=== PATIENT | male | born 1955 | race Caucasian/White ===

== ENCOUNTER 2023-08-03 11:00 | Emergency (ER) | payer OTHER, SELFPAY ==
[2023-08-03 11:11] VITALS: BP 160/88
[2023-08-03 11:39] LABS: % Basophils 0.2 % (0-2); % Eosinophils 1.3 % (0-6); % Immature Granulocytes 1.2 % (0-0.5); % Lymphocytes 9.9 % (20.5-51.1); % Monocytes 8.9 % (1.7-9.3); % Neutrophils 78.5 % (42.2-75.2); Absolute Eosinophils 0.1 10^3/uL (0-0.7); Absolute Immature Granulocytes 0.1 10^3/uL (0-0.05); Absolute Lymphocytes 0.9 10^3/uL (1.2-3.4); Absolute Monocytes 0.8 10^3/uL (0.1-0.6); Hematocrit 33.5 % (39.0-52.0); Mean Corp Hgb Conc. 32.8 g/dL (33.0-37.0); Mean Corpuscular Hgb 31.1 pg (27.0-31.0); Mean Corpuscular Volume 94.6 fL (80.0-94.0); Mean Platelet Volume 9.1 fL (7.4-10.4); Nucleated Red Blood Cells % 0 % (-); Platelet Count 259 10^3/uL (130-400); Red Blood Cell Count 3.54 10^6/uL (4.70-6.10); Red Cell Dist. Width 14.7 % (11.5-14.5); White Blood Cell Count 8.9 10^3/uL (4.8-10.8)
[2023-08-03 12:01] LABS: ALT (SGPT) < 10 U/L (0-50); AST (SGOT) 15 U/L (17-59); Albumin 3.1 g/dl (3.5-5.0); Alkaline Phosphatase 138 U/L (38-126); Blood Urea Nitrogen 12 mg/dl (9-20); Calcium 8.4 mg/dl (8.4-10.2); Carbon Dioxide 28 mmol/L (22-30); Chloride 101 mmol/L (98-107); Glucose 98 mg/dl (70-99); Potassium 4.1 mmol/L (3.5-5.1); Sodium 135 mmol/L (135-145); Total Bilirubin 0.6 mg/dl (0.2-1.3); Total Protein 5.7 g/dl (6.3-8.2); eGFR > 60.00
[2023-08-03 12:04] LABS: NT-proBNP 489 pg/ml; Troponin I < 0.012 ng/ml
[2023-08-03 12:11] VITALS: BP 126/76
[2023-08-03 12:14] VITALS: BMI 34.6
--- NOTE | 2023-08-03 12:35 | ED.GENMED ---
History of Present Illness
General
Chief Complaint: Swelling
Time Seen by Provider: 08/03/23 12:04
Travel History
Have you had any contact with someone who has COVID-19?: No
Do you have any symptoms of coronavirus? Fever > 100 degrees, chills, cough, shortness of breath, sore throat, loss of taste or smell, muscle aches, or headache?: No
History of Present Illness
History of Present Illness:
68-year-old male with history of asthma presents to the emergency department for evaluation of gradually worsening bilateral lower extremity edema over the past 4 to 5 days. He is approximately 1 month status post lumbar laminectomy and open
reduction internal fixation of sacral insufficiency fractures performed at [facility]. He will currently walks with a walker, states his rehab has been going well. He does have lateral lower extremity neuropathic pain that is unchanged
since his surgery. He does not weigh himself routinely. Has no history of lower extremity fluid retention or heart failure. Did try an [id number] diuretic with no relief.
Past History
Past History
ED Past Medical History: Asthma, Cancer (Prostate CA, metastatic cancer found in a lymph node) and Other (UTI, Ulcers, Bronchitis, Renal calculus, Iron def. anemia, Chingles, ); Negative HTN, Hypercholesterolemia or NIDDM
ED Past Surgical History: Appendectomy, Bowel resection, Orthopedic (Right ankle ORIF), Urological (Prostatectomy) and Other (Gastric bypass, Hernia, cataracts)
Social History
Tobacco: Former smoker
Alcohol: Occasional
Drug: None
Personal:
Living: with family
Employment: Other
Family History
Family History: Other
Review of Systems
Review of Systems
Allergies reviewed?: Yes
All Other Systems: ROS reviewed and negative except as documented in HPI and ROS
Phy Exam
Physical Exam
Physical Exam:
GEN: Well appearing, NAD, WDWN
Eyes: PERRLA, EOMs intact, no scleral icterus
HENT: NCAT, oral mucosa moist
Lungs: On respiratory effort, expiratory wheezes heard throughout all lung pope
Cardiac: RRR, no M/R/G, no peripheral edema. Radial pulses 2+ bilat
Abdomen: S, NT, ND, NABS, no masses or hepatosplenomegaly
Neuro: AO x 3
MSK: No gross deformity or ecchymosis. 4+ pitting edema bilateral lower extremities to the knees
Skin: No rashes, petechiae. Normal color, no pallor or jaundice.
Psych: Calm, cooperative, proper hygiene
Scores
Heart Failure Risk
Heart Failure Risk Score: Not Applicable
Course
Orders/Labs/Results
Orders:
Orders
08/03/23 11:16
Electrocardiogram (*1) Urgent
Reason for Study: Shortness of Breath
EKG- Treatment ONCE
CXR2 [CR Chest - 2 Views ] Urgent
Comment:
Reason For Exam: sob lower extremity edema
08/03/23 11:31
Complete Blood Count/With Diff Urgent
Comprehensive Metabolic Panel Urgent
NT-proBNP Urgent
Troponin I Urgent
08/03/23 12:34
Venous Doppler Lwr Ext Bilat [US Periph Venous LOWER Ext Norman] Stat
Comment:
Reason For Exam: BLE edema, recent spinal surgery
Abnormal Lab Results
08/03/23
11:31
RBC 3.54 L 10^6/uL
(4.70-6.10)
Hgb 11.0 L g/dL
(13.0-18.0)
Hct 33.5 L %
(39.0-52.0)
MCV 94.6 H fL
(80.0-94.0)
MCH 31.1 H pg
(27.0-31.0)
MCHC 32.8 L g/dL
(33.0-37.0)
RDW 14.7 H %
(11.5-14.5)
Abs Immat Gran (auto) 0.1 H 10^3/uL
(0-0.05)
Absolute Neuts (auto) 7.0 H 10^3/uL
(1.4-6.5)
Absolute Lymphs (auto) 0.9 L 10^3/uL
(1.2-3.4)
Absolute Monos (auto) 0.8 H 10^3/uL
(0.1-0.6)
Immature Gran % 1.2 H %
(0-0.5)
Neutrophils % 78.5 H %
(42.2-75.2)
Lymphocytes % 9.9 L %
(20.5-51.1)
Creatinine 0.5 L mg/dL
(0.7-1.3)
AST 15 L U/L
(17-59)
Alkaline Phosphatase 138 H U/L
(38-126)
Total Protein 5.7 L g/dl
(6.3-8.2)
Albumin 3.1 L g/dl
(3.5-5.0)
08/03/23 11:31
08/03/23 11:31
Vital Signs
Initial and Last Documented VS:
Initial Vital Signs
Temp Pulse Resp BP Pulse Ox
98.0 F 84 16 160/88 95
08/03/23 11:11 08/03/23 11:11 08/03/23 11:11 08/03/23 11:11 08/03/23 11:11
Last Documented Vital Signs
Temp Pulse Resp BP Pulse Ox
98.0 F 75 14 126/76 98
08/03/23 11:11 08/03/23 12:15 08/03/23 12:15 08/03/23 12:11 08/03/23 12:16
MDM/Problems Addressed
MDM/Problems Addressed:
Patient is identified to have a right popliteal to calf vein DVT. This is not likely the cause of his bilateral peripheral edema, rather this is likely third spacing coupled with recent steroid administration coupled with physical deconditioning
from recent surgery. Will start low-dose diuretics in addition to anticoagulants for the DVT. In regards to the wheezing patient has no increased work of breathing at rest but does become dyspneic with exertion. He is not hypoxic and has no focal
consolidation on chest x-ray. Given that he recently discontinued oral steroid therapy will trial a course of nebulized steroids particular given the patient has some GI absorption problems from recent gastric bypass. Patient is comfortable with
this plan, he does not require hospitalization
*Critical Care Note
Total Time (30-74mins, 75-104mins- exclusive of procedures): Not Applicable
ED Attending Note
-
Portions of this chart may have been created with voice recognition software.� Occasional wrong word or��sound alike� substitutions may have occurred due to the inherent limitations of voice recognition software.
Discharge Plan
Departure
Patient Disposition: Home (Routine Discharge)
Date of Disposition: 08/03/23
Time of Disposition: 14:39
Patient with high blood pressure during this ER visit?: No
Discharge Problem:
Acute deep vein thrombosis (DVT) of popliteal vein of right lower extremity, Bilateral leg edema, Asthma exacerbation, mild
Instructions: Deep Vein Thrombosis (Blood Clots in the Legs) (DC), Dependent Edema (DC), Going Home on Blood Thinners
Prescriptions:
New
Eliquis DVT-PE Treat 30D Start 5 mg (74 tabs) tablets,dose pack
See Rx Instructions .ROUTE .COMPLEX Qty: 74 0RF
Rx Instructions:
orally per package directions
budesonide 0.5 mg/2 mL suspension for nebulization
0.5 mg inhalation BID 14 Days Qty: 60 0RF
furosemide [Lasix] 20 mg tablet
20 mg PO DAILY PRN (Reason: edema) Qty: 30 0RF
No Action
ipratropium-albuterol 0.5 mg-3 mg(2.5 mg base)/3 mL Solution For Nebulization
3 ml INHALATION R Q6HPRN PRN (Reason: sob)
prednisone 20 mg Tablet
20 mg PO BID
lidocaine 5 % Adhesive Patch,Medicated
1 patch TOPICAL BID
Patient Comments:
06/23/2023, pt. currently wearing one patch on their back.
ergocalciferol (vitamin D2) 1,250 mcg (50,000 unit) Capsule
1,250 mcg PO FR@0800
levofloxacin 500 mg Tablet
500 mg PO DAILY
Patient Comments:
06/23/2023, pt. filled this med. on 06/22/2023 and is instructed to take one tablet daily for 7 days. Spouse states that pt. took second dose today.
albuterol sulfate 90 mcg/actuation Hfa Aerosol Inhaler
2 puff INHALATION R Q6HPRN PRN (Reason: sob)
pregabalin 150 mg Capsule
150 mg PO Q12H
Patient Comments:
06/23/2023, pt. filled this med. on 06/03/2023 for 60 capsules according to PDMP.
Tylenol Extra Strength 500 mg Powder In Packet
1,000 mg PO DAILYPRN PRN (Reason: mild pain)
Referrals:
Monica Villafuerte MD [Family Provider] -
Interventions
Interventions:
*Risk Screen - Suicide Last Done: 08/03/23 14:47
*General Assessment Last Done: 08/03/23 12:14
*Neglect/Abuse Screening Last Done: 08/03/23 12:21
ED- Fall Risk Assessment Last Done: 08/03/23 14:47
*ED COVID-19 Vaccine History Last Done: 08/03/23 11:11
*Nursing Disposition Last Done: 08/03/23 14:47
ED- Cardiac Assessment Last Done: 08/03/23 12:16
ED- Pulmonary Assessment Last Done: 08/03/23 12:16
ED-Skin Assessment Last Done: 08/03/23 12:17
Discharge Date and Time
Discharge Date/Time: 08/03/23 14:47
== END 2023-08-03 14:47 | disposition home or self-care (01) ==
LOC: EMR 11:00
PROVIDERS: EMERGENCY PHYSICIAN Student in an Organized Health Care Education/Training Program; FAMILY PHYSICIAN Internal Medicine
DX: I82.4Z1 Acute embolism and thrombosis of unspecified deep veins of right distal lower extremity (principal); J45.901 Unspecified asthma with (acute) exacerbation; R22.43 Localized swelling, mass and lump, lower limb, bilateral; Z87.891 Personal history of nicotine dependence
CPT/HCPCS: 99285; 71046; 80053; 83880; 84484; 85025; 93005; 93970

== ENCOUNTER → 2023-08-13 09:26 | Outpatient (REF) | payer OTHER, SELFPAY ==
[2023-08-13 12:23] LABS: Urine Albumin Negative (Neg - Trace); Urine Bilirubin Negative (Negative); Urine Character Clear (Clear); Urine Color Yellow; Urine Glucose Negative (Negative); Urine Ketone Negative (Negative); Urine Leukocyte Negative (Negative); Urine Nitrite Negative (Negative); Urine Occult Blood Negative (Negative); Urine Urobilinogen Negative (Neg - 1+)
[2023-08-13 12:50] LABS: Blood Urea Nitrogen 17 mg/dl (9-20); Calcium 8.7 mg/dl (8.4-10.2); Carbon Dioxide 31 mmol/L (22-30); Chloride 103 mmol/L (98-107); Glucose 84 mg/dl (70-99); Iron 87 ug/dl (49-181); Sodium 137 mmol/L (135-145); eGFR > 60.00
[2023-08-13 12:59] LABS: Percent Saturation 42 % (20-50); Total Iron Binding Capacity 207 ug/dl (261-462)
[2023-08-13 13:16] LABS: PSA, Total - Diagnostic < 0.06 ng/ml (0.0-4.0)
[2023-08-13 13:18] LABS: % Basophils 0.9 % (0-2); % Eosinophils 1.9 % (0-6); % Immature Granulocytes 2.3 % (0-0.5); % Lymphocytes 17.4 % (20.5-51.1); % Monocytes 11.6 % (1.7-9.3); % Neutrophils 65.9 % (42.2-75.2); Absolute Basophils 0.1 10^3/uL (0-0.2); Absolute Eosinophils 0.2 10^3/uL (0-0.7); Absolute Immature Granulocytes 0.2 10^3/uL (0-0.05); Absolute Lymphocytes 1.4 10^3/uL (1.2-3.4); Absolute Monocytes 0.9 10^3/uL (0.1-0.6); Absolute Neutrophils 5.3 10^3/uL (1.4-6.5); Hematocrit 34.5 % (39.0-52.0); Hemoglobin 11.1 g/dL (13.0-18.0); Mean Corp Hgb Conc. 32.2 g/dL (33.0-37.0); Mean Corpuscular Hgb 30.3 pg (27.0-31.0); Mean Corpuscular Volume 94.3 fL (80.0-94.0); Mean Platelet Volume 9.4 fL (7.4-10.4); Nucleated Red Blood Cells % 0 % (-); Platelet Count 429 10^3/uL (130-400); Red Blood Cell Count 3.66 10^6/uL (4.70-6.10); Red Cell Dist. Width 14.5 % (11.5-14.5); White Blood Cell Count 8.1 10^3/uL (4.8-10.8)
== END ==
LOC: HWLAB 09:26
PROVIDERS: ATTENDING PHYSICIAN Internal Medicine Hematology & Oncology; FAMILY PHYSICIAN Internal Medicine; REFERRING PHYSICIAN Internal Medicine Interventional Cardiology
DX: D50.9 Iron deficiency anemia, unspecified (principal); D64.9 Anemia, unspecified; C61 Malignant neoplasm of prostate; E78.2 Mixed hyperlipidemia; R06.02 Shortness of breath; M79.89 Other specified soft tissue disorders; R60.0 Localized edema
CPT/HCPCS: 36415; 80048; 81003; 82728; 83540; 83550; 84153; 84403; 85025

== ENCOUNTER → 2023-08-20 09:23 | Outpatient (REF) | payer OTHER, SELFPAY ==
[2023-08-20 11:09] LABS: Blood Urea Nitrogen 18 mg/dl (9-20); Calcium 8.9 mg/dl (8.4-10.2); Carbon Dioxide 34 mmol/L (22-30); Chloride 98 mmol/L (98-107); Glucose 77 mg/dl (70-99); Magnesium 1.8 mg/dl (1.6-2.3); Potassium 3.7 mmol/L (3.5-5.1); Sodium 136 mmol/L (135-145); eGFR > 60.00
== END ==
LOC: REG 09:23
PROVIDERS: ATTENDING PHYSICIAN Internal Medicine Interventional Cardiology; FAMILY PHYSICIAN Internal Medicine
DX: I51.7 Cardiomegaly (principal); R06.02 Shortness of breath
CPT/HCPCS: 36415; 80048; 83735

== ENCOUNTER → 2023-08-22 07:47 | Outpatient (REF) | payer OTHER, SELFPAY | LOC: MRI 07:47 | PROVIDERS: ATTENDING PHYSICIAN Physician Assistant Surgical | DX: M48.062 Spinal stenosis, lumbar region with neurogenic claudication (principal); S32.19XD Other fracture of sacrum, subsequent encounter for fracture with routine healing; M54.16 Radiculopathy, lumbar region | CPT/HCPCS: 72148 ==

== ENCOUNTER 2023-08-22 12:21 | Inpatient (IN) | payer OTHER, SELFPAY ==
[2023-08-22] VITALS (9 sets, daily range): BP systolic 101–125; BP diastolic 60–86; BMI 32.6
[2023-08-22 10:25] LABS: % Basophils 0.6 % (0-2); % Eosinophils 1.8 % (0-6); % Immature Granulocytes 1.2 % (0-0.5); % Lymphocytes 9.3 % (20.5-51.1); % Monocytes 8.9 % (1.7-9.3); % Neutrophils 78.2 % (42.2-75.2); Absolute Basophils 0.1 10^3/uL (0-0.2); Absolute Eosinophils 0.2 10^3/uL (0-0.7); Absolute Immature Granulocytes 0.1 10^3/uL (0-0.05); Absolute Monocytes 0.9 10^3/uL (0.1-0.6); Absolute Neutrophils 8.3 10^3/uL (1.4-6.5); Hematocrit 33.8 % (39.0-52.0); Hemoglobin 11.3 g/dL (13.0-18.0); Mean Corp Hgb Conc. 33.4 g/dL (33.0-37.0); Mean Corpuscular Hgb 30.8 pg (27.0-31.0); Mean Corpuscular Volume 92.1 fL (80.0-94.0); Mean Platelet Volume 9.7 fL (7.4-10.4); Nucleated Red Blood Cells % 0 % (-); Platelet Count 332 10^3/uL (130-400); Red Blood Cell Count 3.67 10^6/uL (4.70-6.10); Red Cell Dist. Width 13.7 % (11.5-14.5); White Blood Cell Count 10.6 10^3/uL (4.8-10.8)
[2023-08-22] MEDS: BUMEX 2 MG IV (10:39)
[2023-08-22 10:42] LABS: ALT (SGPT) 10 U/L (0-50); AST (SGOT) 23 U/L (17-59); Albumin 3.4 g/dl (3.5-5.0); Alkaline Phosphatase 156 U/L (38-126); Blood Urea Nitrogen 21 mg/dl (9-20); Calcium 8.6 mg/dl (8.4-10.2); Carbon Dioxide 30 mmol/L (22-30); Chloride 100 mmol/L (98-107); Glucose 89 mg/dl (70-99); Potassium 3.3 mmol/L (3.5-5.1); Sodium 135 mmol/L (135-145); Total Bilirubin 0.6 mg/dl (0.2-1.3); Total Protein 6.2 g/dl (6.3-8.2); eGFR > 60.00
[2023-08-22 10:46] LABS: NT-proBNP 313 pg/ml
--- NOTE | 2023-08-22 11:14 | ED.GENMED ---
History of Present Illness
General
Chief Complaint: Swelling
Time Seen by Provider: 08/22/23 09:47
Travel History
Have you had any contact with someone who has COVID-19?: No
Do you have any symptoms of coronavirus? Fever > 100 degrees, chills, cough, shortness of breath, sore throat, loss of taste or smell, muscle aches, or headache?: No
History of Present Illness
History of Present Illness:
68-year-old male presents to the emergency department for evaluation of bilateral lower extremity swelling that has been gradually worsening for the past month. He is approximately 2 months status post lumbar spine surgery, was seen in this
emergency department several weeks ago for bilateral lower extremity edema at which time he was noted to have a right calf DVT and was started on Eliquis. He was also started on diuretics at that time and due to worsening symptoms his port traffic manager
increased his dosage at home. Due to prior gastric bypass the patient states he has been diagnosed with short gut syndrome and has typical difficulty with absorption of p.o. meds. Has been taking 8 mg of Bumex daily with no response.
Past History
Past History
ED Past Medical History: Asthma, Cancer (Prostate CA, metastatic cancer found in a lymph node) and Other (UTI, Ulcers, Bronchitis, Renal calculus, Iron def. anemia, Chingles, ); Negative HTN, Hypercholesterolemia or NIDDM
ED Past Surgical History: Appendectomy, Bowel resection, Orthopedic (Right ankle ORIF), Urological (Prostatectomy) and Other (Gastric bypass, Hernia, cataracts)
Social History
Tobacco: Former smoker
Alcohol: Occasional
Drug: None
Personal:
Living: with family
Employment: Other
Family History
Family History: Other
Review of Systems
Review of Systems
Allergies reviewed?: Yes
All Other Systems: ROS reviewed and negative except as documented in HPI and ROS
Phy Exam
Physical Exam
Physical Exam:
GEN: Well appearing, NAD, WDWN
Eyes: PERRLA, EOMs intact, no scleral icterus
HENT: NCAT, oral mucosa moist
Lungs: Expiratory wheezing heard throughout all lung pope, coarse rhonchi in the left lower lobe
Cardiac: RRR, no M/R/G, no peripheral edema. Radial pulses 2+ bilat
Abdomen: S, NT, ND, NABS, no masses or hepatosplenomegaly
Neuro: AO x 3, no focal deficits to BUE/BLE, normal sensation throughout
MSK: No gross deformity or ecchymosis. 4+ pitting edema bilateral extremities to the knees
Skin: No rashes, petechiae. Normal color, no pallor or jaundice.
Psych: Calm, cooperative, proper hygiene
Scores
Heart Failure Risk
Heart Failure Risk Score: Not Applicable
Course
Orders/Labs/Results
Orders:
Orders
08/22/23 Breakfast
Regular
At Your Request: Full Participation
08/22/23 09:57
Electrocardiogram (*1) Urgent
Reason for Study: Shortness of Breath
EKG- Treatment ONCE
CR Chest - 2 Views Urgent
Comment:
Reason For Exam: SOB
08/22/23 10:00
PTT Urgent
Comment: Obtain baseline before beginning heparin infusion if not already collected
08/22/23 10:09
Complete Blood Count/With Diff Urgent
Comprehensive Metabolic Panel Urgent
NT-proBNP Urgent
08/22/23 10:15
Bumetanide [Bumex] 2 mg IV NOW STA
08/22/23 11:25
Potassium Chloride [KCl] 40 meq PO NOW STA
08/22/23 11:32
Add On- LAB Routine
Tests Added?: BNP
08/22/23 11:35
Potassium Chloride [KCl] 20 meq 0.9% Sodium Chloride 150 ml [Nss] 150 ml IV NOW
08/22/23 11:51
Heparin Protocol- PTT Orders As Directed
PTT per Heparin protocol: -Obtain CBC and baseline PTT - if not already collected.
-Obtain PTT 6 hours from start of infusion. Then, every 6 hours until 2 consecutive
PTT's are therapeutic. Then, PTT Daily.
-With each rate change, obtain PTT every 6 hours until 2 consecutive PTT's are
therapeutic. Then, PTT Daily.
Notify MD As Directed
Notify physician if: PTT is greater than or equal to 200.
Peripheral Venous Lwr Ext Bilat US [US Periph Venous LOWER Ext Norman] Routine
Comment:
Reason For Exam: eval suspected worsening DVT
08/22/23 11:53
Admit/Transfer Patient As Directed
Co-Sign Provider:
Level of Care: Inpatient admission
Assign to:: Telemetry
Physician / Group: David Dyer
Diagnosis: Worsening Lower Ext Edema DVT vs HF
Reason for Telemetry: Subacute Heart Failure
Date to Stop Telemetry: 08/24/23
Time to Stop Telemetry: 11:00
Reason for Hospitalization: Worsening Lower Ext Edema DVT vs HF
Expected length of stay greater than two midnights?: Yes
ELOS- Estimated Length of Stay in days: 2
I certify the patient meets the requirements for IP care: Yes
08/22/23 11:56
Code Status As Directed
Resuscitation Status: Full Code
08/22/23 11:59
Heparin 4,600 units IV PRN PRN
Heparin 9,200 units IV PRN PRN
08/22/23 12:00
Flush (0.9% Sodium Chloride) [Flush (Nss)] See Dose Instructions IV PER PROTOCOL
Heparin 34775 Units/250 ml 25,000 units in 250 ml IV PER PROTOCOL
Weight to be used for heparin protocol in kilograms (kg):: 115
Protocol:: DVT/PE
PTT Goal Range to be used:: PTT 73 to 111 seconds
Order type:: Initial
INITIAL Infusion Dose (UNITS/KG/hr) & then follow protocol:: 18 units/kg/hr
Infusion Dose in UNITS/hr & then follow protocol (UNITS/hr):: 2,000
INFUSION RATE in mL/hr & then follow protocol (mL/hr):: 20
For DVT/PE algorithm, re-bolus for low PTT?: Yes
PTT less than or equal to 64 seconds:: Re-bolus 80 units/kg (max 10,000units). Increase by 500 units/hr
(+ 5mL/hr)
PTT 64.1 to 72.9 seconds:: Re-bolus 40 units/kg (max 5,000 units). Increase by 200 units/hr
(+ 2mL/hr)
PTT 73 to 111 seconds:: Target Range. No change in rate.
PTT 111.1 to 130.9 seconds:: Decrease rate by 200 units/hr (- 2 mL/hr)
PTT 131 to 199.9 seconds:: HOLD for 1 hr. Then decrease by 400 units/hr (- 4mL/hr)
PTT greater than or equal to 200 seconds:: HOLD for 2 hrs & Notify Provider. Then decrease by 500 units/hr
(- 5mL/hr)
Lab follow-up:: Each change, PTT q6h until 2 consecutive are therapeutic. Then
PTT daily.
Ipratropium/Albuterol Sulfate [Duoneb] 3 ml INH R QID
08/22/23 13:56
Acetaminophen [Tylenol] 650 mg PO Q4HPRN PRN
hydrocodone-acetaminophen 1 tablet PO Q6H PRN
08/22/23 13:56
Activity As Directed
Activity Level: With Assistance
Vital Signs As Directed
Frequency: Per unit guidelines
08/22/23 14:09
Tizanidine [Zanaflex] 2 mg PO BIDPRN PRN
08/22/23 18:00
PTT Urgent
Comment: Obtain baseline before beginning heparin infusion if not already collected
08/22/23 20:00
Pregabalin [Lyrica] 150 mg PO Q12
08/23/23 06:00
Basic Metabolic Panel IN AM
Complete Blood Count/No Diff IN AM
Magnesium IN AM
08/23/23 08:00
Lidocaine [Lidocaine 4% Patch] 0 patch TOPICAL DAILY
08/24/23 06:00
Basic Metabolic Panel IN AM
Complete Blood Count/No Diff IN AM
Magnesium IN AM
08/24/23 11:00
DC Protocol for Telemetry ONCE
08/25/23 06:00
Basic Metabolic Panel IN AM
Complete Blood Count/No Diff IN AM
Magnesium IN AM
08/26/23 06:00
Basic Metabolic Panel IN AM
Complete Blood Count/No Diff IN AM
Magnesium IN AM
08/27/23 06:00
Basic Metabolic Panel IN AM
Complete Blood Count/No Diff IN AM
Magnesium IN AM
08/28/23 06:00
Basic Metabolic Panel IN AM
Complete Blood Count/No Diff IN AM
Magnesium IN AM
08/28/23 08:00
Ergocalciferol [Drisdol (Vitamin D2)] 50,000 units PO FR@0800
08/29/23 06:00
Basic Metabolic Panel IN AM
Complete Blood Count/No Diff IN AM
Magnesium IN AM
Abnormal Lab Results
08/22/23 08/22/23
10:00 10:09
RBC 3.67 L 10^6/uL
(4.70-6.10)
Hgb 11.3 L g/dL
(13.0-18.0)
Hct 33.8 L %
(39.0-52.0)
Abs Immat Gran (auto) 0.1 H 10^3/uL
(0-0.05)
Absolute Neuts (auto) 8.3 H 10^3/uL
(1.4-6.5)
Absolute Lymphs (auto) 1.0 L 10^3/uL
(1.2-3.4)
Absolute Monos (auto) 0.9 H 10^3/uL
(0.1-0.6)
Immature Gran % 1.2 H %
(0-0.5)
Neutrophils % 78.2 H %
(42.2-75.2)
Lymphocytes % 9.3 L %
(20.5-51.1)
APTT 41.3 H Sec
(23.4-35.0)
Potassium 3.3 L mmol/L
(3.5-5.1)
BUN 21 H mg/dl
(9-20)
Alkaline Phosphatase 156 H U/L
(38-126)
Total Protein 6.2 L g/dl
(6.3-8.2)
Albumin 3.4 L g/dl
(3.5-5.0)
08/22/23 10:09
08/22/23 10:09
Vital Signs
Initial and Last Documented VS:
Initial Vital Signs
Temp Pulse Resp BP Pulse Ox
98.6 F 113 16 119/80 94
08/22/23 08:51 08/22/23 08:51 08/22/23 08:51 08/22/23 08:51 08/22/23 08:51
Last Documented Vital Signs
Temp Pulse Resp BP Pulse Ox
98 F 71 18 125/70 95
08/22/23 13:59 08/22/23 13:59 08/22/23 13:59 08/22/23 13:59 08/22/23 13:59
MDM/Problems Addressed
MDM/Problems Addressed:
He has no signs of congestive heart failure but certainly has massive bilateral peripheral edema. May be failing oral therapy due to short gut syndrome. Will admit for IV diuresis
*Critical Care Note
Total Time (30-74mins, 75-104mins- exclusive of procedures): Not Applicable
ED Attending Note
-
Portions of this chart may have been created with voice recognition software.� Occasional wrong word or��sound alike� substitutions may have occurred due to the inherent limitations of voice recognition software.
Discharge Plan
Departure
Patient Disposition: Admit
Date of Disposition: 08/22/23
Time of Disposition: 11:14
Admit to: Med/Surg
Presentation/result/management discussed w/ accepting MD/DO: Hospitalist
Discharge Problem:
Bilateral lower extremity edema, Failure of outpatient treatment
Interventions
Interventions:
*Risk Screen - Suicide Last Done: 08/22/23 08:51
*General Assessment Last Done: 08/22/23 08:51
*Neglect/Abuse Screening Last Done: 08/22/23 08:51
ED- Fall Risk Assessment Last Done: 08/22/23 10:12
*ED COVID-19 Vaccine History Last Done: 08/22/23 10:12
*Nursing Disposition Last Done: 08/22/23 13:40
ED- Cardiac Assessment Last Done: 08/22/23 10:12
ED- Pulmonary Assessment Last Done: 08/22/23 10:12
ED-Skin Assessment Last Done: 08/22/23 10:12
Discharge Date and Time
Discharge Date/Time: 08/22/23 14:17
[2023-08-22] MEDS: KCL 40 MEQ PO (11:35)
[2023-08-22] MEDS: KCL 160 MEQ IV (11:48)
--- NOTE | 2023-08-22 11:59 | HPS.HSE ---
Family Physician
-
Family Physician: Monica Villafuerte
Chief Complaint
-
Lower extremity edema
History of Present Illness
68 male prostate cancer status post prostatectomy gastric bypass abdomen hernia pair asthma lumbar spine stenosis status postlaminectomy sacral ala fractures status post ORIF recently diagnosed DVT right lower extremity a month ago started on
Eliquis referred to ED by outpatient plater printed circuit board panels due to progressive lower extremity edema swelling bilateral with associated calf tenderness past few weeks not responding to outpatient Bumex. Patient and reported heart failure has been
suspected but not formally diagnosed. Patient also reports recently completing steroid taper a few weeks ago for neuropathy. Exam is notable for wheezing. Vital signs stable on room air. Denies fevers chills coughing sneezing shortness of breath
nausea vomiting diarrhea constipation.
Medical History
Past Medical History
Past Medical History: Reports Other (As above)
Past Surgical History: Reports Other (As above)
Social History
Tobacco: Non-smoker
Alcohol: Occasional
Drug: None
Personal:
Living: With Family
Family History
Family History: Not pertinent (Reviewed)
Allergies / Home Medications
Allergies reflects when Allergies were last updated in [facility].
Home Medications with original date entered in [facility]
Allergy/Medication List:
Allergies
Allergy/AdvReac Type Severity Reaction Status Date / Time
dupilumab [From DupixDiet4Life Pen] Allergy Unknown Verified 08/22/23 08:50
NSAIDS (Non-Steroidal AdvReac Can not Verified 08/22/23 08:50
Anti-Inflamma take due
to Gastric
Bypass
Home Medications
acetaminophen 500 mg oral powder packet (Tylenol Extra Strength) 1,000 mg PO DAILYPRN PRN mild pain 06/23/23
albuterol sulfate 90 mcg/actuation aerosol inhaler 2 puff inhalation R Q6HPRN PRN sob 06/23/23
ergocalciferol (vitamin D2) 1,250 mcg (50,000 unit) capsule 1,250 mcg PO FR@0800 Supplement 06/23/23
ipratropium 0.5 mg-albuterol 3 mg (2.5 mg base)/3 mL nebulization soln 3 ml inhalation R Q6HPRN PRN sob 06/23/23
lidocaine 5 % topical patch 1 patch topical BID apply to middle lumbar back 06/23/23
pregabalin 150 mg capsule 150 mg PO Q12H Pain 06/23/23
apixaban 5 mg tablet (Eliquis) 5 mg PO BID 08/22/23
bumetanide 1 mg tablet 4 mg PO BID 08/22/23
hydrocodone 10 mg-acetaminophen 325 mg tablet 1 tab PO Q6H PRN pain 08/22/23
tizanidine 2 mg capsule 2 mg PO BIDPRN PRN muscle spasm 08/22/23
Review of Systems
-
A 12 point ROS was completed and negative except as noted: Yes
Constitutional: Reports Other (As below)
Physical Exam
Vital Signs
Vital Signs
Temp Pulse Resp BP Pulse Ox
98.6 F 75 19 102/60 98
08/22/23 08:51 08/22/23 11:15 08/22/23 11:15 08/22/23 11:04 08/22/23 10:12
Physical Exam
General: Other (As below)
Laboratory Results
-
08/22/23 10:09
08/22/23 10:09
Laboratory Results
Total Bilirubin 0.6 mg/dl (0.2-1.3) 08/22/23 10:09
AST 23 U/L (17-59) 08/22/23 10:09
ALT 10 U/L (0-50) 08/22/23 10:09
Alkaline Phosphatase 156 U/L (38-126) H 08/22/23 10:09
Impression/Plan
-
ROS
General: Denies fever chills night sweats unexpected weight loss
Neuro: Denies seizure shaking loss of consciousness dizziness vertigo
Psych: denies depression hallucinations confusion manic episodes
Endocrine: Denies polyuria polydipsia polyphagia heat/cold intolerance
HEENT: Denies blindness visual disturbances epistaxis
Pulmonary: denies coughing hemoptysis sneezing sob dyspnea on exertion
Cardiovascular: denies chest pain palpitations leg swelling
Hematology: denies signs symptoms of anemia easy bruising/bleeding
Gastrointestinal: denies nausea vomiting diarrhea constipation hematemesis hematochezia melena
Genito-Urinary: denies retention incontinence dysuria
Musculoskeletal: reports lower ext edema b/l lower ext's with associate calf tenderness b/l
Dermatology: denies rash laceration bruising
Physical Exam
General: No pallor, cyanosis, or jaundice.
HEENT: Throat clear. PERRLA Normocephalic atraumatic
NECK: Supple. No JVD Carotid Bruits
RESPIRATORY: Expiratory Wheeze
CVS: S1, S2 normal. RRR. No murmur, rub or gallop.
ABDOMEN: Soft, non-tender. No distension. BS+/normal.
EXTREMITIES: Lower ext swelling b/l with associate calf tenderness
FINANCIAL COMPLIANCE MANAGER: AOx3. No focal deficits.
IMPRESSION:
68 male prostate cancer status post prostatectomy gastric bypass abdomen hernia pair asthma lumbar spine stenosis status postlaminectomy sacral ala fractures status post ORIF recently diagnosed DVT right lower extremity a month ago started on
Eliquis referred to ED by outpatient plater printed circuit board panels due to progressive lower extremity edema swelling bilateral with associated calf tenderness past few weeks not responding to outpatient Bumex. Patient and reported heart failure has been
suspected but not formally diagnosed. Patient also reports recently completing steroid taper a few weeks ago for neuropathy. Exam is notable for wheezing. Vital signs stable on room air. Denies fevers chills coughing sneezing shortness of breath
nausea vomiting diarrhea constipation.
PLAN:
#Worsening lower extremity edema bilateral with associated calf tenderness
#Recently diagnosed DVT right lower extremity month ago started on Eliquis
#History of short gut syndrome following gastric bypass
Telemetry admit
Chest x-ray no acute abnormality
Discontinue Eliquis at this time
Start heparin GTT
Check venous duplex
Doubt heart failure contributing to edema, BNP well within normal limits
Will hold further diuresis at this time
#Asthma exacerbation/wheezing
Stable on room air
DuoNeb 4 times daily
Albuterol as needed
#Lumbar stenosis history laminectomy
#Neuropathy
Continue home pain regimen lidocaine Hubbard pregabalin tizanidine
Follow-up ED lumbar MRI results
#Mild hypokalemia
Monitor and replete
DVT prophylaxis heparin GTT
GI prophylaxis Protonix
Meds reconciled and resumed as appropriate
Full code
Discussed with patient and his
I spent a total of 80 minutes with the patient or on the floor. More than 50% of this time involved counseling and coordination of care.
[2023-08-22] MEDS: HEPARIN 25000 UNITS/250 ML IV (12:06)
[2023-08-22] MEDS: DUONEB 3 ML INH ×3 (12:14→19:30)
[2023-08-22 12:17] LABS: APTT 41.3 Sec (23.4-35.0)
[2023-08-22] MEDS: NORCO 5/325 2 TABLET PO ×2 (14:48→19:48)
[2023-08-22] MEDS: PROTONIX 40 MG PO (14:48)
[2023-08-22 18:33] LABS: APTT 139.3 Sec (23.4-35.0)
--- NOTE | 2023-08-22 19:35 | W.PN.UPDATE ---
Update Note
Progress Note Update
Patient home medication list updated, and PMDP reviewed. Patient hydrocodone-acetaminophen frequency updated and orders corrected.
[2023-08-22] MEDS: LYRICA 150 MG PO (21:20)
[2023-08-23] MEDS: NORCO 5/325 2 TABLET PO ×6 (01:15→23:20)
[2023-08-23] MEDS: HEPARIN 25000 UNITS/250 ML IV ×2 (03:11→18:30)
[2023-08-23 03:18] VITALS: BP 114/72
[2023-08-23 03:27] LABS: Hemoglobin 10.7 g/dL (13.0-18.0); Mean Corp Hgb Conc. 33.4 g/dL (33.0-37.0); Mean Corpuscular Hgb 30.9 pg (27.0-31.0); Mean Corpuscular Volume 92.5 fL (80.0-94.0); Mean Platelet Volume 9.5 fL (7.4-10.4); Platelet Count 281 10^3/uL (130-400); Red Blood Cell Count 3.46 10^6/uL (4.70-6.10); Red Cell Dist. Width 13.9 % (11.5-14.5); White Blood Cell Count 7.6 10^3/uL (4.8-10.8)
[2023-08-23 03:42] LABS: APTT 111.3 Sec (23.4-35.0)
[2023-08-23 04:38] LABS: Blood Urea Nitrogen 22 mg/dl (9-20); Calcium 8.5 mg/dl (8.4-10.2); Carbon Dioxide 29 mmol/L (22-30); Chloride 101 mmol/L (98-107); Estimated Creatinine Clearance 114 ml/min; Glucose 92 mg/dl (70-99); Magnesium 2.1 mg/dl (1.6-2.3); Potassium 3.3 mmol/L (3.5-5.1); Sodium 136 mmol/L (135-145); eGFR > 60.00
[2023-08-23 06:00] VITALS: BMI 32.8
--- NOTE | 2023-08-23 06:57 | W.PN.HOSP.TC ---
Today's Communication/Plan
-
cont hep gtt
Hematology eval
cont diuresis as per cardio
monitor and replete electrolytes
Pending ECHO
Assessment / Plan
Assessment / Plan
Physical Exam
General: No pallor, cyanosis, or jaundice.
HEENT: Throat clear. PERRLA Normocephalic atraumatic
NECK: Supple. No JVD Carotid Bruits
RESPIRATORY: Expiratory Wheeze
CVS: S1, S2 normal. RRR.� No murmur, rub or gallop.
ABDOMEN: Soft, non-tender. No distension. BS+/normal.
EXTREMITIES: Lower ext swelling b/l with associate calf tenderness
WATCH CRYSTAL GRINDER: AOx3. No focal deficits.
IMPRESSION:
68 male prostate cancer status post prostatectomy gastric bypass abdomen hernia pair asthma lumbar spine stenosis status postlaminectomy sacral ala fractures status post ORIF recently diagnosed DVT right lower extremity a month ago started on
Eliquis referred to ED by outpatient heavy line technician due to progressive lower extremity edema swelling bilateral with associated calf tenderness past few weeks not responding to outpatient Bumex.� Patient and reported heart failure has been
suspected but not formally diagnosed.� Patient also reports recently completing steroid taper a few weeks ago for neuropathy.� Exam is notable for wheezing.� Vital signs stable on room air.� Denies fevers chills coughing sneezing shortness of breath
nausea vomiting diarrhea constipation.
PLAN:
#Worsening lower extremity edema bilateral with associated calf tenderness
#Recently diagnosed DVT right lower extremity month ago started on Eliquis
#History of short gut syndrome following gastric bypass
#Possible Heart Failure unspecified type contributing
#Possible lower ext swelling may be due to Lymphedema, could consider compressive dressing LLE, RLE contraindicated d/t DVT
Telemetry admit
Chest x-ray no acute abnormality
home Eliquis on hold
cont heparin gtt
Hematology eval requested
Venous duplex notes same RLE DVT, no DVT LLE
CT angio abd/pelvis appreciated 08/22
-No evidence pelvic iliac or proximal femoral DVT b/l
-AAA 3.2 cm increased from 2.9 cm 03/25/23 imaging- outpatient follow up with Vascular recommended
-2.1 cm lesion rt external iliac vein unchanged from prior studies likely benign
BNP well within normal limits, though obesity can lead to falsely low values
Cardio eval appreciated
-Follow up ECHO
-cont IV diuresis
#Asthma exacerbation/wheezing
Stable on room air
DuoNeb 4 times daily
Albuterol as needed
will hold off on systemic steroids at this time
#Lumbar stenosis history laminectomy
#Neuropathy
Continue home pain regimen lidocaine Dinuba pregabalin tizanidine
Follow-up ED lumbar MRI results, remains pending
#Mild hypokalemia
Monitor and replete
Goal K 4 Mg 2
DVT prophylaxis heparin GTT
GI prophylaxis Protonix
Full code
Eventual PT/OT eval
Discussed with patient and his
I spent a total of� 57� � minutes with the patient or on the floor. More than 50% of this time involved counseling and coordination of care.
Anticipated Discharge: 24 - 48 hours
Subjective/Interval History
-
Date of Service: August 23, 2023
Seen and examined at bedside in no acute distress resting comfortably in bed. Denies new acute issues. Continues to report b/l lower ext swelling pain.
Objective Data
-
Labs:
Laboratory Results
08/23/23 08/23/23
03:21 09:55
WBC 7.6
Hgb 10.7 L
Hct 32.0 L
Plt Count 281
APTT 111.3 H Pending
Sodium 136
Potassium 3.3 L
Chloride 101
Carbon Dioxide 29
BUN 22 H
Creatinine 0.8
Glucose 92
Calcium 8.5
Vital Signs:
Vital Signs
Temp Pulse Resp BP Pulse Ox
97.8 F 69 18 114/72 94
08/23/23 03:18 08/23/23 03:18 08/23/23 03:18 08/23/23 03:18 08/23/23 03:18
I&O
08/21/23 08/22/23 08/23/23
06:59 06:59 06:59
Intake Total 240 / 240
Output Total 1275 / 1275
Balance -1035 / -1035
[2023-08-23 07:30] VITALS: BP 125/74
[2023-08-23] MEDS: DUONEB 3 ML INH ×4 (07:53→20:16)
[2023-08-23] MEDS: LYRICA 150 MG PO ×2 (08:25→20:25)
[2023-08-23] MEDS: PROTONIX 40 MG PO (08:25)
[2023-08-23] MEDS: KCL 40 MEQ PO ×2 (08:25→12:33)
--- NOTE | 2023-08-23 11:47 | CM ---
Patient seen bedside with daughter, Ben, and daughters significant other, Kishan, initial assessment completed. Patient reports he lives with his in an in law suite next to his son's house. Patient reports his assists him with any care he
may need. Patient reports the suite is all one floor and handicap accessible. Patient reports he has a walker, raised toilet seat, shower rails, shower chair, and toilet rails. Patient denies VN or SNF. Patient confirms PCP Monica Spangler,
pharmacy [facility]. CM will continue to follow for discharge planning needs.
Plan; home with family.
[2023-08-23 12:40] VITALS: BP 141/82
[2023-08-23] MEDS: NSS 1000 IV (12:40)
[2023-08-23 13:45] LABS: Iron 82 ug/dl (49-181)
[2023-08-23 13:54] LABS: Percent Saturation 41 % (20-50); Total Iron Binding Capacity 198 ug/dl (261-462)
[2023-08-23 15:20] VITALS: BP 132/77
--- NOTE | 2023-08-23 16:27 | CON.CAR ---
Consultation
Consultation Request
Date/Time Consultation Requested: 08/22/2023 at 1455
Date/Time Consultation Performed: 08/23/2023 at 1030
Requesting Provider: David Dyer
Performing Provider: Prosper Claros DO
Reason for Consultation: Possible HF
Medical History
-
Chief Complaint: Back pain, LE swelling
History of Present Illness:
Patient is a very pleasant 68-year-old male with past medical history significant for abdominal aortic aneurysm, incisional hernia status post repair, umbilical hernia status with surgical pair, COPD, iron deficiency anemia, prostate cancer status
post robotic prostatectomy, B12 efficiency, diverticulosis, history of gastric bypass, lumbar spinal stenosis status postlaminectomy and sacral fracture repair, right lower extremity DVT on Eliquis presenting for lower extremity swelling and back
pain/neuropathy. Patient had been on steroid taper for few weeks due to neuropathy and had also noticed concurrent lower extremity swelling. Patient underwent ultrasonography which demonstrated DVT and placed on Eliquis. Patient reports adherence
to all medications. Patient notes no improvement with oral diuretic therapy and outpatient Lasix was changed to Bumex 08/11/2023. There is concerned that due to patient's prior gastric bypass surgery, he may not be absorbing oral medications as
readily. Patient is a non-smoker, no alcohol, no illicits. Patient with strong family history for cardiovascular disease. Prior echocardiography demonstrated normal heart function in 2019. Patient notes mild shortness of breath and wheezing but
improved. Discussed with patient currently, he denies any chest pain, palpitations, lightheadedness, dizziness, fever, chills, nausea, vomiting, abdominal pain, syncope, or weakness. He notes lower extremity discomfort neuropathy, and swelling.
Past Medical History
Past Medical History: Other (See HPI)
Past Surgical History: Other (See HPI)
Social History
Tobacco: Non-Smoker
Alcohol: None
Drug: None
Personal:
Living: With Family
Family History
Family History: CAD and Hypertension
Allergies / Home Medications
Allergy/AdvReac Type Severity Reaction Status Date / Time
dupilumab [From [employer] [facility]] Allergy Unknown Verified 08/22/23 08:50
NSAIDS (Non-Steroidal AdvReac Can not Verified 08/22/23 08:50
Anti-Inflamma take due
to Gastric
Bypass
Medication Instructions Recorded Confirmed Type
acetaminophen 500 mg oral powder 1,000 mg PO DAILYPRN PRN mild pain 06/23/23 08/22/23 History
packet (Tylenol Extra Strength)
albuterol sulfate 90 mcg/actuation 2 puff inhalation R Q6HPRN PRN sob 06/23/23 08/22/23 History
aerosol inhaler
ergocalciferol (vitamin D2) 1,250 1,250 mcg PO FR@0800 Supplement 06/23/23 08/22/23 History
mcg (50,000 unit) capsule
ipratropium 0.5 mg-albuterol 3 mg 3 ml inhalation R Q6HPRN PRN sob 06/23/23 08/22/23 History
(2.5 mg base)/3 mL nebulization
soln
lidocaine 5 % topical patch 1 patch topical BID apply to 06/23/23 08/22/23 History
middle lumbar back
pregabalin 150 mg capsule 150 mg PO Q12H Pain 06/23/23 08/22/23 History
apixaban 5 mg tablet (Eliquis) 5 mg PO BID Blood Clot 08/22/23 08/22/23 History
Prevention/Tx
bumetanide 1 mg tablet 4 mg PO BID Fluid 08/22/23 08/22/23 History
Retention/Swelling
hydrocodone 10 mg-acetaminophen 1 tab PO Q4H Pain 08/22/23 08/22/23 History
325 mg tablet
tizanidine 2 mg capsule 2 mg PO BIDPRN PRN muscle spasm 08/22/23 08/22/23 History
Review of Systems
-
History Source: Patient
Constitutional: No Symptoms
EENT: No Symptoms
Respiratory: Other (Mild shortness of breath with wheeze)
Cardiac: No Symptoms
Abdomen/GI: No Symptoms
: No Symptoms
Musculoskeletal: Edema (Bilateral lower extremity with discomfort)
Skin: No Symptoms
Neurological: No Symptoms
Endocrine: No Symptoms
Hematologic/Lymphatic: No Symptoms
Physical Exam
Vital Signs
Temp Pulse Resp BP Pulse Ox
98 F 76 18 132/77 96
08/23/23 15:20 08/23/23 15:55 08/23/23 15:55 08/23/23 15:20 08/23/23 15:20
Lab Results
08/23/23 03:21
08/23/23 03:21
Drd-V-Mtkstypmwhq Pept 313 pg/ml 08/22/23 10:09
Physical Exam
General: Well Developed, Well Nourished, No Apparent Distress and Comfortable
HEENT: Normocephalic, Anicteric and Moist Mucous Membranes
Respiratory: Wheezes (Expiratory), Non Labored Respirations and Other (No rhonchi rales)
Cardiac: S1/S2, Regular Rhythm and Other (No murmur, rub, gallop)
GI: Soft, Non Tender and Non Distended
Musculoskeletal: No Clubbing, No Cyanosis and Edema (2+ bilateral lower extremity mild tenderness to palpation)
Skin: Warm and Dry
Neuro: AO x 3 and Nonfocal/Grossly Intact
Psych: Calm
Impression / Plan
-
TTE 05/2020: Normal biventricular size, systolic function, no regional wall motion abnormality. Mild concentric LVH. EF 60 to 65%. Aortic sclerosis without significant stenosis. Mild MAC with trace MR. Mild TR. PASP 30 to 35 mmHg, compared to
prior study 12/2017 no significant change.
.
PCP: Monica Villafuerte MD
Wire Repairer: Sonia Naranjo MD
.
Assessment:
*Lower extremity edema, bilateral, with calf tenderness, worsening
� Changed by primary senior air director from Lasix to Bumex with mild improvement
� Concern for malabsorption
� Ultrasound demonstrates persistent DVT without significant change
� Previously on Eliquis now on heparin drip
� BNP normal, however due to size, may be falsely low
*DVT, right lower extremity, previous on Eliquis
*Acute on chronic asthma, improving
� Wheezing, receiving neb treatments with albuterol as needed
� On room air with stable oxygen sat
*Gastric bypass with short gut syndrome
� May play a role in patient's continued lower extremity swelling
� May benefit from GI evaluation or further workup regarding this and malabsorption
*Mixed hyperlipidemia, diet controlled
*Abdominal aortic ectasia, stable managed by primary
*Neuropathy in setting of lumbar spinal stenosis with history of laminectomy
� Recently on steroid therapy; on pain regimen, managed by primary
Recommendations:
� 2D echocardiogram to assess cardiac size, shape, function and valvular anatomy in setting of worsening lower extremity swelling
� Agree with IV heparin and IV diuresis
� Monitor renal function and electrolytes (goal K greater than 4, mag greater than 2)
� Further recommendations to follow
Data Reviewed
-
EKG: Tracing Personally Visualized and interpreted
Radiology: Report Reviewed by me
Ultrasound: Report Reviewed by me
Medical Tests (Nuc Med, Echo etc): Report Reviewed by me
Labs: Labs Reviewed by me
Old Records: Reviewed
[2023-08-23 17:12] LABS: APTT 65.5 Sec (23.4-35.0)
[2023-08-23] MEDS: HEPARIN 4600 UNITS IV (17:50)
[2023-08-23 19:19] VITALS: BP 128/68
[2023-08-23] MEDS: BUMEX 2 MG IV (20:23)
[2023-08-23] MEDS: KCL 20 MEQ PO (20:25)
[2023-08-23 23:35] VITALS: BP 120/80
[2023-08-24 00:24] LABS: APTT 185.7 Sec (23.4-35.0)
[2023-08-24 03:09] VITALS: BP 127/78
[2023-08-24] MEDS: NORCO 5/325 2 TABLET PO ×5 (03:24→20:47)
[2023-08-24 06:00] VITALS: BMI 32.8
[2023-08-24 07:00] VITALS: BP 132/69
[2023-08-24] MEDS: KCL 20 MEQ PO ×2 (07:42→20:44)
[2023-08-24] MEDS: LYRICA 150 MG PO ×2 (07:42→20:44)
[2023-08-24] MEDS: PROTONIX 40 MG PO (07:42)
[2023-08-24] MEDS: DUONEB 3 ML INH ×4 (07:54→19:42)
[2023-08-24 08:08] LABS: Hematocrit 35.1 % (39.0-52.0); Hemoglobin 11.1 g/dL (13.0-18.0); Mean Corp Hgb Conc. 31.6 g/dL (33.0-37.0); Mean Corpuscular Hgb 29.9 pg (27.0-31.0); Mean Corpuscular Volume 94.6 fL (80.0-94.0); Mean Platelet Volume 10.1 fL (7.4-10.4); Platelet Count 290 10^3/uL (130-400); Red Blood Cell Count 3.71 10^6/uL (4.70-6.10); Red Cell Dist. Width 13.9 % (11.5-14.5); White Blood Cell Count 9.6 10^3/uL (4.8-10.8)
[2023-08-24 08:16] LABS: APTT 64.8 Sec (23.4-35.0)
[2023-08-24 08:40] LABS: Blood Urea Nitrogen 18 mg/dl (9-20); Calcium 9.1 mg/dl (8.4-10.2); Chloride 104 mmol/L (98-107); Magnesium 1.8 mg/dl (1.6-2.3); Potassium 4.2 mmol/L (3.5-5.1); Sodium 134 mmol/L (135-145)
[2023-08-24 08:54] LABS: Carbon Dioxide 25 mmol/L (22-30); Estimated Creatinine Clearance > 125 ml/min; Glucose 141 mg/dl (70-99); eGFR > 60.00
--- NOTE | 2023-08-24 09:19 | CARDSERVLU ---
Echocardiogram with [facility] completed after protocol screening completed. Allergies verified.
Patent IV site: _Right hand site clear____
IV site flushed with 0.9% NaCl pre and post administration.
Diluted bolus method utilized to enhance visualization of ventricular dinh.
Total volume given: _3___ mL
Patient tolerated all procedures well without complications.
[2023-08-24] MEDS: HEPARIN 4600 UNITS IV (09:36)
--- NOTE | 2023-08-24 09:46 | CON.ONC ---
Addendum entered and electronically signed by Debi Peck MD 08/24/23 19:23:
Suggest warfarin rather than Eliquis in setting of gastric bypass.
If difficulty maintaining therapeutic INR as outpt then could switch to Lovenox. willing to do injections.
This seems to be a provoked clot and finite course of anticoagulation would be reasonable if prostate cancer currently FARHANA. Will defer to Dr. Noel regarding duration of anticoagulation.
c/o neuropathic pain unresponsive to gabapentin, pre-gabalin. Suggested B12 1000 mcg daily, alpha-lipoic acid 600 mg daily, vit E supplement. Consider PT referral for TENS unit and/or outpt medical marijuana certification.
Thank you for consult, will follow along with you.
Original Note:
Impression
Impression
Metastatic prostate cancer s/p prostatectomy (2013) w/ rise in PSA s/p XRT (2015, [facility])
Left iliac lymph node s/p XRT, Eligard x1 (07/2022)
Gastric bypass surgery: Deepa-en-Y (Dr. Vergara, 2005)
Undetectable PSA (08/13/23)
Short-gut syndrome/hx malabsorption issues
Progressive lower extremity edema
Lumbar stenosis s/p laminectomy
Recent dx RLE DVT on Eliquis
RLE neuropathy/pain with decreased ROM
Plan
Plan
08/13/23 PSA <0.06, remains undetectable
Continue Heparin gtt; hold Eliquis
Monitor CBC daily
Iron stores adequate, check B12/folate
Diuresis per Cardiology
Supportive care, pain management
PT/OT
We will follow.
Patient History
History of Present Illness
Lavelle Matson is a pleasant 68 year old male known to Dr. Noel with [facility] for history of prostate cancer, DVT, and iron deficiency anemia. Patient was instructed to proceed to the hospital due to progressive bilateral lower extremity edema
which was not responding to 8mg BID Bumex at home. He reports decreased ROM of RLE with pain to posterior thigh radiating down his leg s/p laminectomy in June. He has trouble completing ADLs and cannot ambulate far distances or complete house
chores. He had outpatient MRI of lumbar spine on 08/22/23. He was found to have post-operative DVT of RLE and started on Eliquis. He has a history of gastric bypass in 2005 and he has been diagnosed with short-gut syndrome with difficulty absorbing
iron and medications. He states his lower extremity swelling has improved significantly on IV diuretics. His biggest complain is lower back pain and RLE pain, ambulatory dysfunction. He denies chest pain, shortness of breath, abdominal pain, pelvic
pain, unintentional weight loss, or hematuria/dysuria. Most recent PSA from 08/13/23 is undetectable.
Past-Medical/Surgical History
Metastatic prostate cancer s/p robotic prostatectomy (2013) w/ rise in PSA which prompted radiation (2015, [facility])
Left iliac lymph node s/p XRT, Eligard x1 (07/2022)
Gastric bypass surgery: Deepa-en-Y (Dr. Vergara, 2005)
Short-gut syndrome s/p bariatric surgery
Iron deficiency anemia
L4, L5 laminectomy with hardware
Chronic RLE nerve pain (Lyrica)
RLE DVT on Eliquis
Chronic lower back pain
Spinal stenosis
Former smoker
Hx Nephrolithiasis
Incisional/umbilical hernia repair
COPD/asthma
Abdominal aortic aneurysm
Patient Medication
Medication Instructions Recorded Confirmed Last Taken Type
acetaminophen 500 mg oral powder 1,000 mg PO DAILYPRN PRN mild pain 06/23/23 08/22/23 06/22/23 History
packet (Tylenol Extra Strength)
albuterol sulfate 90 mcg/actuation 2 puff inhalation R Q6HPRN PRN sob 06/23/23 08/22/23 06/23/23 History
aerosol inhaler
ergocalciferol (vitamin D2) 1,250 1,250 mcg PO FR@0800 Supplement 06/23/23 08/22/23 08/21/23 History
mcg (50,000 unit) capsule
ipratropium 0.5 mg-albuterol 3 mg 3 ml inhalation R Q6HPRN PRN sob 06/23/23 08/22/23 06/23/23 History
(2.5 mg base)/3 mL nebulization
soln
lidocaine 5 % topical patch 1 patch topical BID apply to 06/23/23 08/22/23 06/23/23 History
middle lumbar back
pregabalin 150 mg capsule 150 mg PO Q12H Pain 06/23/23 08/22/23 08/22/23 History
apixaban 5 mg tablet (Eliquis) 5 mg PO BID Blood Clot 08/22/23 08/22/23 08/22/23 History
Prevention/Tx
bumetanide 1 mg tablet 4 mg PO BID Fluid 08/22/23 08/22/23 08/22/23 History
Retention/Swelling
hydrocodone 10 mg-acetaminophen 1 tab PO Q4H Pain 08/22/23 08/22/23 Unknown History
325 mg tablet
tizanidine 2 mg capsule 2 mg PO BIDPRN PRN muscle spasm 08/22/23 08/22/23 08/22/23 History
Active Medications
Generic Name Dose Route Start Last Admin
Trade Name Freq PRN Reason Stop Dose Admin
Hydrocodone Bitart/Acetaminophen 2 tablet 08/22/23 19:35 08/24/23 07:42
Hydrocodone 5 Mg/Acetaminophen 325 Mg Tablet PO 09/05/23 19:33 2 tablet
Q4HPRN PRN Administration
MODERATE TO SEVERE PAIN
Albuterol/Ipratropium 3 ml 08/22/23 12:00 08/24/23 07:54
Ipratropium 0.5/Albuterol 3 Mg (3 Ml Ampul) INH 3 ml
R QID SHIRIN Administration
Protocol
Bumetanide 2 mg 08/23/23 20:00 08/23/23 20:23
Bumetanide (0.25 Mg/1 Ml) 4 Ml Vial IV 09/20/23 19:59 2 mg
BID SHIRIN Administration
Ergocalciferol 50,000 units 08/28/23 08:00
Ergocalciferol (Vitamin D-2) 82416 Units Capsule PO 09/25/23 07:59
FR@0800 SHIRIN
Heparin Sodium 9,200 units 08/22/23 11:59
Heparin 80 Units/Kg Rebolus-Do Not Discard IV 09/19/23 11:58
PRN PRN
PTT < OR = 64 seconds
Heparin Sodium 4,600 units 08/22/23 11:59 08/24/23 09:36
Heparin 40 Units/Kg Rebolus-Do Not Discard IV 09/19/23 11:58 4,600 units
PRN PRN Administration
PTT = 64.1 to 72.9 seconds
Heparin Sodium 25,000 units in 250 mls @ 0 mls/hr 08/22/23 12:00 08/23/23 18:30
Heparin 98422 Units/250 Ml IV 250 mls
PER PROTOCOL SHIRIN Administration
Protocol
Per Protocol
Lidocaine 0 patch 08/23/23 08:00 08/24/23 07:46
Lidocaine 4% Topical Patch TOPICAL 09/20/23 07:59 Not Given
DAILY SHIRIN
Pantoprazole Sodium 40 mg 08/22/23 13:56 08/24/23 07:42
Pantoprazole 40 Mg Delayed Release Tablet PO 09/19/23 13:55 40 mg
DAILY SHIRIN Administration
Patch Removal 0 patch 08/23/23 20:00 08/23/23 19:22
Remove Lidocaine Patch REMOVE 09/20/23 19:59 Not Given
DAILY@2000 SHIRIN
Potassium Chloride 20 meq 08/23/23 20:00 08/24/23 07:42
Potassium Chloride 20 Meq Extended Release Tablet PO 09/20/23 19:59 20 meq
BID SHIRIN Administration
Pregabalin 150 mg 08/22/23 20:00 08/24/23 07:42
Pregabalin 50 Mg Capsule PO 09/19/23 19:59 150 mg
Q12 SHIRIN Administration
Sodium Chloride 0 flush 08/22/23 12:00
Sodium Chloride 0.9% (Flush) Syringe IV 09/19/23 11:59
PER PROTOCOL SHIRIN
Tizanidine HCl 2 mg 08/22/23 14:09
Tizanidine 2 Mg Tablet PO 09/19/23 14:08
BIDPRN PRN
muscle spasm
Review of Systems
-
History Source: Patient, Family, Physician, Coordinated Provider and Records
Constitutional: Reports No Symptoms
EENT: Reports No Symptoms
Respiratory: Reports No Symptoms
Cardiac: Reports No Symptoms
GI: Reports No Symptoms
Breast: Reports N/A
: Reports No Symptoms
Musculoskeletal: Reports Joint Pain (Right hip, leg, lower back ), Muscle Pain (RLE) and Edema (bilateral LE)
Skin: Reports No Symptoms
Neuro: Reports No Symptoms
Endocrine: Reports No Symptoms
Hematologic/Lymphatic: Reports No Symptoms
Allergy / Immunology: Reports No Symptoms
Psych: Reports No Symptoms
Physical Exam
-
Lavelle is resting comfortably in bed. at bedside.
General: Well Developed, Well Nourished, No Apparent Distress, Comfortable, Pain (RLE), Conversant and Obese
HEENT: Negative Jaundice
Cardiology: S1 and S2
Pulmonary: Clear
GI: Soft and Normal Bowel Sounds
Genito-Urinary: Deferred by me
Musculoskeletal: Edema, Right Lower Extrem (+2 pitting), Edema, Left Lower Extrem (+2 pitting) and Normal Gait & Station (decreased ROM of RLE)
Extremities: Pulses Present and Edema
Neurology: Non Focal
Skin: Warm and Dry
Hematologic / Lymphatic: No Petechiae
Psych: Calm
Labs
Lab Results
WBC 9.6 10^3/uL (4.8-10.8) 08/24/23 07:50
RBC 3.71 10^6/uL (4.70-6.10) L 08/24/23 07:50
Hgb 11.1 g/dL (13.0-18.0) L 08/24/23 07:50
Hct 35.1 % (39.0-52.0) L 08/24/23 07:50
MCV 94.6 fL (80.0-94.0) H 08/24/23 07:50
MCH 29.9 pg (27.0-31.0) 08/24/23 07:50
MCHC 31.6 g/dL (33.0-37.0) L 08/24/23 07:50
RDW 13.9 % (11.5-14.5) 08/24/23 07:50
Plt Count 290 10^3/uL (130-400) 08/24/23 07:50
MPV 10.1 fL (7.4-10.4) 08/24/23 07:50
Abs Immat Gran (auto) 0.1 10^3/uL (0-0.05) H 08/22/23 10:09
Absolute Neuts (auto) 8.3 10^3/uL (1.4-6.5) H 08/22/23 10:09
Absolute Lymphs (auto) 1.0 10^3/uL (1.2-3.4) L 08/22/23 10:09
Absolute Monos (auto) 0.9 10^3/uL (0.1-0.6) H 08/22/23 10:09
Absolute Eos (auto) 0.2 10^3/uL (0-0.7) 08/22/23 10:09
Absolute Basos (auto) 0.1 10^3/uL (0-0.2) 08/22/23 10:09
Immature Gran % 1.2 % (0-0.5) H 08/22/23 10:09
Neutrophils % 78.2 % (42.2-75.2) H 08/22/23 10:09
Lymphocytes % 9.3 % (20.5-51.1) L 08/22/23 10:09
Monocytes % 8.9 % (1.7-9.3) 08/22/23 10:09
Eosinophils % 1.8 % (0-6) 08/22/23 10:09
Basophils % 0.6 % (0-2) 08/22/23 10:09
Creatinine 0.7 mg/dL (0.7-1.3) 08/24/23 07:50
Vital Signs
Vital Signs
Temp Pulse Resp BP Pulse Ox
98 F 81 18 132/69 99
08/24/23 07:00 08/24/23 07:00 08/24/23 07:00 08/24/23 07:00 08/24/23 07:00
(outpatient) 08/22/23 Lumbar spine MRI: The lumbar spine MRI examination was performed without IV contrast as an outpatient on 08/22/2023, patient was then seen in the emergency room on 08/23/2023, with a follow-up CT scan of the abdomen and pelvis
with runoff. Please see accompanying CT report.There is new postoperative changes, with laminectomy at L4-5 and L5-S1, postoperative changes in the subcutaneous tissues and a small amount of fluid in the postoperative bed. There is mild degenerative
disk and joint disease throughout the rest of the lumbar spine unchanged.The patient is also now status post arthrodesis screws across the sacrum in the area of previously noted insufficiency fractures. This limits evaluation.
08/22/23: CXR: No acute cardiopulmonary process.
08/22/23 PV US: Nonocclusive thrombus is present within the right popliteal vein, without significant interval change from ultrasound of August 03, 2023.There is also mild nonocclusive thrombus within the proximal peroneal vein, which was not
definitely identified on previous exam, although limited visualization.No evidence for deep venous thrombosis of the left lower extremity.
08/23/23 CT abdomen: No evidence of pelvic, iliac, or proximal femoral deep venous thrombosis on either side. Venous structures from the mid femoral vein to the ankle are not well opacified with contrast.Abdominal aortic aneurysm, measuring 3.2 cm in
diameter. Aneurysm was measured at 2.[address] dated 03/25/2023.No evidence of significant peripheral arterial stenosis of either lower extremity.Hypoattenuating lesion adjacent to the right external iliac vein, measuring 2.1 cm in diameter,
with peripheral rim calcification. Lesion is unchanged in size compared to multiple prior studies, including 09/04/2020, and likely benign.
[2023-08-24] MEDS: BUMEX 2 MG IV ×2 (09:49→20:45)
[2023-08-24 11:00] VITALS: BP 126/71
--- NOTE | 2023-08-24 12:16 | W.PN.HOSP.TC ---
Today's Communication/Plan
-
Monitor vital signs and see plan
PT/OT
Continue with IV Bumex
Hematology to see today
Continue with heparin drip
Discussed with spouse at bedside
Assessment / Plan
Assessment / Plan
Physical Exam
General: No pallor, cyanosis, or jaundice.
HEENT: PERRLA
NECK: Supple. No JVD Carotid Bruits
RESPIRATORY: mild rales
CVS: S1, S2 normal. RRR.� No murmur, rub or gallop.
ABDOMEN: Soft, non-tender. No distension. BS+/normal.
EXTREMITIES: Lower ext swelling b/l with associate calf tenderness
BENCH SCIENTIST: AOx3. No focal deficits.
IMPRESSION:
68 male prostate cancer status post prostatectomy gastric bypass abdomen hernia pair asthma lumbar spine stenosis status postlaminectomy sacral ala fractures status post ORIF recently diagnosed DVT right lower extremity a month ago started on
Eliquis referred to ED by outpatient zigzag appliquer due to progressive lower extremity edema swelling bilateral with associated calf tenderness past few weeks not responding to outpatient Bumex.� Patient and reported heart failure has been
suspected but not formally diagnosed.� Patient also reports recently completing steroid taper a few weeks ago for neuropathy.� Exam is notable for wheezing.� Vital signs stable on room air.� Denies fevers chills coughing sneezing shortness of breath
nausea vomiting diarrhea constipation.
PLAN:
#Worsening lower extremity edema bilateral with associated calf tenderness
#Recently diagnosed DVT right lower extremity month ago started on Eliquis
#History of short gut syndrome following gastric bypass
#Possible Heart Failure with preserved EF contributing; on IV bumex
#Possible lower ext swelling may be due to Lymphedema, could consider compressive dressing LLE, RLE contraindicated d/t DVT
Chest x-ray no acute abnormality
home Eliquis on hold; hematology following
cont heparin gtt
Venous duplex notes same RLE DVT, no DVT LLE
CT angio abd/pelvis appreciated 08/22
-No evidence pelvic iliac or proximal femoral DVT b/l
-AAA 3.2 cm increased from 2.9 cm 03/25/23 imaging- outpatient follow up with Vascular recommended
-2.1 cm lesion rt external iliac vein unchanged from prior studies likely benign
BNP well within normal limits, though obesity can lead to falsely low values
cardiology following
echo pending
-cont IV diuresis
#Asthma exacerbation/wheezing
Stable on room air
DuoNeb 4 times daily
Albuterol as needed
will hold off on systemic steroids at this time
#Lumbar stenosis history laminectomy
#Neuropathy
Continue home pain regimen lidocaine [place] pregabalin tizanidine
Follow-up ED lumbar MRI results, appears unchanged expect for post OP changes for majority; not clear image given lack of contrast. Patient to follow-up with his orthopedics outpatient
#Mild hypokalemia
Monitor
DVT prophylaxis heparin GTT
GI prophylaxis Protonix
Full code
Eventual PT/OT eval
Discussed with patient and his
I spent a total of� 52� � minutes with the patient or on the floor. More than 50% of this time involved counseling and coordination of care.
Anticipated Discharge: 24 - 48 hours
Subjective/Interval History
-
Date of Service: August 24, 2023
denies pain
Objective Data
-
Labs:
Laboratory Results
08/23/23 08/24/23 08/24/23
23:39 07:50 15:50
WBC 9.6
Hgb 11.1 L
Hct 35.1 L
Plt Count 290
APTT 185.7 H* 64.8 H Pending
Sodium 134 L
Potassium 4.2 D
Chloride 104
Carbon Dioxide 25
BUN 18
Creatinine 0.7
Glucose 141 H
Calcium 9.1
Vital Signs:
Vital Signs
Temp Pulse Resp BP Pulse Ox
98.4 F 85 18 126/71 98
08/24/23 11:00 08/24/23 11:00 08/24/23 11:00 08/24/23 11:00 08/24/23 11:00
I&O
08/23/23 08/24/23 08/25/23
06:59 06:59 06:59
Intake Total 240 / 240 720 / 720
Output Total 1275 / 1275 2200 / 2200
Balance -1035 / -1035 -1480 / -1480
--- NOTE | 2023-08-24 12:33 | W.PN.CARDCBS ---
Addendum entered and electronically signed by Graciela Leonardo PA-C 08/24/23 14:30:
Talked with patient and by phone for 15:42 about echo findings, plans for blood cultures and possible eventual YURI. Plan is to await preliminary culture date and pending that result maybe a YURI Thursday, although patient would be more
interested in an outpatient procedure if cultures without growth. Also helped to answer questions about DVT and absorption of Eliquis. Patient and interested in an injectable anticoagulant due to absorption with h/o bariatric surgery. Suggested
warfarin and that maybe monitoring INRs would cover concerns about absorption, but ultimately the indication is for DVT so defer to hospitalists and heme/onc whom I also TT.
Addendum entered and electronically signed by Zen Izaguirre MD 08/24/23 13:33:
I saw and examined the patient.
The ENT CONSULTANT or PA's note was reviewed and I agree with the note.
Comment: General: Well developed, well nourished in NAD.
Neck: Supple, no JVD, HJR, carotids +2 B/L, no bruits bilaterally.
Heart: Non displaced PMI, RRR, no murmurs, No S3, S4, no rubs.
Lungs: Clear to auscultation bilaterally, no wheeze, rhonchi, rubs bilaterally,
normal expiratory phase.
Extremities: Mild lower extremity edema
Neuro: Grossly nonfocal, awake, alert and oriented x3.
His feels edema has improved significantly but weight has not changed much. Will add Zaroxolyn. Apparently he does not absorb oral medications. He has not done well with Lasix or Bumex orally apparently. Might consider torsemide. Continue
IV Bumex for now. Of note echocardiogram with echodensity on anterior mitral valve leaflet. This may be an old vegetation. Of note there is no significant mitral regurgitation. We could consider eventual YURI but will check blood cultures for
now. Will need to discuss with patient on 08/24.
Original Note:
Today's Communication / Plan
-
Consider a dose of metolazone. Patient was taking Bumex 4 mg PO BID prior to admission and not responding to Bumex 2 mg IV BID thus far.
Impression / Plan
-
PCP: Monica Villafuerte MD
Assistant Foreman: Sonia Naranjo MD
Impression:
Increased LE edema
h/o DVT RLE 07/2023
Chronic Eliquis OAC
Acute on chronic asthma
h/o gastric bypass with short gut syndrome
Hyperlipidemia
Possible acute HFpEF
Abnormal echo with calcified echo density on th anterior mitral leaflet 08/24/23
Echo 05/2020: Normal biventricular size, systolic function, no regional wall motion abnormality. Mild concentric LVH. EF 60 to 65%. Aortic sclerosis without significant stenosis. Mild MAC with trace MR. Mild TR. PASP 30 to 35 mmHg, compared to
prior study 12/2017 no significant change.
Echo 08/24/23: EF 50-55%, calcified echodensity seen on anterior mitral valve leaflet (measures 0.5 x 1.0 cm) cannot exclude vegetation although would expect more significant MR and only trace MR seen
Plan:
-Patient admitted with increased LE edema and concern for possible acute HF. Patient diuresed with Bumex 2 mg IV BID. Weight might be down, but not sure that admission weight from stretcher scale in the ER on 08/22/23 was actually 253 lbs. Patient
currently weighs 248 lbs on 08/24/23. Cre stable with IV diuresis
-Patient was taking Bumex 4 mg PO BID prior to admission. Consider a dose of metolazone if not responding to IV diuretics
-EF stable by echo.
-Echo also showed a new calcified echodensity seen on anterior mitral valve leaflet measuring 0.5 x 1.0 cm and cannot exclude vegetation, but would expect more significant MR and only trace MR seen. Blood cultures x2 ordered. Patient has been
afebrile
HPI: Patient is a very pleasant 68-year-old male with past medical history significant for abdominal aortic aneurysm, incisional hernia status post repair, umbilical hernia status with surgical pair, COPD, iron deficiency anemia, prostate cancer
status post robotic prostatectomy, B12 efficiency, diverticulosis, history of gastric bypass, lumbar spinal stenosis status postlaminectomy and sacral fracture repair, right lower extremity DVT on Eliquis presenting for lower extremity swelling and
back pain/neuropathy.� Patient had been on steroid taper for few weeks due to neuropathy and had also noticed concurrent lower extremity swelling.� Patient underwent ultrasonography which demonstrated DVT and placed on Eliquis.� Patient reports
adherence to all medications.� Patient notes no improvement with oral diuretic therapy and outpatient Lasix was changed to Bumex 08/11/2023.� There is concerned that due to patient's prior gastric bypass surgery, he may not be absorbing oral
medications as readily.� Patient is a non-smoker, no alcohol, no illicits.� Patient with strong family history for cardiovascular disease.� Prior echocardiography demonstrated normal heart function in 2019.� Patient notes mild shortness of breath
and wheezing but improved.� Discussed with patient currently, he denies any chest pain, palpitations, lightheadedness, dizziness, fever, chills, nausea, vomiting, abdominal pain, syncope, or weakness.� He notes lower extremity discomfort neuropathy,
and swelling.
Progress Note - Assistant Foreman
Subjective
Date of Service: August 24, 2023
No SOB, ongoing edema
Objective
Labs:
08/24/23 07:50
08/24/23 07:50
Labs
Hgb 11.1 g/dL (13.0-18.0) L 08/24/23 07:50
Hct 35.1 % (39.0-52.0) L 08/24/23 07:50
Plt Count 290 10^3/uL (130-400) 08/24/23 07:50
APTT 64.8 Sec (23.4-35.0) H 08/24/23 07:50
Sodium 134 mmol/L (135-145) L 08/24/23 07:50
Potassium 4.2 mmol/L (3.5-5.1) D 08/24/23 07:50
BUN 18 mg/dl (9-20) 03/25/24 07:50
Creatinine 0.7 mg/dL (0.7-1.3) 08/24/23 07:50
Glucose 141 mg/dl (70-99) H 08/24/23 07:50
Vital Signs and I&O:
Vital Signs
Temp Pulse Resp BP Pulse Ox
98.4 F 85 18 126/71 98
08/24/23 11:00 08/24/23 11:00 08/24/23 11:00 08/24/23 11:00 08/24/23 11:00
Vital Signs
Temp Pulse Resp BP Pulse Ox
98.4 F 85 18 126/71 98
08/24/23 11:00 08/24/23 11:00 08/24/23 11:00 08/24/23 11:00 08/24/23 11:00
Intake & Output
08/22/23 08/23/23 08/24/23 08/25/23
06:59 06:59 06:59 06:59
Intake Total 240 / 240 720 / 720
Output Total 1275 / 1275 2200 / 2200
Balance -1035 / -1035 -1480 / -1480
Physical Exam
Physical Exam
GEN: AAOx3
HEENT: mmm
LUNGS: No audible wheeze
CV: SR on tele
ABD: ND
EXT: +2 B/L LE edema
NEURO: Gross non-focal
SKIN: No rash
[2023-08-24] MEDS: HEPARIN 25000 UNITS/250 ML IV (13:44)
[2023-08-24 14:01] LABS: Folate 15.1 ng/ml (2.76-20); Vitamin B12 235 pg/ml (239-931)
[2023-08-24 15:00] VITALS: BP 133/60
[2023-08-24] MEDS: VITAMIN B-12 100 MCG PO (15:57)
[2023-08-24 16:45] LABS: APTT 87.3 Sec (23.4-35.0)
[2023-08-24 19:42] VITALS: BP 111/61
[2023-08-24 23:00] VITALS: BP 131/67
[2023-08-24 23:53] LABS: APTT 77.9 Sec (23.4-35.0)
[2023-08-25] VITALS (9 sets, daily range): BP systolic 99–140; BP diastolic 49–92; PULSE 78–84; O2SAT 96; BMI 32.7
[2023-08-25] MEDS: NORCO 5/325 2 TABLET PO ×6 (01:07→21:19)
[2023-08-25] MEDS: HEPARIN 25000 UNITS/250 ML IV (07:29)
[2023-08-25 07:37] LABS: % Basophils 0.5 % (0-2); % Eosinophils 1.7 % (0-6); % Immature Granulocytes 1.4 % (0-0.5); % Lymphocytes 8.5 % (20.5-51.1); % Neutrophils 77.9 % (42.2-75.2); Absolute Basophils 0.1 10^3/uL (0-0.2); Absolute Eosinophils 0.2 10^3/uL (0-0.7); Absolute Immature Granulocytes 0.1 10^3/uL (0-0.05); Absolute Lymphocytes 0.8 10^3/uL (1.2-3.4); Absolute Neutrophils 7.6 10^3/uL (1.4-6.5); Hematocrit 32.1 % (39.0-52.0); Hemoglobin 10.5 g/dL (13.0-18.0); Mean Corp Hgb Conc. 32.7 g/dL (33.0-37.0); Mean Corpuscular Hgb 30.7 pg (27.0-31.0); Mean Corpuscular Volume 93.9 fL (80.0-94.0); Mean Platelet Volume 10.2 fL (7.4-10.4); Nucleated Red Blood Cells % 0 % (-); Platelet Count 290 10^3/uL (130-400); Red Blood Cell Count 3.42 10^6/uL (4.70-6.10); Red Cell Dist. Width 13.9 % (11.5-14.5); White Blood Cell Count 9.8 10^3/uL (4.8-10.8)
[2023-08-25 07:45] LABS: APTT 65.8 Sec (23.4-35.0)
[2023-08-25] MEDS: DUONEB 3 ML INH (07:57)
[2023-08-25] MEDS: HEPARIN 4600 UNITS IV (08:02)
[2023-08-25 08:03] LABS: Blood Urea Nitrogen 18 mg/dl (9-20); Calcium 9.3 mg/dl (8.4-10.2); Carbon Dioxide 27 mmol/L (22-30); Chloride 102 mmol/L (98-107); Estimated Creatinine Clearance 102 ml/min; Glucose 88 mg/dl (70-99); Magnesium 1.9 mg/dl (1.6-2.3); Potassium 4.2 mmol/L (3.5-5.1); Sodium 137 mmol/L (135-145); eGFR > 60.00
[2023-08-25] MEDS: KCL 20 MEQ PO ×2 (08:15→20:30)
[2023-08-25] MEDS: PROTONIX 40 MG PO (08:15)
[2023-08-25] MEDS: LYRICA 150 MG PO ×2 (08:16→20:31)
[2023-08-25] MEDS: VITAMIN B-12 100 MCG PO (08:16)
[2023-08-25] MEDS: BUMEX 2 MG IV ×2 (08:16→20:33)
--- NOTE | 2023-08-25 11:26 | W.PN.HOSP.TC ---
Addendum entered and electronically signed by Art John MD 08/25/23 14:47:
Discussed in great length with patient and spouse. Patient and his spouse both are refusing to be put on Coumadin. Multiple attempts were also done by cardiology as well. They want to follow-up with hematology (Dr. Noel) outpatient and decide
on further options. But at this time they want to continue Eliquis. Will restart Eliquis tonight and DC heparin drip when eliquis is started. Also notified hematology
Original Note:
Today's Communication/Plan
-
Monitor vital signs and see plan
Start Coumadin, continue with heparin drip for bridging
goal INR 2-3
patient would need INR checks outpatient with either pcp or hematology
follow bcx
cw bumex
Assessment / Plan
Assessment / Plan
Physical Exam
General: No pallor, cyanosis, or jaundice.
HEENT: PERRLA
NECK: Supple. No JVD Carotid Bruits
RESPIRATORY: mild rales
CVS: S1, S2 normal. RRR.� No murmur, rub or gallop.
ABDOMEN: Soft, non-tender. No distension. BS+/normal.
EXTREMITIES: Lower ext swelling b/l with associate calf tenderness
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 No focal deficits.
IMPRESSION:
68 male prostate cancer status post prostatectomy gastric bypass abdomen hernia pair asthma lumbar spine stenosis status postlaminectomy sacral ala fractures status post ORIF recently diagnosed DVT right lower extremity a month ago started on
Eliquis referred to ED by outpatient diesel trailer mechanic due to progressive lower extremity edema swelling bilateral with associated calf tenderness past few weeks not responding to outpatient Bumex.� Patient and reported heart failure has been
suspected but not formally diagnosed.� Patient also reports recently completing steroid taper a few weeks ago for neuropathy.� Exam is notable for wheezing.� Vital signs stable on room air.� Denies fevers chills coughing sneezing shortness of breath
nausea vomiting diarrhea constipation.
PLAN:
#Worsening lower extremity edema bilateral with associated calf tenderness
#Recently diagnosed DVT right lower extremity month ago started on Eliquis
#History of short gut syndrome following gastric bypass
#Possible Heart Failure with preserved EF contributing; on IV bumex
#Possible lower ext swelling may be due to Lymphedema, could consider compressive dressing LLE, RLE contraindicated d/t DVT
Chest x-ray no acute abnormality
home Eliquis on hold; hematology following. Plan now to switch to Coumadin.
cont heparin gtt
Venous duplex notes same RLE DVT, no DVT LLE
CT angio abd/pelvis appreciated 08/22
-No evidence pelvic iliac or proximal femoral DVT b/l
-AAA 3.2 cm increased from 2.9 cm 03/25/23 imaging- outpatient follow up with Vascular recommended
-2.1 cm lesion rt external iliac vein unchanged from prior studies likely benign
BNP well within normal limits, though obesity can lead to falsely low values
cardiology following
echo 08/23 noted with echodensity on anterior mitral valve leaflet. Blood cultures so far negative. YURI per cardiology.
-cont IV diuresis
#Does not appear patient had asthma exacerbation on admission
Wheezing could be secondary to cardiac
DuoNeb as needed
Currently without any wheezing; no steroids was given
Continue to monitor
#Lumbar stenosis history laminectomy
#Neuropathy
Continue home pain regimen lidocaine [place] pregabalin tizanidine
Follow-up ED lumbar MRI results, appears unchanged expect for post OP changes for majority; not clear image given lack of contrast. Patient to follow-up with his orthopedics outpatient
#Mild hypokalemia
Monitor
DVT prophylaxis heparin GTT
GI prophylaxis Protonix
Full code
PT/OT eval
I spent a total of� 53 � minutes with the patient or on the floor. More than 50% of this time involved counseling and coordination of care.
Anticipated Discharge: 24 - 48 hours
Subjective/Interval History
-
Date of Service: August 25, 2023
denies pain
Objective Data
-
Labs:
Laboratory Results
08/24/23 08/25/23 08/25/23
23:25 07:07 14:10
WBC 9.8
Hgb 10.5 L
Hct 32.1 L
Plt Count 290
APTT 77.9 H 65.8 H Pending
Sodium 137
Potassium 4.2
Chloride 102
Carbon Dioxide 27
BUN 18
Creatinine 0.9
Glucose 88
Calcium 9.3
Vital Signs:
Vital Signs
Temp Pulse Resp BP Pulse Ox
97.4 F 89 18 137/67 93
08/25/23 11:04 08/25/23 11:04 08/25/23 11:04 08/25/23 11:04 08/25/23 11:04
I&O
08/24/23 08/25/23 08/26/23
06:59 06:59 06:59
Intake Total 720 / 720 720 / 720
Output Total 2200 / 2200 1150 / 1150 900 / 900
Balance -1480 / -1480 -430 / -430 -900 / -900
--- NOTE | 2023-08-25 11:40 | W.PN.CARDCBS ---
Addendum entered and electronically signed by Alex Moore MD 08/25/23 17:20:
I saw and examined the patient.
The Personal Computer Network Analyst's note was reviewed and I agree with the note.
Comment:
GEN: No distress, awake, Ox3
HEENT: supple, anicteric, mmm
LUNGS: CTA, no wheezes/rales
CV: Reg, S1/S2, 1/6 syst LSB, no gallop
ABD: soft, BS+, NT/ND
EXT: +2 edema
NEURO: Gross non-focal
SKIN: No rash
Plan:
Will continue IV Bumex for now and attempt to remove as much fluid as possible. Creatinine is overall stable.
I reviewed his transthoracic echo. There is a calcified echodensity on his anterior leaflet which does not appear to be an acute vegetation. I agree with checking a blood culture and following him clinically. There is no significant mitral
regurgitation on echo. His LVEF is preserved.
We did discuss anticoagulation with him. He does have a persistent DVT in his leg. I would defer this to hematology regarding his long-term anticoagulant.
Original Note:
Today's Communication / Plan
-
Cont Bumex 2 mg Iv BID and then resume 4 mg PO BID upon discharge
OAC is for DVT
Impression / Plan
-
PCP: Monica Villafuerte MD
Hooker Laster: Sonia Naranjo MD
Impression:
Increased LE edema
h/o DVT RLE 07/2023
Chronic Eliquis OAC
Acute on chronic asthma
h/o gastric bypass with short gut syndrome
Hyperlipidemia
Possible acute HFpEF
Abnormal echo with calcified echo density on the anterior mitral leaflet 08/24/23
Echo 05/2020: Normal biventricular size, systolic function, no regional wall motion abnormality. Mild concentric LVH. EF 60 to 65%. Aortic sclerosis without significant stenosis. Mild MAC with trace MR. Mild TR. PASP 30 to 35 mmHg, compared to
prior study 12/2017 no significant change.
Echo 08/24/23: EF 50-55%, calcified echodensity seen on anterior mitral valve leaflet (measures 0.5 x 1.0 cm) cannot exclude vegetation although would expect more significant MR and only trace MR seen
Plan:
-Weight is not down, but overall LE edema has improved with Bumex 2 mg IV BID diuresis. Patient was taking Bumex 4 mg PO BID prior to admission.
-EF stable by echo.
-Echo also showed a new calcified echodensity seen on anterior mitral valve leaflet measuring 0.5 x 1.0 cm and cannot exclude vegetation, but would expect more significant MR and only trace MR seen. Blood cultures x2 without growth and patient has
been afebrile. No plans for a YURI.
-Called and talked with patient's 08/25/23 for 12 min. Reviewed echo and cultures again and that there are no plans for YURI. Also talked about OAC again. There are concerns that patient is not absorbing meds well due to h/o bariatric surgery so
there was a plan to transition to warfarin, but after having some time to think things over the patient and would prefer to avoid warfarin and instead wish to remain on Eliquis. Reviewed that ultimately this is for DVT so cardiology could not
really comment, but that I would pass information along to hospitalist attending.
-Will arrange for cardiology follow up sooner than 12/15/23 as he is currently scheduled.
HPI: Patient is a very pleasant 68-year-old male with past medical history significant for abdominal aortic aneurysm, incisional hernia status post repair, umbilical hernia status with surgical pair, COPD, iron deficiency anemia, prostate cancer
status post robotic prostatectomy, B12 efficiency, diverticulosis, history of gastric bypass, lumbar spinal stenosis status postlaminectomy and sacral fracture repair, right lower extremity DVT on Eliquis presenting for lower extremity swelling and
back pain/neuropathy.� Patient had been on steroid taper for few weeks due to neuropathy and had also noticed concurrent lower extremity swelling.� Patient underwent ultrasonography which demonstrated DVT and placed on Eliquis.� Patient reports
adherence to all medications.� Patient notes no improvement with oral diuretic therapy and outpatient Lasix was changed to Bumex 08/11/2023.� There is concerned that due to patient's prior gastric bypass surgery, he may not be absorbing oral
medications as readily.� Patient is a non-smoker, no alcohol, no illicits.� Patient with strong family history for cardiovascular disease.� Prior echocardiography demonstrated normal heart function in 2019.� Patient notes mild shortness of breath
and wheezing but improved.� Discussed with patient currently, he denies any chest pain, palpitations, lightheadedness, dizziness, fever, chills, nausea, vomiting, abdominal pain, syncope, or weakness.� He notes lower extremity discomfort neuropathy,
and swelling.
Progress Note - Hooker Laster
Subjective
Date of Service: August 25, 2023
Leg/calf edema is better
Objective
Labs:
08/25/23 07:07
08/25/23 07:07
Labs
Hgb 10.5 g/dL (13.0-18.0) L 08/25/23 07:07
Hct 32.1 % (39.0-52.0) L 08/25/23 07:07
Plt Count 290 10^3/uL (130-400) 08/25/23 07:07
APTT 65.8 Sec (23.4-35.0) H 08/25/23 07:07
Sodium 137 mmol/L (135-145) 08/25/23 07:07
Potassium 4.2 mmol/L (3.5-5.1) 08/25/23 07:07
BUN 18 mg/dl (9-20) 08/25/23 07:07
Creatinine 0.9 mg/dL (0.7-1.3) 08/25/23 07:07
Glucose 88 mg/dl (70-99) 08/25/23 07:07
Vital Signs and I&O:
Vital Signs
Temp Pulse Resp BP Pulse Ox
97.4 F 89 18 137/67 93
08/25/23 11:04 08/25/23 11:04 08/25/23 11:04 08/25/23 11:04 08/25/23 11:04
Vital Signs
Temp Pulse Resp BP Pulse Ox
97.4 F 89 18 137/67 93
08/25/23 11:04 08/25/23 11:04 08/25/23 11:04 08/25/23 11:04 08/25/23 11:04
Intake & Output
08/23/23 08/24/23 08/25/23 08/26/23
06:59 06:59 06:59 06:59
Intake Total 240 / 240 720 / 720 720 / 720
Output Total 1275 / 1275 2200 / 2200 1150 / 1150 900 / 900
Balance -1035 / -1035 -1480 / -1480 -430 / -430 -900 / -900
Physical Exam
Physical Exam
GEN: AAOx3
HEENT: mmm
LUNGS: No audible wheeze
CV: SR on tele
ABD: ND
EXT: +1 B/L LE edema
NEURO: Gross non-focal
SKIN: No rash
[2023-08-25 11:55] LABS: INR 1.12; PT 14.2 Sec (11.4-14.6)
[2023-08-25] MEDS: ZANAFLEX 2 MG PO (13:22)
--- NOTE | 2023-08-25 13:39 | W.PN.ONC ---
Today's Communication / Plan
-
08/13/23 PSA <0.06, remains undetectable
Monitor CBC daily
Continue Heparin gtt with bridge to Coumadin
Goal INR 2-3, patient verbalizes understanding of lab monitoring
Diuresis per Cardiology
Supportive care, pain management
PT/OT, OOB activity, falls precautions
Further management of Coumadin outpatient. Follow up with Dr. Noel is scheduled 09/09/22 at 11:00am in the [place] office.
Impression
Impression
Metastatic prostate cancer s/p prostatectomy (2013) w/ rise in PSA s/p XRT (2015, [facility])
Left iliac lymph node s/p XRT, Eligard x1 (07/2022)
Gastric bypass surgery: Deepa-en-Y (Dr. Vergara, 2005)
Undetectable PSA (08/13/23)
Short-gut syndrome/hx malabsorption issues
Recent dx RLE DVT on Eliquis
Lower extremity edema (improved)
Lumbar stenosis s/p laminectomy
RLE neuropathy/pain with decreased ROM
Subjective/Objective
Subjective/Objective
Patient OOB to the chair with PT. He states he feels better today and his leg swelling has greatly improved.
Vital Signs:
Vital Signs
Temp Pulse Resp BP Pulse Ox
97.4 F 89 18 137/67 93
08/25/23 11:04 08/25/23 11:04 08/25/23 11:04 08/25/23 11:04 08/25/23 11:04
physical exam
aaox3, pleasant
HRR, lungs clear, +bowel sounds
+1/+2 LE edema, improved
OOB x1 assist to chair
clear yellow urine in urinal at bedside
Lab Results:
Laboratory Data
WBC 9.8 10^3/uL (4.8-10.8) 08/25/23 07:07
Hgb 10.5 g/dL (13.0-18.0) L 08/25/23 07:07
Plt Count 290 10^3/uL (130-400) 08/25/23 07:07
PT Cancelled 08/25/23 11:34
INR Cancelled 08/25/23 11:34
APTT 65.8 Sec (23.4-35.0) H 08/25/23 07:07
eGFR > 60.00 08/25/23 07:07
[2023-08-25 15:06] LABS: APTT 100.8 Sec (23.4-35.0)
[2023-08-25] MEDS: ELIQUIS 5 MG PO (20:30)
[2023-08-26] MEDS: NORCO 5/325 2 TABLET PO ×3 (01:19→11:11)
[2023-08-26] MEDS: ZANAFLEX 2 MG PO (01:19)
[2023-08-26 03:27] VITALS: BP 107/65
--- NOTE | 2023-08-26 03:34 | DOWNTIME ---
There was a [employer] Client Publishing Agent Downtime on 08/26/2023 from 0100 to 08/26/2023 at 0322. Downtime documentation of patient's care, including medication administrations, has been reconciled in the electronic record per guidelines. Refer to the
patient's paper chart under the miscellaneous tab to see printed paper medication records and downtime forms.
[2023-08-26 06:00] VITALS: BMI 32.6
[2023-08-26 06:25] LABS: % Basophils 0.5 % (0-2); % Eosinophils 2.3 % (0-6); % Immature Granulocytes 1.6 % (0-0.5); % Lymphocytes 9.9 % (20.5-51.1); % Neutrophils 73.7 % (42.2-75.2); Absolute Basophils 0.1 10^3/uL (0-0.2); Absolute Eosinophils 0.2 10^3/uL (0-0.7); Absolute Immature Granulocytes 0.2 10^3/uL (0-0.05); Absolute Lymphocytes 0.9 10^3/uL (1.2-3.4); Absolute Monocytes 1.1 10^3/uL (0.1-0.6); Absolute Neutrophils 6.8 10^3/uL (1.4-6.5); Hematocrit 30.8 % (39.0-52.0); Mean Corp Hgb Conc. 32.5 g/dL (33.0-37.0); Mean Corpuscular Hgb 30.8 pg (27.0-31.0); Mean Corpuscular Volume 94.8 fL (80.0-94.0); Mean Platelet Volume 10.2 fL (7.4-10.4); Nucleated Red Blood Cells % 0 % (-); Platelet Count 280 10^3/uL (130-400); Red Blood Cell Count 3.25 10^6/uL (4.70-6.10); Red Cell Dist. Width 13.7 % (11.5-14.5); White Blood Cell Count 9.2 10^3/uL (4.8-10.8)
[2023-08-26 06:26] LABS: INR 1.25; PT 15.6 Sec (11.4-14.6)
[2023-08-26 07:07] LABS: Blood Urea Nitrogen 21 mg/dl (9-20); Carbon Dioxide 27 mmol/L (22-30); Chloride 104 mmol/L (98-107); Estimated Creatinine Clearance 83 ml/min; Glucose 98 mg/dl (70-99); Magnesium 1.9 mg/dl (1.6-2.3); Potassium 4.1 mmol/L (3.5-5.1); Sodium 135 mmol/L (135-145); eGFR > 60.00
[2023-08-26 07:45] VITALS: BP 107/67
[2023-08-26 08:05] VITALS: BP 102/69
[2023-08-26] MEDS: LYRICA 150 MG PO (08:06)
[2023-08-26] MEDS: ELIQUIS 5 MG PO (08:06)
[2023-08-26] MEDS: PROTONIX 40 MG PO (08:06)
[2023-08-26] MEDS: VITAMIN B-12 100 MCG PO (08:06)
[2023-08-26] MEDS: KCL 20 MEQ PO (08:06)
[2023-08-26 09:06] VITALS: BP 113/71
[2023-08-26] MEDS: BUMEX 2 MG IV (09:07)
--- NOTE | 2023-08-26 10:26 | W.PN.HOSP.TC ---
Addendum entered and electronically signed by Art John MD 08/26/23 10:35:
Discussed in great length with patient and spouse. Patient and his spouse both are refusing to be put on Coumadin. Multiple attempts were also done by cardiology as well. They want to follow-up with hematology (Dr. Noel) outpatient and decide
on further options. But at this time they want to continue Eliquis. restarted Eliquis prior to dc
Original Note:
Today's Communication/Plan
-
Monitor vital signs see plan
Switch Bumex to p.o.
Continue with Eliquis
Discharge today
Discussed with spouse at bedside
Time of discharge 38 minutes
Assessment / Plan
Assessment / Plan
Physical Exam
General: No pallor, cyanosis, or jaundice.
HEENT: PERRLA
NECK: Supple. No JVD Carotid Bruits
RESPIRATORY: mild rales
CVS: S1, S2 normal. RRR.� No murmur, rub or gallop.
ABDOMEN: Soft, non-tender. No distension. BS+/normal.
EXTREMITIES: Lower ext swelling b/l with associate calf tenderness
ADMINISTRATIVE ASSISTANT COORDINATOR: AOx3. No focal deficits.
IMPRESSION:
68 male prostate cancer status post prostatectomy gastric bypass abdomen hernia pair asthma lumbar spine stenosis status postlaminectomy sacral ala fractures status post ORIF recently diagnosed DVT right lower extremity a month ago started on
Eliquis referred to ED by outpatient manager integration due to progressive lower extremity edema swelling bilateral with associated calf tenderness past few weeks not responding to outpatient Bumex.� Patient and reported heart failure has been
suspected but not formally diagnosed.� Patient also reports recently completing steroid taper a few weeks ago for neuropathy.� Exam is notable for wheezing.� Vital signs stable on room air.� Denies fevers chills coughing sneezing shortness of breath
nausea vomiting diarrhea constipation.
PLAN:
#Worsening lower extremity edema bilateral with associated calf tenderness
#Recently diagnosed DVT right lower extremity month ago started on Eliquis
#History of short gut syndrome following gastric bypass
#Possible Heart Failure with preserved EF contributing; on IV bumex; spoke with cardiology and will change back to home dose p.o. Lasix and discharge
#Possible lower ext swelling may be due to Lymphedema, could consider compressive dressing LLE, RLE contraindicated d/t DVT
Chest x-ray no acute abnormality
home Eliquis on hold; hematology following. Plan now to switch to Coumadin.
cont heparin gtt
Venous duplex notes same RLE DVT, no DVT LLE
CT angio abd/pelvis appreciated 08/22
-No evidence pelvic iliac or proximal femoral DVT b/l
-AAA 3.2 cm increased from 2.9 cm 03/25/23 imaging- outpatient follow up with Vascular recommended
-2.1 cm lesion rt external iliac vein unchanged from prior studies likely benign
BNP well within normal limits, though obesity can lead to falsely low values
cardiology following
echo 08/23 noted with echodensity on anterior mitral valve leaflet. Blood cultures so far negative. YURI per cardiology. Per cardiology now it appears it was calcification. No need for YURI
#Does not appear patient had asthma exacerbation on admission
Wheezing could be secondary to cardiac
DuoNeb as needed
Currently without any wheezing; no steroids was given
Continue to monitor
#Lumbar stenosis history laminectomy
#Neuropathy
Continue home pain regimen lidocaine [place] pregabalin tizanidine
Follow-up ED lumbar MRI results, appears unchanged expect for post OP changes for majority; not clear image given lack of contrast. Patient to follow-up with his orthopedics outpatient
#Mild hypokalemia
Monitor
DVT prophylaxis heparin GTT
GI prophylaxis Protonix
Full code
PT/OT eval
Anticipated Discharge: Today
Subjective/Interval History
-
Date of Service: August 26, 2023
denies chest pain
Objective Data
-
Labs:
Laboratory Results
08/26/23
05:16
WBC 9.2
Hgb 10.0 L
Hct 30.8 L
Plt Count 280
PT 15.6 H
INR 1.25
Sodium 135
Potassium 4.1
Chloride 104
Carbon Dioxide 27
BUN 21 H
Creatinine 1.1
Glucose 98
Calcium 9.0
Vital Signs:
Vital Signs
Temp Pulse Resp BP Pulse Ox
98.6 F 88 18 113/71 94
08/26/23 07:45 08/26/23 07:45 08/26/23 07:45 08/26/23 09:06 08/26/23 08:00
I&O
08/25/23 08/26/23 08/27/23
06:59 06:59 06:59
Intake Total 720 / 720 672 / 672
Output Total 1150 / 1150 2800 / 2800
Balance -430 / -430 -2128 / -2128
--- NOTE | 2023-08-26 10:36 | W.DCSUMMARY ---
Discharge Summary
Discharge Data
Date of Admission: 08/22/23
Date of Discharge: 08/26/23
-
Pending Results: No
Hospital Course
68-year-old male with with past medical history of prostate cancer status post prostatectomy, gastric bypass, hernia repair, asthma, lumbar spine stenosis status post laminectomy, recently diagnosed DVT came to the hospital with worsening lower
extremity edema and pain. There was a concern of heart failure on this hospitalization so cardiology was consulted. Patient was then started on IV Bumex. Patient responded well to IV Bumex. Venous Dopplers were done which also showed right lower
extremity DVT which has been there from before. Given these findings hematology was consulted and patient was put on heparin drip. Initial plan was for have patient transition to Coumadin however patient and his both refused to be transition
to Coumadin and rather wanted to keep Eliquis. They also wanted to follow-up with Dr. Noel from hematology soon after discharge and will decide on further anticoagulation. Patient also had abdominal aortic aneurysm on scan and instructed to
follow-up with vascular outpatient. On echocardiogram initially there was a concern regarding echo density however after further evaluation cardiology thought it was likely calcification. Once patient symptoms improved on IV diuresis, he was then
discharged home with instructions to follow-up with all his physicians outpatient.
Discharge Plan
-
Patient Disposition: Home (Routine Discharge)
Discharge Diagnosis/Procedures: Acute congestive heart failure with preserved ejection fraction
History of right lower extremity DVT
History of gastric bypass with short gut syndrome
Abdominal aortic aneurysm
Diet: As tolerated, 2 Gram Sodium and Restrict fluids to 64 oz
Activity: As tolerated
Driving Restrictions: As prior to admission
Bathing Restrictions: None
Specialty Instructions: Weigh Daily- Call MD for wt gain/loss 3 lbs overnight/5 lbs in 1 week
Instructions: *DCA Heart Failure Instructions
Referrals:
Monica Villafuerte MD [Family Provider] - in less than 1 week
Nellie Hernadez MD [Active] - 09/02/23 1:20 pm (You have an appt to see Dr. Nellie Hernadez's physician assistant program manager, Janeth, at the [place] office on 09/02/23 at 1:20 PM. Please call [phone] if you need to reschedule.)
Zen Noel MD [Active] - in less than 1 week
Kev Sadler MD [Active] -
Prescriptions:
New
cyanocobalamin (vitamin B-12) 100 mcg Tablet
100 mcg PO DAILY Qty: 30 0RF
pantoprazole 40 mg Tablet,Delayed Release (Dr/Ec)
40 mg PO DAILY Qty: 30 0RF
Continued
ipratropium-albuterol 0.5 mg-3 mg(2.5 mg base)/3 mL Solution For Nebulization
3 ml INHALATION R Q6HPRN PRN (Reason: sob)
lidocaine 5 % Adhesive Patch,Medicated
1 patch TOPICAL BID
Patient Comments:
06/23/2023, pt. currently wearing one patch on their back.
ergocalciferol (vitamin D2) 1,250 mcg (50,000 unit) Capsule
1,250 mcg PO FR@0800
albuterol sulfate 90 mcg/actuation Hfa Aerosol Inhaler
2 puff INHALATION R Q6HPRN PRN (Reason: sob)
pregabalin 150 mg Capsule
150 mg PO Q12H
Patient Comments:
06/23/2023, pt. filled this med. on 06/03/2023 for 60 capsules according to PDMP.
Tylenol Extra Strength 500 mg Powder In Packet
1,000 mg PO DAILYPRN PRN (Reason: mild pain)
hydrocodone-acetaminophen 10-325 mg Tablet
1 tab PO Q4H
bumetanide 1 mg Tablet
4 mg PO BID
tizanidine 2 mg Capsule
2 mg PO BIDPRN PRN (Reason: muscle spasm )
Eliquis 5 mg Tablet
5 mg PO BID
Discharge Orders:
Discharge Patient (As Directed); Ordered 08/26/23
Ordered By: Art John
Discharge Date and Time
Discharge Date/Time: 08/26/23 11:59
Print Language: GHANAIAN
[2023-08-26 11:05] VITALS: BP 144/75
--- NOTE | 2023-08-26 11:46 | W.PN.CARDCBS ---
Addendum entered and electronically signed by Zen Izaguirre MD 08/26/23 13:03:
I saw and examined the patient.
The ACCOUNT SPECIALIST or PA's note was reviewed and I agree with the note.
Comment: General: Well developed, well nourished in NAD.
Discussed with patient and at bedside. Discussed with primary service. Stable cardiology status for discharge on Bumex 4 mg p.o. twice daily. Follow-up has been arranged.
Original Note:
Today's Communication / Plan
-
Bumex 4 mg PO BID
Outpatient f/u arranged
Impression / Plan
-
PCP: Monica Villafuerte MD
Drier Helper: Sonia Naranjo MD
Impression:
Increased LE edema
h/o DVT RLE 07/2023
Chronic Eliquis OAC
Acute on chronic asthma
h/o gastric bypass with short gut syndrome
Hyperlipidemia
Possible acute HFpEF
Abnormal echo with calcified echo density on the anterior mitral leaflet 08/24/23
Echo 05/2020: Normal biventricular size, systolic function, no regional wall motion abnormality. Mild concentric LVH. EF 60 to 65%. Aortic sclerosis without significant stenosis. Mild MAC with trace MR. Mild TR. PASP 30 to 35 mmHg, compared to
prior study 12/2017 no significant change.
Echo 08/24/23: EF 50-55%, calcified echodensity seen on anterior mitral valve leaflet (measures 0.5 x 1.0 cm) cannot exclude vegetation although would expect more significant MR and only trace MR seen
Plan:
-Weight is down 1 lb overnight and again LE edema has improved with Bumex 2 mg IV BID diuresis. Resume outpatient dose of Bumex 4 mg PO BID. Confirmed with patient and in room that they are agreeable to this 08/26/23.
-EF stable by echo.
-Echo also showed a new calcified echodensity seen on anterior mitral valve leaflet measuring 0.5 x 1.0 cm and cannot exclude vegetation, but would expect more significant MR and only trace MR seen. Blood cultures x2 without growth and patient has
been afebrile. No plans for a YURI.
-OAC is for a DVT and they are resuming Eliquis and plan to crush tablet to help absorption. They were not interested in warfarin. Dr. Noel to address further as an outpatient.
-Cardiology follow up arranged for 09/02/23 at 1:20 PM. Of note patient decided prior to admission that he wished to transition outpatient primary cardiology care to Dr. Nellie Hernadez and that appt is scheduled for 12/15/23.
HPI: Patient is a very pleasant 68-year-old male with past medical history significant for abdominal aortic aneurysm, incisional hernia status post repair, umbilical hernia status with surgical pair, COPD, iron deficiency anemia, prostate cancer
status post robotic prostatectomy, B12 efficiency, diverticulosis, history of gastric bypass, lumbar spinal stenosis status postlaminectomy and sacral fracture repair, right lower extremity DVT on Eliquis presenting for lower extremity swelling and
back pain/neuropathy.� Patient had been on steroid taper for few weeks due to neuropathy and had also noticed concurrent lower extremity swelling.� Patient underwent ultrasonography which demonstrated DVT and placed on Eliquis.� Patient reports
adherence to all medications.� Patient notes no improvement with oral diuretic therapy and outpatient Lasix was changed to Bumex 08/11/2023.� There is concerned that due to patient's prior gastric bypass surgery, he may not be absorbing oral
medications as readily.� Patient is a non-smoker, no alcohol, no illicits.� Patient with strong family history for cardiovascular disease.� Prior echocardiography demonstrated normal heart function in 2019.� Patient notes mild shortness of breath
and wheezing but improved.� Discussed with patient currently, he denies any chest pain, palpitations, lightheadedness, dizziness, fever, chills, nausea, vomiting, abdominal pain, syncope, or weakness.� He notes lower extremity discomfort neuropathy,
and swelling.
Progress Note - Drier Helper
Subjective
Date of Service: August 26, 2023
He feels LE edema is much better
Objective
Labs:
08/26/23 05:16
08/26/23 05:16
Labs
Hgb 10.0 g/dL (13.0-18.0) L 08/26/23 05:16
Hct 30.8 % (39.0-52.0) L 08/26/23 05:16
Plt Count 280 10^3/uL (130-400) 08/26/23 05:16
PT 15.6 Sec (11.4-14.6) H 08/26/23 05:16
INR 1.25 08/26/23 05:16
APTT 100.8 Sec (23.4-35.0) H 08/25/23 14:44
Sodium 135 mmol/L (135-145) 08/26/23 05:16
Potassium 4.1 mmol/L (3.5-5.1) 08/26/23 05:16
BUN 21 mg/dl (9-20) H 08/26/23 05:16
Creatinine 1.1 mg/dL (0.7-1.3) 08/26/23 05:16
Glucose 98 mg/dl (70-99) 08/26/23 05:16
Vital Signs and I&O:
Vital Signs
Temp Pulse Resp BP Pulse Ox
99 F 108 18 144/75 94
08/26/23 11:05 08/26/23 11:05 08/26/23 11:05 08/26/23 11:05 08/26/23 11:05
Vital Signs
Temp Pulse Resp BP Pulse Ox
99 F 108 18 144/75 94
08/26/23 11:05 08/26/23 11:05 08/26/23 11:05 08/26/23 11:05 08/26/23 11:05
Intake & Output
08/24/23 08/25/23 08/26/23 08/27/23
06:59 06:59 06:59 06:59
Intake Total 720 / 720 720 / 720 672 / 672
Output Total 2200 / 2200 1150 / 1150 2800 / 2800
Balance -1480 / -1480 -430 / -430 -8 / -2127
Physical Exam
Physical Exam
GEN: AAOx3
HEENT: mmm
LUNGS: No audible wheeze
CV: SR on tele
ABD: ND
EXT: +1 B/L LE edema
NEURO: Gross non-focal
SKIN: No rash
--- NOTE | 2023-08-26 15:55 | CM ---
CM following re: d/c planning
Chart reviewed
Pt is medically stable for d/c
Post d/c recommendation is for outpatient f/u with hematology
No additional d/c needs identified
PLAN; d/c home no needs
== END 2023-08-26 11:59 | disposition home or self-care (01) | DRG 291 ==
LOC: 4 EAST ACU 12:21
PROVIDERS: Nurse Practitioner Family; Physician Assistant; ADMITTING PHYSICIAN Internal Medicine; ATTENDING PHYSICIAN Internal Medicine; CONSULT PHYSICIAN Internal Medicine Cardiovascular Disease; EMERGENCY PHYSICIAN Emergency Medicine; FAMILY PHYSICIAN Internal Medicine; OTHER PHYSICIAN Internal Medicine Hematology & Oncology
DX: I11.0 Hypertensive heart disease with heart failure (principal); I50.31 Acute diastolic (congestive) heart failure; J45.901 Unspecified asthma with (acute) exacerbation; J44.1 Chronic obstructive pulmonary disease with (acute) exacerbation; K91.2 Postsurgical malabsorption, not elsewhere classified; E87.6 Hypokalemia; Z79.01 Long term (current) use of anticoagulants; Z85.46 Personal history of malignant neoplasm of prostate; Z90.79 Acquired absence of other genital organ(s); I71.40 Abdominal aortic aneurysm, without rupture, unspecified
CPT/HCPCS: 71046; 75635; 80048; 80053; 82607; 82746; 83540; 83550; 83735; 83880; 85025; 85027; 85610; 85730; 87040; 93005; 93306; 93970; 94640; 96365; 96366; 96367; 96375; 97163; 97166; 99285; Q9950; Q9967

== ENCOUNTER → 2023-08-31 15:24 | Outpatient (REF) | payer OTHER, SELFPAY | LOC: HWRAD 15:24 | PROVIDERS: ATTENDING PHYSICIAN Physician Assistant Surgical; FAMILY PHYSICIAN Internal Medicine | DX: M48.062 Spinal stenosis, lumbar region with neurogenic claudication (principal); S32.19XD Other fracture of sacrum, subsequent encounter for fracture with routine healing | CPT/HCPCS: 72192 ==

== ENCOUNTER 2023-09-11 18:31 | Inpatient (IN) | payer OTHER, SELFPAY ==
[2023-09-11 12:37] VITALS: BP 127/78
--- NOTE | 2023-09-11 15:34 | ED.GENMED ---
History of Present Illness
General
Chief Complaint: Swelling
Source: patient and significant other
Exam Limitations: none
Time Seen by Provider: 09/11/23 14:25
Nursing documentation reviewed up to this point in time: agreed with
Travel History
Have you had any contact with someone who has COVID-19?: No
Do you have any symptoms of coronavirus? Fever > 100 degrees, chills, cough, shortness of breath, sore throat, loss of taste or smell, muscle aches, or headache?: No
History of Present Illness
History of Present Illness:
68 yo male w h/o laminectomy 06/2023 with screws in the sacrum area, 1 screw has been causing him pain and is coming loose so he is scheduled for surgery on 09/24 at [place] to remove that screw.
Cleared earlier today by PCP
He also needs medical clearance from cardiology and has been speaking with cardiology Dr. Naranjo's staff over the phone. Today spoke with Dr. Naranjo, described wt gain, leg swelling, and instructed to come to ED for evaluation and IV diuretics.
Admitted 08/21-08/25 for with Acute congestive heart failure with preserved ejection fraction. Since discharge pt states worsening lower extremity edema and pain even though maxed out on Bumex
Dr. Naranjo concerned for CHF, thinks pt may need IV diuretics.
Had a follow up appointment with Development Engineer Dr. Noel last week. During last admission found to have a second DVT despite being on Eliquis. Concern for malabsorption of po medications and at instructed to stop Eliquis and start Lovenox today.
Past History
Past History
ED Past Medical History: Asthma, Cancer (Prostate CA, metastatic cancer found in a lymph node) and Other (UTI, Ulcers, Bronchitis, Renal calculus, Iron def. anemia, Chingles, ); Negative HTN, Hypercholesterolemia or NIDDM
ED Past Surgical History: Appendectomy, Bowel resection, Orthopedic (Right ankle ORIF), Urological (Prostatectomy) and Other (Gastric bypass, Hernia, cataracts)
Social History
Tobacco: Former smoker
Alcohol: Occasional
Drug: None
Personal:
Living: with family
Employment: Other
Family History
Family History: Other
Review of Systems
Review of Systems
Allergies reviewed?: Yes
All Other Systems: ROS reviewed and negative except as documented in HPI and ROS
Constitutional: Reports weight gain (reports gain of 10 lbs in past week); Denies fever
Respiratory: Denies cough or trouble breathing
Cardiac: Denies chest pain
ABD/GI: Denies abdominal pain, nausea, vomiting or diarrhea
: Denies dysuria, frequency or difficulty voiding
Musculoskeletal: Reports edema and other (states legs are becoming more swollen)
Skin: Reports no symptoms
Neurological: Reports no symptoms
Phy Exam
Physical Exam
Physical Exam:
GENERAL: No acute distress. A&Ox3.
CONSTITUTIONAL: Afebrile.
EYES: clear, conjunctivae normal
ENMT: moist mucus membranes, Pharynx nl
RESPIRATORY: Regular respirations, nonlabored, lungs clear.
CARDIOVASCULAR: Regular rate and rhythm, no murmurs, no rubs.
GI: Soft, nontender, normal BS
MUSCULOSKELETAL: Moves with ease. Well perfused. +1 edema both Legs and feet.
SKIN: Warm, dry, pink
PSYCH: Normal mood and affect. Well kept, interactive and appropriate
NEUROLOGIC: Awake, alert and oriented. No focal neurological deficits
Scores
Heart Failure Risk
Heart Failure Risk Score: Yes
History of Stroke or TIA: No
History of intubation for respiratory distress: No
Heart rate on ED arrival >/= 110: No
SaO2 <90% on arrival on room air: No
HR >/=110 during 3min walk test (or too ill to perform test): Yes
ECG has acute ischemic changes: No
Urea >/=12mmol/L (BUN 33.6mg/dL): No
Serum CO2>/=35mmol/L: No
Troponin I or T elevated to WI Level (0.4mg/dL): No
NT-proBNP >/=5,000ng/L (5,000pg/ml): No
HF Risk Score: 2
Admission Status: MEDIUM RISK 9.2% Consider observation or discharge to home with homecare & f/u visit to PCP/Electrophysiology Tech, or SNF for treatment
Course
Orders/Labs/Results
Orders:
Orders
09/11/23 15:29
Furosemide [Lasix] 40 mg IV NOW STA
09/11/23 15:51
Complete Blood Count/With Diff Urgent
Comprehensive Metabolic Panel Urgent
Magnesium Urgent
Comment: ADD ON
Pro-BNP [NT-proBNP] Urgent
09/11/23 16:24
CR Chest - 2 Views Urgent
Comment:
Reason For Exam: sob
09/11/23 17:00
CARDIOLOGY CONSULT Urgent
Consulting Provider: Sonia Naranjo
Was physician already notified: Yes
Reason for consult: edema
09/11/23 17:03
Add On- LAB Routine
Tests Added?: magnesium
Potassium Chloride [KCl] 40 meq PO NOW STA
09/11/23 18:02
Admit/Transfer Patient As Directed
Co-Sign Provider:
Level of Care: Inpatient admission
Assign to:: Telemetry
Physician / Group: Liseth
Diagnosis: CHF
Reason for Telemetry: Subacute Heart Failure
Date to Stop Telemetry: 09/13/23
Time to Stop Telemetry: 11:00
Reason for Hospitalization: Above
Expected length of stay greater than two midnights?: Yes
ELOS- Estimated Length of Stay in days: 2
I certify the patient meets the requirements for IP care: Yes
09/11/23 18:04
Code Status As Directed
Resuscitation Status: Full Code
09/12/23 08:00
Bumetanide [Bumex] 2 mg IV BID
09/13/23 11:00
DC Protocol for Telemetry ONCE
Abnormal Lab Results
09/11/23
15:51
RBC 3.30 L 10^6/uL
(4.70-6.10)
Hgb 10.1 L g/dL
(13.0-18.0)
Hct 32.0 L %
(39.0-52.0)
MCV 97.0 H fL
(80.0-94.0)
MCHC 31.6 L g/dL
(33.0-37.0)
Abs Immat Gran (auto) 0.1 H 10^3/uL
(0-0.05)
Absolute Lymphs (auto) 1.0 L 10^3/uL
(1.2-3.4)
Absolute Monos (auto) 0.7 H 10^3/uL
(0.1-0.6)
Immature Gran % 1.7 H %
(0-0.5)
Lymphocytes % 12.2 L %
(20.5-51.1)
Potassium 3.2 L mmol/L
(3.5-5.1)
Carbon Dioxide 33 H mmol/L
(22-30)
Glucose 104 H mg/dl
(70-99)
Alkaline Phosphatase 152 H U/L
(38-126)
Total Protein 6.1 L g/dl
(6.3-8.2)
Albumin 3.2 L g/dl
(3.5-5.0)
09/11/23 15:51
09/11/23 15:51
Vital Signs
Initial and Last Documented VS:
Initial Vital Signs
Temp Pulse Resp BP Pulse Ox
98.1 F 85 20 127/78 97
09/11/23 12:37 09/11/23 12:37 09/11/23 12:37 09/11/23 12:37 09/11/23 12:37
Last Documented Vital Signs
Temp Pulse Resp BP Pulse Ox
98.1 F 69 15 123/77 97
09/11/23 12:37 09/11/23 16:15 09/11/23 16:15 09/11/23 16:00 09/11/23 16:15
MDM/Problems Addressed
Differential Diagnosis Includes:
CHF, malabsorption of medications
MDM/Problems Addressed:
68 yo male w h/o laminectomy 06/2023 with screws in the sacrum area, 1 screw has been causing him pain and is coming loose so he is scheduled for surgery on 09/24 at [place] to remove that screw.
Cleared earlier today by PCP
He also needs medical clearance from cardiology and has been speaking with cardiology Dr. Naranjo's staff over the phone. Today spoke with Dr. Naranjo, described wt gain, leg swelling, and instructed to come to ED for evaluation and IV diuretics.
Admitted 08/21-08/25 for with Acute congestive heart failure with preserved ejection fraction. Since discharge pt states worsening lower extremity edema and pain even though maxed out on Bumex
Dr. Naranjo concerned for CHF, thinks pt may need IV diuretics.
Had a follow up appointment with Development Engineer Dr. Noel last week. During last admission found to have a second DVT despite being on Eliquis. Concern for malabsorption of po medications and at instructed to stop Eliquis and start Lovenox today.
4:40 PM
CBC normal
CMP with no clinically significant abnormality
BNP 430
Chest x-ray: NAD
Cardiology FAMILY SERVICES WORKER Tiffanie in and requests admission for IV diuretics.
Hospitalist notified of admission
Cardiology consult in
*Critical Care Note
Total Time (30-74mins, 75-104mins- exclusive of procedures): Not Applicable
ED Attending Note
-
Portions of this chart may have been created with voice recognition software.� Occasional wrong word or��sound alike� substitutions may have occurred due to the inherent limitations of voice recognition software.
Discharge Plan
Departure
Patient Disposition: Admit
Date of Disposition: 09/11/23
Time of Disposition: 17:01
Admit to: Med/Surg
Presentation/result/management discussed w/ accepting MD/DO: Hospitalist
Condition: Fair
Discharge Problem:
Leg edema, Malabsorption
Prescriptions:
No Action
ipratropium-albuterol 0.5 mg-3 mg(2.5 mg base)/3 mL Solution For Nebulization
3 ml INHALATION R Q6HPRN PRN (Reason: sob)
ergocalciferol (vitamin D2) 1,250 mcg (50,000 unit) Capsule
1,250 mcg PO FR@0800
albuterol sulfate 90 mcg/actuation Hfa Aerosol Inhaler
2 puff INHALATION R Q6HPRN PRN (Reason: sob)
pregabalin 150 mg Capsule
150 mg PO Q12H
Patient Comments:
09/11/2023: last filled 08/31/23, 60 tabs for 30 days from [id number]
hydrocodone-acetaminophen 10-325 mg Tablet
1 tab PO Q4H
Patient Comments:
09/11/2023: last filled 09/10/23, 30 tabs for 5 days from [facility]
bumetanide 1 mg Tablet
4 mg PO BID
tizanidine 2 mg Capsule
2 mg PO BID
cyanocobalamin (vitamin B-12) 100 mcg Tablet
100 mcg PO DAILY Qty: 30 0RF
pantoprazole 40 mg Tablet,Delayed Release (Dr/Ec)
40 mg PO DAILY Qty: 30 0RF
potassium 99 mg Tablet
99 mg PO DAILY
enoxaparin 120 mg/0.8 mL syringe
120 mg SC Q12H
Referrals:
Monica Villafuerte MD [Family Provider] -
Interventions
Interventions:
ED- Cardiac Assessment Last Done: 09/11/23 16:14
ED- Pulmonary Assessment Last Done: 09/11/23 16:14
ED-Skin Assessment Last Done: 09/11/23 16:14
Discharge Date and Time
Print Language: DANISH
[2023-09-11 15:43] VITALS: BMI 32.8
[2023-09-11 15:50] VITALS: BP 119/74
[2023-09-11] MEDS: LASIX 40 MG IV (15:53)
[2023-09-11 16:00] VITALS: BP 123/77
[2023-09-11 16:04] LABS: % Basophils 0.8 % (0-2); % Eosinophils 4.3 % (0-6); % Immature Granulocytes 1.7 % (0-0.5); % Lymphocytes 12.2 % (20.5-51.1); % Monocytes 8.4 % (1.7-9.3); % Neutrophils 72.6 % (42.2-75.2); Absolute Basophils 0.1 10^3/uL (0-0.2); Absolute Eosinophils 0.4 10^3/uL (0-0.7); Absolute Immature Granulocytes 0.1 10^3/uL (0-0.05); Absolute Monocytes 0.7 10^3/uL (0.1-0.6); Absolute Neutrophils 6.1 10^3/uL (1.4-6.5); Hemoglobin 10.1 g/dL (13.0-18.0); Mean Corp Hgb Conc. 31.6 g/dL (33.0-37.0); Mean Corpuscular Hgb 30.6 pg (27.0-31.0); Mean Platelet Volume 9.2 fL (7.4-10.4); Nucleated Red Blood Cells % 0 % (-); Platelet Count 369 10^3/uL (130-400); Red Cell Dist. Width 13.5 % (11.5-14.5); White Blood Cell Count 8.4 10^3/uL (4.8-10.8)
[2023-09-11 16:27] LABS: ALT (SGPT) < 10 U/L (0-50); AST (SGOT) 20 U/L (17-59); Albumin 3.2 g/dl (3.5-5.0); Alkaline Phosphatase 152 U/L (38-126); Blood Urea Nitrogen 19 mg/dl (9-20); Calcium 8.7 mg/dl (8.4-10.2); Carbon Dioxide 33 mmol/L (22-30); Estimated Creatinine Clearance > 125 ml/min; Glucose 104 mg/dl (70-99); Total Bilirubin 0.3 mg/dl (0.2-1.3); Total Protein 6.1 g/dl (6.3-8.2); eGFR > 60.00
[2023-09-11 16:33] LABS: NT-proBNP 430 pg/ml
--- NOTE | 2023-09-11 16:37 | CON.CAR ---
Addendum entered and electronically signed by Ismael Blanton MD 09/11/23 17:45:
68-year-old man admitted with weight gain and lower extremity edema much dyspnea. He had lumbar and sacral surgery in June 2023 at [facility], began with lower extremity edema thereafter and was hospitalized at [place] 08/21-07/2723 edema. Also
had been diagnosed with right lower extremity DVT August 02 and started on Eliquis with possible extension of clot during late July hospital stay. Bumex has been increased up to 4 mg twice daily. However, still with ongoing edema and weight gain.
Additional spinal surgery planned for late August with removal of screw from low back. Recently switched from Eliquis to Lovenox related to concerns of malabsorption of Eliquis as a result of Deepa-en-Y gastric bypass.
PMH: DVT 2023 lower extremity, HFpEF, asthma, hypercholesterolemia, echodensity on anterior mitral leaflet by echo
PSH: Gastric bypass 2005, appendectomy, cataracts, lumbar and sacral surgery June 2023
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
FH: Positive for CAD
allergies: dupilumab, NSAIDs
Outpatient meds: Albuterol, bumetanide 4 mg twice daily, enoxaparin 120 mg SQ every 12 just started, Atrovent albuterol, pantoprazole, Lyrica, tizanidine
123/77, pulse 69, weight not recorded
Head neck exam unremarkable, lungs clear, regular rate and rhythm with soft systolic murmur left sternal border to apex, the okay, carotids okay, abdomen obese, 2+ to 3+ edema distal pulses still palpable, neuro nonfocal
Hemoglobin 10.1, white count 8.4, platelets are 369, potassium 3.2, CO2 33, BUN and creatinine 19 and 0.7, proBNP 430
ECG pending
ECG 08/22/2023 normal
Chest x-ray no active disease
Echo : Mild LVH, EF 50-55%, tach, echodensity anterior leaflet mitral valve 0.5 x 1 cm, trace MR, normal RV, normal atria, trace tricuspid regurgitation
Impression:
Presented with worsening edema, weight gain
Acute on chronic HFpEF, predominantly right-sided
Hypokalemia
h/o DVT RLE 07/2023
Chronic Eliquis OAC, with transition to lovenox as of 09/10 due to concern for poor eliquis absorption
Asthma
h/o gastric bypass with short gut syndrome
Hyperlipidemia
Abnormal echo with calcified echodensity on the anterior mitral leaflet 08/24/23, with negative blood cultures
Plan:
He presents with edema possibly in part related to DVT, possibly related to recent surgery with inactivity, or possibly with an element of right-sided heart failure.
There is concerned about absorption of oral medications status post gastric bypass surgery.
For his DVT he is now on Lovenox in place of Eliquis.
With concerns regarding absorption of bumetanide we will switch to IV.
Would not repeat echo at this time.
Will review with pharmacy regarding absorption of diuretics to see if there is a preferred diuretic agent.
Original Note:
Consultation
Consultation Request
Date/Time Consultation Requested: 09/11/2023
Date/Time Consultation Performed: 09/11/2023
Performing Provider: Tiffanie Velazquez PA-C for Dr. Blanton
Reason for Consultation: CHF
Medical History
-
History of Present Illness:
HPI: Laevlle is a 68-year-old male with asthma, gastric bypass with short gut syndrome, and hyperlipidemia recently diagnosed with of right lower extremity DVT 08/03/2023. He was initiated on Eliquis. He was then admitted to [facility]
08/21-08/26/23 due to worsening bilateral lower extremity edema. During that admission he was diuresed with IV Lasix, and had ultrasound which showed possible additional clot of RLE new from prior study 08/03/23. He was seen by his trust vault custodian last
week and concern was that he was not absorbing eliquis. He was transitioned to lovenox with first dose this morning. He had been corresponding with [facility] office due to concern for continued weight gain, and lower extremity edema. He reported 9 pound
weight gain within 1 week. He is on Bumex 4 mg twice daily as outpatient, however does not feel as though he is responding. He has history of laminectomy and is planned for spinal surgery 09/25/23 as reportedly he has a screw which is almost
protruding through his skin and he has significant pain due to this. He was recommended to come in for IV diuresis to improve respiratory status prior to planned procedure. In ER, lab work returned with proBNP 430. His creatinine is stable at 0.7
with potassium of 3.2. At this time, he is feeling well. He was given dose of IV Lasix in the emergency room and has had good response thus far. No chest pain, palpitations.
PMH:
h/o DVT RLE 07/2023
Chronic Eliquis OAC, transitioned to lovenox 09/10
Chronic HFpEF
Asthma
h/o gastric bypass with short gut syndrome
Hyperlipidemia
Abnormal echo with calcified echodensity on the anterior mitral leaflet 08/24/23
Past Medical History
Past Medical History: Other (In HPI)
Past Surgical History: Appendectomy and Other (Cataract extraction, gastric bypass in 2005)
Social History
Tobacco: Former Smoker
Alcohol: Occasional
Drug: None
Personal:
Living: With Family
Employment: Retired
Family History
Family History: CAD
Allergies / Home Medications
Allergy/AdvReac Type Severity Reaction Status Date / Time
dupilumab [From [employer] (f[employer] Pen] Allergy Unknown Verified 08/22/23 08:50
NSAIDS (Non-Steroidal AdvReac Can not Verified 08/22/23 08:50
Anti-Inflamma take due
to Gastric
Bypass
�Medication �Instructions �Recorded �Confirmed �Type
acetaminophen 500 mg oral powder 1,000 mg PO DAILYPRN PRN mild pain 06/23/23 08/22/23 History
packet (Tylenol Extra Strength)
albuterol sulfate 90 mcg/actuation 2 puff inhalation R Q6HPRN PRN sob 06/23/23 08/22/23 History
aerosol inhaler
ergocalciferol (vitamin D2) 1,250 1,250 mcg PO FR@0800 Supplement 06/23/23 08/22/23 History
mcg (50,000 unit) capsule
ipratropium 0.5 mg-albuterol 3 mg 3 ml inhalation R Q6HPRN PRN sob 06/23/23 08/22/23 History
(2.5 mg base)/3 mL nebulization
soln
lidocaine 5 % topical patch 1 patch topical BID apply to 06/23/23 08/22/23 History
middle lumbar back
pregabalin 150 mg capsule 150 mg PO Q12H Pain 06/23/23 08/22/23 History
apixaban 5 mg tablet (Eliquis) 5 mg PO BID Blood Clot 08/22/23 08/22/23 History
Prevention/Tx
bumetanide 1 mg tablet 4 mg PO BID Fluid 08/22/23 08/22/23 History
Retention/Swelling
hydrocodone 10 mg-acetaminophen 1 tab PO Q4H Pain 08/22/23 08/22/23 History
325 mg tablet
tizanidine 2 mg capsule 2 mg PO BIDPRN PRN muscle spasm 08/22/23 08/22/23 History
cyanocobalamin (vitamin B-12) 100 100 mcg PO DAILY #30 tabs 08/26/23 Rx
mcg tablet
pantoprazole 40 mg tablet,delayed 40 mg PO DAILY #30 tabs 08/26/23 Rx
release
Review of Systems
-
History Source: Patient
All other systems: Negative unless noted
Physical Exam
Vital Signs
Temp Pulse Resp BP Pulse Ox
98.1 F 69 15 123/77 97
09/11/23 12:37 09/11/23 16:15 09/11/23 16:15 09/11/23 16:00 09/11/23 16:15
Lab Results
09/11/23 15:51
09/11/23 15:51
Cep-G-Wxnjeqviezg Pept 430 pg/ml 09/11/23 15:51
Impression / Plan
-
PCP: Dr. Villafuerte
Paper Sealer: Dr. Nellie Hernadez, appt scheduled 11/2023
Impression:
Presented with worsening edema, weight gain
Acute on chronic HFpEF
Hypokalemia
h/o DVT RLE 07/2023
Chronic Eliquis OAC, with transition to lovenox as of 09/10 due to concern for poor eliquis absorption
Asthma
h/o gastric bypass with short gut syndrome
Hyperlipidemia
Abnormal echo with calcified echodensity on the anterior mitral leaflet 08/24/23
Echo 05/2020: Normal biventricular size, systolic function, no regional wall motion abnormality. Mild concentric LVH. EF 60 to 65%. Aortic sclerosis without significant stenosis. Mild MAC with trace MR. Mild TR. PASP 30 to 35 mmHg, compared to
prior study 12/2017 no significant change.
Echo 08/24/2023: EF 50-55%, calcified echodensity seen on anterior mitral valve leaflet (measures 0.5 x 1.0 cm) cannot exclude vegetation although would expect more significant MR and only trace MR seen
Plan:
-Presented for evaluation at the recommendation of his PCP and cardiology for increased edema despite high dose bumex. Concern for acute heart failure exacerbation with weight gain and increased edema.
-suspicion for poor absorption of oral meds given history of gastric bypass with short gut syndrome
-Given 40mg IV lasix in ER. Will continue diuresis while admitted with IV bumex 2mg BID. most challenging will be determining OP regimen if unable to absorb po diuretics, will need to discuss with pharmacy
-Creat stable at 0.7. Weight 248lbs. Follow daily weights, I&Os.
-Chest xray pending.
-He has preserved EF by echo 08/24/2023 as noted above with echodensity noted on anterior mitral valve leaflet. No need to repeat at this time.
-Has been maintained on Eliquis for recent DVT, however there was concern for malabsorption of Eliquis due to h/o gastric bypass and he was transitioned to lovenox as of this AM.
-Continue lovenox for anticoagulation.
-K 3.2. Replete. Check mag.
-d/w ER [employer]
-d/w patient and at bedside
Data Reviewed
-
Medical Tests (Nuc Med, Echo etc): Report Reviewed by me
Labs: Labs Reviewed by me
Old Records: Reviewed
[2023-09-11 16:40] LABS: Chloride 98 mmol/L (98-107); Potassium 3.2 mmol/L (3.5-5.1); Sodium 137 mmol/L (135-145)
--- NOTE | 2023-09-11 18:06 | HPS.HSE ---
Family Physician
-
Family Physician: Monica Villafuerte
Chief Complaint
-
Weight gain and lower extremity edema
History of Present Illness
Patient is a 68 years old male with history of chronic CHF preserved EF, asthma, gastric bypass with short gut syndrome, dyslipidemia, recently diagnosed with right lower extremity DVT on August 03, 2023. Patient has been initiated on Eliquis. He
was recently admitted from 08/21 - 08/26/2023 due to worsening bilateral lower extremity edema and at that time was found to have decompensated diastolic CHF and was diuresed with IV Lasix. Patient had a follow-up ultrasound of lower extremities
which showed possible additional clot while on Lovenox, which was new from prior study on 08/03/2023. He was seen in consultation by health service worker last week with concern for possible malabsorption of medications including Eliquis due to short gut
syndrome with history of Deepa-en-Y bypass. Over the last week patient also noted to have significant weight gain with worsening of lower extremity edema, when he reports gaining around 9 to 10 pounds. He denies any chest pain or shortness of
breath. Prior to visit emergency room today he was transitioned from Eliquis to weight-based Lovenox for right lower extremity DVT. In communication with primary physician and resolution manager he was referred to emergency room for evaluation and
consideration for IV diuresis due to decompensated CHF.
Medical History
Past Medical History
Past Medical History: Reports Asthma, CHF and Other (Lower extremity DVT, chronic pain)
Past Surgical History: Reports Other (Gastric bypass)
Social History
Tobacco: Non-smoker
Alcohol: None
Personal:
Living: With Family
Family History
Family History: Not pertinent
Allergies / Home Medications
Allergies reflects when Allergies were last updated in [facility] [employer].
Home Medications with original date entered in [facility]
Allergy/Medication List:
Allergies
Allergy/AdvReac Type Severity Reaction Status Date / Time
dupilumab [From Dupixent Pen] Allergy Unknown Verified 08/22/23 08:50
NSAIDS (Non-Steroidal Allergy Can not Verified 09/11/23 17:04
Anti-Inflamma take due
to Gastric
Bypass
Home Medications
albuterol sulfate 90 mcg/actuation aerosol inhaler 2 puff inhalation R Q6HPRN PRN sob 06/23/23
ergocalciferol (vitamin D2) 1,250 mcg (50,000 unit) capsule 1,250 mcg PO FR@0800 Supplement 06/23/23
ipratropium 0.5 mg-albuterol 3 mg (2.5 mg base)/3 mL nebulization soln 3 ml inhalation R Q6HPRN PRN sob 06/23/23
pregabalin 150 mg capsule 150 mg PO Q12H Pain 06/23/23
bumetanide 1 mg tablet 4 mg PO BID Fluid Retention/Swelling 08/22/23
hydrocodone 10 mg-acetaminophen 325 mg tablet 1 tab PO Q4H Pain 08/22/23
tizanidine 2 mg capsule 2 mg PO BID 08/22/23
cyanocobalamin (vitamin B-12) 100 mcg tablet 100 mcg PO DAILY #30 tabs 08/26/23
pantoprazole 40 mg tablet,delayed release 40 mg PO DAILY #30 tabs 08/26/23
enoxaparin 120 mg/0.8 mL subcutaneous syringe 120 mg SC Q12H 09/11/23
potassium 99 mg tablet 99 mg PO DAILY 09/11/23
Review of Systems
-
A 12 point ROS was completed and negative except as noted: Yes
Physical Exam
Vital Signs
Vital Signs
Temp Pulse Resp BP Pulse Ox
98.1 F 69 15 123/77 97
09/11/23 12:37 09/11/23 16:15 09/11/23 16:15 09/11/23 16:00 09/11/23 16:15
Physical Exam
General: Well Developed, Well Nourished and No Apparent Distress
HEENT: NormoCephalic, Moist mucous membranes and Atraumatic
Respiratory: Clear
Cardiac: S1/S2 and Regular Rhythm; No Murmur or Rub
GI: Soft, Non Tender, Non Distended and Normal Bowel Sounds; No Organomegaly
Rectal: Deferred by Provider
Musculoskeletal: No Clubbing, No Cyanosis and Other (Bilateral 3+ pitting lower extremity edema.)
Skin: No Rash
Neuro: Nonfocal/grossly intact
Laboratory Results
-
09/11/23 15:51
09/11/23 15:51
Laboratory Results
Total Bilirubin 0.3 mg/dl (0.2-1.3) 09/11/23 15:51
AST 20 U/L (17-59) 09/11/23 15:51
ALT < 10 U/L (0-50) 09/11/23 15:51
Alkaline Phosphatase 152 U/L (38-126) H 09/11/23 15:51
Impression/Plan
-
IMPRESSION:
Acute CHF preserved EF
� Presentation with weight gain close to 10 pounds and worsening of bilateral lower extremity edema
Hypokalemia
Right lower extremity DVT.
Anticoagulation transition from Eliquis to weight-based LMWH with concern for possible short gut syndrome and malabsorption
Asthma without exacerbation
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
Dyslipidemia
Chronic lower back pain with history of spinal surgeries.
Plan:
Acute CHF preserved EF
Echo 08/24/2023: EF 50-55%, calcified echodensity seen on anterior mitral valve leaflet (measures 0.5 x 1.0 cm) cannot exclude vegetation although would expect more significant MR and only trace MR seen.
Reports close to 30 pound weight gain with worsening of lower extremity edema
Stable respiratory status with no evidence of hypoxia on presentation
Chest x-ray with no evidence of pulmonary edema.
? If patient has malabsorption with short gut syndrome while on oral Bumex at home
Start IV diuresis with IV Bumex 2 mg twice daily.
Replete potassium
Follow daily weights and BMP
Cardiology consulted
Right lower extremity DVT pain
Repeat ultrasound today with possibly new clot, although limited study
Patient with no respiratory complaints with stable respiratory status
With concern for malabsorption transition to weight-based LMWH
Chronic low back pain status post multiple spinal surgeries
Continue pregabalin
Asthma without exacerbation
Continue nebulizers
Full code
DVT prophylaxis Lovenox
[2023-09-11 18:07] LABS: Magnesium 1.7 mg/dl (1.6-2.3)
[2023-09-11] MEDS: KCL 40 MEQ PO (19:07)
[2023-09-11] MEDS: NORCO 5/325 2 TABLET PO ×2 (19:07→22:27)
[2023-09-11] MEDS: LYRICA 150 MG PO (21:04)
[2023-09-11] MEDS: ZANAFLEX 2 MG PO (21:04)
[2023-09-11] MEDS: LOVENOX 110 MG SC (21:04)
[2023-09-11 21:08] VITALS: BP 123/70
[2023-09-11 22:00] VITALS: BP 111/71
--- NOTE | 2023-09-11 22:54 | PTCARENOTE ---
Patient received from ED via wheelchair. Patient ambulated into the room with own rolling walker. AAOx3. VSS. Patient complained of lower back pain, given scheduled pain medication, see MAR. Patient oriented to the room. [facility] villa is within reach.
[2023-09-11 23:11] VITALS: BP 119/68
[2023-09-11] MEDS: DUONEB 3 ML INH (23:11)
[2023-09-11 23:12] VITALS: BMI 32.5
[2023-09-12] MEDS: NORCO 5/325 2 TABLET PO ×6 (02:05→22:13)
[2023-09-12 03:18] VITALS: BP 106/63
[2023-09-12 06:00] VITALS: BMI 32.5
[2023-09-12 07:25] VITALS: BP 137/81
[2023-09-12] MEDS: BUMEX 2 MG IV ×2 (08:25→16:50)
[2023-09-12] MEDS: LOVENOX 110 MG SC ×2 (08:27→21:02)
[2023-09-12] MEDS: LYRICA 150 MG PO ×2 (08:29→21:02)
[2023-09-12] MEDS: ZANAFLEX 2 MG PO ×2 (08:29→21:02)
[2023-09-12] MEDS: VITAMIN B-12 100 MCG PO (08:29)
[2023-09-12] MEDS: PROTONIX 40 MG PO (08:29)
[2023-09-12 08:44] LABS: % Basophils 1.1 % (0-2); % Eosinophils 6.3 % (0-6); % Immature Granulocytes 1.6 % (0-0.5); % Lymphocytes 17.8 % (20.5-51.1); % Monocytes 13.6 % (1.7-9.3); % Neutrophils 59.6 % (42.2-75.2); Absolute Basophils 0.1 10^3/uL (0-0.2); Absolute Eosinophils 0.4 10^3/uL (0-0.7); Absolute Immature Granulocytes 0.1 10^3/uL (0-0.05); Absolute Monocytes 0.8 10^3/uL (0.1-0.6); Absolute Neutrophils 3.4 10^3/uL (1.4-6.5); Hematocrit 31.2 % (39.0-52.0); Hemoglobin 9.8 g/dL (13.0-18.0); Mean Corp Hgb Conc. 31.4 g/dL (33.0-37.0); Mean Corpuscular Hgb 30.5 pg (27.0-31.0); Mean Corpuscular Volume 97.2 fL (80.0-94.0); Mean Platelet Volume 9.8 fL (7.4-10.4); Nucleated Red Blood Cells % 0 % (-); Platelet Count 346 10^3/uL (130-400); Red Blood Cell Count 3.21 10^6/uL (4.70-6.10); Red Cell Dist. Width 13.5 % (11.5-14.5); White Blood Cell Count 5.7 10^3/uL (4.8-10.8)
--- NOTE | 2023-09-12 08:52 | W.PN.CARDCBS ---
Addendum entered and electronically signed by Lavelle Lees MD 09/12/23 10:33:
patient seen and examined
agree with BLANCA Velazquez's notes and assessment
agree with BLANCA Velazquez's plan
difficult situation with his gut absorption
exam:
edema improved
heent ncat
jvp 6
cor regular
lungs ctab
abd soft nt nd
no ext edema
PCP: Dr. Villafuerte
Hemodialysis Charge Nurse: Dr. Nellie Hernadez, appt scheduled 11/2023
Impression:
Presented with worsening edema, weight gain
Acute on chronic HFpEF
Hypokalemia
h/o DVT RLE 07/2023
Chronic Eliquis OAC, with transition to lovenox as of 09/10 due to concern for poor eliquis absorption
Asthma
h/o gastric bypass with short gut syndrome
Hyperlipidemia
Abnormal echo with calcified echodensity on the anterior mitral leaflet 08/24/23
Echo 05/2020: Normal biventricular size, systolic function, no regional wall motion abnormality. Mild concentric LVH. EF 60 to 65%. Aortic sclerosis without significant stenosis. Mild MAC with trace MR. Mild TR. PASP 30 to 35 mmHg, compared to
prior study 12/2017 no significant change.
Echo 08/24/2023: EF 50-55%, calcified echodensity seen on anterior mitral valve leaflet (measures 0.5 x 1.0 cm) cannot exclude vegetation although would expect more significant MR and only trace MR seen
Plan:
-Presented for evaluation at the recommendation of his PCP and cardiology for increased edema despite high dose bumex, consistent with acute CHF
-suspicion for poor absorption of oral meds given history of gastric bypass with short gut syndrome-perhaps lovenox for DVT and furosix as outpt if he cannot absorb PO meds. appreciate GI input to help here
-he is responding well to IV bumex 2mg BID. most challenging will be determining OP regimen if unable to absorb po diuretics. d/w pharmacy, they will look into oral liquid lasix and other options. unsure if scheduled IV lasix pushes as OP an
option...
-Cr and K pending 09/11. Follow daily weights, I&Os.
-Chest xray clear
-Has been maintained on Eliquis for recent DVT, however there was concern for malabsorption of Eliquis due to h/o gastric bypass and he was transitioned to lovenox 09/10
Original Note:
Today's Communication / Plan
-
continue IV bumex
pharmacy to look into diuretic options due to issues with po absorption due to short gut syndrome
Impression / Plan
-
PCP: Dr. Villafuerte
Hemodialysis Charge Nurse: Dr. Nellie Hernadez, appt scheduled 11/2023
Impression:
Presented with worsening edema, weight gain
Acute on chronic HFpEF
Hypokalemia
h/o DVT RLE 07/2023
Chronic Eliquis OAC, with transition to lovenox as of 09/10 due to concern for poor eliquis absorption
Asthma
h/o gastric bypass with short gut syndrome
Hyperlipidemia
Abnormal echo with calcified echodensity on the anterior mitral leaflet 08/24/23
Echo 05/2020: Normal biventricular size, systolic function, no regional wall motion abnormality. Mild concentric LVH. EF 60 to 65%. Aortic sclerosis without significant stenosis. Mild MAC with trace MR. Mild TR. PASP 30 to 35 mmHg, compared to
prior study 12/2017 no significant change.
Echo 08/24/2023: EF 50-55%, calcified echodensity seen on anterior mitral valve leaflet (measures 0.5 x 1.0 cm) cannot exclude vegetation although would expect more significant MR and only trace MR seen
Plan:
-Presented for evaluation at the recommendation of his PCP and cardiology for increased edema despite high dose bumex, consistent with acute CHF
-suspicion for poor absorption of oral meds given history of gastric bypass with short gut syndrome
-he is responding well to IV bumex 2mg BID. most challenging will be determining OP regimen if unable to absorb po diuretics. d/w pharmacy, they will look into oral liquid lasix and other options. unsure if scheduled IV lasix pushes as OP an
option...
-Cr and K pending 09/11. Follow daily weights, I&Os.
-Chest xray clear
-Has been maintained on Eliquis for recent DVT, however there was concern for malabsorption of Eliquis due to h/o gastric bypass and he was transitioned to lovenox 09/10. .
Progress Note - Hemodialysis Charge Nurse
Subjective
Date of Service: September 12, 2023
reports good urine output. no CP, SOB. improvement in LE edema
Objective
Labs:
Labs
Hgb 10.1 g/dL (13.0-18.0) L 09/11/23 15:51
Hct 32.0 % (39.0-52.0) L 09/11/23 15:51
Plt Count 369 10^3/uL (130-400) 09/11/23 15:51
Sodium 137 mmol/L (135-145) 09/11/23 15:51
Potassium 3.2 mmol/L (3.5-5.1) L 09/11/23 15:51
BUN 19 mg/dl (9-20) 09/11/23 15:51
Creatinine 0.7 mg/dL (0.7-1.3) 09/11/23 15:51
Glucose 104 mg/dl (70-99) H 09/11/23 15:51
Vital Signs and I&O:
Vital Signs
Temp Pulse Resp BP Pulse Ox
98 F 69 18 137/81 95
09/12/23 07:25 09/12/23 07:25 09/12/23 07:25 09/12/23 07:25 09/12/23 07:25
Vital Signs
Temp Pulse Resp BP Pulse Ox
98 F 69 18 137/81 95
09/12/23 07:25 09/12/23 07:25 09/12/23 07:25 09/12/23 07:25 09/12/23 07:25
Intake & Output
09/10/23 09/11/23 09/12/23 09/13/23
07:59 07:59 07:59 07:59
Intake Total 240 / 240
Balance 240 / 240
Physical Exam
Physical Exam
GEN: No distress, awake, alert, oriented x3
HEENT: supple, anicteric, mmm, eomi
LUNGS: CTA B/L, no wheezes/rales
CV: Reg, S1/S2, no murmur
ABD: soft, BS+, NT/ND
EXT: No cyanosis, clubbing. 2+ edema of B/L LE
NEURO: Gross non-focal
SKIN: Warm, pink, dry. No rash
[2023-09-12 10:54] LABS: Blood Urea Nitrogen 18 mg/dl (9-20); Calcium 8.8 mg/dl (8.4-10.2); Carbon Dioxide 32 mmol/L (22-30); Chloride 100 mmol/L (98-107); Estimated Creatinine Clearance > 125 ml/min; Glucose 72 mg/dl (70-99); Potassium 3.5 mmol/L (3.5-5.1); Sodium 138 mmol/L (135-145); eGFR > 60.00
[2023-09-12 11:15] VITALS: BP 131/76
--- NOTE | 2023-09-12 14:55 | W.PN.HOSP.TC ---
Today's Communication/Plan
-
CW iv diuresis
DW his bariatric surgeon about malabsorption of medication issues
Assessment / Plan
Assessment / Plan
IMPRESSION:
Acute CHF preserved EF
� Presentation with weight gain close to 10 pounds and worsening of bilateral lower extremity edema
Hypokalemia
Right lower extremity DVT.
Anticoagulation transition from Eliquis to weight-based LMWH with concern for possible malabsorption
Asthma without exacerbation
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
Dyslipidemia
Chronic lower back pain with history of spinal surgeries.
Plan:
Acute CHF preserved EF
Echo 08/24/2023: EF 50-55%, calcified echodensity seen on anterior mitral valve leaflet (measures 0.5 x 1.0 cm) cannot exclude vegetation although would expect more significant MR and only trace MR seen.
Reports close to 30 pound weight gain with worsening of lower extremity edema
Stable respiratory status with no evidence of hypoxia on presentation
Chest x-ray with no evidence of pulmonary edema.
? If patient has malabsorption due to Deepa en Y surgery while on oral Bumex at home
cw IV diuresis with IV Bumex 2 mg twice daily.
Replete potassium
Follow daily weights and BMP
Cardiology consulted
Malabsorption issues -
Patient had a Deepa-en-Y surgery in 2005. According to patient and no secondary complications other than malabsorption. No dumping syndrome ever noted. There is a mention about short gut syndrome but clinically not symptomatic and the
thinks that diagnosis of short gut was given due to malabsorption issues. He in the past as experienced failure of antibiotics to treat infection and needing to come to the hospital for IV. He is on a high dose of Bumex at 8 mg but still in heart
failure. He is also on potassium supplementations and he was noted to be hypokalemic on admission.
Patient states he has no upper GI symptoms postprandial. He is not having any diarrhea however. His bowel movements are regular daily once. Not loose. No prior history of chronic diarrhea, dehydration which goes against short gut syndrome .
Due to his stomach anatomy he is having issues with absorption of medcations - will need to speak to his Bariatric surgery on Thursday to eval need of G tube for medications vs redo of his surgery if the malaborption of medications issues is going to
be life long.
Right lower extremity DVT pain
Repeat ultrasound today with possibly new clot, although limited study
Patient with no respiratory complaints with stable respiratory status
With concern for malabsorption transition to weight-based LMWH
Chronic low back pain status post multiple spinal surgeries
Continue pregabalin
Asthma without exacerbation
Continue nebulizers
Full code
DVT prophylaxis Lovenox
DW
DW cardiology
Total time spent on today's encounter was 52 minutes which included time spent in counseling the patient/family regarding diagnosis and treatment plan as listed above, goals of care, and symptom management. Case was discussed with nursing staff,
specialists, . All labs and imaging personally reviewed by me. Remainder the time spent in detailed review of previous records, lab data, imaging, and other medical provider documentation.
Anticipated Discharge: > 48 hours
Subjective/Interval History
-
Date of Service: September 12, 2023
Breathing is comfortable at rest. No chest pain.
Objective Data
-
Labs:
Laboratory Results
09/12/23
05:46
WBC 5.7
Hgb 9.8 L
Hct 31.2 L
Plt Count 346
Sodium 138
Potassium 3.5
Chloride 100
Carbon Dioxide 32 H
BUN 18
Creatinine 0.7
Glucose 72
Calcium 8.8
Vital Signs:
Vital Signs
Temp Pulse Resp BP Pulse Ox
98 F 63 18 131/76 94
09/12/23 11:15 09/12/23 11:15 09/12/23 11:15 09/12/23 11:15 09/12/23 11:15
I&O
09/11/23 09/12/23 09/13/23
06:59 06:59 06:59
Intake Total 240 / 240
Balance 240 / 240
Review of Systems
-
Constitutional: Denies Fever
EENT: Denies Sore Throat
Cardiac: Denies Chest Pain
Abdomen/GI: Denies Abdominal Pain, Nausea, Vomiting, Diarrhea or Constipated
Neuro: Denies Dizzy or Headache
Physical Exam
-
General: No Apparent Distress
HEENT: Moist Mucous Membranes
Respiratory: Clear to Auscultation
Cardiac: Regular Rhythm and S1/S2
GI: Soft, Nontender, Nondistended and Normal Bowel Sounds
Neuro: AO x 3
Psych: Calm; Negative Confused
Data Reviewed
-
Labs: Labs Reviewed by me
[2023-09-12 15:25] VITALS: BP 130/87
[2023-09-12] MEDS: DUONEB 3 ML INH (15:31)
--- NOTE | 2023-09-12 16:04 | CM ---
Patient seen bedside with also present. Patient reported he lived with his in an in law suite next to his son's house. Patient stated that she assists him with any care he may need. Patient reports the suite is all one floor and
handicap accessible. Patient indicated that he has a walker, raised toilet seat, shower rails, shower chair, and toilet rails. Patient denies VN or SNF. Patient confirms PCP Monica Villafuerte, pharmacy [facility]. Patient indicated that patient
is really needing infusion or IV medications due to short gut syndrome. Patient recently discharged from and returned. CM will continue to follow for discharge planning needs.
Plan; home with family; pending IV infusion needs; watch for referrals to IV providers.
[2023-09-12 19:43] VITALS: BP 158/85
[2023-09-12 23:59] VITALS: BP 109/67
[2023-09-13] MEDS: NORCO 5/325 2 TABLET PO ×3 (01:59→10:09)
[2023-09-13 03:50] VITALS: BP 117/78
[2023-09-13] MEDS: DUONEB 3 ML INH ×2 (03:50→19:17)
[2023-09-13 06:00] VITALS: BMI 32.6
[2023-09-13 06:08] LABS: Blood Urea Nitrogen 19 mg/dl (9-20); Carbon Dioxide 30 mmol/L (22-30); Chloride 102 mmol/L (98-107); Estimated Creatinine Clearance 114 ml/min; Glucose 94 mg/dl (70-99); Potassium 3.4 mmol/L (3.5-5.1); Sodium 134 mmol/L (135-145); eGFR > 60.00
[2023-09-13 07:05] VITALS: BP 138/77
[2023-09-13] MEDS: ZANAFLEX 2 MG PO ×2 (08:24→20:35)
[2023-09-13] MEDS: PROTONIX 40 MG PO (08:24)
[2023-09-13] MEDS: VITAMIN B-12 100 MCG PO (08:24)
[2023-09-13] MEDS: LOVENOX 110 MG SC ×2 (08:25→20:32)
[2023-09-13] MEDS: LYRICA 150 MG PO ×2 (08:25→20:34)
[2023-09-13] MEDS: BUMEX 2 MG IV ×2 (08:26→16:09)
--- NOTE | 2023-09-13 09:10 | W.PN.CARDCBS ---
Today's Communication / Plan
-
IV Bumex
IV Lovenox for DVT
Looking into options for absorption given his prior Deepa-en-Y surgery
Impression / Plan
-
PCP: Dr. Villafuerte
Machine Maintenance Mechanic: Dr. Nellie Hernadez, appt scheduled 11/2023
Impression:
Presented with worsening edema, weight gain
Acute on chronic HFpEF
Hypokalemia
h/o DVT RLE 07/2023
Chronic Eliquis OAC, with transition to lovenox as of 09/10 due to concern for poor eliquis absorption
Asthma
h/o gastric bypass with short gut syndrome
Hyperlipidemia
Abnormal echo with calcified echodensity on the anterior mitral leaflet 08/24/23
Echo 05/2020: Normal biventricular size, systolic function, no regional wall motion abnormality. Mild concentric LVH. EF 60 to 65%. Aortic sclerosis without significant stenosis. Mild MAC with trace MR. Mild TR. PASP 30 to 35 mmHg, compared to
prior study 12/2017 no significant change.
Echo 08/24/2023: EF 50-55%, calcified echodensity seen on anterior mitral valve leaflet (measures 0.5 x 1.0 cm) cannot exclude vegetation although would expect more significant MR and only trace MR seen
Plan:
-Presented for evaluation at the recommendation of his PCP and cardiology for increased edema despite high dose bumex, consistent with acute CHF
-suspicion for poor absorption of oral meds given history of gastric bypass with short gut syndrome
-he is responding well to IV bumex 2mg BID. most challenging will be determining OP regimen if unable to absorb po diuretics. d/w pharmacy, they will look into oral liquid lasix and other options. unsure if scheduled IV lasix pushes as OP an option
but perhaps he could consider furosix
-Cr and K pending 09/11. Follow daily weights, I&Os.
-Chest xray clear
-Has been maintained on Eliquis for recent DVT, however there was concern for malabsorption of Eliquis due to h/o gastric bypass and he was transitioned to lovenox 09/10
Primary team in discussions with his bariatric surgery program to consider alternative ways for absorption. Otherwise we may need to consider infusion based therapy via port or other cutaneous options such as furosix and IV Lovenox for his DVT
-Will follow with you I suspect he needs another day or 2 of IV diuresis based upon outpatient we can
Progress Note - Machine Maintenance Mechanic
Subjective
Date of Service: September 13, 2023
Feeling better
Objective
Labs:
09/12/23 05:46
09/13/23 05:00
Labs
Hgb 9.8 g/dL (13.0-18.0) L 09/12/23 05:46
Hct 31.2 % (39.0-52.0) L 09/12/23 05:46
Plt Count 346 10^3/uL (130-400) 09/12/23 05:46
Sodium 134 mmol/L (135-145) L 09/13/23 05:00
Potassium 3.4 mmol/L (3.5-5.1) L 09/13/23 05:00
BUN 19 mg/dl (9-20) 09/13/23 05:00
Creatinine 0.8 mg/dL (0.7-1.3) 09/13/23 05:00
Glucose 94 mg/dl (70-99) 09/13/23 05:00
Vital Signs and I&O:
Vital Signs
Temp Pulse Resp BP Pulse Ox
97.8 F 71 18 138/77 92
09/13/23 07:05 09/13/23 07:05 09/13/23 07:05 09/13/23 07:05 09/13/23 07:05
Vital Signs
Temp Pulse Resp BP Pulse Ox
97.8 F 71 18 138/77 92
09/13/23 07:05 09/13/23 07:05 09/13/23 07:05 09/13/23 07:05 09/13/23 07:05
Intake & Output
09/11/23 09/12/23 09/13/23 09/14/23
06:59 06:59 06:59 06:59
Intake Total 240 / 240 1020 / 1020
Output Total 2875 / 2875
Balance 240 / 240 -1855 / -1855
Physical Exam
Physical Exam
Physical Exam
General: no apparent distress, not acutely ill
Neck: supple. no meningeal signs. normal psoterior pharynx
Heart: s1/s2 regular rate and rhythm, no murmur. equal radial pulses.
Lungs: no acute respiratory distress. clear bilaterally
Abdomen: normal bowel sounds. not tender. no CVAT
Neuro: alert and oriented. no focal neurological deficits
Skin: no rash
Psychiatric: well kept. interactive and cooperative
Extremities: no edema. no calf tenderness. negative homans. good distal pulses
--- NOTE | 2023-09-13 09:14 | W.PN.HOSP.TC ---
Today's Communication/Plan
-
CW IV diuresis
Add Budesonide neb,mucinex and antitussives
Assessment / Plan
Assessment / Plan
IMPRESSION:
Acute CHF preserved EF
� Presentation with weight gain close to 10 pounds and worsening of bilateral lower extremity edema
Hypokalemia
Right lower extremity DVT.
Anticoagulation transition from Eliquis to weight-based LMWH with concern for possible malabsorption
Asthma without exacerbation
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
Dyslipidemia
Chronic lower back pain with history of spinal surgeries.
Asthma with reactive airways
Plan:
Acute CHF preserved EF
Echo 08/24/2023: EF 50-55%, calcified echodensity seen on anterior mitral valve leaflet (measures 0.5 x 1.0 cm) cannot exclude vegetation although would expect more significant MR and only trace MR seen.
Reports close to 30 pound weight gain with worsening of lower extremity edema
Stable respiratory status with no evidence of hypoxia on presentation
Chest x-ray with no evidence of pulmonary edema.
? If patient has malabsorption due to Deepa en Y surgery while on oral Bumex at home
cw IV diuresis with IV Bumex 2 mg twice daily. His weight is down up to 246 but patient states his normal weight is 232 at baseline
Replete potassium
Follow daily weights and BMP
Cardiology following
Malabsorption issues -
Patient had a Deepa-en-Y surgery in 2005. According to patient and no secondary complications other than malabsorption. No dumping syndrome ever noted. There is a mention about short gut syndrome but clinically not symptomatic and the
thinks that diagnosis of short gut was given due to malabsorption issues. He in the past as experienced failure of antibiotics to treat infection and needing to come to the hospital for IV. He is on a high dose of Bumex at 8 mg but still in heart
failure. He is also on potassium supplementations and he was noted to be hypokalemic on admission.
Patient states he has no upper GI symptoms postprandial. He is not having any diarrhea however. His bowel movements are regular daily once. Not loose. No prior history of chronic diarrhea, dehydration which goes against short gut syndrome .
Due to his stomach anatomy he is having issues with absorption of medcations - will need to speak or pt see his Bariatric surgery on Thursday to eval need of G tube for medications vs redo of his surgery if the malaborption of medications issues is
going to be life long.
Right lower extremity DVT pain
Repeat ultrasound today with possibly new clot, although limited study
Patient with no respiratory complaints with stable respiratory status
With concern for malabsorption transition to weight-based LMWH
Asthma with active bronchospasm but no respiratory distress - post infectious ; had bronchitis few weeks ago. Patient disinclined for oral prednisone so we will start budesonide inhaler. Continue with as needed nebulizer. If starts to become more
symptomatic then would consider prednisone.
Chronic low back pain status post multiple spinal surgeries
Continue pregabalin
Asthma without exacerbation
Continue nebulizers
Full code
DVT prophylaxis Lovenox
DW
DW cardiology about role of SubQ lasix which he would explore.
Total time spent on today's encounter was 52 minutes which included time spent in counseling the patient/family regarding diagnosis and treatment plan as listed above, goals of care, and symptom management. Case was discussed with nursing staff,
specialists, . All labs and imaging personally reviewed by me. Remainder the time spent in detailed review of previous records, lab data, imaging, and other medical provider documentation.
Anticipated Discharge: 24 - 48 hours
Subjective/Interval History
-
Date of Service: September 13, 2023
Improved leg swelling. His legs were very tight with the fluid now they are softer.
Breathing is okay at rest.
He had a respiratory infection a month ago and is left with a cough. Along with the cough he has a phlegm sometimes thick. Known to have asthma and uses inhaler. Non-smoker. He is use steroid inhaler in the past.
Objective Data
-
Labs:
Laboratory Results
09/13/23
05:00
Sodium 134 L
Potassium 3.4 L
Chloride 102
Carbon Dioxide 30
BUN 19
Creatinine 0.8
Glucose 94
Calcium 9.0
Vital Signs:
Vital Signs
Temp Pulse Resp BP Pulse Ox
97.8 F 71 18 138/77 92
09/13/23 07:05 09/13/23 07:05 09/13/23 07:05 09/13/23 07:05 09/13/23 07:05
I&O
09/12/23 09/13/23 09/14/23
06:59 06:59 06:59
Intake Total 240 / 240 1020 / 1020
Output Total 2875 / 2875
Balance 240 / 240 -1855 / -1855
Review of Systems
-
Constitutional: Denies Fever
EENT: Denies Sore Throat
Respiratory: Reports Cough; Denies Trouble Breathing
Cardiac: Denies Chest Pain
Abdomen/GI: Denies Abdominal Pain, Nausea or Vomiting
Neuro: Denies Dizzy
Physical Exam
-
General: No Apparent Distress
HEENT: Moist Mucous Membranes
Respiratory: Wheezes (BL) and Non Labored Respirations; Negative Accessory Resp Muscle Use
Cardiac: Regular Rhythm and S1/S2
GI: Soft
Musculoskeletal: Edema, Left Upper Extrem and Edema, Right Lower Extrem
Neuro: AO x 3
Psych: Calm
Data Reviewed
-
Labs: Labs Reviewed by me
[2023-09-13] MEDS: KCL 40 MEQ PO (10:09)
[2023-09-13] MEDS: MUCINEX 600 MG PO (10:10)
[2023-09-13 11:10] VITALS: BP 122/77
[2023-09-13] MEDS: PULMICORT 0.5 MG INH ×2 (11:13→19:16)
--- NOTE | 2023-09-13 12:21 | PTCARENOTE ---
Assumed care of pt from previous nurse. Pt reports pain to back managed with scheduled narco. Pt call villa is within reach, pt rings herlinda. will cont to monitor.
[2023-09-13] MEDS: HYCET 7.5/325 ORAL SOLUTION 30 ML PO ×2 (14:01→20:29)
[2023-09-13 15:22] VITALS: BP 107/68
[2023-09-13] MEDS: ROBITUSSIN 200 MG PO ×2 (16:09→20:34)
[2023-09-13] MEDS: KCL 20 MEQ PO (16:10)
[2023-09-13 19:00] VITALS: BP 124/77
[2023-09-14 00:13] VITALS: BP 101/68
[2023-09-14] MEDS: ROBITUSSIN 200 MG PO ×4 (02:00→12:12)
[2023-09-14] MEDS: HYCET 7.5/325 ORAL SOLUTION 30 ML PO ×2 (02:25→08:34)
[2023-09-14 03:26] VITALS: BP 104/59
[2023-09-14 05:44] LABS: Blood Urea Nitrogen 21 mg/dl (9-20); Calcium 8.9 mg/dl (8.4-10.2); Carbon Dioxide 29 mmol/L (22-30); Chloride 101 mmol/L (98-107); Estimated Creatinine Clearance 102 ml/min; Glucose 84 mg/dl (70-99); Potassium 3.8 mmol/L (3.5-5.1); Sodium 135 mmol/L (135-145); eGFR > 60.00
[2023-09-14 06:00] VITALS: BMI 32.5
[2023-09-14 07:00] VITALS: BP 124/59
[2023-09-14] MEDS: PULMICORT 0.5 MG INH (07:38)
[2023-09-14] MEDS: LOVENOX 110 MG SC (08:37)
[2023-09-14] MEDS: PREVACID 30 MG PO (08:38)
[2023-09-14] MEDS: VITAMIN B-12 100 MCG PO (08:38)
[2023-09-14] MEDS: LYRICA 150 MG PO (08:38)
[2023-09-14] MEDS: ZANAFLEX 2 MG PO (08:39)
[2023-09-14] MEDS: BUMEX 2 MG IV (08:42)
--- NOTE | 2023-09-14 10:18 | W.PN.CARDCBS ---
Today's Communication / Plan
-
Wt has not changed much but he feels clinically improved and edema is better.
He is over 1200 negative over last 24 hrs.
Transition to oral diuresis. He is going to see Dr Ballard as his does. Reviewed with Dr Ballard and will transition to oral Torsemide 40 mg in AM and 20 mg in the PM. Check BMP in one week. Case management eval for Furoscix.
For now would concentrate on alternative oral diuretics over IV infusion therapy for now.
Recent echo with preserved EF. Some of his edema may be related to lymphedema.
Chest xray clear. Replete lytes as needed.
He had been maintained on Eliquis for recent DVT.
He is recommended to follow up with his bariatic surgeon regarding absorption concerns.
Reviewed with primary service. Discussed with at beside.
Impression / Plan
-
PCP: Dr. Villafuerte
General House Worker: Dr. Nellie Hernadez, appt scheduled 11/2023
Impression:
Presented with worsening edema, weight gain
Acute on chronic HFpEF
Hypokalemia
h/o DVT RLE 07/2023
Chronic Eliquis OAC, with transition to lovenox as of 09/10 due to concern for poor eliquis absorption
Asthma
h/o gastric bypass with short gut syndrome
Hyperlipidemia
Abnormal echo with calcified echodensity on the anterior mitral leaflet 08/24/23
Echo 05/2020: Normal biventricular size, systolic function, no regional wall motion abnormality. Mild concentric LVH. EF 60 to 65%. Aortic sclerosis without significant stenosis. Mild MAC with trace MR. Mild TR. PASP 30 to 35 mmHg, compared to
prior study 12/2017 no significant change.
Echo 08/24/2023: EF 50-55%, calcified echodensity seen on anterior mitral valve leaflet (measures 0.5 x 1.0 cm) cannot exclude vegetation although would expect more significant MR and only trace MR seen
Plan:
Wt has not changed much but he feels clinically improved and edema is better.
He is over 1200 negative over last 24 hrs.
Transition to oral diuresis. He is going to see Dr Ballard as his does. Reviewed with Dr Ballard and will transition to oral Torsemide 40 mg in AM and 20 mg in the PM. Check BMP in one week. Case management eval for Furoscix.
For now would concentrate on alternative oral diuretics over IV infusion therapy for now.
Recent echo with preserved EF. Some of his edema may be related to lymphedema.
Chest xray clear. Replete lytes as needed.
He had been maintained on Eliquis for recent DVT.
He is recommended to follow up with his bariatic surgeon regarding absorption concerns.
Reviewed with primary service. Discussed with at beside.
Progress Note - General House Worker
Subjective
Date of Service: September 14, 2023
Pt seen and examined. No cp. Breathing better.
Objective
Labs:
09/12/23 05:46
09/14/23 04:24
Labs
Hgb 9.8 g/dL (13.0-18.0) L 09/12/23 05:46
Hct 31.2 % (39.0-52.0) L 09/12/23 05:46
Plt Count 346 10^3/uL (130-400) 09/12/23 05:46
Sodium 135 mmol/L (135-145) 09/14/23 04:24
Potassium 3.8 mmol/L (3.5-5.1) 09/14/23 04:24
BUN 21 mg/dl (9-20) H 09/14/23 04:24
Creatinine 0.9 mg/dL (0.7-1.3) 09/14/23 04:24
Glucose 84 mg/dl (70-99) 09/14/23 04:24
Vital Signs and I&O:
Vital Signs
Temp Pulse Resp BP Pulse Ox
97.8 F 71 18 124/59 95
09/14/23 07:00 09/14/23 07:40 09/14/23 07:40 09/14/23 07:00 09/14/23 07:40
Vital Signs
Temp Pulse Resp BP Pulse Ox
97.8 F 71 18 124/59 95
09/14/23 07:00 09/14/23 07:40 09/14/23 07:40 09/14/23 07:00 09/14/23 07:40
Intake & Output
09/12/23 09/13/23 09/14/23 09/15/23
06:59 06:59 06:59 06:59
Intake Total 240 / 240 1020 / 1020 1580 / 1580
Output Total 2875 / 2875 2850 / 2850
Balance 240 / 240 -1855 / -1855 -1270 / -1270
Physical Exam
Physical Exam
General: No acute distress, AAOX3
Neck: Negative JVD
Heart: Regular, Negative S3 positive S1/S2, Negative S4, No murmur
Lungs: CTA b/l, negative wheezes/rales/rhonchi
Abd: Positive BS, NT/ND, neg rebound/rigidity/guarding
Ext: Negative cyanosis/clubbing. +1 edema
Neuro: nonfocal
--- NOTE | 2023-09-14 10:26 | W.PN.HOSP.TC ---
Addendum entered and electronically signed by Giles Childers MD 09/14/23 15:00:
Patient seen and examined
Discussed with resident
Discussed with cardiology
Agree with assessment and plan
Acute diastolic CHF while patient presented with weight gain, and peripheral edema, although with stable respiratory status with no evidence of pulmonary edema and natruretic peptide at the baseline
Did not respond to diuresis with reduction of peripheral edema.
With concern for malabsorption will be transition off of IV Bumex to torsemide.
Close outpatient cardiology follow-up with further determination of diuretic regimen, consideration of IV diuretics as outpatient if concern for malabsorption in patient with gastric bypass Deepa-en-Y and short gut syndrome.
Lower extremity DVT.
Continue anticoagulation recently changed from Eliquis to weight-based Lovenox.
Original Note:
Today's Communication/Plan
-
Start Torsemide PO 40mg in AM, 20mg in PM upon discharge; cardiology outpatient follow up
Assessment / Plan
Assessment / Plan
IMPRESSION:
Acute CHF preserved EF
� Presentation with weight gain close to 10 pounds and worsening of bilateral lower extremity edema
Hypokalemia
Right lower extremity DVT.
Anticoagulation transition from Eliquis to weight-based LMWH with concern for possible malabsorption
Asthma without exacerbation
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
Dyslipidemia
Chronic lower back pain with history of spinal surgeries.
Asthma with reactive airways
Plan:
#Acute CHF preserved EF
Echo 08/24/2023: EF 50-55%, calcified echodensity seen on anterior mitral valve leaflet (measures 0.5 x 1.0 cm) cannot exclude vegetation although would expect more significant MR and only trace MR seen.
Reports close to 30 pound weight gain with worsening of lower extremity edema
Stable respiratory status with no evidence of hypoxia on presentation
Chest x-ray with no evidence of pulmonary edema.
? If patient has malabsorption due to Deepa en Y surgery while on oral Bumex at home
Continue IV diuresis with IV Bumex 2 mg twice daily; change to Torsemide PO upon disharge
Cardiology following; with f/u in outpatient
#Malabsorption issues -
Patient had a Deepa-en-Y surgery in 2005. According to patient and no secondary complications other than malabsorption. No dumping syndrome ever noted. There is a mention about short gut syndrome but clinically not symptomatic and the
thinks that diagnosis of short gut was given due to malabsorption issues. He in the past as experienced failure of antibiotics to treat infection and needing to come to the hospital for IV. He is on a high dose of Bumex at 8 mg but still in heart
failure. He is also on potassium supplementations and he was noted to be hypokalemic on admission.
Patient states he has no upper GI symptoms postprandial. He is not having any diarrhea however. His bowel movements are regular daily once. Not loose. No prior history of chronic diarrhea, dehydration which goes against short gut syndrome .
Due to his stomach anatomy he is having issues with absorption of medications - will need to speak or pt see his Bariatric surgery on Thursday to eval need of G tube for medications vs redo of his surgery if the malabsorption of medications issues is
going to be life long.
#Right lower extremity DVT pain
Repeat ultrasound today with possibly new clot, although limited study
Patient with no respiratory complaints with stable respiratory status
With concern for malabsorption transition to weight-based LMWH
#Asthma with active bronchospasm but no respiratory distress - post infectious ; had bronchitis few weeks ago. Patient disinclined for oral prednisone so we will start budesonide inhaler. Continue with as needed nebulizer. If starts to become
more symptomatic then would consider prednisone.
#Chronic low back pain status post multiple spinal surgeries
Continue pregabalin
#Asthma without exacerbation
Continue nebulizers
Full code
DVT prophylaxis Lovenox
Anticipated Discharge: Today
Subjective/Interval History
-
Date of Service: September 14, 2023
Objective Data
-
Labs:
Laboratory Results
09/14/23
04:24
Sodium 135
Potassium 3.8
Chloride 101
Carbon Dioxide 29
BUN 21 H
Creatinine 0.9
Glucose 84
Calcium 8.9
Vital Signs:
Vital Signs
Temp Pulse Resp BP Pulse Ox
97.8 F 71 18 124/59 95
09/14/23 07:00 09/14/23 07:40 09/14/23 07:40 09/14/23 07:00 09/14/23 07:40
I&O
09/13/23 09/14/23 09/15/23
06:59 06:59 06:59
Intake Total 1020 / 1020 1580 / 1580
Output Total 2875 / 2875 2850 / 2850
Balance -1855 / -1855 -1270 / -1270
Review of Systems
-
History Source: Patient
All other systems: Reviewed and negative
Physical Exam
-
General: No Apparent Distress
HEENT: Normocephalic
Respiratory: Clear to Auscultation
Cardiac: Regular Rhythm and S1/S2; Negative Murmur
GI: Soft and Nontender
Musculoskeletal: Edema, Right Lower Extrem
Neuro: Awake, Alert and Oriented
Psych: Intact Judgement/Insight
--- NOTE | 2023-09-14 11:58 | W.DS.TRANS ---
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
-
Discharge Instructions:
Specialty Instructions Weigh Daily
Instructions: *DCA Heart Failure Instructions
Stand-Alone Forms:
Changes to Home Medications: Yes
Discharge Medications:
DC Medications w/original date entered in [employer]
albuterol sulfate 90 mcg/actuation aerosol inhaler 2 puff inhalation R Q6HPRN PRN sob 06/23/23
ergocalciferol (vitamin D2) 1,250 mcg (50,000 unit) capsule 1,250 mcg PO FR@0800 Supplement 06/23/23
ipratropium 0.5 mg-albuterol 3 mg (2.5 mg base)/3 mL nebulization soln 3 ml inhalation R Q6HPRN PRN sob 06/23/23
pregabalin 150 mg capsule 150 mg PO Q12H Pain 06/23/23
bumetanide 1 mg tablet 4 mg PO BID Fluid Retention/Swelling 08/22/23
hydrocodone 10 mg-acetaminophen 325 mg tablet 1 tab PO Q4H Pain 08/22/23
tizanidine 2 mg capsule 2 mg PO BID Muscle Spasms 08/22/23
cyanocobalamin (vitamin B-12) 100 mcg tablet 100 mcg PO DAILY #30 tabs 08/26/23
pantoprazole 40 mg tablet,delayed release 40 mg PO DAILY #30 tabs 08/26/23
enoxaparin 120 mg/0.8 mL subcutaneous syringe 120 mg SC Q12H Blood Clot Prevention/Tx 09/11/23
potassium 99 mg tablet 99 mg PO DAILY Electrolyte Repletion 09/11/23
Home Medication Changes
Torsemide 40mg in AM, 20mg in PM
Stop Bumetanide
Enoxaparin 110mg
Pending Results: No
--- NOTE | 2023-09-14 11:58 | W.DCSUMMARY ---
Documented by User: Mallory Mallory, Resident, 09/14/23 13:28
Discharge Summary
Discharge Data
Date of Admission: 09/11/23
Date of Discharge: 09/14/23
-
Pending Results: No
Hospital Course
Patient is a 68 years old male with history of chronic CHF preserved EF, asthma, gastric bypass with short gut syndrome, dyslipidemia, recently diagnosed with right lower extremity DVT on August 03, 2023 who had complaints of close to 30 pound weight
gain with worsening of lower extremity edema and was referred to emergency room for evaluation and consideration for IV diuresis due to decompensated CHF by PCP and his ammonia solution preparer. On 09/10, Chest x-ray with no evidence of pulmonary edema. Started
on IV diuresis with IV Bumex 2 mg twice daily. Cardiology consulted. He also had right lower extremity DVT pain, repeat U/S on 08/22/23 showed mild nonocclusive thrombus within the proximal peroneal vein, which was not definitely identified on
previous exam, although limited visualization. With concern for malabsorption, he transitioned to weight-based LMWH from Eliquis. Possible consideration for furosix. He had a respiratory infection a month ago and was left with a cough; budesonide
inhaler, nebs prn and antitussives started. Wt was 112kg at admission 09/10 and is 111kg on 09/13. RLE edema improved. Transitioned to oral diuretic Torsemide on discharge. He will follow up with ammonia solution preparer outpatient on discharge.
Patient is being discharged today to home.
Discharge Plan
-
Patient Disposition: Home (Routine Discharge)
Discharge Diagnosis/Procedures: CHFpEF
Diet: Low Sodium
Activity: As tolerated
Specialty Instructions: Weigh Daily- Call MD for wt gain/loss 3 lbs overnight/5 lbs in 1 week
Instructions: *DCA Heart Failure Instructions
Referrals:
Monica Villafuerte MD [Family Provider] -
Mili Torrez PA-C [Specified Professional Personl] - 09/24/23 8:00 am (You have an appointment at the [place] office with Dr. Naranjo/Dr. Ballard's physician fast food sales assistant, Mili. Please call with questions)
Prescriptions:
New
Furoscix 80 mg/10 mL kit
80 mg SC ONCE Qty: 3 1RF
Rx Instructions:
as a single dose; administer 30 mg over the first hour, then 12.5 mg/hour for the next 4 hours
torsemide 20 mg tablet
20 mg PO DAILY Qty: 90 0RF
Rx Instructions:
40mg in AM, 20mg in PM
Continued
ipratropium-albuterol 0.5 mg-3 mg(2.5 mg base)/3 mL Solution For Nebulization
3 ml INHALATION R Q6HPRN PRN (Reason: sob)
ergocalciferol (vitamin D2) 1,250 mcg (50,000 unit) Capsule
1,250 mcg PO FR@0800
albuterol sulfate 90 mcg/actuation Hfa Aerosol Inhaler
2 puff INHALATION R Q6HPRN PRN (Reason: sob)
pregabalin 150 mg Capsule
150 mg PO Q12H
Patient Comments:
09/11/2023: last filled 08/31/23, 60 tabs for 30 days from [facility]#[id number]
hydrocodone-acetaminophen 10-325 mg Tablet
1 tab PO Q4H
Patient Comments:
09/11/2023: last filled 09/10/23, 30 tabs for 5 days from [facility][id number]
tizanidine 2 mg Capsule
2 mg PO BID
cyanocobalamin (vitamin B-12) 100 mcg Tablet
100 mcg PO DAILY Qty: 30 0RF
pantoprazole 40 mg Tablet,Delayed Release (Dr/Ec)
40 mg PO DAILY Qty: 30 0RF
potassium 99 mg Tablet
99 mg PO DAILY
Changed
enoxaparin 120 mg/0.8 mL syringe
110 mg SC Q12H Qty: 0 0RF
Discontinued
bumetanide 1 mg Tablet
4 mg PO BID
Discharge Orders:
Discharge Patient (As Directed); Ordered 09/14/23
Ordered By: Mallory Mallory
Discharge Date and Time
Discharge Date/Time: 09/14/23 13:44
Print Language: SLOVAK

Documented by User: Giles Childers MD 09/14/23 14:58
Discharge Summary
Discharge Data
Date of Admission: 09/11/23
Date of Discharge: 09/14/23
Discharge Plan
-
Patient Disposition: Home (Routine Discharge)
Discharge Diagnosis/Procedures: CHFpEF
Diet: Low Sodium
Activity: As tolerated
Specialty Instructions: Weigh Daily- Call MD for wt gain/loss 3 lbs overnight/5 lbs in 1 week
Instructions: *DCA Heart Failure Instructions
Referrals:
Monica Villafuerte MD [Family Provider] -
Mili Torrez PA-C [Specified Professional Personl] - 09/24/23 8:00 am (You have an appointment at the [place] office with Dr. Naranjo/Dr. Ballard's physician fast food sales assistant, Mili. Please call with questions)
Prescriptions:
New
Furoscix 80 mg/10 mL kit
80 mg SC ONCE Qty: 3 1RF
Rx Instructions:
as a single dose; administer 30 mg over the first hour, then 12.5 mg/hour for the next 4 hours
torsemide 20 mg tablet
20 mg PO DAILY Qty: 90 0RF
Rx Instructions:
40mg in AM, 20mg in PM
Continued
ipratropium-albuterol 0.5 mg-3 mg(2.5 mg base)/3 mL Solution For Nebulization
3 ml INHALATION R Q6HPRN PRN (Reason: sob)
ergocalciferol (vitamin D2) 1,250 mcg (50,000 unit) Capsule
1,250 mcg PO FR@0800
albuterol sulfate 90 mcg/actuation Hfa Aerosol Inhaler
2 puff INHALATION R Q6HPRN PRN (Reason: sob)
pregabalin 150 mg Capsule
150 mg PO Q12H
Patient Comments:
09/11/2023: last filled 08/31/23, 60 tabs for 30 days from [facility]#[id number]
hydrocodone-acetaminophen 10-325 mg Tablet
1 tab PO Q4H
Patient Comments:
09/11/2023: last filled 09/10/23, 30 tabs for 5 days from [facility][id number]
tizanidine 2 mg Capsule
2 mg PO BID
cyanocobalamin (vitamin B-12) 100 mcg Tablet
100 mcg PO DAILY Qty: 30 0RF
pantoprazole 40 mg Tablet,Delayed Release (Dr/Ec)
40 mg PO DAILY Qty: 30 0RF
potassium 99 mg Tablet
99 mg PO DAILY
Changed
enoxaparin 120 mg/0.8 mL syringe
110 mg SC Q12H Qty: 0 0RF
Discontinued
bumetanide 1 mg Tablet
4 mg PO BID
Discharge Orders:
Discharge Patient (As Directed); Ordered 09/14/23
Ordered By: Mallory Mallroy
Discharge Date and Time
Discharge Date/Time: 09/14/23 13:44
Print Language: SLOVAK
[2023-09-14 12:32] VITALS: BP 106/66
--- NOTE | 2023-09-14 16:33 | CM ---
MD entered order for discharge.
Spoke with pt and Kaylah .
They feel pt has returned to baseline and ready for discharge.
Offered VN he declined need.
will drive hi home.
PLAN Home no needs
== END 2023-09-14 13:44 | disposition home or self-care (01) | DRG 292 ==
LOC: 4 EAST ACU 18:31
PROVIDERS: Internal Medicine; Registered Nurse; ADMITTING PHYSICIAN Internal Medicine; EMERGENCY PHYSICIAN Emergency Medicine; FAMILY PHYSICIAN Internal Medicine; OTHER PHYSICIAN Internal Medicine Cardiovascular Disease
DX: I50.33 Acute on chronic diastolic (congestive) heart failure (principal); K90.9 Intestinal malabsorption, unspecified; Z87.891 Personal history of nicotine dependence; Z79.01 Long term (current) use of anticoagulants; E87.6 Hypokalemia; J45.909 Unspecified asthma, uncomplicated; E78.00 Pure hypercholesterolemia, unspecified
CPT/HCPCS: 71046; 80048; 80053; 83735; 83880; 85025; 94640; 96374; 99285

== ENCOUNTER → 2023-11-04 10:12 | Outpatient (REF) | payer OTHER, SELFPAY ==
[2023-11-04 12:38] LABS: % Basophils 0.6 % (0-2); % Eosinophils 3.4 % (0-6); % Immature Granulocytes 2.1 % (0-0.5); % Lymphocytes 16.2 % (20.5-51.1); % Monocytes 9.3 % (1.7-9.3); % Neutrophils 68.4 % (42.2-75.2); Absolute Eosinophils 0.2 10^3/uL (0-0.7); Absolute Immature Granulocytes 0.1 10^3/uL (0-0.05); Absolute Monocytes 0.6 10^3/uL (0.1-0.6); Absolute Neutrophils 4.3 10^3/uL (1.4-6.5); Hemoglobin 10.6 g/dL (13.0-18.0); Mean Corp Hgb Conc. 31.2 g/dL (33.0-37.0); Mean Corpuscular Hgb 29.7 pg (27.0-31.0); Mean Corpuscular Volume 95.2 fL (80.0-94.0); Mean Platelet Volume 10.3 fL (7.4-10.4); Nucleated Red Blood Cells % 0 % (-); Platelet Count 332 10^3/uL (130-400); Red Blood Cell Count 3.57 10^6/uL (4.70-6.10); Red Cell Dist. Width 13.4 % (11.5-14.5); White Blood Cell Count 6.2 10^3/uL (4.8-10.8)
[2023-11-04 13:03] LABS: NT-proBNP 145 pg/ml
[2023-11-04 13:12] LABS: ALT (SGPT) < 10 U/L (0-50); AST (SGOT) 17 U/L (17-59); Albumin 3.4 g/dl (3.5-5.0); Alkaline Phosphatase 146 U/L (38-126); Blood Urea Nitrogen 18 mg/dl (9-20); Calcium 9.2 mg/dl (8.4-10.2); Carbon Dioxide 32 mmol/L (22-30); Chloride 101 mmol/L (98-107); Glucose 87 mg/dl (70-99); Potassium 4.6 mmol/L (3.5-5.1); Sodium 140 mmol/L (135-145); Total Bilirubin 0.3 mg/dl (0.2-1.3); Total Protein 6.3 g/dl (6.3-8.2); eGFR > 60.00
[2023-11-04 13:41] LABS: PSA, Total - Diagnostic 0.09 ng/ml (0.0-4.0)
== END ==
LOC: HWRAD 10:12
PROVIDERS: ATTENDING PHYSICIAN Internal Medicine Hematology & Oncology; FAMILY PHYSICIAN Physician Assistant Medical; REFERRING PHYSICIAN Internal Medicine Cardiovascular Disease
DX: D50.9 Iron deficiency anemia, unspecified (principal); C61 Malignant neoplasm of prostate; D64.9 Anemia, unspecified; R06.02 Shortness of breath; I50.33 Acute on chronic diastolic (congestive) heart failure; I51.7 Cardiomegaly; R06.00 Dyspnea, unspecified
CPT/HCPCS: 36415; 80053; 83880; 84153; 85025; 93971

== ENCOUNTER → 2023-11-23 09:41 | Outpatient (REF) | payer OTHER, SELFPAY | LOC: HWRAD 09:41 | PROVIDERS: ATTENDING PHYSICIAN Internal Medicine Hematology & Oncology; FAMILY PHYSICIAN Physician Assistant Medical | DX: D50.9 Iron deficiency anemia, unspecified (principal); D64.9 Anemia, unspecified; C61 Malignant neoplasm of prostate; Z79.818 Long term (current) use of other agents affecting estrogen receptors and estrogen levels | CPT/HCPCS: 77080 ==

== ENCOUNTER → 2023-11-27 16:14 | Outpatient (REF) | payer OTHER, SELFPAY ==
[2023-11-27 15:24] LABS: % Basophils 0.7 % (0-2); % Eosinophils 3.4 % (0-6); % Immature Granulocytes 0.5 % (0-0.5); % Lymphocytes 17.8 % (20.5-51.1); % Monocytes 10.5 % (1.7-9.3); % Neutrophils 67.1 % (42.2-75.2); Absolute Eosinophils 0.2 10^3/uL (0-0.7); Absolute Monocytes 0.6 10^3/uL (0.1-0.6); Absolute Neutrophils 3.7 10^3/uL (1.4-6.5); Hematocrit 31.9 % (39.0-52.0); Hemoglobin 10.5 g/dL (13.0-18.0); Mean Corp Hgb Conc. 32.9 g/dL (33.0-37.0); Mean Corpuscular Hgb 29.6 pg (27.0-31.0); Mean Corpuscular Volume 89.9 fL (80.0-94.0); Mean Platelet Volume 9.8 fL (7.4-10.4); Nucleated Red Blood Cells % 0 % (-); Platelet Count 299 10^3/uL (130-400); Red Blood Cell Count 3.55 10^6/uL (4.70-6.10); Red Cell Dist. Width 13.3 % (11.5-14.5); White Blood Cell Count 5.6 10^3/uL (4.8-10.8)
[2023-11-27 15:59] LABS: Vitamin D, 25-OH*** 24.9 ng/mL (30-80)
== END ==
LOC: OIDL 16:14
PROVIDERS: ATTENDING PHYSICIAN Internal Medicine Hematology & Oncology
DX: D50.9 Iron deficiency anemia, unspecified (principal)
CPT/HCPCS: 82306; 85025

== ENCOUNTER → 2023-12-04 15:00 | Outpatient (REF) | payer OTHER, SELFPAY ==
[2023-12-04 15:22] LABS: % Eosinophils 3.5 % (0-6); % Lymphocytes 12.9 % (20.5-51.1); % Monocytes 9.1 % (1.7-9.3); % Neutrophils 72.5 % (42.2-75.2); Absolute Basophils 0.1 10^3/uL (0-0.2); Absolute Eosinophils 0.3 10^3/uL (0-0.7); Absolute Immature Granulocytes 0.1 10^3/uL (0-0.05); Absolute Monocytes 0.7 10^3/uL (0.1-0.6); Absolute Neutrophils 5.6 10^3/uL (1.4-6.5); Hematocrit 35.9 % (39.0-52.0); Hemoglobin 11.2 g/dL (13.0-18.0); Mean Corp Hgb Conc. 31.2 g/dL (33.0-37.0); Mean Corpuscular Hgb 29.1 pg (27.0-31.0); Mean Corpuscular Volume 93.2 fL (80.0-94.0); Mean Platelet Volume 9.5 fL (7.4-10.4); Nucleated Red Blood Cells % 0 % (-); Platelet Count 305 10^3/uL (130-400); Red Blood Cell Count 3.85 10^6/uL (4.70-6.10); Red Cell Dist. Width 13.5 % (11.5-14.5); White Blood Cell Count 7.8 10^3/uL (4.8-10.8)
[2023-12-04 15:39] LABS: Phosphorus 3.5 mg/dl (2.5-4.5)
== END ==
LOC: OIDL 15:00
PROVIDERS: ATTENDING PHYSICIAN Internal Medicine Hematology & Oncology
DX: D50.9 Iron deficiency anemia, unspecified (principal)
CPT/HCPCS: 84100; 85025

== ENCOUNTER → 2024-02-15 07:52 | Outpatient (REF) | payer MEDICARE, SELFPAY ==
[2024-02-15 09:48] LABS: % Basophils 0.7 % (0-2); % Immature Granulocytes 1.2 % (0-0.5); % Lymphocytes 10.5 % (20.5-51.1); % Monocytes 8.9 % (1.7-9.3); % Neutrophils 76.7 % (42.2-75.2); Absolute Basophils 0.1 10^3/uL (0-0.2); Absolute Eosinophils 0.2 10^3/uL (0-0.7); Absolute Immature Granulocytes 0.1 10^3/uL (0-0.05); Absolute Lymphocytes 0.9 10^3/uL (1.2-3.4); Absolute Monocytes 0.7 10^3/uL (0.1-0.6); Absolute Neutrophils 6.4 10^3/uL (1.4-6.5); Hematocrit 39.3 % (39.0-52.0); Hemoglobin 12.9 g/dL (13.0-18.0); Mean Corp Hgb Conc. 32.8 g/dL (33.0-37.0); Mean Corpuscular Hgb 29.2 pg (27.0-31.0); Mean Corpuscular Volume 88.9 fL (80.0-94.0); Mean Platelet Volume 9.4 fL (7.4-10.4); Nucleated Red Blood Cells % 0 % (-); Platelet Count 334 10^3/uL (130-400); Red Blood Cell Count 4.42 10^6/uL (4.70-6.10); Red Cell Dist. Width 14.6 % (11.5-14.5); White Blood Cell Count 8.3 10^3/uL (4.8-10.8)
[2024-02-15 10:03] LABS: NT-proBNP 343 pg/ml
[2024-02-15 10:16] LABS: Blood Urea Nitrogen 12 mg/dl (9-20); Calcium 9.5 mg/dl (8.4-10.2); Carbon Dioxide 29 mmol/L (22-30); Chloride 101 mmol/L (98-107); Glucose 100 mg/dl (70-99); Iron 99 ug/dl (49-181); Potassium 4.6 mmol/L (3.5-5.1); Sodium 139 mmol/L (135-145); eGFR > 60.00
[2024-02-15 10:26] LABS: Percent Saturation 55 % (20-50); Total Iron Binding Capacity 177 ug/dl (261-462)
[2024-02-15 10:39] LABS: PSA, Total - Diagnostic 0.24 ng/ml (0.0-4.0)
== END ==
LOC: HWLAB 07:52
PROVIDERS: ATTENDING PHYSICIAN Internal Medicine Hematology & Oncology; FAMILY PHYSICIAN Physician Assistant Medical; REFERRING PHYSICIAN Internal Medicine Cardiovascular Disease
DX: D50.9 Iron deficiency anemia, unspecified (principal); D64.9 Anemia, unspecified; C61 Malignant neoplasm of prostate; I50.32 Chronic diastolic (congestive) heart failure; I10 Essential (primary) hypertension
CPT/HCPCS: 36415; 80048; 82728; 83540; 83550; 83880; 84153; 85025

== ENCOUNTER 2024-03-04 14:24 | Inpatient (IN) | payer MEDICARE, SELFPAY ==
[2024-03-04] VITALS (9 sets, daily range): BP systolic 129–164; BP diastolic 70–100; BMI 32.6; BMI 31.9
[2024-03-04 11:43] LABS: % Basophils 0.6 % (0-2); % Eosinophils 3.5 % (0-6); % Immature Granulocytes 1.5 % (0-0.5); % Monocytes 8.8 % (1.7-9.3); % Neutrophils 69.6 % (42.2-75.2); Absolute Eosinophils 0.2 10^3/uL (0-0.7); Absolute Immature Granulocytes 0.1 10^3/uL (0-0.05); Absolute Lymphocytes 1.1 10^3/uL (1.2-3.4); Absolute Monocytes 0.6 10^3/uL (0.1-0.6); Absolute Neutrophils 4.7 10^3/uL (1.4-6.5); Hematocrit 39.1 % (39.0-52.0); Mean Corp Hgb Conc. 33.2 g/dL (33.0-37.0); Mean Corpuscular Hgb 29.5 pg (27.0-31.0); Mean Corpuscular Volume 88.7 fL (80.0-94.0); Mean Platelet Volume 9.5 fL (7.4-10.4); Nucleated Red Blood Cells % 0 % (-); Platelet Count 308 10^3/uL (130-400); Red Blood Cell Count 4.41 10^6/uL (4.70-6.10); Red Cell Dist. Width 15.7 % (11.5-14.5); White Blood Cell Count 6.8 10^3/uL (4.8-10.8)
[2024-03-04] MEDS: DECADRON 10 MG IV (11:44)
[2024-03-04 11:57] LABS: Blood Urea Nitrogen 11 mg/dl (9-20); Calcium 8.9 mg/dl (8.4-10.2); Carbon Dioxide 29 mmol/L (22-30); Chloride 104 mmol/L (98-107); Estimated Creatinine Clearance 100 ml/min; Glucose 105 mg/dl (70-99); Potassium 4.3 mmol/L (3.5-5.1); Sodium 141 mmol/L (135-145); eGFR > 60.00
[2024-03-04 11:59] LABS: COVID-19 Antigen Negative (Negative)
[2024-03-04 12:17] LABS: NT-proBNP 639 pg/ml; Troponin I 0.038 ng/ml
--- NOTE | 2024-03-04 12:17 | EDRN ---
Dr Lowery aware of critical value troponin
--- NOTE | 2024-03-04 13:18 | HPS.HSE ---
Family Physician
-
Family Physician: Lotus Valente PA-C
Chief Complaint
-
Shortness of breath, wheezing, productive green cough, leg edema
History of Present Illness
69-year-old male complaining of 2 months of productive green cough, wheezing. He reports he has been on 3 different antibiotics doxycycline then Levaquin then doxycycline which he stopped on 02/27/2024 along with prednisone 5-day course stopped on
02/27/2024. He reports due to his gastric bypass and malabsorption issues he feels the medications are not working and he says he is typically requires doses of IV medications. His Aiyana is at bedside and states they have spoke with her
insurance company about possibly going to the outpatient infusion center when needing medication such as antibiotics, but they would need a prescription from the patient's primary care provider for which she just switched to due to other PCP
retiring. The patient reports over the past 5 days the wheezing has gotten worse along with green productive sputum, sore throat and low-grade fever of 100.3 F on Thursday. He reports some heaviness to the chest related to wheezing/shortness of
breath. He denies palpitations, headache, abdominal pain, nausea, vomiting, diarrhea, urinary symptoms.
He has past medical history asthma, chronic bronchitis, chronic CHF preserved EF, malabsorption issues history of Deepa-en-Y 2005 with possible short gut syndrome, DVT right leg nonocclusive thrombus right popliteal/posterior tibial vein 08/03/2023,
chronic back pain on chronic oral opiates, prostate cancer Dx 2015 status post prostatectomy, radiation 2015, radiation 2022 with Lupron shot x 1 in August, renal calculi August 2023
Medical History
Past Medical History
Past Medical History: Reports Other
Additional Past Medical History:
Asthma
Chronic bronchitis
chronic CHF preserved EF, malabsorption issues history of Deepa-en-Y 2005 with possible short gut syndrome
DVT right leg nonocclusive thrombus right popliteal/posterior tibial vein 08/03/2023
Chronic back pain on chronic oral opiates
NAVAJO
Iron deficiency anemia
GERD/gastric ulcers
Prostate cancer Dx 2014 status post prostatectomy, radiation 2015, radiation 2022 with Lupron shot x 1 in August
Renal calculi August 2023
Shingles August 2023
Past Surgical History: Reports Other
Additional Past Surgical History:
Gastric bypass Deepa-en-Y 2005
Lumbar laminectomy June 2023
Right ankle and leg ORIF 1995
Appendectomy 1987
Hernia repair 2014, 2015
Exploratory lap 2023
Social History
Tobacco: Former Smoker (Reports smoked a few years when he was in the service)
Alcohol: None
Drug: None
Personal:
Living: With Family ( Aiyana)
Family History
Family History: Other (Mother history of pituitary cancer, sister CAD in her 50s, father CAD, CVA, leukemia age 60s)
Allergies / Home Medications
Allergies reflects when Allergies were last updated in [employer].
Home Medications with original date entered in [employer]
Allergy/Medication List:
Allergies
Allergy/AdvReac Type Severity Reaction Status Date / Time
dupilumab [From [employer] Pen] Allergy Unknown Verified 03/04/24 11:04
NSAIDS (Non-Steroidal AdvReac Can not Verified 03/04/24 11:04
Anti-Inflamma take due
to Gastric
Bypass
Home Medications
albuterol sulfate 90 mcg/actuation aerosol inhaler 2 puff inhalation R Q6HPRN PRN sob 06/23/23
ipratropium 0.5 mg-albuterol 3 mg (2.5 mg base)/3 mL nebulization soln 3 ml inhalation R Q6HPRN PRN sob 06/23/23
hydrocodone 10 mg-acetaminophen 325 mg tablet 1 tab PO QID Pain 08/22/23
cyanocobalamin (vitamin B-12) 100 mcg tablet 100 mcg PO DAILY #30 tabs 08/26/23
pantoprazole 40 mg tablet,delayed release 40 mg PO DAILY #30 tabs 08/26/23
potassium chloride 20 mEq/15 mL oral liquid 20 meq PO DAILY 03/04/24
sennosides 8.6 mg tablet (senna) 17.2 mg PO DAILYPRN PRN constipation 03/04/24
torsemide 20 mg tablet 40 mg PO BID 03/04/24
Review of Systems
-
History Source: Patient and Family ( Laly at bedside)
A 12 point ROS was completed and negative except as noted: Yes
Constitutional: Reports Fever (Low-grade 5 days ago 100.3 F); Denies Chills
EENT: Reports Sore Throat and Other (Postnasal drip, nasal congestion); Denies Runny Nose
Respiratory: Reports Cough (Productive green in color) and Trouble Breathing (Wheezing)
Cardiac: Reports Chest Pain (Pressure with his shortness of breath and wheezing); Denies Diaphoresis, Palpitations or Syncope
Abdomen/GI: Denies Abdominal Pain, Nausea, Vomiting, Diarrhea, Constipated, Bloody Stools or Black Stools
: Denies Dysuria, Frequency, Flank Pain, Incontinence, Difficulty Voiding, Urgency or Dark Urine
Musculoskeletal: Reports Edema (+1 lower legs to feet bilaterally); Denies Joint Pain
Skin: Denies Itching or Rash
Neurological: Denies Dizzy, Headache or Weakness
Endocrine: Reports No Symptoms
Hematologic/Lymphatic: Reports No Symptoms
Psych: Reports Calm
Physical Exam
Vital Signs
Vital Signs
Temp Pulse Resp BP Pulse Ox
98.4 F 70 21 132/70 96
03/04/24 11:04 03/04/24 12:04 03/04/24 12:04 03/04/24 12:04 03/04/24 12:04
Physical Exam
General: Comfortable and Conversant; No Pain, Fever or Chills
HEENT: NormoCephalic, Anicteric, PERRLA, [place] Conjunctivae, No Ptosis, Pharyngeal Erythema (Slight erythema no exudate appreciated) and Oxygen (3 L nasal cannula)
Respiratory: Wheezes (Expiratory throughout both lung pope); No Rales or Rhonchi
Cardiac: S1/S2, Tachycardia (Sinus) and Peripheral Edema (+1 lower legs to feet bilaterally); No Murmur, Rub or Gallop
Breast: Deferred by me
GI: Soft, Non Tender, Non Distended and No Hepatosplenomegaly
Rectal: Deferred by Provider
Genito-urinary: Deferred by me
Musculoskeletal: No Clubbing, No Cyanosis, Edema, Left Lower Extremity (+1 lower legs to feet bilaterally) and Edema, Right Lower Extremity (+1 lower legs to feet bilaterally); No Edema, Left Upper Extremity or Edema, Right Upper Extremity
Skin: Warm and Dry; No Rash or Jaundice
Neuro: AO x 3, No Motor Deficits and Other (Chronic NAVAJO); No Slurred Speech, Facial Droop or Tremors
Psych: Calm
Laboratory Results
-
03/04/24 11:37
03/04/24 11:37
Laboratory Results
Troponin I 0.038 ng/ml H* 03/04/24 11:37
Data Reviewed
-
Diagnostic Radiology: Report Reviewed by me
Lab Data: Labs Reviewed by me
Impression/Plan
-
Impression/plan:
Admit to telemetry
#Acute hypoxic resp insuff 2/2 Acute on Chronic asthmatic bronchitis
Symptoms x 2 months worsening 5 days ago with low-grade fever 100.3, productive cough green in color
91% RA, 96% 3 L nasal cannula
-COVID-negative
-Decadron 10 mg given in ER
-Continue Decadron 4 mg every 8 hours
-DuoNebs scheduled and as needed
-Hold IV antibiotics at present time, afebrile, no WBC count(recent finished 2 rounds of Doxy and Levaquin last dose Doxy was 02/27/2024
-PT/OT/case management consult
#Nonischemic myocardial injury likely secondary to hypoxia
-Troponin 0.038 will trend
EKG: NSR 70 bpm, QTc 423 otherwise normal MS
#Chronic CHF preserved EF
#Chronic peripheral edema
I/O, daily weights
-Will apply Tubigrip's, encouraged patient to get teds or wear Tubigrip's for lower extremity edema
-Continue torsemide 40 mg twice daily and potassium chloride 20 mEq supplement daily
2D echo 08/24/2023: EF 55%, calcified echodensity seen on anterior mitral valve leaflet measures 0.5 x 1 cm Vegetation.
#Malabsorption issues 07/03 Deepa-en-Y 2005
-No history of dumping syndrome
-According to patient and no secondary complications other than malabsorption.
-History of needing IV antibiotics thought due to short gut syndrome along with needing high doses of prior Bumex.
-Patient report they have looked into outpatient transfusion center which they state his insurance does cover for IV antibiotics other IV medications
#NAVAJO
#Iron deficiency anemia
Hgb 13, MCV 88.7
#GERD/gastric ulcers
-Continue Protonix 40 mg daily
#Right lower extremity DVT right leg nonocclusive thrombus right popliteal/posterior tibial vein 08/03/2023
-Repeat ultrasound 11/04/2023: No evidence for right lower extremity DVT nonocclusive thrombus within the right popliteal vein has resolved
#Chronic low back pain status post multiple spinal surgeries
#Laminectomy lower lumbar 2003
-Continue hydrocodone/acetaminophen patient asking for liquid version as last admission he states it worked better than his tablets due to his malabsorption
was on prior Lyrica
# Prostate cancer Dx 2014 status post prostatectomy
-Status post radiation 2022 ended in November, Lupron shot August 2022 with complications patient reports
#Renal calculi August 2023
# Shingles August 2023
DVT prophylaxis
Subcu Lovenox
Full code
--- NOTE | 2024-03-04 14:17 | W.PN.UPDATE ---
Update Note
Progress Note Update
This is an addendum to the H&P written by Neyda Wolff on 03/2024.� Patient seen and examined independently with EMBEDDED SOFTWARE TEST ENGINEER.
69-year-old male past medical history of asthma, HFpEF, gastric bypass with short gut syndrome, hyperlipidemia, right lower extremity DVT, chronic lower back status post final surgeries, here for asthma/asthmatic bronchitis exacerbation.�
Severe bilateral wheezing and rhonchi on exam.�
Chest x-ray shows coarse increased interstitial markings in both lower lobes which could be atelectasis versus fibrotic changes of COPD.� DuoNebs every 6 hours, Dexamethasone, Mucinex.�
[2024-03-04] MEDS: DUONEB 3 ML INH ×3 (14:45→19:23)
[2024-03-04] MEDS: HYCODAN SYRUP 10 ML PO (14:47)
[2024-03-04 15:19] LABS: Troponin I 0.033 ng/ml
[2024-03-04] MEDS: HYCET 7.5/325 ORAL SOLUTION 10 ML PO ×2 (17:10→22:48)
[2024-03-04] MEDS: LOVENOX 40 MG SC (17:10)
[2024-03-04] MEDS: MUCINEX 1200 MG PO (19:57)
[2024-03-04] MEDS: DECADRON 4 MG IV (19:58)
[2024-03-04] MEDS: DEMADEX 40 MG PO (20:00)
[2024-03-04 23:16] LABS: Troponin I 0.032 ng/ml
[2024-03-05] VITALS (7 sets, daily range): BP systolic 111–156; BP diastolic 63–93; PULSE 106–111; O2SAT 93; BMI 31.2
[2024-03-05] MEDS: DECADRON 4 MG IV ×3 (03:57→18:02)
[2024-03-05] MEDS: DUONEB 3 ML INH ×4 (07:25→19:27)
[2024-03-05] MEDS: VITAMIN B-12 100 MCG PO (07:54)
[2024-03-05] MEDS: MUCINEX 1200 MG PO ×2 (07:54→19:55)
[2024-03-05] MEDS: PROTONIX 40 MG PO (07:54)
[2024-03-05] MEDS: DEMADEX 40 MG PO ×2 (07:55→19:55)
[2024-03-05] MEDS: HYCET 7.5/325 ORAL SOLUTION 10 ML PO ×4 (07:55→21:42)
[2024-03-05] MEDS: KCL ELIXIR 20 MEQ PO (08:03)
[2024-03-05 09:04] LABS: % Basophils 0.2 % (0-2); % Immature Granulocytes 0.8 % (0-0.5); % Lymphocytes 5.7 % (20.5-51.1); % Neutrophils 90.3 % (42.2-75.2); Absolute Immature Granulocytes 0.1 10^3/uL (0-0.05); Absolute Lymphocytes 0.5 10^3/uL (1.2-3.4); Absolute Monocytes 0.3 10^3/uL (0.1-0.6); Absolute Neutrophils 8.2 10^3/uL (1.4-6.5); Hematocrit 41.1 % (39.0-52.0); Hemoglobin 13.5 g/dL (13.0-18.0); Mean Corp Hgb Conc. 32.8 g/dL (33.0-37.0); Mean Corpuscular Hgb 30.1 pg (27.0-31.0); Mean Corpuscular Volume 91.5 fL (80.0-94.0); Mean Platelet Volume 9.4 fL (7.4-10.4); Nucleated Red Blood Cells % 0 % (-); Platelet Count 309 10^3/uL (130-400); Red Blood Cell Count 4.49 10^6/uL (4.70-6.10); Red Cell Dist. Width 15.4 % (11.5-14.5); White Blood Cell Count 9.1 10^3/uL (4.8-10.8)
[2024-03-05 09:24] LABS: AST (SGOT) 21 U/L (17-59); Albumin 3.8 g/dl (3.5-5.0); Alkaline Phosphatase 133 U/L (38-126); Blood Urea Nitrogen 13 mg/dl (9-20); Calcium 9.2 mg/dl (8.4-10.2); Carbon Dioxide 25 mmol/L (22-30); Chloride 100 mmol/L (98-107); Estimated Creatinine Clearance > 125 ml/min; Glucose 259 mg/dl (70-99); HDL Cholesterol 91 mg/dl; LDL Cholesterol, Calculated 102 mg/dl; Sodium 142 mmol/L (135-145); Total Bilirubin 0.2 mg/dl (0.2-1.3); Total Cholesterol 228 mg/dl (50-199); Total Protein 6.4 g/dl (6.3-8.2); Triglyceride 177 mg/dl (10-149); Very Low Density Lipoprotein 35 mg/dl (0-30); eGFR > 60.00
--- NOTE | 2024-03-05 10:24 | W.PN.HOSP.TC ---
Addendum entered and electronically signed by Mikcey Daniels DO 03/05/24 10:44:
Updated on the phone. All questions answered.
Original Note:
Today's Communication/Plan
-
Acapella
Incentive spirometer
Continue steroids
Pulmonary consult
Assessment / Plan
Assessment / Plan
Gen-AAOx3, NAD
HEENT-NC, AT, anicteric, clear oral mm
Neck-supple
CV-reg, no M, +S1/S2
Lungs-expiratory wheezing bilaterally
Abd-soft, NT, ND
Ext-no edema
Musculoskeletal-no cyanosis, clubbing
Skin-warm and dry
Neuro-grossly non-focal
Psych-calm, cooperative
Acute hypoxic respiratory insufficiency -requiring 2 L nasal cannula. Etiology is an asthmatic bronchitis exacerbation. No obvious infiltrate on chest x-ray, changes of COPD noted. Does not use oxygen at home.
Acute asthmatic bronchitis -continue inhalers, steroids. Add Acapella, incentive spirometer. Consult pulmonary. He follows up with Dr. Yin, has not seen him in over a year and a half.
Ideally needs nasal steroids but states that he is allergic and gets tongue swelling. No indication for antibiotics currently. Apparently has been on multiple rounds of antibiotics over the past month.
Transient troponin elevation -suspect acute nonischemic myocardial injury.
Steroid-induced hyperglycemia -glucose 259 this morning. Check hemoglobin A1c.
Chronic heart failure with preserved EF -stable. Continue torsemide.
History of prostate cancer -s/p prostatectomy 2014, radiation. Hormonal therapy.
History of nephrolithiasis
History of shingles
GERD/gastric ulcers
History of DVT
Chronic pain syndrome/chronic opiate dependence -due to chronic lower back pain. On hydrocodone/acetaminophen 4 times daily at home.
Morbid obesity due to excess calories -underwent gastric bypass surgery 2005.
Full code
I left a voicemail for patient's to call me back.
Anticipated Discharge: Within 24 hours
Subjective/Interval History
-
Date of Service: March 05, 2024
Patient seen and examined. Complaining of shortness of breath. Cough.
Objective Data
-
Labs:
Laboratory Results
03/05/24
08:46
WBC 9.1
Hgb 13.5
Hct 41.1
Plt Count 309
Sodium 142
Potassium 5.0
Chloride 100
Carbon Dioxide 25
BUN 13
Creatinine 0.7
Glucose 259 H
Calcium 9.2
Total Bilirubin 0.2
AST 21
ALT Pending
Alkaline Phosphatase 133 H
Vital Signs:
Vital Signs
Temp Pulse Resp BP Pulse Ox
97.8 F 75 20 136/78 95
03/05/24 07:00 03/05/24 07:55 03/05/24 07:29 03/05/24 07:55 03/05/24 07:29
I&O
03/04/24 03/05/24 03/06/24
06:59 06:59 06:59
Intake Total 480 / 480 240 / 240
Balance 480 / 480 240 / 240
Review of Systems
-
History Source: Patient
All other systems: Reviewed and negative
[2024-03-05 11:43] LABS: ALT (SGPT) < 10 U/L (0-50)
[2024-03-05 12:36] LABS: Glycohemoglobin (HgbA1c) 5.7 % (4.0-5.6)
--- NOTE | 2024-03-05 12:43 | CON.PUL ---
Consultation
Consultation Request
Date/Time Consultation Requested: 03/05/24
Date/Time Consultation Performed: 03/05/24
Performing Provider: Giovana
Reason for Consultation: Recurrent exacerbations
Medical History
-
History of Present Illness:
Patient is a 69-year-old male with previous history of severe persistent asthma, elevated IgE with allergy to Dupixent, history of chronic bronchitis, chronic heart failure with preserved EF, allergic rhinitis presenting with 2 months of productive
cough with green sputum, wheezing, chest tightness. He was treated as an outpatient on 3 different courses of antibiotics along with a prednisone course. He did not feel improved following first 2 courses of antibiotics. He only takes albuterol
for his asthma. Has not seen Dr. Yin in over 1 year due to recurrent heart failure hospitalizations. Also noted sore throat and low-grade fever over the past few days. Chest x-ray on arrival was clear. Admitted to telemetry for further
evaluation.
.
Past Medical History
Past Medical History: Other (see list below)
Social History
Tobacco: Non-smoker
Alcohol: None
Drug: None
Family History
Family History: Reviewed & Not Pertinent
Allergies / Home Medications
Allergies
Allergy/AdvReac Type Severity Reaction Status Date / Time
dupilumab [From Dupixent Pen] Allergy Unknown Verified 03/04/24 11:04
NSAIDS (Non-Steroidal AdvReac Can not Verified 03/04/24 11:04
Anti-Inflamma take due
to Gastric
Bypass
Home Medications
�Medication �Instructions �Recorded �Confirmed �Last Taken �Type
albuterol sulfate 90 mcg/actuation 2 puff inhalation R Q6HPRN PRN sob 06/23/23 03/04/24 03/04/24 History
aerosol inhaler
ipratropium 0.5 mg-albuterol 3 mg 3 ml inhalation R Q6HPRN PRN sob 06/23/23 03/04/24 06/23/23 History
(2.5 mg base)/3 mL nebulization
soln
hydrocodone 10 mg-acetaminophen 1 tab PO QID Pain 08/22/23 03/04/24 03/04/24 History
325 mg tablet
cyanocobalamin (vitamin B-12) 100 100 mcg PO DAILY #30 tabs 08/26/23 03/04/24 3 Days Ago Rx
mcg tablet ~03/01/24
pantoprazole 40 mg tablet,delayed 40 mg PO DAILY #30 tabs 08/26/23 03/04/24 3 Days Ago Rx
release ~03/01/24
potassium chloride 20 mEq/15 mL 20 meq PO DAILY Electrolyte 03/04/24 03/04/24 Unknown History
oral liquid Repletion
sennosides 8.6 mg tablet (senna) 17.2 mg PO DAILYPRN PRN 03/04/24 03/04/24 03/03/24 History
constipation
torsemide 20 mg tablet 40 mg PO BID Fluid 03/04/24 03/04/24 03/04/24 History
Retention/Swelling
Review of Systems
-
History Source: Patient
All other systems: Negative unless noted
Vitals / Labs / Diagnostic Testing
Vital Signs
Temp Pulse Resp BP Pulse Ox
97.8 F 83 16 113/72 93
03/05/24 11:00 03/05/24 11:00 03/05/24 11:00 03/05/24 11:00 03/05/24 11:56
Lab Data
03/05/24 08:46
03/05/24 08:46
Microbiology
03/04/24 15:05 Sputum Respiratory Culture - Final
03/04/24 15:05 Sputum Gram Stain - Final
03/04/24 11:37 Nasal Swab Influenza Types A & B ([facility]) - Final
Negative for Influenza A & B, NAAT
Negative results must be combined with clinical observations
and patient history.
Nucleic Acid Amplification test (NAAT)performed on the
[employer] platform.
Diagnostic Testing:
Physical Exam
-
HEENT: Normocephalic, Anicteric and Moist Mucous Membranes
Cardiovascular: S1/S2 and Regular Rhythm
Respiratory: Wheeze (tightness, decreased air movement) and Non-Labored Respirations
GI: Soft, Non Distended and Non Tender
Neurology: Awake, Alert, Oriented and No Motor Deficits
Skin: Warm, Dry and Good Color
General: Comfortable and Other (NAD)
Assessment
-
Patient is a 69-year-old male with previous history of severe persistent asthma, elevated IgE with allergy to Dupixent, history of chronic bronchitis, chronic heart failure with preserved EF, allergic rhinitis presenting with 2 months of productive
cough with green sputum, wheezing, chest tightness. He was treated as an outpatient on 3 different courses of antibiotics along with a prednisone course. He did not feel improved following first 2 courses of antibiotics. He only takes albuterol
for his asthma. Has not seen Dr. Yin in over 1 year due to recurrent heart failure hospitalizations. Also noted sore throat and low-grade fever over the past few days. Chest x-ray on arrival was clear. Admitted to telemetry for further
evaluation.
Asthma exacerbation
Wheezing/chest tightness/SOB
Productive mucus/cough
Failure of OP abx/steroids
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
Asthmatic bronchitis exacerbation May 2021, adm for 48 hrs as failed outpatient azithromycin course, received IV azithro/CS, d/c home on augmentin (sputum cx negative)
History of long-standing asthma-moderate persistent
Follows Dr Yin, last seen 2022
Chronically elevated IgE/Elevated IgE at 4296 in Apr 2020, 3070 on 09-17-20/Past peripheral eosinophilia
FEV1 2.3/59%
Normal FeNO in the past
Tried Dupixent-History of allergic reaction to Dupixent-rash and tongue swelling
Allergic rhinitis
Prostate cancer s/p prostatectomy
H/o UTI
Appendectomy
COVID infection December 2019
Sleep apnea resolved post gastric bypass surgery
History of gastric bypass surgery 2007 (Deepa-en-Y with significant ablation of stomach)
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
Vitamin B12 deficiency
Chronic RLE post orthopedic sx, resulting in chronic RLE edema, mild
Hypertension
Hyperlipidemia
NIDDM
Former smoker-quit in his 30s
Lung blebs
Umbilical hernia repair with mesh/cataract/laparoscopic gastric bypass 2005/appendectomy/dental implants
Plan
Currently on 2L, satting 93%
He has no history of O2 use at home
History of severe persistent asthma, last seen in office 2022
Moderate obstruction on prior PFTs, has not had in >1 year
Was only on albuterol PRN as OP
Repeat PFT while inpatient
Will add spiriva/symbicort as well to go home on
Has been worked up for elevated IgE levels, +RAST
Tried on Dupixent but developed rash
Could be a good candidate for Xolair
Persistently high IgE levels: 4522 -> 4296 -> 2972 -> 3070
Agree with IV steroids-Dexamethasone
Sputum culture 01/26/2022-test not performed, inadequate, many squamous epithelial cells
Submitted again, again overly contaminated
asked about fungal infection, he has had HP panel in past htat was negative
Will recheck IgE and IgG levels
CXR negative on admission, not likely PNA
Consider bronchoscopy if unable to produce in the future, check CT chest/high resolution
We discussed observing off abx for now, I do not think this is infection
Can check procal as well
ProBNP level neg
May consider RHC if all w/u negative
DVT prophylaxis-on heparin subcutaneously every 8 hours
GI prophylaxis recommended if on steroids for prolonged period
Nutrition
Mobilization encouraged
Outpatient pulmonary follow-up with Dr Yin
He has findings of ankylosing spondylitis on his CT in past--reviewed with him he may require outpatient rheum eval
Pulmonary manifestations of are known, to follow again as OP
Biapical scarring likely related
Reviewed with nursing as well as primary team in addition to Kaylah at the bedside
We will follow
Diagnostic Data
CXR 03/04/24- There are coarse increased interstitial markings in both lower lobes with the left lower lobe more pronounced than on prior study. This could be atelectasis although the appearance suggests fibrotic changes of COPD.
CXR 01-23: PA/lat, no acute findings, unchanged c/w May 2021
Chest X-Ray: 05-21-21, portable, no acute findings
CT chest 08/17/2020-stable mild biapical pleural parenchymal scarring with tiny blebs/paraseptal emphysematous changes otherwise no abnormalities
CT sinus 08/17/2020-mild left maxillary sinus mucosal opacification
CT chest� 10-22-20: IMPRESSION: Nondisplaced acute fractures of left third through sixth ribs anteriorly. Extensive coronary calcifications. Ankylosing spondylitis of thoracic spine
PET CT 11/18/23- Head and Neck: There is no soft tissue focus of uptake of activity suspicious for malignancy. Physiologic salivary gland and lacrimal gland activity are seen.
Chest: There is no soft tissue focus of uptake of activity suspicious for malignancy. Approximate 0.3 cm LLL pulmonary nodule, CT image 128 series 4 is stable, without FDG uptake, limited by size.
Abdomen and pelvis: Physiologic hepatic, splenic, urinary tract and intestinal activity are noted.
Musculoskeletal: There is no discrete focus of uptake of activity suspicious for malignancy.
Echo: 05-23-20, normal biventricular size systolic function without regional wall motion normality.� Mild concentric LVH.� LVEF 60-65%.� Trace MR.� Mild TR.� Estimated PAPS 30-35.� Ventricular size systolic function.� Compared to study December 2017
there is no change.
PFT's 09-22-16, moderate obstructive lung disease with improvement postbronchodilator.� FEV1 2.33 L (59%), 13% improvement
PFT 05/05/2019-FEV1 3.15 L - 89%, FVC 4.4 L - 93%, TLC 97%, RV 97%, DLCO 92%
PFT 06/29/2020-FEV1 2.71 L - 75%, FVC 4.1 L - 85%, TLC 90%, RV 90%, DLCO 84%
PFT 04/30/2021-FEV1-2.61 L - 72%, FVC 4.06 L - 83%, 10% BD response, TLC 97%, RV 116%, DLCO 90%
Eosinophils 01/19/2019-300
Allergy testing 12/24/2016-positive dust mites, trees, grasses, ragweed, cat dander and dog dander
IgE 12/24/2016-4522
IgE 04/16/2020-4296
IgA, M, G-04/16/2020-normal with the exception of IgA mildly elevated
Reports and relevant images were personally reviewed.
-----
Total time spent on this consultation __76__ includes review of history, physical exam, medications, laboratory data, personal review of imaging, extensive review of outpatient records, discussion with care team and respiratory therapy.
--- NOTE | 2024-03-05 13:57 | CM ---
Initial assessment was completed with pt at bedside.
Pt is a 69yr old male admitted with asthmatic bronchitis and resp insufficiency.
Pt has been admitted prior and baseline continues to be the same.
Pt and his live in a [address] level [address] suite off their sons home.
Pt is independent at baseline/driving. Uses a RW.
Pt has a handicap bathroom with shower rails, a shower chair, toilet rails, and a raised toilet seat.
Pts aides where he may need/request it.
Pt is on O2 currently. No VN/SNF hx.
PCP; Lotus Valente
Pharm; [facility]
PLAN; DC to home with no needs.
[2024-03-05] MEDS: LOVENOX 40 MG SC (18:02)
[2024-03-05] MEDS: SYMBICORT 160/4.5 MCG INHALER 2 PUFF INH (19:27)
[2024-03-05 22:14] LABS: D-Dimer 0.77 ug/mlFEU (0.00-0.50)
[2024-03-05 22:40] LABS: Procalcitonin < 0.05 ng/ml (0.0-0.25)
[2024-03-06 03:00] VITALS: BP 105/63
[2024-03-06] MEDS: VENTOLIN NEBULES INH ×2 (04:06→04:07)
[2024-03-06] MEDS: DECADRON 4 MG IV ×3 (04:42→20:13)
[2024-03-06 06:00] VITALS: BMI 30.9
[2024-03-06 06:54] LABS: % Basophils 0.1 % (0-2); % Immature Granulocytes 0.9 % (0-0.5); % Lymphocytes 5.3 % (20.5-51.1); % Monocytes 4.3 % (1.7-9.3); % Neutrophils 89.4 % (42.2-75.2); Absolute Immature Granulocytes 0.1 10^3/uL (0-0.05); Absolute Lymphocytes 0.6 10^3/uL (1.2-3.4); Absolute Monocytes 0.5 10^3/uL (0.1-0.6); Absolute Neutrophils 9.7 10^3/uL (1.4-6.5); Hematocrit 37.3 % (39.0-52.0); Hemoglobin 12.7 g/dL (13.0-18.0); Mean Corpuscular Hgb 30.8 pg (27.0-31.0); Mean Corpuscular Volume 90.5 fL (80.0-94.0); Mean Platelet Volume 9.5 fL (7.4-10.4); Nucleated Red Blood Cells % 0 % (-); Platelet Count 323 10^3/uL (130-400); Red Blood Cell Count 4.12 10^6/uL (4.70-6.10); Red Cell Dist. Width 15.7 % (11.5-14.5); White Blood Cell Count 10.9 10^3/uL (4.8-10.8)
[2024-03-06 07:14] LABS: ALT (SGPT) 14 U/L (0-50); AST (SGOT) 14 U/L (17-59); Albumin 3.5 g/dl (3.5-5.0); Alkaline Phosphatase 119 U/L (38-126); Blood Urea Nitrogen 23 mg/dl (9-20); Calcium 8.7 mg/dl (8.4-10.2); Carbon Dioxide 30 mmol/L (22-30); Chloride 98 mmol/L (98-107); Estimated Creatinine Clearance 98 ml/min; Glucose 121 mg/dl (70-99); Potassium 4.4 mmol/L (3.5-5.1); Sodium 140 mmol/L (135-145); Total Bilirubin 0.2 mg/dl (0.2-1.3); eGFR > 60.00
[2024-03-06] MEDS: SPIRIVA RESPIMAT 2.5 MCG 2 PUFF INH (07:23)
[2024-03-06] MEDS: VENTOLIN NEBULES 2.5 MG INH ×4 (07:23→19:53)
[2024-03-06] MEDS: SYMBICORT 160/4.5 MCG INHALER 2 PUFF INH ×2 (07:23→19:53)
[2024-03-06 07:47] VITALS: BP 137/70
[2024-03-06] MEDS: MUCINEX 1200 MG PO ×2 (08:14→20:13)
[2024-03-06] MEDS: DEMADEX 40 MG PO ×2 (08:15→20:13)
[2024-03-06] MEDS: HYCET 7.5/325 ORAL SOLUTION 10 ML PO ×4 (08:15→21:55)
[2024-03-06] MEDS: KCL ELIXIR 20 MEQ PO (08:15)
[2024-03-06] MEDS: PROTONIX 40 MG PO (08:16)
[2024-03-06] MEDS: VITAMIN B-12 100 MCG PO (08:16)
--- NOTE | 2024-03-06 09:25 | W.PN.HOSP.TC ---
Today's Communication/Plan
-
Await cardiology input
Pulmonary follow-up
Continue steroids
Encouraged use of Acapella, incentive spirometer
Assessment / Plan
Assessment / Plan
Gen-AAOx3, NAD
HEENT-NC, AT, anicteric, clear oral mm
Neck-supple
CV-reg, no M, +S1/S2
Lungs-expiratory wheezing bilaterally
Abd-soft, NT, ND
Ext-no edema
Musculoskeletal-no cyanosis, clubbing
Skin-warm and dry
Neuro-grossly non-focal
Psych-calm, cooperative
Acute hypoxic respiratory insufficiency -requiring 2 L nasal cannula. Etiology is an asthmatic bronchitis exacerbation. No obvious infiltrate on chest x-ray, changes of COPD noted. Does not use oxygen at home.
Acute asthmatic bronchitis -continue inhalers, steroids. Add Acapella, incentive spirometer. Consult pulmonary. He follows up with Dr. Yin, has not seen him in over a year and a half.
Ideally needs nasal steroids but states that he is allergic and gets tongue swelling. No indication for antibiotics currently. Apparently has been on multiple rounds of antibiotics over the past month.
Appreciate pulmonary input. CT chest concerning for mild chronic interstitial lung disease. Follow-up PFTs. Getting workup for possible pulmonary aspergillosis.
No signs or symptoms of bacterial infection. Procalcitonin normal.
Transient troponin elevation -suspect acute nonischemic myocardial injury.
Impaired fasting glucose -with steroid-induced hyperglycemia. Hemoglobin A1c 5.7%. Glucose 121 this morning. Weight loss encouraged.
Chronic heart failure with preserved EF -stable. Continue torsemide. Cardiology consulted per request.
History of prostate cancer -s/p prostatectomy 2014, radiation. Hormonal therapy.
History of nephrolithiasis
History of shingles
GERD/gastric ulcers
History of DVT
Chronic pain syndrome/chronic opiate dependence -due to chronic lower back pain. On hydrocodone/acetaminophen 4 times daily at home.
Obesity due to excess calories -underwent gastric bypass surgery 2005.
Full code
Anticipated Discharge: > 48 hours
Subjective/Interval History
-
Date of Service: March 06, 2024
Patient seen and examined. Complaining of cough, difficulty taking a deep breath.
Objective Data
-
Labs:
Laboratory Results
03/06/24
06:00
WBC 10.9 H
Hgb 12.7 L
Hct 37.3 L
Plt Count 323
Sodium 140
Potassium 4.4
Chloride 98
Carbon Dioxide 30
BUN 23 H
Creatinine 0.9
Glucose 121 H
Calcium 8.7
Total Bilirubin 0.2
AST 14 L
ALT 14
Alkaline Phosphatase 119
Vital Signs:
Vital Signs
Temp Pulse Resp BP Pulse Ox
97.7 F 80 18 137/70 91
03/06/24 07:47 03/06/24 07:47 03/06/24 07:47 03/06/24 07:47 03/06/24 07:47
I&O
03/05/24 03/06/24 03/07/24
06:59 06:59 06:59
Intake Total 480 / 480 1919
Balance 480 / 480 1919
Review of Systems
-
History Source: Patient
All other systems: Reviewed and negative
[2024-03-06 11:29] VITALS: BP 124/69
--- NOTE | 2024-03-06 13:41 | W.PN.PUL3 ---
Today's Communication / Plan
-
Procal negative, CT chest negative--less likely infection
Repeat sputum still pending for confirmation
PFT showing decline of function from moderate to severe, likely asthma exacerbation (treated insufficiently as OP)
Will decrease dose of IV steroids and can likely transition to PO taper tomorrow
Would continue prolonged course of PO prednisone (50mg x 4 days, 40mg x 4 days...)
OP FU in our office reviewed
He and his were agreeable to discharge planning in AM (she was updated over the phone)
Assessment
-
Patient is a 69-year-old male with previous history of severe persistent asthma, elevated IgE with allergy to Dupixent, history of chronic bronchitis, chronic heart failure with preserved EF, allergic rhinitis presenting with 2 months of productive
cough with green sputum, wheezing, chest tightness. He was treated as an outpatient on 3 different courses of antibiotics along with a prednisone course. He did not feel improved following first 2 courses of antibiotics. He only takes albuterol
for his asthma. Has not seen Dr. Yin in over 1 year due to recurrent heart failure hospitalizations. Also noted sore throat and low-grade fever over the past few days. Chest x-ray on arrival was clear. Admitted to telemetry for further
evaluation.
Acute asthma exacerbation
Wheezing/chest tightness/SOB
Productive mucus/cough
Failure of OP abx/steroids
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
Asthmatic bronchitis exacerbation May 2021, adm for 48 hrs as failed outpatient azithromycin course, received IV azithro/CS, d/c home on augmentin (sputum cx negative)
History of long-standing asthma-moderate persistent
Follows Dr Yin, last seen 2022
Chronically elevated IgE/Elevated IgE at 4296 in Apr 2020, 3070 on 09-17-20/Past peripheral eosinophilia
FEV1 2.3/59%
Normal FeNO in the past
Tried Dupixent-History of allergic reaction to Dupixent-rash and tongue swelling
Allergic rhinitis
Prostate cancer s/p prostatectomy
H/o UTI
Appendectomy
COVID infection December 2019
Sleep apnea resolved post gastric bypass surgery
History of gastric bypass surgery 2007 (Deepa-en-Y with significant ablation of stomach)
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
Vitamin B12 deficiency
Chronic RLE post orthopedic sx, resulting in chronic RLE edema, mild
Hypertension
Hyperlipidemia
NIDDM
Former smoker-quit in his 30s
Lung blebs
Umbilical hernia repair with mesh/cataract/laparoscopic gastric bypass 2005/appendectomy/dental implants
Plan
Initially on 2L, satting 93%
Now weaned to RA
He has no history of O2 use at home
History of severe persistent asthma, last seen in office 2022
Moderate obstruction on prior PFTs, has not had in >1 year
Was only on albuterol PRN as OP
Repeat PFT while inpatient--severe obstruction, declined from prior testing results
Added spiriva/symbicort which patient should continue at discharge
Has been worked up for elevated IgE levels, +RAST
Tried on Dupixent but developed rash
Could be a good candidate for Xolair
Persistently high IgE levels: 4522 -> 4296 -> 2972 -> 3070
Agree with IV steroids-Dexamethasone
Will reduce dose today, with plan to transition to PO taper in AM
Sputum culture 01/26/2022-test not performed, inadequate, many squamous epithelial cells
Submitted again, again overly contaminated, still pending
asked about fungal infection, he has had HP panel in past that was negative
Will recheck IgE and IgG levels, pending
CXR negative on admission, not likely PNA
CT chest mostly negative
Procal negative
We discussed observing off abx for now, I do not think this is infection
ProBNP level neg
May consider RHC if all w/u negative and patient is not improving
DVT prophylaxis-on heparin subcutaneously every 8 hours
GI prophylaxis recommended if on steroids for prolonged period
Nutrition
Mobilization encouraged
Outpatient pulmonary follow-up with Dr Yin
He has findings of ankylosing spondylitis on his CT in past--reviewed with him he may require outpatient rheum eval
Pulmonary manifestations of are known, to follow again as OP
Biapical scarring likely related
Reviewed with nursing as well as primary team in addition to Kaylah (via phone)
Discharge planning per team reviewed as well
Diagnostic Data
CXR 03/04/24- There are coarse increased interstitial markings in both lower lobes with the left lower lobe more pronounced than on prior study. This could be atelectasis although the appearance suggests fibrotic changes of COPD.
CXR 01-23: PA/lat, no acute findings, unchanged c/w May 2021
Chest X-Ray: 05-21-21, portable, no acute findings
CT chest 08/17/2020-stable mild biapical pleural parenchymal scarring with tiny blebs/paraseptal emphysematous changes otherwise no abnormalities
CT sinus 08/17/2020-mild left maxillary sinus mucosal opacification
CT chest� 10-22-20: IMPRESSION: Nondisplaced acute fractures of left third through sixth ribs anteriorly. Extensive coronary calcifications. Ankylosing spondylitis of thoracic spine
CT Chest 03/05/24- Stable 3 mm subpleural left lower lobe pulmonary nodule (series 201, image 40), consistent with benign etiology. Scattered mild bilateral subpleural intralobular septal thickening
No significant ground glass opacities, emphysematous changes, bronchiectasis, fibrosis/honeycombing. No pleural effusion. Moderate coronary artery calcifications.
PET CT 11/18/23- Head and Neck: There is no soft tissue focus of uptake of activity suspicious for malignancy. Physiologic salivary gland and lacrimal gland activity are seen.
Chest: There is no soft tissue focus of uptake of activity suspicious for malignancy. Approximate 0.3 cm LLL pulmonary nodule, CT image 128 series 4 is stable, without FDG uptake, limited by size.
Abdomen and pelvis: Physiologic hepatic, splenic, urinary tract and intestinal activity are noted.
Musculoskeletal: There is no discrete focus of uptake of activity suspicious for malignancy.
ECHO 08/24/23- Normal left ventricular chamber size. Mild concentric left ventricular hypertrophy. Normal left ventricular systolic function. Normal regional wall motion. LV ejection fraction is 50-55% by Cohen's method of discs. Normal
diastolic function. Mitral valve opens normally. Mitral annular calcification. Calcified echodensity seen on anterior mitral valve leaflet (measures 0.5 x 1.0 cm). Cannot exclude vegetation although would expect more significant mitral
regurgitation. Trace mitral regurgitation is seen. Since echocardiogram 05/23/2020 which was reviewed, there is a calcified echodensity attached to the anterior mitral valve leaflet. Cannot exclude vegetation although normally would have more
significant mitral regurgitation.
Echo: 05-23-20, normal biventricular size systolic function without regional wall motion normality.� Mild concentric LVH.� LVEF 60-65%.� Trace MR.� Mild TR.� Estimated PAPS 30-35.� Ventricular size systolic function.� Compared to study December 2017
there is no change.
PFT's 09-22-16, moderate obstructive lung disease with improvement postbronchodilator.� FEV1 2.33 L (59%), 13% improvement
PFT 05/05/2019-FEV1 3.15 L - 89%, FVC 4.4 L - 93%, TLC 97%, RV 97%, DLCO 92%
PFT 06/29/2020-FEV1 2.71 L - 75%, FVC 4.1 L - 85%, TLC 90%, RV 90%, DLCO 84%
PFT 04/30/2021-FEV1-2.61 L - 72%, FVC 4.06 L - 83%, 10% BD response, TLC 97%, RV 116%, DLCO 90%
[place] 03/05/24: FEV1 1.63L 46%, FVC 2.59L 55%, post FEV1 1.62L 46%
Eosinophils 01/19/2019-300
Allergy testing 12/24/2016-positive dust mites, trees, grasses, ragweed, cat dander and dog dander
IgE 12/24/2016-4522
IgE 04/16/2020-4296
IgA, M, G-04/16/2020-normal with the exception of IgA mildly elevated
Reports and relevant images were personally reviewed.
-----
Total time spent on this encounter __51__ includes review of history, physical exam, medications, laboratory data, personal review of imaging, extensive review of outpatient records, discussion with care team and respiratory therapy.
Subjective Data
-
Date of Service:
Date of Service: March 06, 2024
Chief Complaint: Pulmonary Follow Up
Subjective:
Off O2, feeling better
No further new complaints
Objective Data
Data Reviewed
Vital Signs / I&O / Oxygen:
Vital Signs
Temp Pulse Resp BP Pulse Ox
98.0 F 76 18 124/69 94
03/06/24 11:29 03/06/24 11:29 03/06/24 11:29 03/06/24 11:29 03/06/24 11:29
Intake and Output
03/05/24 03/06/24 03/07/24
06:59 06:59 06:59
Intake Total 480 / 480 1920 / 1920
Balance 480 / 480 1920 / 1920
SaO2 94
Nasal Cannula flow liters per 3
minute
Physical Exam
General: Comfortable and Other (NAD)
HEENT: Normocephalic, Anicteric and Moist Mucous Membranes
Cardiovascular: S1-S2 and Regular Rhythm
Respiratory: Wheeze and Non-Labored Respirations
GI: Soft, Non Distended and Non Tender
Neurology: Awake, Alert, Oriented and No Motor Deficits
Skin: Warm, Dry and Good Color
Labs/Micro/Reports
Lab Data
03/06/24 06:00
03/06/24 06:00
Microbiology
03/04/24 15:05 Sputum Respiratory Culture - Final
03/04/24 15:05 Sputum Gram Stain - Final
03/04/24 11:37 Nasal Swab Influenza Types A & B ([facility]) - Final
Negative for Influenza A & B, NAAT
Negative results must be combined with clinical observations
and patient history.
Nucleic Acid Amplification test (NAAT)performed on the
[employer] platform.
--- NOTE | 2024-03-06 14:49 | CON.CAR ---
Consultation
Consultation Request
Date/Time Consultation Requested: 04/06/24
Date/Time Consultation Performed: 04/06/24
Requesting Provider: Jeremiah
Performing Provider: Micheal
Medical History
-
Chief Complaint: SOB
History of Present Illness:
69-year-old man past medical history of heart failure with preserved ejection fraction as well as asthma/COPD who presents with worsening dyspnea, productive cough and lower extremity edema. Based on his initial presentation including wheezing on
exam there was concern for asthma exacerbation. He underwent CT of the chest which suggested chronic interstitial lung disease changes. It seems that with steroids and nebulizer treatment his breathing is somewhat improved today. Resting
comfortably this morning at time of my exam on room air.
Does tell me that his lower extremities were edematous yesterday at the time of his arrival however this seems to have resolved, possibly with elevation and compression.
Laboratory data reviewed, creatinine and electrolytes normal on admission, troponin was borderline at 0.038 and then down trended, proBNP 639
PMHx/PSHx:
Asthma
Chronic bronchitis
chronic CHF preserved EF
malabsorption issues history of Deepa-en-Y 2005 with possible short gut syndrome
DVT right leg nonocclusive thrombus right popliteal/posterior tibial vein 08/03/2023
Chronic back pain on chronic oral opiates
KAKTOVIK
Iron deficiency anemia
GERD/gastric ulcers
Prostate cancer Dx 2014 status post prostatectomy, radiation 2015, radiation 2022 with Lupron shot x 1 in August
Renal calculi August 2023
Shingles August 2023
Gastric bypass Deepa-en-Y 2005
Lumbar laminectomy June 2023
Right ankle and leg ORIF 1995
Appendectomy 1987
Hernia repair 2014, 2015
Exploratory lap 2023
Past Medical History
Past Medical History: Other (as above)
Past Surgical History: Other (as above)
Social History
Tobacco: Former Smoker
Living: With Family
Family History
Family History: Reviewed & Not Pertinent
Allergies / Home Medications
Allergy/AdvReac Type Severity Reaction Status Date / Time
dupilumab [From [employer] Pen] Allergy Unknown Verified 03/04/24 11:04
NSAIDS (Non-Steroidal AdvReac Can not Verified 03/04/24 11:04
Anti-Inflamma take due
to Gastric
Bypass
�Medication �Instructions �Recorded �Confirmed �Type
albuterol sulfate 90 mcg/actuation 2 puff inhalation R Q6HPRN PRN sob 06/23/23 03/04/24 History
aerosol inhaler
ipratropium 0.5 mg-albuterol 3 mg 3 ml inhalation R Q6HPRN PRN sob 06/23/23 03/04/24 History
(2.5 mg base)/3 mL nebulization
soln
hydrocodone 10 mg-acetaminophen 1 tab PO QID Pain 08/22/23 03/04/24 History
325 mg tablet
cyanocobalamin (vitamin B-12) 100 100 mcg PO DAILY #30 tabs 08/26/23 03/04/24 Rx
mcg tablet
pantoprazole 40 mg tablet,delayed 40 mg PO DAILY #30 tabs 08/26/23 03/04/24 Rx
release
potassium chloride 20 mEq/15 mL 20 meq PO DAILY Electrolyte 03/04/24 03/04/24 History
oral liquid Repletion
sennosides 8.6 mg tablet (senna) 17.2 mg PO DAILYPRN PRN 03/04/24 03/04/24 History
constipation
torsemide 20 mg tablet 40 mg PO BID Fluid 03/04/24 03/04/24 History
Retention/Swelling
Review of Systems
-
History Source: Patient
All other systems: Negative unless noted
Physical Exam
Vital Signs
Temp Pulse Resp BP Pulse Ox
98.0 F 76 18 124/69 94
03/06/24 11:29 03/06/24 11:29 03/06/24 11:29 03/06/24 11:29 03/06/24 11:29
Lab Results
03/06/24 06:00
03/06/24 06:00
Troponin I 0.032 ng/ml 03/04/24 22:32
Rrw-K-Akjiekhvkml Pept 639 pg/ml 03/04/24 11:37
Physical Exam
General: Well Developed
HEENT: Normocephalic
Respiratory: Wheezes, Non Labored Respirations and Other (On room air)
Cardiac: S1/S2 and Regular Rhythm
GI: Soft
Musculoskeletal: No Edema
Skin: Warm and Dry
Neuro: Awake and Alert
Psych: Calm
Impression / Plan
-
PCP: Dr. Villafuerte
Route Returner: Dr. Nellie Hernadez
Impression:
Presented with dyspnea and cough
Suspected asthma exacerbation
Chronic HFpEF
h/o DVT RLE 07/2023
Chronic Eliquis OAC, with transition to lovenox as of 09/10 due to concern for poor eliquis absorption
Asthma
h/o gastric bypass with short gut syndrome
Hyperlipidemia
Abnormal echo with calcified echodensity on the anterior mitral leaflet 08/24/23
Echo 05/2020: Normal biventricular size, systolic function, no regional wall motion abnormality. Mild concentric LVH. EF 60 to 65%. Aortic sclerosis without significant stenosis. Mild MAC with trace MR. Mild TR. PASP 30 to 35 mmHg, compared to
prior study 12/2017 no significant change.
Echo 08/24/2023: EF 50-55%, calcified echodensity seen on anterior mitral valve leaflet (measures 0.5 x 1.0 cm) cannot exclude vegetation although would expect more significant MR and only trace MR seen
Plan:
Presenting with dyspnea and cough, actively wheezing on exam
Suspect dyspnea is multifactorial: Asthma exacerbation +/- chronic heart failure with preserved EF
Appreciate pulmonology input and management of asthma, currently receiving steroids and nebulizer treatments
Do not believe this is an acute exacerbation of heart failure, does not appear overtly volume overloaded on exam today
Weight is lowest on record
proBNP is not elevated
No pulm edema or effusion seen on CXR or CT chest
Agree with continuing home p.o. diuretic dosing
Stable cardiac status, we will sign off, please recall as needed
Data Reviewed
-
EKG: Tracing Personally Visualized and interpreted
Radiology: Image Personally Visualized and interpreted
CT Scan: Report Reviewed by me
Medical Tests (Nuc Med, Echo etc): Report Reviewed by me
Labs: Labs Reviewed by me
Old Records: Reviewed
[2024-03-06 15:41] VITALS: BP 126/71
[2024-03-06] MEDS: LOVENOX 40 MG SC (17:06)
[2024-03-06 20:12] VITALS: BP 109/66
[2024-03-06 23:16] LABS: IgG 739 mg/dl (700-1600)
[2024-03-06 23:45] VITALS: BP 101/59
[2024-03-07 06:00] VITALS: BMI 30.8
[2024-03-07] MEDS: KCL ELIXIR 20 MEQ PO (07:44)
[2024-03-07] MEDS: DEMADEX 40 MG PO (07:44)
[2024-03-07] MEDS: PROTONIX 40 MG PO (07:44)
[2024-03-07] MEDS: MUCINEX PO ×2 (07:44→07:52)
[2024-03-07] MEDS: VITAMIN B-12 100 MCG PO (07:44)
[2024-03-07] MEDS: DECADRON 4 MG IV (07:45)
[2024-03-07 07:46] LABS: % Basophils 0.1 % (0-2); % Immature Granulocytes 1.4 % (0-0.5); % Lymphocytes 5.7 % (20.5-51.1); % Monocytes 6.9 % (1.7-9.3); % Neutrophils 85.9 % (42.2-75.2); Absolute Immature Granulocytes 0.1 10^3/uL (0-0.05); Absolute Lymphocytes 0.6 10^3/uL (1.2-3.4); Absolute Monocytes 0.7 10^3/uL (0.1-0.6); Absolute Neutrophils 8.4 10^3/uL (1.4-6.5); Hematocrit 37.1 % (39.0-52.0); Hemoglobin 12.7 g/dL (13.0-18.0); Mean Corp Hgb Conc. 34.2 g/dL (33.0-37.0); Mean Corpuscular Hgb 30.4 pg (27.0-31.0); Mean Corpuscular Volume 88.8 fL (80.0-94.0); Mean Platelet Volume 9.3 fL (7.4-10.4); Nucleated Red Blood Cells % 0 % (-); Platelet Count 343 10^3/uL (130-400); Red Blood Cell Count 4.18 10^6/uL (4.70-6.10); Red Cell Dist. Width 15.5 % (11.5-14.5); White Blood Cell Count 9.7 10^3/uL (4.8-10.8)
[2024-03-07] MEDS: HYCET 7.5/325 ORAL SOLUTION 10 ML PO ×2 (07:46→13:21)
[2024-03-07 07:49] VITALS: BP 124/69
[2024-03-07] MEDS: VENTOLIN NEBULES 2.5 MG INH ×2 (08:15→11:32)
[2024-03-07] MEDS: SYMBICORT 160/4.5 MCG INHALER 2 PUFF INH (08:15)
[2024-03-07] MEDS: SPIRIVA RESPIMAT 2.5 MCG 2 PUFF INH (08:15)
[2024-03-07 08:19] LABS: ALT (SGPT) 15 U/L (0-50); AST (SGOT) 16 U/L (17-59); Albumin 3.7 g/dl (3.5-5.0); Alkaline Phosphatase 112 U/L (38-126); Blood Urea Nitrogen 29 mg/dl (9-20); Calcium 8.5 mg/dl (8.4-10.2); Carbon Dioxide 29 mmol/L (22-30); Chloride 96 mmol/L (98-107); Estimated Creatinine Clearance 88 ml/min; Glucose 113 mg/dl (70-99); Potassium 4.2 mmol/L (3.5-5.1); Sodium 139 mmol/L (135-145); Total Bilirubin 0.3 mg/dl (0.2-1.3); Total Protein 6.2 g/dl (6.3-8.2); eGFR > 60.00
--- NOTE | 2024-03-07 08:49 | W.PN.HOSP.TC ---
Today's Communication/Plan
-
Discharge today
Assessment / Plan
Assessment / Plan
Physical Exam
Gen-AAOx3, NAD
HEENT-NC, AT
Neck-supple
CV-reg, no M, +S1/S2
Lungs-expiratory wheezing bilaterally
Abd-soft, NT, ND
Ext-no edema
Musculoskeletal-no cyanosis
Skin-warm and dry
Neuro-grossly non-focal
Psych-calm, cooperative
Assessment/Plan
Acute hypoxic respiratory insufficiency - now on room air. Etiology is an asthmatic bronchitis exacerbation. No obvious infiltrate on chest x-ray, changes of COPD noted. Does not use oxygen at home.
Acute asthmatic bronchitis -continue inhalers, steroids. Acapella, incentive spirometer. Consult pulmonary. He follows up with Dr. Yin, has not seen him in over a year and a half.
Ideally needs nasal steroids but states that he is allergic and gets tongue swelling. No indication for antibiotics currently. Apparently has been on multiple rounds of antibiotics over the past month.
Appreciate pulmonary input. CT chest concerning for mild chronic interstitial lung disease. Follow-up PFTs. Getting workup for possible pulmonary aspergillosis.
No signs or symptoms of bacterial infection. Procalcitonin normal. Continue Spiriva/Symbicort on discharge. Continue PO Prednisone taper. Outpatient pulmonary follow-up with Dr Yin.
Findings of ankylosing spondylitis on his CT in the past - Outpatient rheum evaluation
Transient troponin elevation -suspect acute nonischemic myocardial injury.
Impaired fasting glucose -with steroid-induced hyperglycemia. Hemoglobin A1c 5.7%. Glucose 121 this morning. Weight loss encouraged.
Chronic heart failure with preserved EF -stable. Continue torsemide. Cardiology consulted per request -- they mentioned continue home dose of diuretic.
History of prostate cancer -s/p prostatectomy 2014, radiation. Hormonal therapy.
History of nephrolithiasis
History of shingles
GERD/gastric ulcers
History of gastric bypass with short gut syndrome
History of DVT RLE 07/2023
Chronic pain syndrome/chronic opiate dependence -due to chronic lower back pain. On hydrocodone/acetaminophen 4 times daily at home.
Obesity due to excess calories -underwent gastric bypass surgery 2005.
Full code
More than 30 minutes spent in discharge including
Final examination of the patient
Summarizing hospital stay
Instructions for continuing care to all relevant caregivers
Preparation of discharge records, prescriptions, and referral forms
Total time spent (in minutes): 36
Anticipated Discharge: Today
Subjective/Interval History
-
Date of Service: March 07, 2024
Patient was seen and examined. He reported feeling better overall, denied any new worsening shortness of breath or any other complaints.
Objective Data
-
Labs:
Laboratory Results
03/07/24
07:10
WBC 9.7
Hgb 12.7 L
Hct 37.1 L
Plt Count 343
Sodium 139
Potassium 4.2
Chloride 96 L
Carbon Dioxide 29
BUN 29 H
Creatinine 1.0
Glucose 113 H
Calcium 8.5
Total Bilirubin 0.3
AST 16 L
ALT 15
Alkaline Phosphatase 112
Vital Signs:
Vital Signs
Temp Pulse Resp BP Pulse Ox
98.3 F 73 18 124/69 95
03/07/24 07:49 03/07/24 08:17 03/07/24 08:17 03/07/24 07:49 03/07/24 08:17
I&O
03/06/24 03/07/24 03/08/24
06:59 06:59 06:59
Intake Total 1919 960 / 960
Balance 1919 960 / 960
--- NOTE | 2024-03-07 09:47 | W.PN.PUL.V3 ---
Today's Communication / Plan
-
.
Wean oxygen.
Continue inhalers and nebulizers.
Change Decadron to prednisone 50 mg daily for 4 days, then 40 mg daily for 4 days, then 30 mg daily for 4 days, then 20 mg daily for 4 days and then 10 mg daily until seen by pulmonary.
IgE-repeat pending-in the past markedly elevated
Consider Xolair as he has had a reaction to Dupixent when tried in the outpatient setting
Assessment
-
Patient is a 69-year-old male with previous history of severe persistent asthma, elevated IgE with allergy to Dupixent, history of chronic bronchitis, chronic heart failure with preserved EF, allergic rhinitis presenting with 2 months of productive
cough with green sputum, wheezing, chest tightness. He was treated as an outpatient on 3 different courses of antibiotics along with a prednisone course. He did not feel improved following first 2 courses of antibiotics. He only takes albuterol
for his asthma. Has not seen Dr. Yin in over 1 year due to recurrent heart failure hospitalizations. Also noted sore throat and low-grade fever over the past few days. Chest x-ray on arrival was clear. Admitted to telemetry for further
evaluation.
Acute asthma exacerbation
Wheezing/chest tightness/SOB
Productive mucus/cough
Failure of OP abx/steroids
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
Asthmatic bronchitis exacerbation May 2021, adm for 48 hrs as failed outpatient azithromycin course, received IV azithro/CS, d/c home on augmentin (sputum cx negative)
History of long-standing asthma-moderate persistent
Follows Dr Yin, last seen 2022
Chronically elevated IgE/Elevated IgE at 4296 in Apr 2020, 3070 on 09-17-20/Past peripheral eosinophilia
FEV1 2.3/59%
Normal FeNO in the past
Tried Dupixent-History of allergic reaction to Dupixent-rash and tongue swelling
Allergic rhinitis
Prostate cancer s/p prostatectomy
H/o UTI
Appendectomy
COVID infection December 2019
Sleep apnea resolved post gastric bypass surgery
History of gastric bypass surgery 2007 (Deepa-en-Y with significant ablation of stomach)
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
Vitamin B12 deficiency
Chronic RLE post orthopedic sx, resulting in chronic RLE edema, mild
Hypertension
Hyperlipidemia
NIDDM
Former smoker-quit in his 30s
Lung blebs
Umbilical hernia repair with mesh/cataract/laparoscopic gastric bypass 2005/appendectomy/dental implants
Plan
History status slowly improving.
Wean supplemental oxygen.
Assess supplemental oxygen needs-does not use oxygen at home.
Aspiration precautions.
Incentive spirometry.
Mucus clearing devices.
Continue inhalers-Symbicort and Spiriva.
Mucolytic's
Nebulizers as needed.
Decadron 4 mg IV every 12 hours-we'll convert to prednisone with slow taper-prednisone 50 mg daily for 4 days, then 40 mg daily for 4 days, then 30 mg daily for 4 days, then, 20 mg daily for 4 days and then 10 mg daily until seen in the pulmonary
office
History of severe persistent asthma, last seen in office 2022-has canceled 3 subsequent appointments with full PFTs
Moderate obstruction on prior PFTs, has not had in >1 year
Was only on albuterol PRN as OP
Has been worked up for elevated IgE levels, +RAST
Tried on Dupixent but developed rash
Could be a good candidate for Xolair
Persistently high IgE levels: 4522 -> 4296 -> 2972 -> 3070
Sputum culture 01/26/2022-test not performed, inadequate, many squamous epithelial cells
Sputum samples unrevealing-4 specimens.
Sputum for AFB-pending
asked about fungal infection, he has had HP panel in past that was negative
Repeat IgE level 03/05/24-pending
CXR negative on admission, not likely PNA
CT chest mostly negative
Procal negative
We discussed observing off abx for now, I do not think this is infection
ProBNP level neg
May consider RHC if all w/u negative and patient is not improving
DVT prophylaxis-on heparin subcutaneously every 8 hours
GI prophylaxis recommended if on steroids for prolonged period
Nutrition
Mobilization encouraged
Outpatient pulmonary follow-up with Dr Yin
He has findings of ankylosing spondylitis on his CT in past--reviewed with him he may require outpatient rheum eval
Pulmonary manifestations of are known, to follow again as OP
Biapical scarring likely related
Reviewed with nursing
Diagnostic Data
CXR 03/04/24- There are coarse increased interstitial markings in both lower lobes with the left lower lobe more pronounced than on prior study. This could be atelectasis although the appearance suggests fibrotic changes of COPD.
CXR 01-23: PA/lat, no acute findings, unchanged c/w May 2021
Chest X-Ray: 05-21-21, portable, no acute findings
CT chest 08/17/2020-stable mild biapical pleural parenchymal scarring with tiny blebs/paraseptal emphysematous changes otherwise no abnormalities
CT sinus 08/17/2020-mild left maxillary sinus mucosal opacification
CT chest� 10-22-20: IMPRESSION: Nondisplaced acute fractures of left third through sixth ribs anteriorly. Extensive coronary calcifications. Ankylosing spondylitis of thoracic spine
CT Chest 03/05/24- Stable 3 mm subpleural left lower lobe pulmonary nodule (series 201, image 40), consistent with benign etiology. Scattered mild bilateral subpleural intralobular septal thickening
No significant ground glass opacities, emphysematous changes, bronchiectasis, fibrosis/honeycombing. No pleural effusion. Moderate coronary artery calcifications.
PET CT 11/18/23- Head and Neck: There is no soft tissue focus of uptake of activity suspicious for malignancy. Physiologic salivary gland and lacrimal gland activity are seen.
Chest: There is no soft tissue focus of uptake of activity suspicious for malignancy. Approximate 0.3 cm LLL pulmonary nodule, CT image 128 series 4 is stable, without FDG uptake, limited by size.
Abdomen and pelvis: Physiologic hepatic, splenic, urinary tract and intestinal activity are noted.
Musculoskeletal: There is no discrete focus of uptake of activity suspicious for malignancy.
ECHO 08/24/23- Normal left ventricular chamber size. Mild concentric left ventricular hypertrophy. Normal left ventricular systolic function. Normal regional wall motion. LV ejection fraction is 50-55% by Cohen's method of discs. Normal
diastolic function. Mitral valve opens normally. Mitral annular calcification. Calcified echodensity seen on anterior mitral valve leaflet (measures 0.5 x 1.0 cm). Cannot exclude vegetation although would expect more significant mitral
regurgitation. Trace mitral regurgitation is seen. Since echocardiogram 05/23/2020 which was reviewed, there is a calcified echodensity attached to the anterior mitral valve leaflet. Cannot exclude vegetation although normally would have more
significant mitral regurgitation.
Echo: 05-23-20, normal biventricular size systolic function without regional wall motion normality.� Mild concentric LVH.� LVEF 60-65%.� Trace MR.� Mild TR.� Estimated PAPS 30-35.� Ventricular size systolic function.� Compared to study December 2017
there is no change.
PFT's 09-22-16, moderate obstructive lung disease with improvement postbronchodilator.� FEV1 2.33 L (59%), 13% improvement
PFT 05/05/2019-FEV1 3.15 L - 89%, FVC 4.4 L - 93%, TLC 97%, RV 97%, DLCO 92%
PFT 06/29/2020-FEV1 2.71 L - 75%, FVC 4.1 L - 85%, TLC 90%, RV 90%, DLCO 84%
PFT 04/30/2021-FEV1-2.61 L - 72%, FVC 4.06 L - 83%, 10% BD response, TLC 97%, RV 116%, DLCO 90%
[place] 03/05/24: FEV1 1.63L 46%, FVC 2.59L 55%, post FEV1 1.62L 46%
Eosinophils 01/19/2019-300
Allergy testing 12/24/2016-positive dust mites, trees, grasses, ragweed, cat dander and dog dander
IgE 12/24/2016-4522
IgE 04/16/2020-4296
IgA, M, G-04/16/2020-normal with the exception of IgA mildly elevated
Reports and relevant images were personally reviewed.
Subjective Data
-
Date of Service:
Date of Service: March 07, 2024
Chief Complaint: Pulmonary Follow Up and Dyspnea Follow Up
Subjective:
Feels better, anxious to go home, still wheezing but not too far from his baseline, no chest pain or abdominal pain
Review of Systems
Cardiopulmonary: Other ( per HPI)
Objective Data
Data Reviewed
Vital Signs / I&O:
Vital Signs
Temp Pulse Resp BP Pulse Ox
98.3 F 73 18 124/69 95
03/07/24 07:49 03/07/24 08:17 03/07/24 08:17 03/07/24 07:49 03/07/24 08:17
Intake and Output
03/06/24 03/07/24 03/08/24
06:59 06:59 06:59
Intake Total 1919 960 / 960
Balance 1919 / 1919 960 / 960
SaO2: 95
Nasal Cannula flow liters per minute: 3
Physical Exam
General: Respiratory Distress (n), Comfortable and Other (NAD)
HEENT: Normocephalic, Anicteric and Moist Mucous Membranes
Cardiovascular: Regular Rhythm
Respiratory: Wheeze ( diffuse expiratory), Crackles (n), Non-Labored Respirations, Accessory Resp Muscle Use (n) and Stridor (n)
GI: Soft, Non Distended and Non Tender
Neurology: Awake, Alert and No Motor Deficits
Skin: Warm, Dry, Good Color, Cyanosis (n) and Jaundice (n)
Labs/Micro/Reports
Lab Data
03/07/24 07:10
03/07/24 07:10
Microbiology
03/05/24 21:33 Sputum Respiratory Culture - Final
03/05/24 21:33 Sputum Gram Stain - Final
03/04/24 15:05 Sputum Respiratory Culture - Final
03/04/24 15:05 Sputum Gram Stain - Final
03/04/24 11:37 Nasal Swab Influenza Types A & B ([facility]) - Final
Negative for Influenza A & B, NAAT
Negative results must be combined with clinical observations
and patient history.
Nucleic Acid Amplification test (NAAT)performed on the
LS9 platform.
[2024-03-07 10:10] VITALS: PULSE 91; O2SAT 94
--- NOTE | 2024-03-07 14:00 | W.DCSUMMARY ---
Discharge Summary
Discharge Data
Date of Admission: 03/04/24
Date of Discharge: 03/07/24
Total time spent discharging patient (in min): 36
-
Pending Results: Yes
Additional Pending Results:
Pending lab/microbiology results from hospitalization
Hospital Course
69-year-old male with past medical history of severe persistent asthma, HFpEF, gastric bypass with short gut syndrome, hyperlipidemia, right lower extremity DVT, chronic lower back status post final surgeries, presented with shortness of breath and
wheezing, and admitted for asthma/asthmatic bronchitis exacerbation. Chest x-ray showed as per radiologist's report, coarse increased interstitial markings in both lower lobes which could be atelectasis versus fibrotic changes of COPD. Patient was
started on bronchodilators, Dexamethasone and Mucinex. Patient was noted not to need any oxygen at home, and initially required 2 L of oxygen. Pulmonary was consulted. Spiriva and Symbicort were added. Pulmonary function test was done, and as per
pulmonary, it showed 'Severe obstruction with moderate restrictive process suspected. Complete lung volumes are recommended to confirm element of restriction.' Chest CT was done, as per radiologist's findings, it showed:
'Stable 3 mm subpleural left lower lobe pulmonary nodule (series 201, image 40), consistent with benign etiology.
* Scattered mild bilateral subpleural intralobular septal thickening
* No significant ground glass opacities, emphysematous changes, bronchiectasis, fibrosis/honeycombing. No pleural effusion.
* Moderate coronary artery calcifications.'
Cardiology was consulted due to patient's family's request, and their finding was that patient did not have an acute exacerbation of heart failure. Patient improved and did not need any oxygen in discharge.
Discharge Plan
-
Patient Disposition: Home (Routine Discharge)
Discharge Diagnosis/Procedures: Acute hypoxic respiratory insufficiency - resolved
Acute asthmatic bronchitis
Findings of ankylosing spondylitis on his CT in the past
Transient troponin elevation
Steroid-induced hyperglycemia. Hemoglobin A1c 5.7%.
Chronic heart failure with preserved ejection fraction
History of prostate cancer -s/p prostatectomy 2014, radiation. Hormonal therapy.
History of nephrolithiasis
History of shingles
Gastroesophageal Reflux Disease/gastric ulcers
History of gastric bypass with short gut syndrome
History of DVT RLE 07/2023
Chronic pain syndrome/chronic opiate dependence - due to chronic lower back pain.
Obesity due to excess calories
Condition: Fair
Diet: Low Fat and Low Cholesterol
Activity: As tolerated
Driving Restrictions: As prior to admission
Bathing Restrictions: None
Specialty Instructions: Weigh Daily- Call MD for wt gain/loss 3 lbs overnight/5 lbs in 1 week
Activity Restrictions/Additional Instructions:
Follow Aspiration Precautions when eating or drinking.
For Prednisone: Continue prednisone 50 mg daily for 4 days, then 40 mg daily for 4 days, then 30 mg daily for 4 days, then, 20 mg daily for 4 days and then 10 mg daily until seen in the pulmonary office
Referrals:
Waleska Akhtar, [Active] - in two to three weeks
(Dr. Yin or Dr. Akhtar or OPERATIONS INSPECTOR
PFTs.
Possible Xolair candidate)
Lotus Valente PA-C [Family Provider] - in less than 1 week
Additional Discharge Medication Instructions: Symbicort is a new medication.
Spiriva is a new medication.
Prednisone taper is a new medication.
Guaifenesin is a new medication.
Follow-up closely with your primary care provider's office and pulmonary office to review your medication list and obtain any refills.
Prescriptions:
New
prednisone 10 mg tablet
10 mg PO DIRECTED Qty: 60 0RF
Rx Instructions:
50 mg/day x4 days; 40 mg/day x4 days; 30 mg/day x4 days; 20 mg/day x4 days; 10 mg/day x4 days
guaifenesin 600 mg Tablet Extended Release 12hr
1,200 mg PO Q12 Qty: 30 0RF
Spiriva Respimat 2.5 mcg/actuation Mist
2 puff inhalation R DAILY Qty: 4 0RF
budesonide-formoterol [Symbicort] 160-4.5 mcg/actuation Hfa Aerosol Inhaler
2 puff inhalation R BID Qty: 10.2 0RF
Continued
ipratropium-albuterol 0.5 mg-3 mg(2.5 mg base)/3 mL Solution For Nebulization
3 ml INHALATION R Q6HPRN PRN (Reason: sob)
albuterol sulfate 90 mcg/actuation Hfa Aerosol Inhaler
2 puff INHALATION R Q6HPRN PRN (Reason: sob)
hydrocodone-acetaminophen 10-325 mg Tablet
1 tab PO QID
cyanocobalamin (vitamin B-12) 100 mcg Tablet
100 mcg PO DAILY Qty: 30 0RF
pantoprazole 40 mg Tablet,Delayed Release (Dr/Ec)
40 mg PO DAILY Qty: 30 0RF
sennosides [senna] 8.6 mg Tablet
17.2 mg PO DAILYPRN PRN (Reason: constipation)
potassium chloride 20 mEq/15 mL Liquid
20 meq PO DAILY
torsemide 20 mg tablet
40 mg PO BID
Discharge Orders:
Discharge Patient (As Directed); Ordered 03/07/24
Ordered By: River Jimenez
Discharge Date and Time
Discharge Date/Time: 03/07/24 14:40
Print Language: UKRAINIAN
[2024-03-07 14:13] VITALS: BP 137/82
[2024-03-08 07:50] LABS: IgE 2561 kU/L (<=214)
== END 2024-03-07 14:40 | disposition home or self-care (01) | DRG 202 ==
LOC: 4 WEST ACU 14:24
PROVIDERS: Clinical Nurse Specialist Family Health; Hospitalist; ADMITTING PHYSICIAN Hospitalist; ATTENDING PHYSICIAN Hospitalist; CONSULT PHYSICIAN Internal Medicine; CONSULT PHYSICIAN Internal Medicine Cardiovascular Disease; EMERGENCY PHYSICIAN Emergency Medicine; FAMILY PHYSICIAN Physician Assistant Medical
DX: J45.51 Severe persistent asthma with (acute) exacerbation (principal); I50.32 Chronic diastolic (congestive) heart failure; I5A Non-ischemic myocardial injury (non-traumatic); K90.829 Short bowel syndrome, unspecified; I11.0 Hypertensive heart disease with heart failure; D50.9 Iron deficiency anemia, unspecified; E11.9 Type 2 diabetes mellitus without complications; E53.8 Deficiency of other specified B group vitamins; E78.5 Hyperlipidemia, unspecified; I25.10 Atherosclerotic heart disease of native coronary artery without angina pectoris; K21.9 Gastro-esophageal reflux disease without esophagitis; J30.9 Allergic rhinitis, unspecified; M54.9 Dorsalgia, unspecified; R09.02 Hypoxemia; R06.89 Other abnormalities of breathing; Z79.01 Long term (current) use of anticoagulants; Z79.84 Long term (current) use of oral hypoglycemic drugs; Z86.718 Personal history of other venous thrombosis and embolism; Z87.11 Personal history of peptic ulcer disease; Z87.19 Personal history of other diseases of the digestive system; Z87.81 Personal history of (healed) traumatic fracture; Z86.16 Personal history of COVID-19; Z98.84 Bariatric surgery status; Z87.891 Personal history of nicotine dependence; Z85.46 Personal history of malignant neoplasm of prostate; Z90.79 Acquired absence of other genital organ(s); Z92.3 Personal history of irradiation; Z86.19 Personal history of other infectious and parasitic diseases; Z87.440 Personal history of urinary (tract) infections; Z88.8 Allergy status to other drugs, medicaments and biological substances; Z82.49 Family history of ischemic heart disease and other diseases of the circulatory system
CPT/HCPCS: 71045; 71250; 80048; 80053; 80061; 82784; 82785; 83036; 83880; 84145; 84484; 85025; 85379; 87070; 87116; 87205; 87502; 87811; 93005; 94010; 94640; 94760; 96374; 97116; 97162; 99285

== ENCOUNTER → 2024-03-30 07:54 | Outpatient (REF) | payer MEDICARE, SELFPAY ==
[2024-03-30 10:27] LABS: Erythrocyte Sed Rate 21 mm/hour (0-20)
[2024-04-01 22:23] LABS: Myeloperoxidase Antibody 0 AU/mL (0-19); Serine Protease-3, IgG 0 AU/mL (0-19)
== END ==
LOC: HWRAD 07:54
PROVIDERS: ATTENDING PHYSICIAN Internal Medicine
DX: J32.8 Other chronic sinusitis (principal); J44.1 Chronic obstructive pulmonary disease with (acute) exacerbation
CPT/HCPCS: 36415; 70486; 83516; 85652

== ENCOUNTER → 2024-04-05 11:31 | Outpatient (REF) | payer MEDICARE, SELFPAY | LOC: HWLAB 11:31 | PROVIDERS: ATTENDING PHYSICIAN Physician Assistant Medical | DX: J42 Unspecified chronic bronchitis (principal) | CPT/HCPCS: 87205 ==

== ENCOUNTER → 2024-05-10 07:52 | Outpatient (REF) | payer MEDICARE, SELFPAY ==
[2024-05-10 09:50] LABS: % Basophils 0.9 % (0-2); % Eosinophils 3.6 % (0-6); % Lymphocytes 12.8 % (20.5-51.1); % Monocytes 8.6 % (1.7-9.3); % Neutrophils 73.1 % (42.2-75.2); Absolute Basophils 0.1 10^3/uL (0-0.2); Absolute Eosinophils 0.3 10^3/uL (0-0.7); Absolute Immature Granulocytes 0.1 10^3/uL (0-0.05); Absolute Lymphocytes 0.9 10^3/uL (1.2-3.4); Absolute Monocytes 0.6 10^3/uL (0.1-0.6); Absolute Neutrophils 5.1 10^3/uL (1.4-6.5); Hematocrit 39.8 % (39.0-52.0); Hemoglobin 12.7 g/dL (13.0-18.0); Mean Corp Hgb Conc. 31.9 g/dL (33.0-37.0); Mean Corpuscular Hgb 31.4 pg (27.0-31.0); Mean Corpuscular Volume 98.3 fL (80.0-94.0); Mean Platelet Volume 9.4 fL (7.4-10.4); Nucleated Red Blood Cells % 0 % (-); Platelet Count 287 10^3/uL (130-400); Red Blood Cell Count 4.05 10^6/uL (4.70-6.10); Red Cell Dist. Width 14.6 % (11.5-14.5); White Blood Cell Count 6.9 10^3/uL (4.8-10.8)
[2024-05-10 10:15] LABS: Iron 87 ug/dl (49-181)
[2024-05-10 10:24] LABS: Percent Saturation 41 % (20-50); Total Iron Binding Capacity 212 ug/dl (261-462)
== END ==
LOC: HWLAB 07:52
PROVIDERS: ATTENDING PHYSICIAN Internal Medicine Hematology & Oncology; FAMILY PHYSICIAN Physician Assistant Medical
DX: D50.9 Iron deficiency anemia, unspecified (principal); D64.9 Anemia, unspecified; C61 Malignant neoplasm of prostate; Z79.818 Long term (current) use of other agents affecting estrogen receptors and estrogen levels
CPT/HCPCS: 36415; 82728; 83540; 83550; 84153; 84403; 85025

== ENCOUNTER 2024-05-19 08:46 | Outpatient (RCR) | payer MEDICARE, SELFPAY ==
[2024-05-13 09:15] VITALS: BP 138/87
[2024-05-13] MEDS: ROCEPHIN 60 MG IV (09:28)
[2024-05-13 10:03] VITALS: BP 129/76
[2024-05-14 07:23] VITALS: BP 134/76
[2024-05-14] MEDS: ROCEPHIN 60 MG IV (07:26)
[2024-05-15] MEDS: ROCEPHIN 60 MG IV (07:10)
[2024-05-15 07:17] VITALS: BP 142/86
[2024-05-16 09:15] VITALS: BP 138/91
[2024-05-16] MEDS: ROCEPHIN 60 MG IV (09:17)
[2024-05-16 10:48] LABS: Ionized Calcium 1.12 mMOL/L (1.15-1.33)
[2024-05-16 10:59] LABS: % Basophils 1.2 % (0-2); % Eosinophils 2.7 % (0-6); % Immature Granulocytes 0.6 % (0-0.5); % Lymphocytes 12.7 % (20.5-51.1); % Monocytes 8.3 % (1.7-9.3); % Neutrophils 74.5 % (42.2-75.2); Absolute Basophils 0.1 10^3/uL (0-0.2); Absolute Eosinophils 0.2 10^3/uL (0-0.7); Absolute Lymphocytes 0.8 10^3/uL (1.2-3.4); Absolute Monocytes 0.6 10^3/uL (0.1-0.6); Absolute Neutrophils 4.9 10^3/uL (1.4-6.5); Hematocrit 37.8 % (39.0-52.0); Hemoglobin 12.3 g/dL (13.0-18.0); Mean Corp Hgb Conc. 32.5 g/dL (33.0-37.0); Mean Corpuscular Hgb 30.8 pg (27.0-31.0); Mean Corpuscular Volume 94.7 fL (80.0-94.0); Mean Platelet Volume 9.4 fL (7.4-10.4); Nucleated Red Blood Cells % 0 % (-); Platelet Count 291 10^3/uL (130-400); Red Blood Cell Count 3.99 10^6/uL (4.70-6.10); Red Cell Dist. Width 14.4 % (11.5-14.5); White Blood Cell Count 6.6 10^3/uL (4.8-10.8)
[2024-05-16 11:13] LABS: ALT (SGPT) < 10 U/L (0-50); AST (SGOT) 14 U/L (17-59); Albumin 3.5 g/dl (3.5-5.0); Alkaline Phosphatase 111 U/L (38-126); Blood Urea Nitrogen 9 mg/dl (9-20); Calcium 8.9 mg/dl (8.4-10.2); Carbon Dioxide 26 mmol/L (22-30); Chloride 106 mmol/L (98-107); Direct Bilirubin 0.1 mg/dl (0.0-0.4); Glucose 95 mg/dl (70-99); HDL Cholesterol 77 mg/dl; Iron 94 ug/dl (49-181); LDL Cholesterol, Calculated 135 mg/dl; Potassium 4.5 mmol/L (3.5-5.1); Sodium 138 mmol/L (135-145); Total Bilirubin 0.3 mg/dl (0.2-1.3); Total Cholesterol 235 mg/dl (50-199); Total Protein 5.8 g/dl (6.3-8.2); Triglyceride 116 mg/dl (10-149); Very Low Density Lipoprotein 23 mg/dl (0-30); eGFR > 60.00
[2024-05-16 11:30] LABS: Vitamin D, 25-OH*** 23.5 ng/mL (30-80)
[2024-05-16 12:20] LABS: Folate 9.6 ng/ml (2.76-20); Vitamin B12 437 pg/ml (239-931)
[2024-05-17 09:25] VITALS: BP 122/76
[2024-05-17] MEDS: ROCEPHIN 60 MG IV (09:45)
[2024-05-18 08:21] LABS: Vitamin B1, Whole Blood 85 nmol/L (70-180)
[2024-05-18 09:00] VITALS: BP 153/72
[2024-05-18] MEDS: ROCEPHIN 60 MG IV (09:11)
[2024-05-18 10:13] LABS: Intact PTH 75.5 pg/ml (13.6-85.8)
[2024-05-19 08:55] VITALS: BP 118/72
[2024-05-19] MEDS: ROCEPHIN 60 MG IV (09:02)
== END 2024-05-23 14:14 | disposition home or self-care (01) ==
LOC: OID 08:46
PROVIDERS: Nurse Practitioner Family; ATTENDING PHYSICIAN Otolaryngology; FAMILY PHYSICIAN Physician Assistant Medical
DX: M32.0 Drug-induced systemic lupus erythematosus (principal); N32.0 Bladder-neck obstruction (principal); J32.0 Chronic maxillary sinusitis (principal); J42 Unspecified chronic bronchitis
CPT/HCPCS: 80048; 80061; 80076; 82306; 82330; 82607; 82728; 82746; 83540; 83970; 84425; 85025; 96365

== ENCOUNTER → 2024-06-17 11:00 | Outpatient (REF) | payer OTHER, SELFPAY | LOC: REG 11:00 | PROVIDERS: ATTENDING PHYSICIAN Internal Medicine; FAMILY PHYSICIAN Physician Assistant Medical | DX: J41.1 Mucopurulent chronic bronchitis (principal) | CPT/HCPCS: 87070; 87077; 87205 ==

== ENCOUNTER → 2024-06-20 08:34 | Outpatient (REF) | payer OTHER, SELFPAY | LOC: RAD 08:34 | PROVIDERS: ATTENDING PHYSICIAN Surgery Vascular Surgery; FAMILY PHYSICIAN Physician Assistant Medical | DX: I71.40 Abdominal aortic aneurysm, without rupture, unspecified (principal) | CPT/HCPCS: 76770 ==

== ENCOUNTER 2024-06-20 14:07 | Emergency (ER) | payer OTHER, SELFPAY ==
[2024-06-20 14:10] VITALS: BP 118/74
[2024-06-20 14:34] LABS: % Basophils 0.6 % (0-2); % Eosinophils 0.6 % (0-6); % Immature Granulocytes 1.8 % (0-0.5); % Lymphocytes 11.4 % (20.5-51.1); % Monocytes 9.1 % (1.7-9.3); % Neutrophils 76.5 % (42.2-75.2); Absolute Basophils 0.1 10^3/uL (0-0.2); Absolute Eosinophils 0.1 10^3/uL (0-0.7); Absolute Immature Granulocytes 0.2 10^3/uL (0-0.05); Absolute Lymphocytes 1.5 10^3/uL (1.2-3.4); Absolute Monocytes 1.2 10^3/uL (0.1-0.6); Absolute Neutrophils 9.8 10^3/uL (1.4-6.5); Hemoglobin 12.6 g/dL (13.0-18.0); Mean Corp Hgb Conc. 32.3 g/dL (33.0-37.0); Mean Corpuscular Hgb 30.4 pg (27.0-31.0); Mean Corpuscular Volume 94.2 fL (80.0-94.0); Mean Platelet Volume 8.8 fL (7.4-10.4); Nucleated Red Blood Cells % 0 % (-); Platelet Count 314 10^3/uL (130-400); Red Blood Cell Count 4.14 10^6/uL (4.70-6.10); Red Cell Dist. Width 12.9 % (11.5-14.5); White Blood Cell Count 12.9 10^3/uL (4.8-10.8)
[2024-06-20 14:45] LABS: ALT (SGPT) 10 U/L (0-50); AST (SGOT) 16 U/L (17-59); Albumin 3.6 g/dl (3.5-5.0); Alkaline Phosphatase 105 U/L (38-126); Blood Urea Nitrogen 13 mg/dl (9-20); COVID-19 Antigen Negative (Negative); Calcium 8.6 mg/dl (8.4-10.2); Carbon Dioxide 27 mmol/L (22-30); Chloride 103 mmol/L (98-107); Glucose 86 mg/dl (70-99); Potassium 3.8 mmol/L (3.5-5.1); Sodium 136 mmol/L (135-145); Total Bilirubin 0.2 mg/dl (0.2-1.3); Total Protein 5.8 g/dl (6.3-8.2); eGFR > 60.00
== END 2024-06-20 14:58 | disposition left against medical advice (07) ==
LOC: EMR 14:07
PROVIDERS: Student in an Organized Health Care Education/Training Program
DX: R06.02 Shortness of breath (principal)
CPT/HCPCS: 80053; 85025; 87502; 87811

== ENCOUNTER → 2024-06-24 10:58 | Outpatient (REF) | payer OTHER, SELFPAY | LOC: HWRAD 10:58 | PROVIDERS: ATTENDING PHYSICIAN Physician Assistant Medical | DX: R05.1 Acute cough (principal) | CPT/HCPCS: 71046 ==

== ENCOUNTER → 2024-06-25 11:27 | Outpatient (REF) | payer OTHER, SELFPAY | LOC: REG 11:27 | PROVIDERS: ATTENDING PHYSICIAN Physician Assistant; FAMILY PHYSICIAN Physician Assistant Medical | DX: J41.1 Mucopurulent chronic bronchitis (principal) | CPT/HCPCS: 87205 ==

== ENCOUNTER → 2024-07-09 10:45 | Outpatient (REF) | payer OTHER, SELFPAY | LOC: REG 10:45 | PROVIDERS: ATTENDING PHYSICIAN Physician Assistant Medical | DX: R05.3 Chronic cough (principal) | CPT/HCPCS: 87070; 87205 ==

== ENCOUNTER → 2024-07-15 12:19 | Outpatient (REF) | payer OTHER, SELFPAY | LOC: HWLAB 12:19 | PROVIDERS: ATTENDING PHYSICIAN Physician Assistant Medical; REFERRING PHYSICIAN Internal Medicine Infectious Disease | DX: R05.3 Chronic cough (principal) | CPT/HCPCS: 87070; 87205 ==

== ENCOUNTER → 2024-07-28 12:22 | Outpatient (REF) | payer OTHER, SELFPAY | LOC: HWRAD 12:22 | PROVIDERS: ATTENDING PHYSICIAN Specialist; FAMILY PHYSICIAN Physician Assistant Medical | DX: M25.552 Pain in left hip (principal); M25.551 Pain in right hip | CPT/HCPCS: 72110; 73522 ==

== ENCOUNTER → 2024-08-01 12:36 | Outpatient (REF) | payer OTHER, SELFPAY ==
[2024-08-01 12:57] VITALS: BP 143/95; BP_SYST 84
== END ==
LOC: RADI 12:36
PROVIDERS: ATTENDING PHYSICIAN Internal Medicine Critical Care Medicine; FAMILY PHYSICIAN Physician Assistant Medical
DX: J15.69 Pneumonia due to other Gram-negative bacteria (principal)
CPT/HCPCS: 36573; C1751

== ENCOUNTER 2024-08-10 08:39 | Outpatient (RCR) | payer OTHER, SELFPAY ==
[2024-08-01 14:35] VITALS: BP 139/72
[2024-08-01] MEDS: SOLU-MEDROL PF 50.64 MG IV (15:02)
[2024-08-01] MEDS: ROCEPHIN 70 MG IV (15:19)
[2024-08-02 11:35] VITALS: BP 142/90
[2024-08-02] MEDS: SOLU-MEDROL PF 51 MG IV (11:45)
[2024-08-02] MEDS: ROCEPHIN 70 MG IV (12:04)
[2024-08-03] MEDS: SOLU-MEDROL PF 51 MG IV (10:09)
[2024-08-03 10:20] VITALS: BP 124/71
[2024-08-03] MEDS: ROCEPHIN 70 MG IV (10:30)
[2024-08-04] MEDS: SOLU-MEDROL PF 51 MG IV (09:39)
[2024-08-04 09:43] VITALS: BP 137/81
[2024-08-04] MEDS: ROCEPHIN 70 MG IV (09:57)
[2024-08-05] MEDS: SOLU-MEDROL PF 51 MG IV (09:12)
[2024-08-05 09:22] VITALS: BP 137/74
[2024-08-05] MEDS: ROCEPHIN 70 MG IV (09:43)
[2024-08-06 07:59] VITALS: BP 153/85
[2024-08-06] MEDS: SOLU-MEDROL PF 51 MG IV (08:14)
[2024-08-06] MEDS: ROCEPHIN 70 MG IV (08:33)
[2024-08-06 09:13] VITALS: BP 153/83
[2024-08-07 07:05] VITALS: BP 172/90
[2024-08-07] MEDS: SOLU-MEDROL PF 51 MG IV (07:05)
[2024-08-07] MEDS: ROCEPHIN 70 MG IV (07:20)
[2024-08-08] MEDS: ROCEPHIN 70 MG IV (09:26)
[2024-08-08 09:45] VITALS: BP 145/84
[2024-08-09] MEDS: ROCEPHIN 70 MG IV (10:22)
[2024-08-09 10:37] VITALS: BP 121/75
[2024-08-10] MEDS: ROCEPHIN 70 MG IV (09:23)
[2024-08-10 09:32] VITALS: BP 138/78
--- NOTE | 2024-08-10 10:34 | PTCARENOTE ---
1015-IV antibiotics completed as directed. PICC line removed per protocol, total length of catheter 42cm removed. Dressing applied. Instructed patient and spouse to maintain dressing x 24 hours. Monitor site for redness, swelling or damage and
report any abnormalities to Dr Yin. pt discharged in good condition.
== END 2024-08-29 23:59 | disposition home or self-care (01) ==
LOC: OID 08:39
PROVIDERS: ATTENDING PHYSICIAN Internal Medicine Critical Care Medicine; FAMILY PHYSICIAN Physician Assistant Medical
DX: J15.69 Pneumonia due to other Gram-negative bacteria (principal); J44.1 Chronic obstructive pulmonary disease with (acute) exacerbation; J96.01 Acute respiratory failure with hypoxia; J44.89 Other specified chronic obstructive pulmonary disease; Z98.84 Bariatric surgery status
CPT/HCPCS: 96365; 96367; 96375; 96411

== ENCOUNTER → 2024-11-10 06:45 | Outpatient (REF) | payer OTHER, SELFPAY ==
[2024-11-10 09:39] LABS: % Basophils 0.8 % (0-2); % Eosinophils 0.7 % (0-6); % Immature Granulocytes 1.2 % (0-0.5); % Lymphocytes 17.4 % (20.5-51.1); % Monocytes 10.1 % (1.7-9.3); % Neutrophils 69.8 % (42.2-75.2); Absolute Basophils 0.1 10^3/uL (0-0.2); Absolute Eosinophils 0.1 10^3/uL (0-0.7); Absolute Immature Granulocytes 0.1 10^3/uL (0-0.05); Absolute Lymphocytes 1.5 10^3/uL (1.2-3.4); Absolute Monocytes 0.9 10^3/uL (0.1-0.6); Absolute Neutrophils 6.1 10^3/uL (1.4-6.5); Hematocrit 37.9 % (39.0-52.0); Hemoglobin 12.3 g/dL (13.0-18.0); Mean Corp Hgb Conc. 32.5 g/dL (33.0-37.0); Mean Corpuscular Hgb 30.4 pg (27.0-31.0); Mean Corpuscular Volume 93.8 fL (80.0-94.0); Mean Platelet Volume 9.3 fL (7.4-10.4); Nucleated Red Blood Cells % 0 % (-); Platelet Count 338 10^3/uL (130-400); Red Blood Cell Count 4.04 10^6/uL (4.70-6.10); Red Cell Dist. Width 12.8 % (11.5-14.5); White Blood Cell Count 8.7 10^3/uL (4.8-10.8)
[2024-11-10 09:44] LABS: Iron 121 ug/dl (49-181)
[2024-11-10 09:54] LABS: Percent Saturation 58 % (20-50); Total Iron Binding Capacity 208 ug/dl (261-462)
[2024-11-10 11:09] LABS: PSA, Total - Diagnostic 0.66 ng/ml (0.0-4.0)
== END ==
LOC: HWLAB 06:45
PROVIDERS: ATTENDING PHYSICIAN Internal Medicine Hematology & Oncology; FAMILY PHYSICIAN Physician Assistant Medical
DX: D50.9 Iron deficiency anemia, unspecified (principal); D64.9 Anemia, unspecified; C61 Malignant neoplasm of prostate; Z79.818 Long term (current) use of other agents affecting estrogen receptors and estrogen levels
CPT/HCPCS: 36415; 82728; 83540; 83550; 84153; 84403; 85025

== ENCOUNTER 2024-11-20 22:09 | Inpatient (IN) | payer OTHER, SELFPAY ==
[2024-11-20 19:31] VITALS: BP 153/53
[2024-11-20 20:09] VITALS: BP 130/73
[2024-11-20 20:14] VITALS: BMI 35.9
[2024-11-20 20:18] LABS: % Basophils 0.1 % (0-2); % Immature Granulocytes 0.6 % (0-0.5); % Lymphocytes 3.8 % (20.5-51.1); % Monocytes 5.8 % (1.7-9.3); % Neutrophils 89.7 % (42.2-75.2); Absolute Immature Granulocytes 0.1 10^3/uL (0-0.05); Absolute Lymphocytes 0.7 10^3/uL (1.2-3.4); Absolute Monocytes 1.1 10^3/uL (0.1-0.6); Absolute Neutrophils 16.4 10^3/uL (1.4-6.5); Hematocrit 35.7 % (39.0-52.0); Hemoglobin 11.8 g/dL (13.0-18.0); Mean Corp Hgb Conc. 33.1 g/dL (33.0-37.0); Mean Corpuscular Hgb 30.5 pg (27.0-31.0); Mean Corpuscular Volume 92.2 fL (80.0-94.0); Mean Platelet Volume 9.2 fL (7.4-10.4); Nucleated Red Blood Cells % 0 % (-); Platelet Count 253 10^3/uL (130-400); Red Blood Cell Count 3.87 10^6/uL (4.70-6.10); Red Cell Dist. Width 13.2 % (11.5-14.5); White Blood Cell Count 18.3 10^3/uL (4.8-10.8)
--- NOTE | 2024-11-20 20:34 | ED.GENMED ---
History of Present Illness
General
Chief Complaint: Breathing Problem
Source: patient and spouse
Time Seen by Provider: 11/20/24 20:19
History of Present Illness
History of Present Illness:
This patient is a 69-year-old male who states that for the last week or so he has been feeling increasingly short of breath associated with a cough productive of green sputum. He also states he feels like he is 'retaining fluid' although he does
note that he is leg edema is actually improved from baseline. He denies chest pain or pressure, fever, chills, sore throat, nausea, vomiting. He does have mild loss of appetite. He has been unable to use his nebulizer as usual due to loss of
electricity.
Past History
Past History
ED Past Medical History: Asthma, Cancer (Prostate CA, metastatic cancer found in a lymph node), Hypercholesterolemia and Other (UTI, Ulcers, Bronchitis, Renal calculus, Iron def. anemia, gastric bypass with short gut syndrome, heart failure with
preserved ejection fraction, DVT)
ED Past Surgical History: Appendectomy, Bowel resection, Orthopedic (Right ankle ORIF), Urological (Prostatectomy) and Other (Gastric bypass, Hernia, cataracts)
Social History
Tobacco: Former smoker
Alcohol: Occasional
Drug: None
Personal:
Living: with family
Family History
Family History: Other
Phy Exam
Physical Exam
Physical Exam:
GENERAL: Alert , in no apparent distress
EYE: pupils equal and reactive
NECK: Supple, no significant adenopathy.
ENT: o/p clr, mmm.
CARDIAC: Regular rate and rhythm .
LUNGS: Equal breath sounds bilaterally, no acute respiratory distress, diffuse wheezing with scattered rhonchi, nasal cannula in place
ABDOMEN: Soft, without focal tenderness, no r/g, no cvat
NEUROLOGICAL: Alert and oriented, no focal neuro deficits
SKIN: Warm and dry, skin intact.
MUSCULOSKELETAL: Trace to 1+ bilateral lower extremity edema, well perfused.
PSYCH: Normal and appropriate interaction.
Scores
Heart Failure Risk
Heart Failure Risk Score: Not Applicable
Course
Orders/Labs/Results
Orders:
Orders
11/20/24 Dinner
Cholesterol Lowering
At Your Request: Full Participation
Cholesterol Lowering: Sodium, 2 Gram
11/20/24 19:35
Electrocardiogram (*1) Urgent
Reason for Study: Other
Other Reason for Exam: Respiratory Distress
EKG- Treatment ONCE
11/20/24 20:12
Complete Blood Count/With Diff Urgent
Comprehensive Metabolic Panel Urgent
NT-proBNP Urgent
Troponin I Urgent
11/20/24 20:32
Cardiac Monitoring- Treatment ONCE
Albuterol Sulfate [Ventolin Nebules] 7.5 mg INH R NOW STA
Dexamethasone Sod Phosphate [Decadron] 10 mg IV NOW STA
Pulse Ox/cont/shift [RESP] Stat
Quantity: 1
11/20/24 20:50
Chest X-ray Portable [CR Chest Portable - 1 View] Urgent
Comment:
Reason For Exam: SOB
Reason Study Needs to be Portable: Unable to Transport
11/20/24 20:51
Lactic Acid Q4H
Comment: CANCEL 2nd LACTIC ACID IF 1st LACTIC ACID IS LESS THAN 2
Blood Culture Q30M
[facility] Source: Blood/Venous
Specimen Description:
Blood Culture Q30M
[facility] Source: Blood/Venous
Specimen Description:
11/20/24 21:05
Azithromycin 500 mg/250 ml [Zithromax Infusion] 500 mg in 250 ml IV NOW
CefTRIAXone [Rocephin] 1,000 mg IV NOW STA
11/20/24 21:26
COVID-19 Antigen Urgent
Source: Nasal Swab
11/20/24 21:27
Influenza A+B Rapid Molecular Urgent
[facility] Source: Nasal Swab
Specimen Description:
11/20/24 21:49
Admit/Transfer Patient As Directed
Co-Sign Provider:
Level of Care: Inpatient admission
Assign to:: Telemetry
Physician / Group: Tommy
Diagnosis: Asthma exacerbaion
Reason for Telemetry: Subacute Heart Failure
Date to Stop Telemetry: 11/22/24
Time to Stop Telemetry: 11:00
Reason for Hospitalization: Asthma exacerbation w/ hypoxia
Expected length of stay greater than two midnights?: Yes
ELOS- Estimated Length of Stay in days: 2
I certify the patient meets the requirements for IP care: Yes
11/20/24 21:50
PRN Pain Medication Management As Directed
May give lesser potent ordered pain med per pt: Yes
preference::
Protocol:: Medication orders for pain may be administered in a
manner that supports deferring to patient preference
when the pt is:
- Requesting an ordered lesser potent pain medication.
Least to most potent pain medications are defined
as: acetaminophen < NSAID < tramadol < opioids
(morphine, oxycodone, hydromorphone).
- Requesting a lesser dose of the same medication IF
ORDERED.
- Requesting a less intrusive route of administration
if both routes are prescribed by the provider (PO <
IV).
11/20/24 21:51
Code Status As Directed
Resuscitation Status: Full Code
11/20/24 21:58
Furosemide [Lasix] 40 mg IV NOW STA
11/20/24 22:52
Acetaminophen [Tylenol] 650 mg PO Q6HPRN PRN
Albuterol Nebs [Ventolin Nebules] 2.5 mg INH R Q2HPRN PRN
Guaifenesin Solution [Robitussin] 200 mg PO Q4HPRN PRN
Hydrocodone/Acetaminophen [Hycet 7.5/325 Oral Solution] 5 ml PO Q4HPRN PRN
Mag Hydrox/Al Hydrox/Simeth [Maalox] 30 ml PO QIDPRN PRN
11/20/24 22:52
HF DIETARY CONSULT Routine
HF EDUCATOR CONSULT Routine
Comment:
Activity As Directed
Activity Level: With Assistance
Intake/ Output As Directed
Frequency: Per unit guidelines
Patient Education As Directed
Type: CHF folder
Comment: give on admission. Document in Interdisciplinary Education record
Sleep Apnea Assessment by RN As Directed
Comment:
Physician Instructions:
Vital Signs As Directed
Frequency: Other
Additional Instructions:: Q12 or per unit guidelines if more frequent.
Weight As Directed
Frequency: Daily
Type of Scale: Standing Scale
Comment: Daily morning weight. If unable to stand, use balanced bed scale.
Weight As Directed
Frequency: Once
Type of Scale: Standing Scale
Comment: Upon Admission. If unable to stand, use balanced bed scale.
Copd Education [RESP] Routine
O2 Therapy [RESP] Routine
Nasal Cannula Liter Flow: 2 LPM
Titrate/Wean O2 to maintain O2 sat greater than (%): 93
Pulse Ox/cont/shift [RESP] Routine
Quantity: 1
Special Instructions: Daily pulse oximetry at rest. If greater than 92% at rest also obtain pulse oximetry
while ambulating as tolerated.
DX Deep Vein Thrombosis Video Routine
11/20/24 23:55
Troponin I Q6H
Comment: at admission & every 6 hours x 2 (3 total), ECG to be done with each level
11/21/24 06:00
MethylPREDNISolone PF [Solu-Medrol Pf] 40 mg IV Q6H
11/21/24 06:20
Basic Metabolic Panel IN AM
Cardiovascular Evaluation IN AM
Complete Blood Count/No Diff IN AM
Magnesium IN AM
Troponin I Q6H
Comment: at admission & every 6 hours x 2 (3 total), ECG to be done with each level
11/21/24 08:00
Furosemide [Lasix] 20 mg PO BID AT 0800,1600
Guaifenesin [Mucinex] 600 mg PO Q12
Ipratropium/Albuterol Sulfate [Duoneb] 3 ml INH R QID
11/21/24 18:00
Enoxaparin Sodium [Lovenox] 40 mg SC QPM
11/21/24 22:00
Azithromycin 500 mg/250 ml [Zithromax Infusion] 500 mg in 250 ml IV Q24H
CefTRIAXone [Rocephin] 1,000 mg IV Q24H
11/22/24 06:00
Basic Metabolic Panel IN AM
11/22/24 11:00
DC Protocol for Telemetry ONCE
11/23/24 06:00
Basic Metabolic Panel IN AM
Abnormal Lab Results
11/20/24
20:12
WBC 18.3 H 10^3/uL
(4.8-10.8)
RBC 3.87 L 10^6/uL
(4.70-6.10)
Hgb 11.8 L g/dL
(13.0-18.0)
Hct 35.7 L %
(39.0-52.0)
Abs Immat Gran (auto) 0.1 H 10^3/uL
(0-0.05)
Absolute Neuts (auto) 16.4 H 10^3/uL
(1.4-6.5)
Absolute Lymphs (auto) 0.7 L 10^3/uL
(1.2-3.4)
Absolute Monos (auto) 1.1 H 10^3/uL
(0.1-0.6)
Immature Gran % 0.6 H %
(0-0.5)
Neutrophils % 89.7 H %
(42.2-75.2)
Lymphocytes % 3.8 L %
(20.5-51.1)
Chloride 109 H mmol/L
(98-107)
Glucose 114 H mg/dl
(70-99)
AST 15 L U/L
(17-59)
Troponin I 0.061 H* ng/ml
Total Protein 5.6 L g/dl
(6.3-8.2)
Albumin 3.3 L g/dl
(3.5-5.0)
11/20/24 20:12
11/20/24 20:12
Vital Signs
Initial and Last Documented VS:
Initial Vital Signs
Temp Pulse Resp BP Pulse Ox
97.9 F 96 35 153/53 94
11/20/24 19:31 11/20/24 19:31 11/20/24 19:31 11/20/24 19:31 11/20/24 19:31
Last Documented Vital Signs
Temp Pulse Resp BP Pulse Ox
98.2 F 70 16 129/73 95
11/21/24 11:00 11/21/24 11:20 11/21/24 11:20 11/21/24 11:00 11/21/24 11:20
*Pulse Oximetry
SaO2: 93
*Critical Care Note
Total Time (30-74mins, 75-104mins- exclusive of procedures): 32
Update Note
Update Note:
Patient presents to the Emergency Department with ___dyspnea
Number and Complexity of Problems Addressed at the Encounter
� Chronic conditions affecting care:
� Acute Exacerbation and/or Progression of Chronic Illness: Asthma/COPD
� Differential Diagnosis includes: But not limited to asthma/COPD exacerbation, pneumonia, bronchitis, ACS, heart failure, etc. etc.
Amount and/or Complexity of Data to be Reviewed and Analyzed
� I performed an independent evaluation of and my interpretation is:
EKG: Read by me, normal sinus rhythm, normal rate, normal axis, no acute ischemia
CT:
Xrays: Read by me, no acute infiltrate, no pneumothorax, NAD
Laboratory Studies: New leukocytosis, relatively baseline anemia, lactic acid pending. Troponin elevation noted without active chest pain or ECG changes, likely demand ischemia
Other:
� Review of other/old records reveals: Discharge summary March 2024 reviewed when patient was admitted with an acute exacerbation of asthma/COPD
� Clinical information was obtained by an independent historian: who is bedside
� Prescriptions/Medications Considered but not given:
� Further testing considered but not performed: Consideration for PE however history physical etc. very consistent with reactive airway disease/asthma/COPD exacerbation.
Risk of Complications and/or Morbidity or Mortality of Patient Management
� Social determinants of health affecting care:
� Discussion with other providers (PCP, Hospitalists, Consultants, etc):
� Escalation of care including admission/observation vs risk of discharge considered: Reassessment patient with continued cough, mild hypoxia relieved with nasal cannula, mild improvement in wheezing. No specific infiltrate
noted on x-ray. Suspect leukocytosis in part related to 30 mg of prednisone that patient is currently taking. Recommend continued bronchodilators, antibiotics, oxygen, admission. [place] text sent to hospitalist and patient and did.
ED Attending Note
-
Portions of this chart may have been created with voice recognition software.� Occasional wrong word or��sound alike� substitutions may have occurred due to the inherent limitations of voice recognition software.
Discharge Plan
Departure
Patient Disposition: Admit
Date of Disposition: 11/20/24
Time of Disposition: 21:21
Presentation/result/management discussed w/ accepting MD/DO: Hospitalist
Condition: Fair
Discharge Problem:
Acute exacerbation of chronic obstructive pulmonary disease
Interventions
Interventions:
*Risk Screen - Suicide Last Done: 11/20/24 19:34
*General Assessment Last Done: 11/20/24 19:33
*Neglect/Abuse Screening Last Done: 11/20/24 19:34
*ED- Fall Risk Assessment Last Done: 11/20/24 19:34
*ED COVID-19 Vaccine History Last Done: 11/20/24 19:34
*Nursing Disposition Last Done: 11/20/24 22:47
ED- Cardiac Assessment Last Done: 11/20/24 20:13
ED- Pulmonary Assessment Last Done: 11/20/24 20:11
Discharge Date and Time
Discharge Date/Time: 11/20/24 22:47
[2024-11-20 20:41] LABS: ALT (SGPT) 12 U/L (0-50); AST (SGOT) 15 U/L (17-59); Albumin 3.3 g/dl (3.5-5.0); Alkaline Phosphatase 111 U/L (38-126); Blood Urea Nitrogen 15 mg/dl (9-20); Calcium 8.4 mg/dl (8.4-10.2); Carbon Dioxide 22 mmol/L (22-30); Chloride 109 mmol/L (98-107); Estimated Creatinine Clearance 124 ml/min; Glucose 114 mg/dl (70-99); Potassium 4.1 mmol/L (3.5-5.1); Sodium 136 mmol/L (135-145); Total Bilirubin 0.8 mg/dl (0.2-1.3); Total Protein 5.6 g/dl (6.3-8.2); eGFR > 60.00
[2024-11-20] MEDS: VENTOLIN NEBULES 7.5 MG INH (20:42)
[2024-11-20] MEDS: DECADRON 10 MG IV (20:42)
[2024-11-20 20:56] LABS: NT-proBNP 710 pg/ml; Troponin I 0.061 ng/ml
[2024-11-20] MEDS: ZITHROMAX INFUSION 250 IV (21:26)
[2024-11-20] MEDS: ROCEPHIN 1000 MG IV (21:26)
--- NOTE | 2024-11-20 21:37 | HPS.HSE ---
Family Physician
-
Family Physician: Lotus Valente PA-C
Chief Complaint
-
Shortness of breath
History of Present Illness
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
Patient reported that since his discharge from the hospital he has been feeling well up until 2 weeks ago. Spouse reported that she had allergy/URI symptoms about that time. Patient reported initially having a cough that was productive of clear
sputum. reports that he was wheezing and had dyspnea on exertion and shortness of breath. No fevers or chills. About 2 days ago the patient started having cough that is productive of greenish phlegm. He still denied having fevers or chills.
He has been taking nebulizer treatments at home without improvement.
Spouse noticed increased right lower extremity edema. Patient has CHF with preserved EF but is not currently on diuretics. Due to his malabsorption patient states that he is he uses intermittent subcutaneous Lasix injections and the last time this
was done was several months ago. He reports mild orthopnea but no PND. He denies having any chest pain except for when he coughs.
Patient was last admitted and treated for asthma exacerbation and at that time was found to have significant obstructive as well as some restrictive lung disease. He is not on home O2.
Here in the emergency department he remains afebrile with a temp of 98, blood pressure 130/70 with a pulse rate of 75 and is satting 93% on 2 L. ECG shows a normal sinus rhythm at a rate of 78 which is unchanged from prior. His troponin was
slightly elevated at 0.06, BNP was 700. Chest x-ray shows increased interstitial markings which could be consistent with interstitial pneumonitis, mild pulmonary edema, there is no consolidation noted.
He has a white count of 18.3, hemoglobin and platelets were normal. Electrolytes were normal. BUN/creatinine were normal. There is no eosinophilia.
Medical History
Past Medical History
Past Medical History: Reports Other
Additional Past Medical History:
Asthma
Chronic bronchitis
chronic CHF preserved EF, malabsorption issues history of Deepa-en-Y 2005 with possible short gut syndrome
DVT right leg nonocclusive thrombus right popliteal/posterior tibial vein 08/03/2023
Chronic back pain on chronic oral opiates
[place]
Iron deficiency anemia
GERD/gastric ulcers
Prostate cancer Dx 2014 status post prostatectomy, radiation 2015, radiation 2022 with Lupron shot x 1 in August
Renal calculi August 2023
Shingles August 2023
Past Surgical History: Reports Other
Additional Past Surgical History:
Gastric bypass Deepa-en-Y 2005
Lumbar laminectomy June 2023
Right ankle and leg ORIF 1995
Appendectomy 1987
Hernia repair 2014, 2015
Exploratory lap 2023
Social History
Tobacco: Former Smoker (Reports smoked a few years when he was in the service)
Alcohol: None
Drug: None
Personal:
Living: With Family ( Aiyana)
Family History
Family History: Other (Mother history of pituitary cancer, sister CAD in her 50s, father CAD, CVA, leukemia age 60s)
Allergies / Home Medications
Allergies reflects when Allergies were last updated in [facility].
Home Medications with original date entered in [facility]
Allergy/Medication List:
Allergies
Allergy/AdvReac Type Severity Reaction Status Date / Time
dupilumab [From [facility]] Allergy Unknown Verified 03/04/24 11:04
NSAIDS (Non-Steroidal AdvReac Can not Verified 03/04/24 11:04
Anti-Inflamma take due
to Gastric
Bypass
Home Medications
albuterol sulfate 90 mcg/actuation aerosol inhaler 2 puff inhalation R Q6HPRN PRN sob 06/23/23
ipratropium 0.5 mg-albuterol 3 mg (2.5 mg base)/3 mL nebulization soln 3 ml inhalation R Q6HPRN PRN sob 06/23/23
hydrocodone 10 mg-acetaminophen 325 mg tablet 1 tab PO QID Pain 08/22/23
cyanocobalamin (vitamin B-12) 100 mcg tablet 100 mcg PO DAILY #30 tabs 08/26/23
pantoprazole 40 mg tablet,delayed release 40 mg PO DAILY #30 tabs 08/26/23
potassium chloride 20 mEq/15 mL oral liquid 20 meq PO DAILY 03/04/24
sennosides 8.6 mg tablet (senna) 17.2 mg PO DAILYPRN PRN constipation 03/04/24
torsemide 20 mg tablet 40 mg PO BID 03/04/24
Review of Systems
-
History Source: Patient and Family ( Laly at bedside)
A 12 point ROS was completed and negative except as noted: Yes
Constitutional: Denies Fever or Chills
EENT: Reports No Symptoms and Runny Nose
Respiratory: Reports Cough (Productive green in color) and Trouble Breathing (Wheezing)
Cardiac: Denies Chest Pain (Pressure with his shortness of breath and wheezing), Diaphoresis, Palpitations or Syncope
Abdomen/GI: Denies Abdominal Pain, Nausea, Vomiting, Diarrhea, Constipated, Bloody Stools or Black Stools
: Denies Dysuria, Frequency, Flank Pain, Incontinence, Difficulty Voiding, Urgency or Dark Urine
Musculoskeletal: Reports Edema (+1 lower legs to feet bilaterally); Denies Joint Pain
Skin: Denies Itching or Rash
Neurological: Denies Dizzy, Headache or Weakness
Endocrine: Reports No Symptoms
Hematologic/Lymphatic: Reports No Symptoms
Psych: Reports Calm
Physical Exam
Vital Signs
Vital Signs
Temp Pulse Resp BP Pulse Ox
97.9 F 75 19 130/73 93
11/20/24 19:31 11/20/24 20:09 11/20/24 20:09 11/20/24 20:09 11/20/24 20:37
Physical Exam
General: Well Developed and Respiratory Distress
HEENT: NormoCephalic, Anicteric, Moist mucous membranes and Oxygen
Respiratory: Wheezes and Rhonchi; No Rales or Crackles
Cardiac: S1/S2 and Regular Rhythm
Breast: Deferred by me
GI: Soft, Non Tender, Non Distended and Normal Bowel Sounds
Genito-urinary: Deferred by me
Musculoskeletal: No Clubbing, No Cyanosis, Edema, Left Lower Extremity (1+) and Edema, Right Lower Extremity (2+)
Skin: Warm
Neuro: AO x 3 and Nonfocal/grossly intact
Hematologic/Lymphatic: No Lymphadenopathy
Psych: Calm
Laboratory Results
-
11/20/24 20:12
11/20/24 20:12
Laboratory Results
Lactic Acid 1.0 mmol/L (0.7-2.0) 11/20/24 20:51
Total Bilirubin 0.8 mg/dl (0.2-1.3) 11/20/24 20:12
AST 15 U/L (17-59) L 11/20/24 20:12
ALT 12 U/L (0-50) 11/20/24 20:12
Alkaline Phosphatase 111 U/L (38-126) 11/20/24 20:12
Troponin I 0.061 ng/ml H* 11/20/24 20:12
Data Reviewed
-
Diagnostic Radiology: Image Personally Visualized and interpreted
Medical Tests (Nuc Med, Echo, EKG etc): Image Personally Visualized and interpreted
Lab Data: Labs Reviewed by me
Old Records: Reviewed
Impression/Plan
-
IMPRESSION:
69-year-old with history of severe asthma/copd, CHF with preserved EF, prior DVT, status post Deepa-en-Y and proximal small bowel resection with short gut syndrome and malabsorption presenting with 2 weeks of cough wheezing shortness of breath. Now
has cough that is productive of greenish phlegm, leukocytosis to 18.3 without eosinophilia and a positive left shift, x-ray without focal consolidation with increased reticular markings, is slightly hypoxic requiring 2 L 93% currently. His BNP is
borderline at 700, troponin is also slightly elevated to 0.06 with nonischemic ECG and no chest pain. Suspect asthma exacerbation likely secondary to asthmatic bronchitis given greenish phlegm and leukocytosis. He does have excess volume on board
with peripheral edema and possibly mild interstitial edema.
PLAN:
Asthma exacerbation -moderate to severe exacerbation likely in the setting of asthmatic bronchitis and now on 2 L. Improved after 7.5 mg of albuterol in the emergency department. Denies any recent smoking. Sick contacts with spouse about 2 weeks
ago. COVID and flu pending.
-Admit to telemetry (due to mild CHF exacerbation)
-Sputum culture sent
-Flu COVID pending
-Given phlegm production and leukocytosis, IV ceftriaxone and azithromycin
-Albuterol every 2 hours as needed wheezing or shortness of breath
-DuoNebs standing
-Solu-Medrol 40 mg IV Q6 and taper with improvement
-Patient reports poor absorption of oral medications so will need to be on IV medications for was more prolonged. During typical
- Consider pulmonary consult if no improvement
CHF exacerbation -mild CHF exacerbation with peripheral edema and borderline BNP. Reports a 20 pound weight gain recently followed by about a 10 pound weight loss in the last week or 2. Was d/c'd previously on torsemide but not taking any
diuretics currently
-Daily weights
-Lasix 20 mg IV bid
- salt/fluid restriction
Troponin elevation -troponin 0.06, no chest pain no ischemia, no known CAD
-Suspect ischemic myocardial injury possibly secondary to hypoxia, trend troponin
-Aspirin 324 x 1
-Diuresis as above
-Supplemental oxygen and treatment of asthma as above
-Cardiology consult
History of DVT -left lower extremity muscle on the right but reports history of orthopedic surgery in that leg
- Left lower extremity ultrasound
DVT prophylaxis�Lovenox subcu
CODE STATUS�full code
[2024-11-20 22:03] LABS: COVID-19 Antigen Negative (Negative)
[2024-11-20] MEDS: LASIX 40 MG IV (22:26)
[2024-11-20 23:26] VITALS: BP 131/63; BMI 33.8
[2024-11-21 00:10] VITALS: BMI 33.8
[2024-11-21 01:06] LABS: Troponin I 0.056 ng/ml
--- NOTE | 2024-11-21 01:34 | PTCARENOTE ---
Receive pt from ER. Pt alert oriented X3, dyspnea at rest, dyspnea on exertion. Pt states he feels better and 'this is the best I have been since couple of days'. Pt assist X1 to bed. SpO2=94% on 2L O2. Pt on NSR on telemonitor. UC=187/63, HR=82,
rr=24, T=98.1. Pt oriented to the room, call villa within reach. Suggest that the pt may benefit from a Neb treatment. Pt refuses, states he feels better. Advise the pt to call if any worsening shortness ob breath or wheezing. Will continue to
monitor the pt.
[2024-11-21 03:00] VITALS: BP 116/64
[2024-11-21] MEDS: VENTOLIN NEBULES 2.5 MG INH ×2 (03:02→05:42)
[2024-11-21] MEDS: SOLU-MEDROL PF 40 MG IV ×2 (05:20→17:00)
[2024-11-21] MEDS: HYCET 7.5/325 ORAL SOLUTION 5 ML PO ×3 (05:30→20:11)
[2024-11-21 06:00] VITALS: BMI 33.1
[2024-11-21 07:00] VITALS: BP 141/95
[2024-11-21 07:09] LABS: Hematocrit 34.9 % (39.0-52.0); Hemoglobin 11.5 g/dL (13.0-18.0); Mean Corpuscular Hgb 30.8 pg (27.0-31.0); Mean Corpuscular Volume 93.6 fL (80.0-94.0); Mean Platelet Volume 9.6 fL (7.4-10.4); Platelet Count 258 10^3/uL (130-400); Red Blood Cell Count 3.73 10^6/uL (4.70-6.10); Red Cell Dist. Width 13.3 % (11.5-14.5); White Blood Cell Count 19.4 10^3/uL (4.8-10.8)
--- NOTE | 2024-11-21 07:19 | CON.CAR ---
Addendum entered and electronically signed by Ismael Blanton MD 11/21/24 13:08:
69-year-old man with HFpEF and asthma/bronchitis/COPD with increasing shortness of breath and 10 pounds of weight gain. May have issues with medication absorption is related to short gut
PMH/PSH: Asthma/COPD/bronchitis with eosinophilia, history of gastric bypass, HFpEF, ankylosing spondylitis, malabsorption following gastric bypass, abdominal aortic aneurysm, history of prostatectomy with recurrence treated with radiation and
Lupron, B12 deficiency, history of DVT 2023, laminectomy, right ankle ORIF, appendectomy, herniorrhaphy, laparotomy urrent
Meds: Lovenox, Mucinex, DuoNebs, azithromycin, ceftriaxone, methylprednisolone 40 IV every 12, furosemide 20 mg IV twice daily
Rest of history per CS
141/95, pulse 74, respiratory rate 17, afebrile, sats 94%, weight is 113.9 kg, if accurate down 2.3 kg, in March weight was 105.8 kg, he says his breathing is a little better, still coughing, productive sputum, head neck exam unremarkable, diffuse
severe wheezing, JVD probably okay, regular rate and rhythm, no significant murmurs, abdomen very obese, extremities with 1+ to 2+ edema
White count is 19.4 hemoglobin is 11.5, platelets are 258, BUN and creatinine are 15 and 0.7, potassium is 4.4, proBNP is 710, troponin is 0.054
Impression:
Presented with dyspnea and cough, leukocytosis
Suspected asthmatic bronchitis
Acute on chronic HFpEF
elevated troponin
Moraxella catarrhalis 07/2024- treated with IV abx
h/o DVT RLE 07/2023- completed 3 month course anticoagulation - was on Eliquis with transition to lovenox due to concern for poor oral absorption of Eliquis- completed 3 months treatment in 2023, followed by heme
Asthma
h/o gastric bypass with short gut syndrome
Hyperlipidemia
AAA-aorta ultrasound 06/2024 3.2 x 3.2 cm distal abdominal aortic aneurysm similar to CT angiogram 07/2023.
Abnormal echo with calcified echodensity on the anterior mitral leaflet 08/24/23
Echo 05/2020: Normal biventricular size, systolic function, no regional wall motion abnormality. Mild concentric LVH. EF 60 to 65%. Aortic sclerosis without significant stenosis. Mild MAC with trace MR. Mild TR. PASP 30 to 35 mmHg, compared to
prior study 12/2017 no significant change.
Echo 08/24/2023: EF 50-55%, calcified echodensity seen on anterior mitral valve leaflet (measures 0.5 x 1.0 cm) cannot exclude vegetation although would expect more significant MR and only trace MR seen
Plan:
Predominant issue is exacerbation of COPD/bronchitis/asthma, but he is volume overloaded and doing better with IV furosemide. Thus far, renal function is good.
With short gut, oral medications to help manage heart failure are challenging. Continue IV furosemide and eventual transition back to torsemide.
Will tentatively start Farxiga, will ask case management to green. May be useful to consider spironolactone as well.
We will continue to follow.
Original Note:
Consultation
Consultation Request
Date/Time Consultation Requested: 11/20/2024, 2213
Date/Time Consultation Performed: 11/21/2024, 12 28
Requesting Provider: Dr Sanders
Performing Provider: ADIA Tavares for Dr. Blanton
Reason for Consultation: HF, elevated troponin, asthma/COPD exacerbation
Medical History
-
Chief Complaint: Shortness of breath
History of Present Illness:
69-year-old man past medical history of heart failure with preserved ejection fraction as well as asthma/COPD who presents with 2-week history of worsening shortness of breath and productive cough. No fevers or chills. 10 pound weight gain in past
week. Sputum turned green in past 2 days. Has noted increased lower extremity edema and abdominal distention and took PRN torsemide for 4 days with no improvement in symptoms.
Denies chest pain, palpitations, lightheadedness, syncope.
ED workup:
Chest x-ray 11/20 mild interstitial prominence, possible mild interstitial edema
EKG normal sinus rhythm, no ST-T wave abnormalities, QTc 445 ms
Troponin 0.061�0 0.056�0.054
proBNP 710
WBC 18.3, hemoglobin 11.8, BUN/creatinine 15/0.7, K4.1, NA 136, lactic acid 1.0
FLP: LDL 99, HDL 92, triglycerides 78, total cholesterol 206
Received albuterol in ED with improvement in symptoms. Started on Solu-Medrol, albuterol neb every 2 hours, and IV antibiotics
Started on Lasix 20 mg twice daily.
Of note in outpatient setting he has received Furoscix in the office for volume overload as he does not have good absorption of pills due to prior gastric bypass surgery.
PMHx/PSHx:
Asthma
Chronic bronchitis
chronic CHF preserved EF
malabsorption issues history of Deepa-en-Y 2005 with possible short gut syndrome
DVT right leg nonocclusive thrombus right popliteal/posterior tibial vein 08/03/2023-completed 3 months of anticoagulation, Eliquis then transition to Lovenox
Chronic back pain on chronic oral opiates
[place]
Iron deficiency anemia
GERD/gastric ulcers
Prostate cancer Dx 2014 status post prostatectomy, radiation 2015, radiation 2022, Lupron
Renal calculi August 2023
Shingles August 2023
AAA-aorta ultrasound 06/2024 3.2 x 3.2 cm distal abdominal aortic aneurysm similar to CT angiogram 07/2023.
Gastric bypass Deepa-en-Y 2005
Lumbar laminectomy June 2023
Right ankle and leg ORIF 1995
Appendectomy 1987
Hernia repair 2014, 2015
Exploratory lap 2023
Past Medical History
Past Medical History: Other (as above)
Past Surgical History: Other (as above)
Social History
Tobacco: Former Smoker
Living: With Family
Family History
Family History: Reviewed & Not Pertinent
Allergies / Home Medications
Allergy/AdvReac Type Severity Reaction Status Date / Time
dupilumab (From [employer]) Allergy Unknown Verified 08/10/24 09:30
NSAIDS (Non-Steroidal AdvReac Can not Verified 08/10/24 09:30
Anti-Inflamma take due
to Gastric
Bypass
�Medication �Instructions �Recorded �Confirmed �Type
hydrocodone 10 mg-acetaminophen 1 tab PO .Q6H PRN pain 05/13/24 08/10/24 History
325 mg tablet
albuterol sulfate 90 mcg/actuation 2 puff inhalation 6XD PRN WHEEZING 08/01/24 08/10/24 History
aerosol inhaler
ipratropium 0.5 mg-albuterol 3 mg 3 ml inhalation Q4H PRN WHEEZING 08/01/24 08/10/24 History
(2.5 mg base)/3 mL nebulization
soln
ceftriaxone 2 gram intravenous 2 g IV DAILY 08/03/24 08/10/24 History
solution
Review of Systems
-
History Source: Patient
All other systems: Negative unless noted
Physical Exam
Vital Signs
Temp Pulse Resp BP Pulse Ox
98.3 F 64 16 116/64 95
11/21/24 03:00 11/21/24 05:44 11/21/24 05:44 11/21/24 03:00 11/21/24 05:44
Lab Results
11/21/24 06:20
Troponin I 0.056 ng/ml H* 11/21/24 00:21
Lxq-P-Olmjpfsimuf Pept 710 pg/ml 11/20/24 20:12
GEN: Receiving nebulizer treatment
HEENT: supple, anicteric, mmm
LUNGS: rhonchorous BS throughout, + exp wheezing
CV: Reg, S1/S2, no murmur
ABD: soft, BS+, sl distended
EXT:trace LE edema, R>L
NEURO: Gross non-focal
SKIN: No rash
Impression / Plan
-
PCP: Dr. Villafuerte
Senior Mechanical Technician: Dr. Nellie Hernadez
Impression:
Presented with dyspnea and cough, leukocytosis
Suspected asthmatic bronchitis
Acute on chronic HFpEF
elevated troponin
Moraxella catarrhalis 07/2024- treated with IV abx
h/o DVT RLE 07/2023- completed 3 month course anticoagulation - was on Eliquis with transition to lovenox due to concern for poor oral absorption of Eliquis- completed 3 months treatment in 2023, followed by heme
Asthma
h/o gastric bypass with short gut syndrome
Hyperlipidemia
AAA-aorta ultrasound 06/2024 3.2 x 3.2 cm distal abdominal aortic aneurysm similar to CT angiogram 07/2023.
Abnormal echo with calcified echodensity on the anterior mitral leaflet 08/24/23
Echo 05/2020: Normal biventricular size, systolic function, no regional wall motion abnormality. Mild concentric LVH. EF 60 to 65%. Aortic sclerosis without significant stenosis. Mild MAC with trace MR. Mild TR. PASP 30 to 35 mmHg, compared to
prior study 12/2017 no significant change.
Echo 08/24/2023: EF 50-55%, calcified echodensity seen on anterior mitral valve leaflet (measures 0.5 x 1.0 cm) cannot exclude vegetation although would expect more significant MR and only trace MR seen
Plan:
-69-year-old man past medical history of heart failure with preserved ejection fraction as well as asthma/COPD presents with 2-week history of worsening shortness of breath and productive cough w/ purulent sputum, 10 pound weight gain in past week,
increased lower extremity edema and abdominal distention and took PRN torsemide for 4 days with no improvement in symptoms.
1. Dyspnea on exertion
-Suspect dyspnea is multifactorial: Asthma exacerbation +/- chronic heart failure with preserved EF
-proBNP 710 and chest x-ray with possible mild interstitial edema
-Agree with diuretics, I changed Lasix to IV, 20 mg IV twice daily
-Daily wts/I&O
-renal fxn stable with creat 0.7
-Could consider addition of SGLT2 inhibitor and spironolactone for heart failure preserved EF. Will green out SGLT2 inhibitor with case management
-Treatment of asthma/COPD/ bronchitis per primary team
2.Troponin elevation
-peak 0.061 and trending down, no chest pain, EKG nonischemic, likely nonischemic myocardial injury, I do not see that he has had an ischemic workup in the past but could consider this in outpatient setting.
3.known AAA
-aorta ultrasound 06/2024 3.2 x 3.2 cm distal abdominal aortic aneurysm similar to CT angiogram 07/2023.
Telemetry personally reviewed, normal sinus rhythm, 70s
Data Reviewed
-
EKG: Tracing Personally Visualized and interpreted
Labs: Labs Reviewed by me
[2024-11-21] MEDS: DUONEB 3 ML INH ×4 (07:20→19:06)
[2024-11-21 07:25] LABS: Blood Urea Nitrogen 15 mg/dl (9-20); Calcium 8.7 mg/dl (8.4-10.2); Carbon Dioxide 21 mmol/L (22-30); Chloride 109 mmol/L (98-107); Estimated Creatinine Clearance > 125 ml/min; Glucose 155 mg/dl (70-99); HDL Cholesterol 92 mg/dl; LDL Cholesterol, Calculated 99 mg/dl; Magnesium 2.3 mg/dl (1.6-2.3); Sodium 138 mmol/L (135-145); Total Cholesterol 206 mg/dl (50-199); Triglyceride 78 mg/dl (10-149); Very Low Density Lipoprotein 15 mg/dl (0-30); eGFR > 60.00
[2024-11-21 07:33] LABS: Troponin I 0.054 ng/ml
[2024-11-21 07:43] LABS: Potassium 4.4 mmol/L (3.5-5.1)
[2024-11-21] MEDS: LASIX 20 MG IV ×2 (08:15→15:42)
[2024-11-21] MEDS: DESENEX/MITRAZOL/ZEASORB 1 APPLIC TOPICAL ×2 (08:16→21:28)
--- NOTE | 2024-11-21 10:58 | W.PN.HOSP.TC ---
Addendum entered and electronically signed by Jc Torres MD 11/21/24 18:47:
#Non-ischemic myocardial injury
2/2 CHF
no overt chest pain, Troponin without significant change
cardio evaluated, no concern for ACS
Original Note:
Today's Communication/Plan
-
see PN
Assessment / Plan
Assessment / Plan
69yo M with PMHx of severe asthma, gastric bypass with short gut syndrome and apparently, malabsorption, HFpEF, hx of LE DVT, chronic lower back pain came with 1 week f worsening SOB and new green sputum, managed for COPD exacerbation
A/P:
#Asthma exacerbation with concern for bronchitis
#Chronic IgE elevation with allergy to Dupixent
Steroids taper
Bronchodilators
Ceftriaxone/Azithromycin
COVID-19 and Influenza neg
Sputum Cx
Bcx NTD
#Acute on chronic HFpEF exacerbation
Lasix IV, daily weight, follow electrolytes and Cr
Cardio consult
Telemetry
Echo
#Acute hypoxic failure 2/2 above
wean off O2
#Sort gut syndrome
attept IV or liqud meds that work better as per patient
DVT ppx Lovenox
Full code
I have spent at least 55min reviewing chart, test results and providing direct patient care
Anticipated Discharge: > 48 hours
Subjective/Interval History
-
Date of Service: November 21, 2024
Objective Data
-
Labs:
Laboratory Results
11/21/24
06:20
WBC 19.4 H
Hgb 11.5 L
Hct 34.9 L
Plt Count 258
Sodium 138
Potassium 4.4
Chloride 109 H
Carbon Dioxide 21 L
BUN 15
Creatinine 0.7
Glucose 155 H
Calcium 8.7
Vital Signs:
Vital Signs
Temp Pulse Resp BP Pulse Ox
97.3 F 74 17 141/95 95
11/21/24 07:00 11/21/24 08:15 11/21/24 07:22 11/21/24 08:15 11/21/24 09:20
I&O
11/20/24 11/21/24 11/22/24
06:59 06:59 06:59
Intake Total 480 / 480
Output Total 250 / 250
Balance 230 / 230
Review of Systems
-
History Source: Patient
All other systems: Reviewed and negative
Physical Exam
-
General: No Apparent Distress
HEENT: Normocephalic
Respiratory: Wheezes
GI: Soft, Nontender and Nondistended
Genito-urinary: No Costovertebral Tender
Musculoskeletal: No Clubbing, No Cyanosis and No Edema
Skin: Warm
Neuro: Awake, Alert, Oriented and AO x 3
Psych: Calm
[2024-11-21 11:00] VITALS: BP 129/73
[2024-11-21] MEDS: ROBITUSSIN 200 MG PO ×3 (12:45→21:28)
[2024-11-21 15:00] VITALS: BP 152/79
--- NOTE | 2024-11-21 15:39 | CM ---
Met with patient and his to obtain information for assessment. Patient's was at bedside. Patient lives with his in an in law suite which is one floor, attached to their son's home. There are no steps to enter and no floors. He has
been independent with his ADLs, personal care, dressing and bathing. He can assist with the insurance marketing specialist, cooking, cleaning and laundry. He drives and can get to his appointments and do his own shopping. Patient has a shower chair, grab bars, a
raised toilet seat with rails, but he is not on o2 and is requiring it at the moment. Will need to watch for o2 needs. Patient also has a walker that he does not typically use. He has never had VN services. He has not been to a SNF.
Patient has a prescription plan and uses, [facility] in [place] for all of his medications.
His PCP is, Lavelle Lees.
Plan: Case management will continue to follow and assist with discharge planning. Patient would like to return home when stable. Will watch for o2 needs.
[2024-11-21] MEDS: LOVENOX 40 MG SC (17:00)
[2024-11-21 19:23] VITALS: BP 142/80
[2024-11-21] MEDS: ROCEPHIN 1000 MG IV (21:25)
[2024-11-21] MEDS: STERILE WATER FOR INJECTION 10 ML IV (21:26)
[2024-11-21] MEDS: ZITHROMAX INFUSION 250 IV (21:29)
[2024-11-21 23:12] VITALS: BP 131/78
[2024-11-22 03:20] VITALS: BP 126/77
[2024-11-22] MEDS: HYCET 7.5/325 ORAL SOLUTION 5 ML PO ×4 (04:00→22:46)
[2024-11-22] MEDS: SOLU-MEDROL PF 40 MG IV ×2 (05:31→17:13)
[2024-11-22 06:00] VITALS: BMI 33.1
[2024-11-22 07:09] LABS: % Basophils 0.2 % (0-2); % Neutrophils 89.8 % (42.2-75.2); Absolute Immature Granulocytes 0.2 10^3/uL (0-0.05); Absolute Lymphocytes 0.6 10^3/uL (1.2-3.4); Absolute Monocytes 0.8 10^3/uL (0.1-0.6); Hemoglobin 11.3 g/dL (13.0-18.0); Mean Corp Hgb Conc. 32.3 g/dL (33.0-37.0); Mean Corpuscular Hgb 30.1 pg (27.0-31.0); Mean Corpuscular Volume 93.3 fL (80.0-94.0); Mean Platelet Volume 9.6 fL (7.4-10.4); Nucleated Red Blood Cells % 0 % (-); Platelet Count 256 10^3/uL (130-400); Red Blood Cell Count 3.75 10^6/uL (4.70-6.10); Red Cell Dist. Width 13.2 % (11.5-14.5); White Blood Cell Count 15.6 10^3/uL (4.8-10.8)
[2024-11-22] MEDS: DUONEB 3 ML INH ×4 (07:38→19:19)
[2024-11-22 08:00] LABS: ALT (SGPT) 12 U/L (0-50); AST (SGOT) 16 U/L (17-59); Albumin 3.2 g/dl (3.5-5.0); Alkaline Phosphatase 92 U/L (38-126); Blood Urea Nitrogen 21 mg/dl (9-20); Calcium 8.9 mg/dl (8.4-10.2); Carbon Dioxide 23 mmol/L (22-30); Chloride 110 mmol/L (98-107); Estimated Creatinine Clearance > 125 ml/min; Glucose 129 mg/dl (70-99); Magnesium 2.4 mg/dl (1.6-2.3); Potassium 4.4 mmol/L (3.5-5.1); Sodium 138 mmol/L (135-145); Total Bilirubin 0.5 mg/dl (0.2-1.3); Total Protein 5.7 g/dl (6.3-8.2); eGFR > 60.00
[2024-11-22 08:03] VITALS: BP 144/76
[2024-11-22] MEDS: FARXIGA PO (09:00)
[2024-11-22] MEDS: ROBITUSSIN 200 MG PO ×4 (09:01→21:21)
[2024-11-22] MEDS: LASIX 20 MG IV ×2 (09:01→17:13)
[2024-11-22] MEDS: DESENEX/MITRAZOL/ZEASORB 1 APPLIC TOPICAL ×2 (09:02→20:50)
--- NOTE | 2024-11-22 09:13 | CON.PUL ---
Consultation
Consultation Request
Date/Time Consultation Requested: 11/21/2024
Date/Time Consultation Performed: 11/22/2024
Requesting Provider: Yoseph Pichardo
Performing Provider: Chantell Young
Reason for Consultation: Shortness of breath
Medical History
-
Chief Complaint: Shortness of breath
History of Present Illness:
Patient is a 69-year-old gentleman with known history of severe persistent asthma, who follows up with [facility], presented to the hospital with worsening shortness of breath, cough and wheezing. Patient reports history of gastric bypass surgery
complicated by short gut syndrome and inability to absorb oral antibiotics as well as steroids in the past. About 6 months ago he had a PICC line placed and was treated with IV antibiotic and IV steroid with significant improvement in his symptoms
and has done well since. Patient reports that he stopped using all inhalers and was not on any inhaled steroids either in the last few months. Recently multiple members in his family developed a URI symptoms and subsequently he developed cough,
wheezing and shortness of breath. He tried taking nebulized treatments at home but was not feeling any improvement and presented to the emergency room. Patient here was started on IV steroids, breathing treatments and pulmonary consultation was
requested for further input.
Past Medical History
Past Medical History: Reports Other
Additional Past Medical History:
Asthma
Chronic bronchitis
chronic CHF preserved EF, malabsorption issues history of Deepa-en-Y 2005 with possible short gut syndrome
DVT right leg nonocclusive thrombus right popliteal/posterior tibial vein 08/03/2023
Chronic back pain on chronic oral opiates
[facility]
Iron deficiency anemia
GERD/gastric ulcers
Prostate cancer Dx 2014 status post prostatectomy, radiation 2015, radiation 2022 with Lupron shot x 1 in August
Renal calculi August 2023
Shingles August 2023
Past Surgical History: Reports Other
Additional Past Surgical History:
Gastric bypass Deepa-en-Y 2005
Lumbar laminectomy June 2023
Right ankle and leg ORIF 1995
Appendectomy 1987
Hernia repair 2014, 2015
Exploratory lap 2023
Social History
Tobacco: Former Smoker (Reports smoked a few years when he was in the service)
Alcohol: None
Drug: None
Personal:
Living: With Family ( Aiyana)
Family History
Family History: Other (Mother history of pituitary cancer, sister CAD in her 50s, father CAD, CVA, leukemia age 60s)
Allergies / Home Medications
Allergies / Home Medications
Allergies
Allergy/AdvReac Type Severity Reaction Status Date / Time
dupilumab (From [employer]) Allergy Unknown Verified 08/10/24 09:30
NSAIDS (Non-Steroidal AdvReac Can not Verified 08/10/24 09:30
Anti-Inflamma take due
to Gastric
Bypass
Home Medications
�Medication �Instructions �Recorded �Confirmed �Last Taken �Type
hydrocodone 10 mg-acetaminophen 1 tab PO .Q6H PRN pain 05/13/24 08/10/24 08/10/24 History
325 mg tablet
albuterol sulfate 90 mcg/actuation 2 puff inhalation 6XD PRN WHEEZING 08/01/24 08/10/24 08/07/24 History
aerosol inhaler
ipratropium 0.5 mg-albuterol 3 mg 3 ml inhalation Q4H PRN WHEEZING 08/01/24 08/10/24 08/08/24 History
(2.5 mg base)/3 mL nebulization
soln
ceftriaxone 2 gram intravenous 2 g IV DAILY Infection 08/03/24 08/10/24 08/10/24 History
solution
Review of Systems
-
Hematologic/Lymphatic: Other (All 14 systems reviewed and negative except as stated above in the history of present illness.)
Vitals / Labs / Diagnostic Testing
Vital Signs
Temp Pulse Resp BP Pulse Ox
98.2 F 76 20 144/76 100
11/22/24 08:03 11/22/24 09:01 11/22/24 08:03 11/22/24 09:01 11/22/24 08:03
Lab Data
11/22/24 06:09
11/22/24 06:09
Microbiology
11/20/24 20:51 Blood/Venous Blood Culture - Preliminary
No Growth in 24 hours- Final report to follow
11/20/24 20:51 Blood/Venous Blood Culture - Preliminary
No Growth in 24 hours- Final report to follow
11/21/24 10:48 Sputum Gram Stain - Preliminary
11/20/24 21:27 Nasal Swab Influenza Types A & B ([facility]) - Final
Negative for Influenza A & B, NAAT
Negative results must be combined with clinical observations
and patient history.
Nucleic Acid Amplification test (NAAT)performed on the
[employer] platform.
Diagnostic Testing:
Physical Exam
-
HEENT: Normocephalic
Cardiovascular: S1/S2
Respiratory: Wheeze and Other (Bilateral end expiratory wheezing)
GI: Soft
Neurology: Awake and Alert
Skin: Warm
General: Comfortable
Assessment
-
#1. Acute exacerbation of severe persistent asthma
- High Th2 variant, peripheral eosinophilia (0-400) and elevated IgE level (2561 in 03/2024)
- Influenza A, B screen negative. Blood cultures negative so far. Sputum culture does not show any growth so far. COVID-19 screen negative.
- In the past, developed rash and tongue swelling with Dupixent. Xolair was being considered as outpatient but patient has not had a follow-up since.
- In the last few months, patient was not taking any inhaler therapy and had not been on maintenance inhaled corticosteroids either.
- Continue DuoNeb 4 times daily scheduled, hold inhaler therapy for now, add budesonide nebulized twice a day, continue IV steroids, continue antibiotic for now. Follow-up on sputum culture
- No obvious consolidation noted on chest x-ray. Mild interstitial prominence I suspect is more related to volume overload.
#2. Acute on chronic heart failure with preserved ejection fraction, EF 55 to 60%
-Cardiology service on case, currently on IV diuretics, improving
#3. History of FADI
- Resolved after gastric bypass surgery and weight loss
Other medical diagnoses:
- History of obesity, status post gastric bypass surgery, chronic malabsorption
Total time spent on this consultation/encounter _65___ minutes which includes review of history, physical exam, medications, laboratory data, personal review of imaging, extensive review of outpatient records, discussion with care team and
respiratory therapy.
Data:
CXR 10/2024: There is mild interstitial prominence, possible mild interstitial edema. No focal airspace disease.
CT Chest 03/2024: 1. Findings suggesting very mild chronic interstitial lung disease changes, nonspecific.
ECHO 10/2024: 1. Left ventricle: Normal size and function with an estimated ejection
fraction of 55-60%. Mild concentric LVH.
2. Right ventricle: Normal
3. Atria: Normal
4. Mitral valve: No mitral regurgitation
5. Aortic valve: Mildly thickened and sclerotic. No aortic insufficiency
6. Tricuspid valve: No tricuspid regurgitation
7. When compared to the most recent images from 08/24/2023, there has been no
significant change
PFT, 03/2024. Severe obstruction with moderate restrictive process suspected. FEV1 was 46%, FEV1/FVC was 65, FVC also reduced at 55%.
[2024-11-22] MEDS: FARXIGA 10 MG PO (11:10)
[2024-11-22 12:10] VITALS: BP 136/80
--- NOTE | 2024-11-22 13:27 | CM ---
Received consult to check cost of Farxiga for patient. Placed a call to [facility] to determine cost. Spoke with a pharmacist named, Nancy, who stated that the cost for 30 day supply would be 145.10 10 mg, however, their [facility] does not have the
medication in stock and therefore they would need to continuous pickling line pickler the Farxiga and script should be sent to, [facility], [place]. This information was sent to attending.
--- NOTE | 2024-11-22 13:42 | W.PN.HOSP.TC ---
Today's Communication/Plan
-
Assessment / Plan
Assessment / Plan
69yo M with PMHx of severe asthma, gastric bypass with short gut syndrome and apparently, malabsorption, HFpEF, hx of LE DVT, chronic lower back pain came with 1 week f worsening SOB and new green sputum, managed for COPD exacerbation
A/P:
Acute hypoxemic respiratory failure with documented respiratory rate on admission admission 35 and SpO2 94%.
#Asthma exacerbation with concern for bronchitis
#Chronic IgE elevation with allergy to Dupixent
Steroids taper
Bronchodilators
Ceftriaxone/Azithromycin
COVID-19 and Influenza neg
Sputum Cx
Bcx NTD
- Interestingly develops pneumonia every 6 months. States that he needs long-term IV antibiotics via PICC line and steroids. Typically receives this through the infusion center.
-As the same token has not been using his MDI's nor inhaler for the last couple of months as he was supposed to
-Pulmonary following as he follows with Dr. Yin
--Per pulm Zohra fisher add budesonide neb bid, continue iv steroids ant antibiotics
#Acute on chronic HFpEF exacerbation
Lasix IV, daily weight, follow electrolytes and Cr
Cardio consult
Telemetry
Echo
#Sort gut syndrome
attept IV or liqud meds that work better as per patient
DVT ppx Lovenox
Full code
Interesting case.
Anticipated Discharge: 24 - 48 hours
Subjective/Interval History
-
Date of Service: November 22, 2024
Was seen and examined. No new complaints. No acute overnight events.
Objective Data
-
Labs:
Laboratory Results
11/22/24
06:09
WBC 15.6 H
Hgb 11.3 L
Hct 35.0 L
Plt Count 256
Sodium 138
Potassium 4.4
Chloride 110 H
Carbon Dioxide 23
BUN 21 H
Creatinine 0.6 L
Glucose 129 H
Calcium 8.9
Total Bilirubin 0.5
AST 16 L
ALT 12
Alkaline Phosphatase 92
Vital Signs:
Vital Signs
Temp Pulse Resp BP Pulse Ox
98.1 F 71 20 136/80 94
11/22/24 12:10 11/22/24 12:10 11/22/24 12:10 11/22/24 12:10 11/22/24 12:10
I&O
11/21/24 11/22/24 11/23/24
06:59 06:59 06:59
Intake Total 480 / 480 1330 / 1330
Output Total 250 / 250 1150 / 1150 300 / 300
Balance 230 / 230 180 / 180 -300 / -300
--- NOTE | 2024-11-22 14:56 | W.PN.CARDCBS ---
Addendum entered and electronically signed by Ismael Blanton MD 11/22/24 19:21:
69 year-old man with HFpEF and asthma/bronchitis/COPD with increasing shortness of breath and 10 pounds of weight gain. May have issues with medication absorption is related to short gut
PMH/PSH: Asthma/COPD/bronchitis with eosinophilia, history of gastric bypass, HFpEF, ankylosing spondylitis, malabsorption following gastric bypass, abdominal aortic aneurysm, history of prostatectomy with recurrence treated with radiation and
Lupron, B12 deficiency, history of DVT 2023, laminectomy, right ankle ORIF, appendectomy, herniorrhaphy, laparotomy 2023
Current medications: Enoxaparin 40 a day, DuoNebs, azithromycin, ceftriaxone, methylprednisolone, furosemide 20 mg IV twice daily, as outpatient torsemide 40 mg twice daily, dapagliflozin 10 mg a day, just added
144/76, pulse 76, respiratory 20, afebrile, intake and output roughly the same, weight is 113.6 kg, largely unchanged, overall appears better, little brighter, still with diffuse wheezes, no obvious wet rales, regular rate and rhythm, JVD okay, mild
edema
White count is 15.6, hemoglobin is 11.3, potassium is 4.4, BUN and creatinine are 21 and 0.6, troponin was 0.054, proBNP was 710, typically low
Impression:
As below per Tiffanie Velazquez. Reviewed in detail and agree, unless specifically specified below.
Plan:
Overall he looks improved regarding his multifactorial dyspnea which is predominantly due to COPD.
His volume status is better but he still volume overloaded. Now on Farxiga.
Will add low-dose spironolactone 25 mg daily.
It remains uncertain how effective we can be long-term with diuretics given his short gut syndrome.
Continue IV furosemide for now.
Cost of Farxiga is $145 a month. Unclear what cost of Jardiance is. Will need to find out if this is acceptable to patient.
Original Note:
Today's Communication / Plan
-
continue IV lasix
will d/w pharmacy
Impression / Plan
-
PCP: Dr. Villafuerte
Mechanic Helper: Dr. Nellie Hernadez
Impression:
Presented with dyspnea and cough, leukocytosis
Suspected asthmatic bronchitis
Acute on chronic HFpEF
elevated troponin
Moraxella catarrhalis 07/2024- treated with IV abx
h/o DVT RLE 07/2023- completed 3 month course anticoagulation - was on Eliquis with transition to lovenox due to concern for poor oral absorption of Eliquis- completed 3 months treatment in 2023, followed by heme
Asthma
h/o gastric bypass with short gut syndrome
Hyperlipidemia
AAA-aorta ultrasound 06/2024 3.2 x 3.2 cm distal abdominal aortic aneurysm similar to CT angiogram 07/2023.
Abnormal echo with calcified echodensity on the anterior mitral leaflet 08/24/23
Echo 05/2020: Normal biventricular size, systolic function, no regional wall motion abnormality. Mild concentric LVH. EF 60 to 65%. Aortic sclerosis without significant stenosis. Mild MAC with trace MR. Mild TR. PASP 30 to 35 mmHg, compared to
prior study 12/2017 no significant change.
Echo 08/24/2023: EF 50-55%, calcified echodensity seen on anterior mitral valve leaflet (measures 0.5 x 1.0 cm) cannot exclude vegetation although would expect more significant MR and only trace MR seen
Plan:
- Presents with worsening shortness of breath and cough. Suspect multifactorial due to CHF as well as asthma/pneumonia
- Responding to IV diuretics, continue IV Lasix 20 mg twice daily. Creatinine stable at 0.6
- CHF education
- Farxiga 10 mg daily added this admission
- Major concern is with patient's known short gut syndrome, unclear how much of medications are absorbed. Will discuss with pharmacy best regimen for maximum absorption of diuretic
- Troponin peaked at 0.06. No chest pain. Suspected nonischemic myocardial injury. Could consider for outpatient ischemic evaluation as outpatient
- In sinus rhythm on review of telemetry overnight
Progress Note - Mechanic Helper
Subjective
Date of Service: November 22, 2024
Reports remains with some shortness of breath. Reports lower extremity edema improving. Reports good response to IV diuretics
Objective
Labs:
11/22/24 06:09
11/22/24 06:09
Labs
Hgb 11.3 g/dL (13.0-18.0) L 11/22/24 06:09
Hct 35.0 % (39.0-52.0) L 11/22/24 06:09
Plt Count 256 10^3/uL (130-400) 11/22/24 06:09
Sodium 138 mmol/L (135-145) 11/22/24 06:09
Potassium 4.4 mmol/L (3.5-5.1) 11/22/24 06:09
BUN 21 mg/dl (9-20) H 11/22/24 06:09
Creatinine 0.6 mg/dL (0.7-1.3) L 11/22/24 06:09
Glucose 129 mg/dl (70-99) H 11/22/24 06:09
Troponins
11/20/24 11/21/24 11/21/24
20:12 00:21 06:20
Troponin I 0.061 H* 0.056 H* 0.054 H*
Vital Signs and I&O:
Vital Signs
Temp Pulse Resp BP Pulse Ox
98.1 F 71 20 136/80 94
11/22/24 12:10 11/22/24 12:10 11/22/24 12:10 11/22/24 12:10 11/22/24 12:10
Vital Signs
Temp Pulse Resp BP Pulse Ox
98.1 F 71 20 136/80 94
11/22/24 12:10 11/22/24 12:10 11/22/24 12:10 11/22/24 12:10 11/22/24 12:10
Intake & Output
11/20/24 11/21/24 11/22/24 11/23/24
07:59 07:59 07:59 07:59
Intake Total 480 / 480 1330 / 1330
Output Total 250 / 250 1150 / 1150 300 / 300
Balance 230 / 230 180 / 180 -300 / -300
Physical Exam
Physical Exam
GEN: No distress, awake, alert, oriented x3
HEENT: supple, anicteric, mmm, eomi
LUNGS: Rhonchi B/L, no wheezes
CV: Reg, S1/S2, no murmur
ABD: soft, BS+, NT/ND
EXT: No cyanosis, clubbing. 1+ edema of B/L LE
NEURO: Gross non-focal
SKIN: Warm, pink, dry. No rash
[2024-11-22 15:57] VITALS: BP 130/63
[2024-11-22] MEDS: LOVENOX 40 MG SC (17:12)
[2024-11-22 19:12] VITALS: BP 118/62
[2024-11-22] MEDS: PULMICORT 0.5 MG INH (19:19)
[2024-11-22] MEDS: ZITHROMAX INFUSION 250 IV (21:21)
[2024-11-22] MEDS: ROCEPHIN 1000 MG IV (21:21)
[2024-11-22] MEDS: STERILE WATER FOR INJECTION 10 ML IV (21:21)
[2024-11-22 23:34] VITALS: BP 108/60
[2024-11-23] MEDS: VENTOLIN NEBULES 2.5 MG INH (01:23)
[2024-11-23 03:48] VITALS: BP 120/65
[2024-11-23] MEDS: SOLU-MEDROL PF 40 MG IV (05:51)
[2024-11-23 06:00] VITALS: BMI 33.1
[2024-11-23 07:00] VITALS: BP 106/64
[2024-11-23] MEDS: DUONEB 3 ML INH ×4 (07:24→20:05)
[2024-11-23] MEDS: PULMICORT 0.5 MG INH ×2 (07:24→20:05)
[2024-11-23 08:02] LABS: Blood Urea Nitrogen 19 mg/dl (9-20); Calcium 8.7 mg/dl (8.4-10.2); Carbon Dioxide 25 mmol/L (22-30); Chloride 108 mmol/L (98-107); Estimated Creatinine Clearance > 125 ml/min; Glucose 122 mg/dl (70-99); Potassium 4.1 mmol/L (3.5-5.1); Sodium 137 mmol/L (135-145); eGFR > 60.00
[2024-11-23] MEDS: FARXIGA 10 MG PO (08:58)
[2024-11-23] MEDS: ROBITUSSIN 200 MG PO ×4 (08:58→21:55)
[2024-11-23] MEDS: HYCET 7.5/325 ORAL SOLUTION 5 ML PO ×3 (08:59→21:56)
[2024-11-23] MEDS: DESENEX/MITRAZOL/ZEASORB 1 APPLIC TOPICAL ×2 (08:59→21:55)
[2024-11-23] MEDS: LASIX 20 MG IV ×2 (08:59→16:50)
--- NOTE | 2024-11-23 10:29 | W.PN.PUL3 ---
Today's Communication / Plan
-
- Complete 5 days of IV Antibiotics inpatient, last dose 11/24
- Will switch to BID dosing of Prednisolone, for better availability, and more frequent dosing, with close out patient follow up
- Anticipate discharge, 11/24
Assessment
-
#1. Acute exacerbation of severe persistent asthma
- High Th2 variant, peripheral eosinophilia (0-400) and elevated IgE level (2561 in 03/2024)
- Influenza A, B screen negative. Blood cultures negative so far. Sputum culture does not show any growth so far. COVID-19 screen negative.
- In the past, developed rash and tongue swelling with Dupixent. Xolair was being considered as outpatient but patient has not had a follow-up since.
- In the last few months, patient was not taking any inhaler therapy and had not been on maintenance inhaled corticosteroids either.
- Continue DuoNeb 4 times daily scheduled, hold inhaler therapy for now, added budesonide nebulized twice a day, continue IV steroids, continue antibiotic for now. Follow-up on sputum culture
- No obvious consolidation noted on chest x-ray. Mild interstitial prominence I suspect is more related to volume overload
- Continue IV antibiotic for a total of 5 days, last days 11/24. Will switch to prednisolone twice a day for better bioavailability and hopefully more frequent dosing will increase overall absorption in a given day.
#2. Acute on chronic heart failure with preserved ejection fraction, EF 55 to 60%
-Cardiology service on case, currently on IV diuretics, improving
#3. History of FADI
- Resolved after gastric bypass surgery and weight loss
Other medical diagnoses:
- History of obesity, status post gastric bypass surgery, chronic malabsorption
Total time spent on this consultation/encounter _65___ minutes which includes review of history, physical exam, medications, laboratory data, personal review of imaging, extensive review of outpatient records, discussion with care team and
respiratory therapy.
Data:
CXR 10/2024: There is mild interstitial prominence, possible mild interstitial edema. No focal airspace disease.
CT Chest 03/2024: 1. Findings suggesting very mild chronic interstitial lung disease changes, nonspecific.
ECHO 10/2024: 1. Left ventricle: Normal size and function with an estimated ejection
fraction of 55-60%. Mild concentric LVH.
2. Right ventricle: Normal
3. Atria: Normal
4. Mitral valve: No mitral regurgitation
5. Aortic valve: Mildly thickened and sclerotic. No aortic insufficiency
6. Tricuspid valve: No tricuspid regurgitation
7. When compared to the most recent images from 08/24/2023, there has been no
significant change
PFT, 03/2024. Severe obstruction with moderate restrictive process suspected. FEV1 was 46%, FEV1/FVC was 65, FVC also reduced at 55%.
Subjective Data
-
Date of Service:
Date of Service: November 23, 2024
Subjective:
Patient comfortably lying in bed, no acute distress, overall reports feeling better.
Review of Systems
Genitourinary: Other (No new symptoms reported.)
Objective Data
Data Reviewed
Vital Signs / I&O / Oxygen:
Vital Signs
Temp Pulse Resp BP Pulse Ox
98.3 F 75 20 106/64 100
11/23/24 07:00 11/23/24 08:59 11/23/24 07:26 11/23/24 08:59 11/23/24 08:10
Intake and Output
11/22/24 11/23/24 11/24/24
06:59 06:59 06:59
Intake Total 1330 / 1330
Output Total 1150 / 1150 300 / 300
Balance 180 / 180 -300 / -300
SaO2 100
Nasal Cannula flow liters per 2
minute
Physical Exam
General: Comfortable
HEENT: Normocephalic
Cardiovascular: S1-S2
Respiratory: Other (Minimal, faint end expiratory wheezing on exam)
GI: Soft and Non Distended
Neurology: Awake and Alert
Skin: Warm
Labs/Micro/Reports
Lab Data
11/22/24 06:09
11/23/24 06:22
Microbiology
11/20/24 20:51 Blood/Venous Blood Culture - Preliminary
No Growth in 48 hours- Final report to follow
11/20/24 20:51 Blood/Venous Blood Culture - Preliminary
No Growth in 48 hours- Final report to follow
11/21/24 10:48 Sputum Respiratory Culture - Preliminary
Usual Respiratory Bela
11/21/24 10:48 Sputum Gram Stain - Preliminary
11/20/24 21:27 Nasal Swab Influenza Types A & B ([facility]) - Final
Negative for Influenza A & B, NAAT
Negative results must be combined with clinical observations
and patient history.
Nucleic Acid Amplification test (NAAT)performed on the
[employer] platform.
[2024-11-23 11:49] VITALS: BP 105/65
--- NOTE | 2024-11-23 12:16 | W.PN.HOSP.TC ---
Today's Communication/Plan
-
Goal-directed medical therapy per cardiology
Continue with IV Lasix
Transition to p.o. steroids
IV antibiotics
Assessment / Plan
Assessment / Plan
69yo M with PMHx of severe asthma, gastric bypass with short gut syndrome and apparently, malabsorption, HFpEF, hx of LE DVT, chronic lower back pain came with 1 week f worsening SOB and new green sputum, managed for COPD exacerbation
A/P:
Acute hypoxemic respiratory failure with documented respiratory rate on admission admission 35 and SpO2 94%.
#Asthma exacerbation with concern for bronchitis
#Chronic IgE elevation with allergy to Dupixent
Steroids taper
Bronchodilators
Ceftriaxone/Azithromycin
COVID-19 and Influenza neg
Sputum Cx
Bcx NTD
- Interestingly develops pneumonia every 6 months. States that he needs long-term IV antibiotics via PICC line and steroids. Typically receives this through the infusion center.
-As the same token has not been using his MDI's nor inhaler for the last couple of months as he was supposed to
-Pulmonary following as he follows with Dr. Yin
--Per pulm Zohra fisher add budesonide neb bid, continue ant antibiotics
-po prednisone
#Acute on chronic HFpEF exacerbation
Lasix IV, daily weight, follow electrolytes and Cr
Cardio consult
Telemetry
EchoEF of 55 to 60%. Right ventricle normal.
#Sort gut syndrome
IV antibiotic during hospitalization
DVT ppx Lovenox
Full code
Anticipated Discharge: Within 24 hours
Subjective/Interval History
-
Date of Service: November 23, 2024
states of improvement in lower extremity edema
Objective Data
-
Labs:
Laboratory Results
11/23/24
06:22
Sodium 137
Potassium 4.1
Chloride 108 H
Carbon Dioxide 25
BUN 19
Creatinine 0.7
Glucose 122 H
Calcium 8.7
Vital Signs:
Vital Signs
Temp Pulse Resp BP Pulse Ox
98.5 F 73 18 105/65 98
11/23/24 11:49 11/23/24 11:49 11/23/24 11:49 11/23/24 11:49 11/23/24 11:49
I&O
11/22/24 11/23/24 11/24/24
06:59 06:59 06:59
Intake Total 1330 / 1330
Output Total 1150 / 1150 300 / 300
Balance 180 / 180 -300 / -300
Physical Exam
-
General: No Apparent Distress
HEENT: Normocephalic
Respiratory: Wheezes and Rhonchi
Cardiac: S1/S2
GI: Soft, Nontender and Nondistended
Genito-urinary: No Costovertebral Tender
Musculoskeletal: No Clubbing, No Cyanosis, Edema, Right Lower Extrem and Edema, Left Lower Extrem
Skin: Warm
Neuro: Awake, Alert, Oriented and AO x 3
Psych: Calm
Data Reviewed
-
Total Time Spent with Patient (in minutes): 55
[2024-11-23 15:00] VITALS: BP 109/59
[2024-11-23] MEDS: LOVENOX 40 MG SC (16:51)
[2024-11-23] MEDS: PRELONE 60 MG PO (16:52)
--- NOTE | 2024-11-23 17:06 | W.PN.CARDCBS ---
Addendum entered and electronically signed by Alex Moore MD 11/23/24 17:45:
I saw and examined the patient.
The Web Services Manager's note was reviewed and I agree with the note.
Comment:
GEN: No distress, awake, Ox3
HEENT: supple, anicteric, mmm
LUNGS: CTA, no wheezes/rales
CV: Reg, S1/S2, 1/6 syst LSB, S3+
ABD: soft, BS+, NT/ND
EXT: No edema
NEURO: Gross non-focal
SKIN: No rash
Plan:
Cont to diurese with IV lasix for another 24 hours.
For likely discharge in AM
Cont Farxiga
Cont COPD tx/Abx.
Original Note:
Today's Communication / Plan
-
continue IV lasix, consider transition to po in AM
will arrange OP cardiac follow up
Impression / Plan
-
PCP: Dr. Villafuerte
Inflated Pad Buffer: Dr. Nellie Hernadez
Impression:
Presented with dyspnea and cough, leukocytosis
Suspected asthmatic bronchitis
Acute on chronic HFpEF
elevated troponin
Moraxella catarrhalis 07/2024- treated with IV abx
h/o DVT RLE 07/2023- completed 3 month course anticoagulation - was on Eliquis with transition to lovenox due to concern for poor oral absorption of Eliquis- completed 3 months treatment in 2023, followed by heme
Asthma
h/o gastric bypass with short gut syndrome
Hyperlipidemia
AAA-aorta ultrasound 06/2024 3.2 x 3.2 cm distal abdominal aortic aneurysm similar to CT angiogram 07/2023.
Abnormal echo with calcified echodensity on the anterior mitral leaflet 08/24/23
Echo 05/2020: Normal biventricular size, systolic function, no regional wall motion abnormality. Mild concentric LVH. EF 60 to 65%. Aortic sclerosis without significant stenosis. Mild MAC with trace MR. Mild TR. PASP 30 to 35 mmHg, compared to
prior study 12/2017 no significant change.
Echo 08/24/2023: EF 50-55%, calcified echodensity seen on anterior mitral valve leaflet (measures 0.5 x 1.0 cm) cannot exclude vegetation although would expect more significant MR and only trace MR seen
Plan:
- Presented with worsening shortness of breath and cough. Suspect multifactorial due to CHF as well as asthma/pneumonia
- Responding to IV diuretics, continue IV Lasix 20 mg twice daily. unclear if weights accurate. Creatinine stable at 0.7. Consider transition to p.o. in a.m. Prior to admission was not on daily Lasix
- CHF education
- Farxiga 10 mg daily added this admission
- Major concern is with patient's known short gut syndrome related to prior gastric bypass sx, unclear how much of medications are absorbed.
- Troponin peaked at 0.06. No chest pain. Suspected nonischemic myocardial injury. Could consider for outpatient ischemic evaluation as outpatient
- In sinus rhythm on review of telemetry overnight
- will arrange OP cardiac follow up
Progress Note - Inflated Pad Buffer
Subjective
Date of Service: November 23, 2024
reports improving LE edema
Objective
Labs:
11/22/24 06:09
11/23/24 06:22
Labs
Hgb 11.3 g/dL (13.0-18.0) L 11/22/24 06:09
Hct 35.0 % (39.0-52.0) L 11/22/24 06:09
Plt Count 256 10^3/uL (130-400) 11/22/24 06:09
Sodium 137 mmol/L (135-145) 11/23/24 06:22
Potassium 4.1 mmol/L (3.5-5.1) 11/23/24 06:22
BUN 19 mg/dl (9-20) 11/23/24 06:22
Creatinine 0.7 mg/dL (0.7-1.3) 11/23/24 06:22
Glucose 122 mg/dl (70-99) H 11/23/24 06:22
Troponins
11/20/24 11/21/24 11/21/24
20:12 00:21 06:20
Troponin I 0.061 H* 0.056 H* 0.054 H*
Vital Signs and I&O:
Vital Signs
Temp Pulse Resp BP Pulse Ox
98.4 F 73 16 109/59 93
11/23/24 15:00 11/23/24 15:23 11/23/24 15:23 11/23/24 15:00 11/23/24 15:23
Vital Signs
Temp Pulse Resp BP Pulse Ox
98.4 F 73 16 109/59 93
11/23/24 15:00 11/23/24 15:23 11/23/24 15:23 11/23/24 15:00 11/23/24 15:23
Intake & Output
11/21/24 11/22/24 11/23/24 11/24/24
07:59 07:59 07:59 07:59
Intake Total 480 / 480 1330 / 1330
Output Total 250 / 250 1150 / 1150 300 / 300
Balance 230 / 230 180 / 180 -300 / -300
[2024-11-23 19:53] VITALS: BP 127/69
[2024-11-23] MEDS: ZITHROMAX INFUSION 250 IV (21:55)
[2024-11-23] MEDS: STERILE WATER FOR INJECTION 10 ML IV (21:55)
[2024-11-23] MEDS: ROCEPHIN 1000 MG IV (21:55)
[2024-11-23 23:32] VITALS: BP 123/70
[2024-11-24] MEDS: VENTOLIN NEBULES 2.5 MG INH (02:50)
[2024-11-24 03:30] VITALS: BP 135/76
[2024-11-24 06:00] VITALS: BMI 32.5
[2024-11-24 07:00] VITALS: BP 133/81
[2024-11-24 07:16] LABS: % Basophils 0.2 % (0-2); % Immature Granulocytes 4.1 % (0-0.5); % Lymphocytes 8.8 % (20.5-51.1); % Monocytes 7.4 % (1.7-9.3); % Neutrophils 79.5 % (42.2-75.2); Absolute Immature Granulocytes 0.5 10^3/uL (0-0.05); Absolute Monocytes 0.9 10^3/uL (0.1-0.6); Absolute Neutrophils 9.4 10^3/uL (1.4-6.5); Hematocrit 35.1 % (39.0-52.0); Hemoglobin 11.8 g/dL (13.0-18.0); Mean Corp Hgb Conc. 33.6 g/dL (33.0-37.0); Mean Corpuscular Hgb 30.6 pg (27.0-31.0); Mean Corpuscular Volume 90.9 fL (80.0-94.0); Mean Platelet Volume 9.2 fL (7.4-10.4); Nucleated Red Blood Cells % 0 % (-); Platelet Count 267 10^3/uL (130-400); Red Blood Cell Count 3.86 10^6/uL (4.70-6.10); Red Cell Dist. Width 12.9 % (11.5-14.5); White Blood Cell Count 11.9 10^3/uL (4.8-10.8)
[2024-11-24] MEDS: PULMICORT 0.5 MG INH (07:40)
[2024-11-24] MEDS: DUONEB 3 ML INH ×3 (07:40→15:16)
[2024-11-24 08:18] LABS: Blood Urea Nitrogen 16 mg/dl (9-20); Calcium 8.6 mg/dl (8.4-10.2); Carbon Dioxide 26 mmol/L (22-30); Chloride 108 mmol/L (98-107); Estimated Creatinine Clearance > 125 ml/min; Glucose 111 mg/dl (70-99); Potassium 3.7 mmol/L (3.5-5.1); Sodium 138 mmol/L (135-145); eGFR > 60.00
[2024-11-24] MEDS: DESENEX/MITRAZOL/ZEASORB 1 APPLIC TOPICAL (08:30)
[2024-11-24] MEDS: LASIX 20 MG IV (08:31)
[2024-11-24] MEDS: FARXIGA 10 MG PO (08:31)
[2024-11-24] MEDS: PRELONE 40 MG PO (08:32)
[2024-11-24] MEDS: ROBITUSSIN 200 MG PO ×2 (08:32→13:08)
[2024-11-24] MEDS: FLUSH (NSS) 2 FLUSH IV (08:33)
[2024-11-24] MEDS: HYCET 7.5/325 ORAL SOLUTION 5 ML PO ×2 (08:33→13:11)
--- NOTE | 2024-11-24 11:27 | W.PN.HOSP.TC ---
Today's Communication/Plan
-
cards/pulm recs
steroid taper per pulm
cont brochodilatrs
re-time abx
Plan for tentative dc later today
Assessment / Plan
Assessment / Plan
69yo M with PMHx of severe asthma, gastric bypass with short gut syndrome and apparently, malabsorption, HFpEF, hx of LE DVT, chronic lower back pain came with 1 week f worsening SOB and new green sputum, managed for COPD exacerbation
A/P:
Acute hypoxemic respiratory failure with documented respiratory rate on admission admission 35 and SpO2 94%.
#Asthma exacerbation with concern for bronchitis
#Chronic IgE elevation with allergy to Dupixent
Steroids taper
Bronchodilators
Ceftriaxone/Azithromycin
COVID-19 and Influenza neg
Sputum Cx
Bcx NTD
- Interestingly develops pneumonia every 6 months. States that he needs long-term IV antibiotics via PICC line and steroids. Typically receives this through the infusion center. Recommends Immunology f/u
-As the same token has not been using his MDI's nor inhaler for the last couple of months as he was supposed to
-Pulmonary following as he follows with Dr. Yin
-Per pulm Vinhitgeorgi fisher add budesonide neb bid, continue abx IV while here.
-po prednisolone 40mg BID-Taper per pulm
#Acute on chronic HFpEF exacerbation
Lasix IV, daily weight, follow electrolytes and Cr
Cardio consult
Telemetry
EchoEF of 55 to 60%. Right ventricle normal.
Cont farxiga
#Short gut syndrome
IV antibiotic during hospitalization
DVT ppx Lovenox
Full code
update spouse over the phone in details.
Anticipated Discharge: Today
Subjective/Interval History
-
Date of Service: November 24, 2024
on room air
states of improvement in edema
having intermittent cough with some sputum
Objective Data
-
Labs:
Laboratory Results
11/24/24
06:53
WBC 11.9 H
Hgb 11.8 L
Hct 35.1 L
Plt Count 267
Sodium 138
Potassium 3.7
Chloride 108 H
Carbon Dioxide 26
BUN 16
Creatinine 0.7
Glucose 111 H
Calcium 8.6
Vital Signs:
Vital Signs
Temp Pulse Resp BP Pulse Ox
97.9 F 82 16 133/81 95
11/24/24 07:00 11/24/24 11:05 11/24/24 11:05 11/24/24 08:31 11/24/24 11:05
I&O
11/23/24 11/24/24 11/25/24
06:59 06:59 06:59
Intake Total 720 / 720 300 / 300
Output Total 300 / 300
Balance -300 / -300 720 / 720 300 / 300
Physical Exam
-
General: No Apparent Distress
HEENT: Normocephalic
Respiratory: Rhonchi
Cardiac: S1/S2
GI: Soft, Nontender and Nondistended
Genito-urinary: No Costovertebral Tender
Musculoskeletal: No Clubbing, No Cyanosis, Edema, Right Lower Extrem (imrpoving) and Edema, Left Lower Extrem (improving)
Skin: Warm
Neuro: Awake, Alert, Oriented and AO x 3
Psych: Calm
Data Reviewed
-
Total Time Spent with Patient (in minutes): 55
[2024-11-24 11:56] VITALS: BP 126/64
--- NOTE | 2024-11-24 13:20 | W.DCSUMMARY ---
Discharge Summary
Discharge Data
Date of Admission: 11/20/24
Date of Discharge: 11/24/24
-
Pending Results: No
Hospital Course
69-year-old male past medical history of chronic HFpEF, asthma, chronic bronchitis, prostate cancer status post prostatectomy and radiation who is presenting with complaints of shortness of breath, coughing and wheezing. Patient was evaluated by
cardiology and pulmonary during hospitalization. Patient underwent chest x-ray with increased interstitial markings which could be consistent with interstitial pneumonitis, mild pulmonary edema. Patient was started on IV Lasix. Patient with
improvement in breathing. Per pulmonary patient was also started on IV antibiotics with ceftriaxone and azithromycin for which patient completed course during hospitalization. Patient was also started on IV steroids which was transitioned to p.o.
prednisolone on discharge. Patient with significant improvement diuresis and IV Lasix was transitioned to p.o. 40 mg on discharge.
Discharge Plan
-
Patient Disposition: Home (Routine Discharge)
Discharge Diagnosis/Procedures: Acute hypoxic respiratory failure
Asthma exacerbation
Acute on chronic diastolic heart exacerbation
Condition: Fair
Diet: 2 Gram Sodium and Restrict fluids to 48 oz
Activity: As tolerated
Driving Restrictions: As prior to admission
Blood Work: BMP/proBNP in 1 week
Specialty Instructions: Weigh Daily- Call MD for wt gain/loss 3 lbs overnight/5 lbs in 1 week
Instructions: *[facility] Heart Failure Instructions
Referrals:
Lotus Valente PA-C [Family Provider, Family Practice]
Nellie Hernadez MD [Active, Cardiology] - 11/30/24 12:40 pm
Referral Note: You have an appointment at the [facility]. Please call with questions.
Jsose Yin MD [Active, Pulmonary Medicine] - in two weeks
Prescriptions:
New
dapagliflozin propanediol 10 mg Tablet
10 mg PO DAILY Qty: 30 0RF
furosemide 40 mg Tablet
40 mg PO DAILY 30 Days Qty: 30 0RF
budesonide 0.5 mg/2 mL Suspension For Nebulization
0.5 mg inhalation BID Qty: 60 0RF
Rx Instructions:
Budesonide BID scheduled for 1 week then as needed
prednisolone sodium phosphate 15 mg/5 mL (3 mg/mL) Solution
See Rx Instructions .ROUTE .COMPLEX Qty: 300 0RF
Rx Instructions:
40mg BID for 5 days then 30mg bid for 4 days then 20mg bid for 4 days then 10mg bid for 4 days then stop
Dulera 100-5 mcg/actuation HFA aerosol inhaler
2 puff inhalation BID Qty: 13 0RF
Continued
hydrocodone-acetaminophen 10-325 mg Tablet
1 tab PO .Q6H PRN (Reason: pain)
ipratropium-albuterol 0.5 mg-3 mg(2.5 mg base)/3 mL Solution For Nebulization
3 ml INHALATION Q4H PRN (Reason: WHEEZING )
albuterol sulfate 90 mcg/actuation Hfa Aerosol Inhaler
2 puff INHALATION 6XD PRN (Reason: WHEEZING)
Discharge Date and Time
Print Language: AZERI
--- NOTE | 2024-11-24 13:32 | CM ---
Addendum entered by Roma Alvarez 11/24/24 16:41:
IMM benefit explained; form signed @ 1640
Addendum entered by Roma Alvarez 11/24/24 16:36:
Met with patient at bedside; he reported son will transport home
Plan: Discharge to home today; no needs
Original Note:
Case Management Consult Completed
Per patient's pharmacy, out of pocket cost for Dulera Inhaler ordered is $84.30; Attending notified
--- NOTE | 2024-11-24 13:32 | W.PN.PUL3 ---
Today's Communication / Plan
-
- Complete 5 days of IV antibiotic, last days 11/24
- Stable for discharge from pulmonary standpoint
- Recommend starting Dulera 200, if inhaler is not covered, recommend Symbicort 160, #2 puffs twice a day scheduled. Continue budesonide nebulized twice a day for at least another week, then changed to as needed.
- Patient will continue nebulized therapy as needed and will use budesonide in addition every time he uses nebulized therapy
- Prednisolone 40 mg twice a day for 5 days followed by 30 mg daily for 4 days followed by 20 mg twice a day for 4 days followed by 10 mg twice a day for 4 days then stop taking
- Outpatient follow-up with pulmonary clinic for consideration of Xolair therapy
Assessment
-
#1. Acute exacerbation of severe persistent asthma
- High Th2 variant, peripheral eosinophilia (0-400) and elevated IgE level (2561 in 03/2024)
- Influenza A, B screen negative. Blood cultures negative so far. Sputum culture does not show any growth so far. COVID-19 screen negative.
- In the past, developed rash and tongue swelling with Dupixent. Xolair was being considered as outpatient but patient has not had a follow-up since.
- In the last few months, patient was not taking any inhaler therapy and had not been on maintenance inhaled corticosteroids either.
- Continue DuoNeb 4 times daily scheduled, continue DuoNeb, p.o. steroids.
- No obvious consolidation noted on chest x-ray. Mild interstitial prominence I suspect is more related to volume overload
- Patient will be completing 5 days of azithromycin and Rocephin today 11/24. No further need for antibiotics
- Stable for discharge on tapering dose of prednisolone twice a day considering concern for malabsorption. Counseled patient and his extensively regarding the need and importance for continued inhaled corticosteroids to decrease risk of
exacerbations. Patient reports multiple allergies to different inhalers. Will see if Dulera 200 is covered by his insurance, it has hypotensives inhaled corticosteroid, alternatively patient will continue budesonide nebulized twice a day.
- Will arrange outpatient follow-up with pulmonary clinic for consideration for Xolair therapy
- Reports poor tolerance to Singulair in the past, will hold off for now
#2. Acute on chronic heart failure with preserved ejection fraction, EF 55 to 60%
-Cardiology service on case, currently on IV diuretics, improving
#3. History of FADI
- Resolved after gastric bypass surgery and weight loss
Other medical diagnoses:
- History of obesity, status post gastric bypass surgery, chronic malabsorption
Met with patient's at bedside, spent close to 30 minutes discussing need for inhaled corticosteroid therapy for his underlying asthma.
Total time spent on this consultation/encounter _55___ minutes which includes review of history, physical exam, medications, laboratory data, personal review of imaging, extensive review of outpatient records, discussion with care team and
respiratory therapy.
Data:
CXR 10/2024: There is mild interstitial prominence, possible mild interstitial edema. No focal airspace disease.
CT Chest 03/2024: 1. Findings suggesting very mild chronic interstitial lung disease changes, nonspecific.
ECHO 10/2024: 1. Left ventricle: Normal size and function with an estimated ejection
fraction of 55-60%. Mild concentric LVH.
2. Right ventricle: Normal
3. Atria: Normal
4. Mitral valve: No mitral regurgitation
5. Aortic valve: Mildly thickened and sclerotic. No aortic insufficiency
6. Tricuspid valve: No tricuspid regurgitation
7. When compared to the most recent images from 08/24/2023, there has been no
significant change
PFT, 03/2024. Severe obstruction with moderate restrictive process suspected. FEV1 was 46%, FEV1/FVC was 65, FVC also reduced at 55%.
Subjective Data
-
Date of Service:
Date of Service: November 24, 2024
Subjective:
Patient comfortably sitting in bed, in no acute distress.
Review of Systems
Genitourinary: Other (All 14 systems reviewed and negative except as stated above in the history of present illness.)
Objective Data
Data Reviewed
Vital Signs / I&O / Oxygen:
Vital Signs
Temp Pulse Resp BP Pulse Ox
98.5 F 70 16 126/64 93
11/24/24 11:56 11/24/24 11:56 11/24/24 11:56 11/24/24 11:56 11/24/24 11:56
Intake and Output
11/23/24 11/24/24 11/25/24
06:59 06:59 06:59
Intake Total 720 / 720 300 / 300
Output Total 300 / 300
Balance -300 / -300 720 / 720 300 / 300
SaO2 93
Nasal Cannula flow liters per 2
minute
Physical Exam
General: Comfortable
HEENT: Normocephalic
Cardiovascular: S1-S2
Respiratory: Other (Minimal, faint end expiratory wheezing on exam, improving)
GI: Soft and Non Distended
Neurology: Awake and Alert
Skin: Warm
Labs/Micro/Reports
Lab Data
11/24/24 06:53
11/24/24 06:53
Microbiology
11/20/24 20:51 Blood/Venous Blood Culture - Preliminary
No Growth in 72 hours- Final report to follow
11/20/24 20:51 Blood/Venous Blood Culture - Preliminary
No Growth in 72 hours- Final report to follow
11/21/24 10:48 Sputum Respiratory Culture - Final
Usual Respiratory Bela
11/21/24 10:48 Sputum Gram Stain - Final
--- NOTE | 2024-11-24 14:29 | W.PN.CARDCBS ---
Addendum entered and electronically signed by Tiffanie Velazquez PA-C 11/24/24 14:42:
called and updated patient's , Kaylah, via telephone on below. patient report furosix worked well for him in past. will revisit at upcoming office visit 11/30 if candidate.
Original Note:
Today's Communication / Plan
-
Overall feels better. Okay for discharge.
Will discharge on Lasix 40 mg daily. Follow daily weights.
Impression / Plan
-
PCP: Dr. Villafuerte
Laminating Machine Operator Helper: Dr. Nellie Hernadez
Impression:
Presented with dyspnea and cough, leukocytosis
Suspected asthmatic bronchitis
Acute on chronic HFpEF
elevated troponin
Moraxella catarrhalis 07/2024- treated with IV abx
h/o DVT RLE 07/2023- completed 3 month course anticoagulation - was on Eliquis with transition to lovenox due to concern for poor oral absorption of Eliquis- completed 3 months treatment in 2023, followed by heme
Asthma
h/o gastric bypass with short gut syndrome
Hyperlipidemia
AAA-aorta ultrasound 06/2024 3.2 x 3.2 cm distal abdominal aortic aneurysm similar to CT angiogram 07/2023.
Abnormal echo with calcified echodensity on the anterior mitral leaflet 08/24/23
Echo 05/2020: Normal biventricular size, systolic function, no regional wall motion abnormality. Mild concentric LVH. EF 60 to 65%. Aortic sclerosis without significant stenosis. Mild MAC with trace MR. Mild TR. PASP 30 to 35 mmHg, compared to
prior study 12/2017 no significant change.
Echo 08/24/2023: EF 50-55%, calcified echodensity seen on anterior mitral valve leaflet (measures 0.5 x 1.0 cm) cannot exclude vegetation although would expect more significant MR and only trace MR seen
Plan:
- Suspect multifactorial due to CHF as well as asthma/pneumonia
- weight down overnight if accurate at 246. transitioned to po lasix 40mg daily. Cr stable.
- CHF education
- Farxiga 10 mg daily added this admission
- BMP in 1 week upon DC
- Major concern is with patient's known short gut syndrome related to prior gastric bypass sx, unclear how much of medications are absorbed.
- Troponin peaked at 0.06. No chest pain. Suspected nonischemic myocardial injury. Could consider for outpatient ischemic evaluation as outpatient
- OP cardiac follow up arranged
- ok for DC today
Progress Note - Laminating Machine Operator Helper
Subjective
Date of Service: November 24, 2024
Breathing is much improved. Denies chest pains.
Objective
Labs:
11/24/24 06:53
11/24/24 06:53
Labs
Hgb 11.8 g/dL (13.0-18.0) L 11/24/24 06:53
Hct 35.1 % (39.0-52.0) L 11/24/24 06:53
Plt Count 267 10^3/uL (130-400) 11/24/24 06:53
Sodium 138 mmol/L (135-145) 11/24/24 06:53
Potassium 3.7 mmol/L (3.5-5.1) 11/24/24 06:53
BUN 16 mg/dl (9-20) 11/24/24 06:53
Creatinine 0.7 mg/dL (0.7-1.3) 11/24/24 06:53
Glucose 111 mg/dl (70-99) H 11/24/24 06:53
Vital Signs and I&O:
Vital Signs
Temp Pulse Resp BP Pulse Ox
98.5 F 70 16 126/64 93
11/24/24 11:56 11/24/24 11:56 11/24/24 11:56 11/24/24 11:56 11/24/24 11:56
Vital Signs
Temp Pulse Resp BP Pulse Ox
98.5 F 70 16 126/64 93
11/24/24 11:56 11/24/24 11:56 11/24/24 11:56 11/24/24 11:56 11/24/24 11:56
Intake & Output
11/22/24 11/23/24 11/24/24 11/25/24
06:59 06:59 06:59 06:59
Intake Total 1330 / 1330 720 / 720 780 / 780
Output Total 1150 / 1150 300 / 300
Balance 180 / 180 -300 / -300 720 / 720 780 / 780
Physical Exam
Physical Exam
GEN: No distress, awake, Ox3
HEENT: supple, anicteric, mmm
LUNGS: scatt rhonchi
CV: Reg, S1/S2, 1/6 syst LSB, no gallop
ABD: soft, BS+, NT/ND
EXT: No edema
NEURO: Gross non-focal
SKIN: No rash
[2024-11-24] MEDS: STERILE WATER FOR INJECTION 10 ML IV (15:29)
[2024-11-24] MEDS: ROCEPHIN 1000 MG IV (15:30)
[2024-11-24 15:34] VITALS: BP 135/70
[2024-11-24] MEDS: ZITHROMAX INFUSION 250 IV (15:43)
== END 2024-11-24 17:15 | disposition home or self-care (01) | DRG 190 ==
LOC: 4 EAST ACU 22:09
PROVIDERS: Emergency Medicine; Internal Medicine; ADMITTING PHYSICIAN Internal Medicine; ATTENDING PHYSICIAN Hospitalist; CONSULT PHYSICIAN Internal Medicine; EMERGENCY PHYSICIAN Emergency Medicine; FAMILY PHYSICIAN Physician Assistant Medical; OTHER PHYSICIAN Internal Medicine Cardiovascular Disease
DX: J44.1 Chronic obstructive pulmonary disease with (acute) exacerbation (principal); I50.33 Acute on chronic diastolic (congestive) heart failure; J96.01 Acute respiratory failure with hypoxia; J45.51 Severe persistent asthma with (acute) exacerbation; K90.829 Short bowel syndrome, unspecified; Z85.46 Personal history of malignant neoplasm of prostate; Z90.79 Acquired absence of other genital organ(s); Z92.3 Personal history of irradiation; Z79.899 Other long term (current) drug therapy; G89.29 Other chronic pain; D50.9 Iron deficiency anemia, unspecified; Z98.84 Bariatric surgery status; K21.9 Gastro-esophageal reflux disease without esophagitis; Z87.442 Personal history of urinary calculi; Z87.891 Personal history of nicotine dependence; Z80.6 Family history of leukemia; Z82.49 Family history of ischemic heart disease and other diseases of the circulatory system; Z82.3 Family history of stroke; E66.9 Obesity, unspecified; Z68.33 Body mass index [BMI] 33.0-33.9, adult; E78.00 Pure hypercholesterolemia, unspecified; Z86.718 Personal history of other venous thrombosis and embolism; Z11.52 Encounter for screening for COVID-19
CPT/HCPCS: 71045; 80048; 80053; 80061; 83605; 83735; 83880; 84484; 85025; 85027; 87040; 87070; 87205; 87502; 87811; 93005; 93306; 94640; 94644; 96365; 96375; 99291

== ENCOUNTER → 2024-12-09 07:45 | Outpatient (REF) | payer OTHER, SELFPAY ==
[2024-12-09 09:21] LABS: Blood Urea Nitrogen 25 mg/dl (9-20); Calcium 8.8 mg/dl (8.4-10.2); Carbon Dioxide 29 mmol/L (22-30); Chloride 102 mmol/L (98-107); Glucose 107 mg/dl (70-99); Potassium 4.1 mmol/L (3.5-5.1); Sodium 136 mmol/L (135-145); eGFR > 60.00
== END ==
LOC: HWLAB 07:45
PROVIDERS: ATTENDING PHYSICIAN Internal Medicine Cardiovascular Disease
DX: R06.02 Shortness of breath (principal); I50.32 Chronic diastolic (congestive) heart failure
CPT/HCPCS: 36415; 80048; 83880

== ENCOUNTER 2024-12-12 07:04 | Emergency (ER) | payer OTHER, SELFPAY ==
[2024-12-12 07:06] VITALS: BP 154/89
--- NOTE | 2024-12-12 09:05 | ED.GENMED ---
History of Present Illness
<Ezekiel Rosenberg PA-C - Last Filed: 12/12/24 13:46>
General
Chief Complaint: Back Pain
Source: patient
Exam Limitations: none
Time Seen by Provider: 12/12/24 08:49
History of Present Illness
History of Present Illness:
69-year-old male with history of COPD asthma chronic back pain, CHF presents for severe low back pain that is been worsening over the past several days. He was admitted to this hospital about 3 weeks ago for CHF and asthma. He had been doing well
however his back started to hurt after discharge. He denies leg pain. He denies bowel or bladder dysfunction that is new. He takes hydrocodone at home for his back pain. He states his back pain reminds him of times when he needed surgery on his
back. No fever sweats or chills. He has an appoint with his pain management doctor in 4 days but cannot wait due to the pain.
Past History
<Ezekiel Rosenberg PA-C - Last Filed: 12/12/24 13:46>
Past History
ED Past Medical History: Asthma, Cancer (Prostate CA, metastatic cancer found in a lymph node), Hypercholesterolemia and Other (UTI, Ulcers, Bronchitis, Renal calculus, Iron def. anemia, gastric bypass with short gut syndrome, heart failure with
preserved ejection fraction, DVT)
ED Past Surgical History: Appendectomy, Bowel resection, Orthopedic (Right ankle ORIF), Urological (Prostatectomy) and Other (Gastric bypass, Hernia, cataracts)
Social History
Tobacco: Former smoker
Alcohol: Occasional
Drug: None
Personal:
Living: with family
Employment: Other
Family History
Family History: Other
Phy Exam
<Ezekiel Rosenberg PA-C - Last Filed: 12/12/24 13:46>
Physical Exam
Physical Exam:
General: Uncomfortable appearing male no acute respiratory distress
HEENT: Normocephalic atraumatic
Heart: Regular rate and rhythm
Lungs: Clear no wheeze
Musculoskeletal exam: Lumbar spine is tender to palpation. He has decreased range of motion
Extremities: Pitting edema bilateral lower extremities
Skin is warm no rash
Course
<Ezekiel Rosenberg PA-C - Last Filed: 12/12/24 13:46>
Orders/Labs/Results
Orders:
Orders
12/12/24 09:01
CR Chest - 2 Views Urgent
Comment:
Reason For Exam: sob
CR Lumbar Spine 2 Or 3 Views Urgent
Comment:
Reason For Exam: back pain
12/12/24 09:04
HYDROmorphone [Dilaudid] 0.5 mg IV NOW STA
diazePAM [Valium Injection] 5 mg IV NOW STA
12/12/24 09:56
Complete Blood Count/With Diff Urgent
Comprehensive Metabolic Panel Urgent
NT-proBNP Urgent
Abnormal Lab Results
12/12/24
09:56
RBC 3.93 L 10^6/uL
(4.70-6.10)
Hgb 11.8 L g/dL
(13.0-18.0)
Hct 36.6 L %
(39.0-52.0)
MCHC 32.2 L g/dL
(33.0-37.0)
Abs Immat Gran (auto) 0.1 H 10^3/uL
(0-0.05)
Absolute Lymphs (auto) 0.9 L 10^3/uL
(1.2-3.4)
Immature Gran % 1.1 H %
(0-0.5)
Neutrophils % 75.8 H %
(42.2-75.2)
Lymphocytes % 13.3 L %
(20.5-51.1)
Carbon Dioxide 31 H mmol/L
(22-30)
BUN 22 H mg/dl
(9-20)
Total Protein 5.9 L g/dl
(6.3-8.2)
12/12/24 09:56
12/12/24 09:56
Vital Signs
Initial and Last Documented VS:
Initial Vital Signs
Temp Pulse Resp BP Pulse Ox
98.0 F 94 20 154/89 95
12/12/24 07:06 12/12/24 07:06 12/12/24 07:06 12/12/24 07:06 12/12/24 07:06
Last Documented Vital Signs
Temp Pulse Resp BP Pulse Ox
98.0 F 68 16 116/68 95
12/12/24 07:06 12/12/24 11:36 12/12/24 11:36 12/12/24 11:36 12/12/24 11:36
<Nadia Robles MD - Last Filed: 12/12/24 13:26>
Orders/Labs/Results
Orders:
Orders
12/12/24 09:01
CR Chest - 2 Views Urgent
Comment:
Reason For Exam: sob
CR Lumbar Spine 2 Or 3 Views Urgent
Comment:
Reason For Exam: back pain
12/12/24 09:04
HYDROmorphone [Dilaudid] 0.5 mg IV NOW STA
diazePAM [Valium Injection] 5 mg IV NOW STA
12/12/24 09:56
Complete Blood Count/With Diff Urgent
Comprehensive Metabolic Panel Urgent
NT-proBNP Urgent
Abnormal Lab Results
12/12/24
09:56
RBC 3.93 L 10^6/uL
(4.70-6.10)
Hgb 11.8 L g/dL
(13.0-18.0)
Hct 36.6 L %
(39.0-52.0)
MCHC 32.2 L g/dL
(33.0-37.0)
Abs Immat Gran (auto) 0.1 H 10^3/uL
(0-0.05)
Absolute Lymphs (auto) 0.9 L 10^3/uL
(1.2-3.4)
Immature Gran % 1.1 H %
(0-0.5)
Neutrophils % 75.8 H %
(42.2-75.2)
Lymphocytes % 13.3 L %
(20.5-51.1)
Carbon Dioxide 31 H mmol/L
(22-30)
BUN 22 H mg/dl
(9-20)
Total Protein 5.9 L g/dl
(6.3-8.2)
12/12/24 09:56
12/12/24 09:56
Vital Signs
Initial and Last Documented VS:
Initial Vital Signs
Temp Pulse Resp BP Pulse Ox
98.0 F 94 20 154/89 95
12/12/24 07:06 12/12/24 07:06 12/12/24 07:06 12/12/24 07:06 12/12/24 07:06
Last Documented Vital Signs
Temp Pulse Resp BP Pulse Ox
98.0 F 68 16 116/68 95
12/12/24 07:06 12/12/24 11:36 12/12/24 11:36 12/12/24 11:36 12/12/24 11:36
<Ezekiel Rosenberg PA-C - Last Filed: 12/12/24 13:46>
MDM/Problems Addressed
Differential Diagnosis Includes:
Patient with lower back pain. History of L4-L5 laminectomy. History of sacral stabilization requiring pin removal as it was loose. Chronically sees pain management. This pain is new and different and is severe and the hydrocodone he has
prescribed is not helping. No red flags to suggest cauda equina. On exam he does have evidence of volume overload. He is ambulatory but with significant discomfort consider lumbar strain versus worsening underlying degenerative changes. No fever
to suggest infection worse. Start with x-ray of the chest and lumbar spine check labs treat symptoms
<Ezekiel Rosenberg PA-C - Last Filed: 12/12/24 13:46>
*Pulse Oximetry
SaO2: 95
Oxygen Mode of Delivery: Room air
Patient hypoxic: no
*Critical Care Note
Total Time (30-74mins, 75-104mins- exclusive of procedures): Not Applicable
<Ezekiel Rosenberg PA-C - Last Filed: 12/12/24 13:46>
Update Note
Update Note:
Workup demonstrates newer appearing but age indeterminant L3 compression fracture. Heart failure workup negative. Chest x-ray clear BNP normal. Back pain may be from his compression fracture. He has hydrocodone at home. He has an appoint with
his pain management doctor in 4 days. Advise he continue his hydrocodone will add muscle relaxers for additional relief. Discussed emergency room attending. Stable for discharge. No indication for admission or emergent imaging such as MRI
ED Attending Note
<Ezekiel Rosenberg PA-C - Last Filed: 12/12/24 13:46>
-
Portions of this chart may have been created with voice recognition software.� Occasional wrong word or��sound alike� substitutions may have occurred due to the inherent limitations of voice recognition software.
<Nadia Robles MD - Last Filed: 12/12/24 13:26>
ED Attending Note
Patient seen and examined by attending physician: Yes
I performed the substantive portion of visit, reviewed & personally made and approve the management plan that is documented in note by myself or LISA.: Yes
ED Attending Note:
69-year-old male with complaints of back pain for the last 10 days getting increasingly worse. Pain is localized to his back without radiation. Pain seems to be worse with certain movements. He denies numbness, tingling, new incontinence,
perianal anesthesia, weakness, fever, chills, recent injections. On exam, patient awake and alert, pleasant. at bedside who also provides history. Motor strength noted equal bilaterally. No signs or symptoms to suggest an acute infectious
process, cauda equina, etc. No neuropathy. Patient will be advised to follow-up with orthopedics [facility] and advised regarding reasons return to the ER
Discharge Plan
Departure
Patient Disposition: Home (Routine Discharge)
Date of Disposition: 12/12/24
Time of Disposition: 13:43
Patient with high blood pressure during this ER visit?: No
Discharge Problem:
Compression fracture
Instructions: Vertebral compression fracture
Prescriptions:
New
diazepam [Valium] 5 mg tablet
5 mg PO BID PRN (Reason: muscle spasm) Qty: 10 0RF
No Action
hydrocodone-acetaminophen 10-325 mg Tablet
1 tab PO .Q6H PRN (Reason: pain)
ipratropium-albuterol 0.5 mg-3 mg(2.5 mg base)/3 mL Solution For Nebulization
3 ml INHALATION Q4H PRN (Reason: WHEEZING )
albuterol sulfate 90 mcg/actuation Hfa Aerosol Inhaler
2 puff INHALATION 6XD PRN (Reason: WHEEZING)
dapagliflozin propanediol 10 mg Tablet
10 mg PO DAILY Qty: 30 0RF
furosemide 40 mg Tablet
40 mg PO DAILY 30 Days Qty: 30 0RF
budesonide 0.5 mg/2 mL Suspension For Nebulization
0.5 mg inhalation BID Qty: 60 0RF
Rx Instructions:
Budesonide BID scheduled for 1 week then as needed
prednisolone sodium phosphate 15 mg/5 mL (3 mg/mL) Solution
See Rx Instructions .ROUTE .COMPLEX Qty: 300 0RF
Rx Instructions:
40mg BID for 5 days then 30mg bid for 4 days then 20mg bid for 4 days then 10mg bid for 4 days then stop
Dulera 100-5 mcg/actuation HFA aerosol inhaler
2 puff inhalation BID Qty: 13 0RF
Referrals:
Donte Rivera MD [Active, Orthopedics]
Lotus Valente PA-C [Family Provider, Family Practice]
Activity Restrictions/Additional Instructions:
Continue current pain medicine. Add muscle relaxer as needed for spasm. Follow-up with your pain management doctor and consider following up with endocrinology specialist. Return here if needed
Interventions
Interventions:
*Risk Screen - Suicide Last Done: 12/12/24 07:06
*General Assessment Last Done: 12/12/24 07:06
*ED COVID-19 Vaccine History Last Done: 12/12/24 07:06
ED-Musculoskeletal Assessment Last Done: 12/12/24 09:56
Discharge Date and Time
Print Language: MAURITIAN
[2024-12-12] MEDS: DILAUDID 0.5 MG IV (09:52)
[2024-12-12] MEDS: VALIUM INJECTION 5 MG IV (09:52)
[2024-12-12 10:10] LABS: Hematocrit 36.6 % (39.0-52.0); Hemoglobin 11.8 g/dL (13.0-18.0); Mean Corp Hgb Conc. 32.2 g/dL (33.0-37.0); Mean Corpuscular Volume 93.1 fL (80.0-94.0); Nucleated Red Blood Cells % 0 % (-); Platelet Count 285 10^3/uL (130-400); Red Cell Dist. Width 13.4 % (11.5-14.5)
[2024-12-12 10:25] LABS: ALT (SGPT) 11 U/L (0-50); AST (SGOT) 17 U/L (17-59); Albumin 3.5 g/dl (3.5-5.0); Alkaline Phosphatase 111 U/L (38-126); Blood Urea Nitrogen 22 mg/dl (9-20); Calcium 8.8 mg/dl (8.4-10.2); Carbon Dioxide 31 mmol/L (22-30); Chloride 104 mmol/L (98-107); Glucose 97 mg/dl (70-99); Potassium 3.9 mmol/L (3.5-5.1); Sodium 138 mmol/L (135-145); Total Protein 5.9 g/dl (6.3-8.2); eGFR > 60.00
[2024-12-12 11:36] VITALS: BP 116/68
== END 2024-12-12 14:14 | disposition home or self-care (01) ==
LOC: EMR 07:04
PROVIDERS: Physician Assistant; EMERGENCY PHYSICIAN Emergency Medicine; FAMILY PHYSICIAN Physician Assistant Medical
DX: M48.56XA Collapsed vertebra, not elsewhere classified, lumbar region, initial encounter for fracture (principal); J44.89 Other specified chronic obstructive pulmonary disease; R60.0 Localized edema; I50.32 Chronic diastolic (congestive) heart failure; E78.00 Pure hypercholesterolemia, unspecified; D50.9 Iron deficiency anemia, unspecified; C77.9 Secondary and unspecified malignant neoplasm of lymph node, unspecified; G89.29 Other chronic pain; Z85.46 Personal history of malignant neoplasm of prostate; Z87.442 Personal history of urinary calculi; Z87.891 Personal history of nicotine dependence; Z86.718 Personal history of other venous thrombosis and embolism; Z87.440 Personal history of urinary (tract) infections; Z98.84 Bariatric surgery status; Z88.6 Allergy status to analgesic agent; Z88.8 Allergy status to other drugs, medicaments and biological substances
CPT/HCPCS: 99284; 96374; 96375; 71046; 72100; 80053; 83880; 85025

== ENCOUNTER → 2024-12-23 06:35 | Outpatient (REF) | payer OTHER, SELFPAY ==
[2024-12-23 09:06] LABS: Blood Urea Nitrogen 19 mg/dl (9-20); Calcium 8.7 mg/dl (8.4-10.2); Carbon Dioxide 31 mmol/L (22-30); Chloride 100 mmol/L (98-107); Glucose 95 mg/dl (70-99); Potassium 3.5 mmol/L (3.5-5.1); Sodium 137 mmol/L (135-145); eGFR > 60.00
== END ==
LOC: HWLAB 06:35
PROVIDERS: ATTENDING PHYSICIAN Internal Medicine Cardiovascular Disease; FAMILY PHYSICIAN Physician Assistant Medical
DX: I10 Essential (primary) hypertension (principal); R06.02 Shortness of breath
CPT/HCPCS: 36415; 80048; 83880

== ENCOUNTER → 2025-01-10 06:49 | Outpatient (REF) | payer OTHER, SELFPAY ==
[2025-01-10 09:50] LABS: Hematocrit 38.3 % (39.0-52.0); Hemoglobin 12.1 g/dL (13.0-18.0); Mean Corp Hgb Conc. 31.6 g/dL (33.0-37.0); Mean Corpuscular Volume 94.1 fL (80.0-94.0); Nucleated Red Blood Cells % 0 % (-); Platelet Count 289 10^3/uL (130-400); Red Cell Dist. Width 14.0 % (11.5-14.5)
[2025-01-10 10:21] LABS: Vitamin D, 25-OH*** 29.9 ng/mL (30-80)
[2025-01-10 10:29] LABS: ALT (SGPT) 12 U/L (0-50); AST (SGOT) 20 U/L (17-59); Albumin 3.6 g/dl (3.5-5.0); Alkaline Phosphatase 133 U/L (38-126); Blood Urea Nitrogen 12 mg/dl (9-20); Calcium 9.2 mg/dl (8.4-10.2); Carbon Dioxide 25 mmol/L (22-30); Chloride 106 mmol/L (98-107); Glucose 88 mg/dl (70-99); Potassium 4.2 mmol/L (3.5-5.1); Sodium 137 mmol/L (135-145); Total Protein 6.3 g/dl (6.3-8.2); eGFR > 60.00
[2025-01-10 10:34] LABS: TSH 2.37 uIU/ml (0.47-4.68)
[2025-01-11 11:13] LABS: tTG IgA Antibody 8.6 EU/ml (0-19); tTG IgG Antibody 10.4 EU/ml (0-19)
== END ==
LOC: HWLAB 06:49
PROVIDERS: ATTENDING PHYSICIAN Internal Medicine Cardiovascular Disease; FAMILY PHYSICIAN Physician Assistant Medical; REFERRING PHYSICIAN Internal Medicine
DX: R06.02 Shortness of breath (principal); I50.32 Chronic diastolic (congestive) heart failure; E07.9 Disorder of thyroid, unspecified; E21.5 Disorder of parathyroid gland, unspecified; E56.9 Vitamin deficiency, unspecified; M81.0 Age-related osteoporosis without current pathological fracture
CPT/HCPCS: 36415; 80048; 80053; 82306; 82784; 83516; 83880; 83970; 84100; 84155; 84165; 84270; 84402; 84403; 84443; 85025; 86231

== ENCOUNTER 2025-01-16 23:59 | Observation (INO) | payer OTHER, SELFPAY ==
[2025-01-16 17:53] VITALS: BP 134/65
[2025-01-16 18:23] LABS: Hematocrit 39.3 % (39.0-52.0); Hemoglobin 12.8 g/dL (13.0-18.0); Mean Corp Hgb Conc. 32.6 g/dL (33.0-37.0); Mean Corpuscular Volume 93.1 fL (80.0-94.0); Nucleated Red Blood Cells % 0 % (-); Platelet Count 375 10^3/uL (130-400); Red Cell Dist. Width 14.2 % (11.5-14.5)
[2025-01-16 18:43] LABS: ALT (SGPT) 13 U/L (0-50); AST (SGOT) 20 U/L (17-59); Albumin 3.8 g/dl (3.5-5.0); Alkaline Phosphatase 143 U/L (38-126); Blood Urea Nitrogen 20 mg/dl (9-20); Calcium 9.9 mg/dl (8.4-10.2); Carbon Dioxide 31 mmol/L (22-30); Chloride 101 mmol/L (98-107); Glucose 90 mg/dl (70-99); Lipase 96 U/L (23-300); Potassium 3.9 mmol/L (3.5-5.1); Sodium 139 mmol/L (135-145); Total Protein 6.5 g/dl (6.3-8.2); eGFR > 60.00
[2025-01-16 21:16] VITALS: BMI 32.9
[2025-01-16 21:21] VITALS: BP 125/62
[2025-01-16 22:00] VITALS: BP 121/66
[2025-01-16 22:03] LABS: Urine Character Clear (Clear)
[2025-01-16 22:09] LABS: Urine Red Blood Cell 0-2 /HPF (0-2); Urine Squamous Cell 0-2 /LPF (Few); Urine White Cell 0-2 /HPF (0-5)
--- NOTE | 2025-01-16 22:21 | ED.GENMED ---
History of Present Illness
General
Chief Complaint: Urinary Symptoms
Source: patient
Exam Limitations: none
Time Seen by Provider: 01/16/25 21:20
Nursing documentation reviewed up to this point in time: agreed with
History of Present Illness
History of Present Illness:
Patient with history of chronic leg edema on torsemide, bronchiectasis on chronic prednisone treatment, and multiple vertebral fractures secondary to osteoporosis, presents to ED secondary to sudden onset of confusion (ex. putting clothes on
backwards or incorrectly) noted by spouse this afternoon. This evening, family had difficult time waking up the patient after he took a nap, prompting call to 911. Upon arrival, patient is alert and awake and oriented. However, family still feels
the patient is not fully himself. Patient is prone to 'infection'. Patient has had urinary difficulties recently. In addition, despite taking torsemide, his leg swelling has worsened. Patient has chronic cough, which has not worsened. Denies
fever. Denies chills. Denies vomiting or diarrhea. Denies recent change in medications or diet. Denies worsening back pain.
Past History
Past History
ED Past Medical History: Asthma, Cancer (Prostate CA, metastatic cancer found in a lymph node), Hypercholesterolemia and Other (UTI, Ulcers, Bronchitis, Renal calculus, Iron def. anemia, gastric bypass with short gut syndrome, heart failure with
preserved ejection fraction, DVT)
ED Past Surgical History: Appendectomy, Bowel resection, Orthopedic (Right ankle ORIF), Urological (Prostatectomy) and Other (Gastric bypass, Hernia, cataracts)
Social History
Tobacco: Former smoker
Alcohol: Occasional
Drug: None
Personal:
Living: with family
Employment: Other
Family History
Family History: Other
Review of Systems
Review of Systems
Allergies reviewed?: Yes
All Other Systems: ROS reviewed and negative except as documented in HPI and ROS
Constitutional: Reports no symptoms; Denies fever
Respiratory: Reports no symptoms
Cardiac: Reports no symptoms
ABD/GI: Reports no symptoms
: Reports difficulty voiding
Musculoskeletal: Reports back pain
Skin: Reports no symptoms
Neurological: Reports no symptoms
Phy Exam
Physical Exam
Physical Exam:
Physical Exam
General: no apparent distress, not acutely ill. afebrile
Head: nc/at. eomi
Neck: supple. normal range of motion.
Heart: s1/s2 regular rate and rhythm
Lungs: no acute respiratory distress. clear bilaterally
Abdomen: normal bowel sounds. not tender.
Neuro: alert and oriented x 3. no focal neurological deficits
Skin: no rash
Psychiatric: well kept. interactive and cooperative
Extremities: no edema. no calf tenderness.
Course
Orders/Labs/Results
Orders:
Orders
01/16/25 18:04
Complete Blood Count/With Diff Urgent
Comprehensive Metabolic Panel Urgent
Lipase Urgent
NT-proBNP Urgent
Comment: ADD ON
01/16/25 21:33
Straight cath- Treatment ONCE
01/16/25 21:34
CR Chest - 2 Views Urgent
Comment:
Reason For Exam: cough
01/16/25 21:53
COVID-19 Antigen Urgent
Source: Nasal Swab
Urinalysis Reflex To Culture Urgent
Date Specimen was Collected: 01/16/25
Time Specimen was Collected: 21:37
Urine Microscopic Reflex Cult Urgent
01/16/25 22:42
CT Head W/o Iv Contrast Urgent
Comment:
Reason For Exam: mental status change
01/16/25 23:06
Arterial Blood Gas Urgent
%Oxygen/Room Air: 92
01/16/25 23:11
Blood Culture Q30M
[facility] Source: Blood/Venous
Specimen Description:
01/16/25 23:14
Blood Culture Q30M
[facility] Source: Blood/Venous
Specimen Description:
Abnormal Lab Results
01/16/25 01/16/25 01/16/25
18:04 21:53 23:06
RBC 4.22 L 10^6/uL
(4.70-6.10)
Hgb 12.8 L g/dL
(13.0-18.0)
MCHC 32.6 L g/dL
(33.0-37.0)
Abs Immat Gran (auto) 0.1 H 10^3/uL
(0-0.05)
Absolute Neuts (auto) 7.5 H 10^3/uL
(1.4-6.5)
Absolute Lymphs (auto) 1.0 L 10^3/uL
(1.2-3.4)
Absolute Monos (auto) 0.7 H 10^3/uL
(0.1-0.6)
Immature Gran % 0.8 H %
(0-0.5)
Neutrophils % 80.3 H %
(42.2-75.2)
Lymphocytes % 10.5 L %
(20.5-51.1)
pH 7.51 H
(7.35-7.45)
pO2 76 L mmHg
(83-108)
HCO3 32.7 H mmol/L
(21-28)
Carbon Dioxide 31 H mmol/L
(22-30)
Alkaline Phosphatase 143 H U/L
(38-126)
Urine Ketones 3+ A
(Negative)
Urine Bacteria (Reflex) Few A
(Negative)
Urine Albumin (Reflex) 2+ A
(Neg - Trace)
01/16/25 18:04
01/16/25 18:04
Vital Signs
Initial and Last Documented VS:
Initial Vital Signs
Temp Pulse Resp BP Pulse Ox
98.6 F 80 20 134/65 95
01/16/25 17:53 01/16/25 17:53 01/16/25 17:53 01/16/25 17:53 01/16/25 17:53
Last Documented Vital Signs
Temp Pulse Resp BP Pulse Ox
97.7 F 81 16 127/70 95
01/18/25 03:33 01/18/25 03:33 01/18/25 03:33 01/18/25 03:33 01/18/25 03:33
MDM/Problems Addressed
MDM/Problems Addressed:
Patient with an unremarkable workup in ED, including blood work, chest x-ray and urinalysis. However, patient does remain somnolent, but arousable. As such, we will obtain arterial blood gas, to assess for potential hypercapnia as etiology behind
his mental status change.
CT head: NAD
*Pulse Oximetry
SaO2: 100
Oxygen Mode of Delivery: Room air
Patient hypoxic: no
*Critical Care Note
Total Time (30-74mins, 75-104mins- exclusive of procedures): Not Applicable
ED Attending Note
-
Portions of this chart may have been created with voice recognition software.� Occasional wrong word or��sound alike� substitutions may have occurred due to the inherent limitations of voice recognition software.
Discharge Plan
Departure
Patient Disposition: Admit
Date of Disposition: 01/16/25
Time of Disposition: 23:10
Admit to: Telemetry
Presentation/result/management discussed w/ accepting MD/DO: Hospitalist
Discharge Problem:
Altered mental status
Interventions
Interventions:
*Risk Screen - Suicide Last Done: 01/17/25 09:15
*General Assessment Last Done: 01/16/25 21:16
*Neglect/Abuse Screening Last Done: 01/16/25 21:16
*ED- Fall Risk Assessment Last Done: 01/17/25 08:06
*ED COVID-19 Vaccine History Last Done: 01/17/25 09:15
*Nursing Disposition Last Done: 01/17/25 08:45
ED-Male Genitourinary Assessment Last Done: 01/16/25 21:22
Discharge Date and Time
Discharge Date/Time: 01/17/25 08:52
[2025-01-16 22:23] LABS: COVID-19 Antigen Negative (Negative)
[2025-01-16 23:12] LABS: B.E. 8.8 mmol/L; HCO3 32.7 mmol/L (21-28); O2 Saturation % 97.4 % (94-98); PCO2 41 mmHg (35-48); PO2 76 mmHg (83-108)
--- NOTE | 2025-01-16 23:22 | HPS.HSE ---
Family Physician
-
Family Physician: Lotus Valente PA-C
Chief Complaint
-
Altered mental status
History of Present Illness
This is a 69-year-old with past medical history significant for COPD not on home O2, morbid obesity, history of opioid dependence, short gut syndrome, GERD, diastolic heart failure on diuretics who presents to the emergency department from home for
altered mental status.
According to family members were provided history patient was in mostly usual state of health last night when he went to bed. He had woke this morning acutely confused. He was unable to dress himself. He was putting on his shoes wrongly. He was
unable to put on his socks. He was incoherent. They did not notice any specific deficits such as weakness numbness facial droop or slurred speech. He was unable to go to his stated appointment.
Family members reports that starting about 4 days ago he has been having frequent bouts of vomiting, voluminous, nonbloody and nonbilious. He himself denies any nausea. He denies any chest discomfort. He denies having any diarrhea. He has been
no fevers or chills.
Reports ongoing chronic pain for which he is on chronic medications but has no new medications added. He has no urinary symptoms. He does have history of incontinence.
He has also been taking torsemide for lower extremity edema. Has history of diastolic CHF but no improvement in his lower extremity swelling despite the diuretics.
In the emergency department the patient was afebrile, blood pressure was 115/60 with a pulse of 72 he was satting 100% on room air. Chest x-ray shows no acute infiltrates possibly right lower lobe atelectasis. CT of the head was negative.
ABG was 7.51/41/32.7.
UA was negative, COVID test was negative.
CBC was unremarkable, electrolytes BUN/creatinine were in the normal range.
Medical History
Past Medical History
Past Medical History: Reports Other
Additional Past Medical History:
Asthma
Chronic bronchitis
chronic CHF preserved EF, malabsorption issues history of Deepa-en-Y 2005 with possible short gut syndrome
DVT right leg nonocclusive thrombus right popliteal/posterior tibial vein 08/03/2023
Chronic back pain on chronic oral opiates
COUSHAT[place]
Iron deficiency anemia
GERD/gastric ulcers
Prostate cancer Dx 2014 status post prostatectomy, radiation 2015, radiation 2022 with Lupron shot x 1 in August
Renal calculi August 2023
Shingles August 2023
Past Surgical History: Reports Other
Additional Past Surgical History:
Gastric bypass Deepa-en-Y 2005
Lumbar laminectomy June 2023
Right ankle and leg ORIF 1995
Appendectomy 1987
Hernia repair 2014, 2015
Exploratory lap 2023
Social History
Tobacco: Former Smoker (Reports smoked a few years when he was in the service)
Alcohol: None
Drug: None
Personal:
Living: With Family ( Aiyana)
Family History
Family History: Not pertinent and Other (Mother history of pituitary cancer, sister CAD in her 50s, father CAD, CVA, leukemia age 60s)
Allergies / Home Medications
Allergies reflects when Allergies were last updated in [facility].
Home Medications with original date entered in [facility]
Allergy/Medication List:
Allergies
Allergy/AdvReac Type Severity Reaction Status Date / Time
dupilumab [From [employer] Pen] Allergy Unknown Verified 03/04/24 11:04
NSAIDS (Non-Steroidal AdvReac Can not Verified 03/04/24 11:04
Anti-Inflamma take due
to Gastric
Bypass
Home Medications
albuterol sulfate 90 mcg/actuation aerosol inhaler 2 puff inhalation R Q6HPRN PRN sob 06/23/23
ipratropium 0.5 mg-albuterol 3 mg (2.5 mg base)/3 mL nebulization soln 3 ml inhalation R Q6HPRN PRN sob 06/23/23
hydrocodone 10 mg-acetaminophen 325 mg tablet 1 tab PO QID Pain 08/22/23
cyanocobalamin (vitamin B-12) 100 mcg tablet 100 mcg PO DAILY #30 tabs 08/26/23
pantoprazole 40 mg tablet,delayed release 40 mg PO DAILY #30 tabs 08/26/23
potassium chloride 20 mEq/15 mL oral liquid 20 meq PO DAILY 03/04/24
sennosides 8.6 mg tablet (senna) 17.2 mg PO DAILYPRN PRN constipation 03/04/24
torsemide 20 mg tablet 40 mg PO BID 03/04/24
Review of Systems
-
History Source: Patient and Family
Constitutional: Reports No Symptoms
EENT: Reports No Symptoms
Respiratory: Reports No Symptoms
Cardiac: Reports No Symptoms
Abdomen/GI: Reports Vomiting
: Reports Incontinence
Musculoskeletal: Reports Edema
Skin: Reports No Symptoms
Neurological: Reports Weakness
Endocrine: Reports No Symptoms
Hematologic/Lymphatic: Reports No Symptoms
Psych: Reports No Symptoms
Physical Exam
Vital Signs
Vital Signs
Temp Pulse Resp BP Pulse Ox
98.6 F 72 18 125/62 100
01/16/25 17:53 01/16/25 21:21 01/16/25 21:21 01/16/25 21:21 01/16/25 22:22
Physical Exam
General: Well Developed and Respiratory Distress
HEENT: NormoCephalic, Anicteric and Moist mucous membranes
Respiratory: No Rales or Crackles
Cardiac: S1/S2 and Regular Rhythm
Breast: Deferred by me
GI: Soft, Non Distended and Normal Bowel Sounds
Rectal: Deferred by Provider
Genito-urinary: Deferred by me
Musculoskeletal: No Clubbing, No Cyanosis, Edema, Left Lower Extremity (1+) and Edema, Right Lower Extremity (2+)
Skin: Warm
Neuro: Awake, Alert, Oriented (oriented to person and place but not time) and Nonfocal/grossly intact; No Slurred Speech or Facial Droop
Hematologic/Lymphatic: No Lymphadenopathy
Psych: Calm
Laboratory Results
-
01/16/25 18:04
01/16/25 18:04
Laboratory Results
pH 7.51 (7.35-7.45) H 01/16/25 23:06
pCO2 41 mmHg (35-48) 01/16/25 23:06
pO2 76 mmHg (83-108) L 01/16/25 23:06
HCO3 32.7 mmol/L (21-28) H 01/16/25 23:06
Total Bilirubin 0.7 mg/dl (0.2-1.3) 01/16/25 18:04
AST 20 U/L (17-59) 01/16/25 18:
ALT 13 U/L (0-50) 01/16/25 18:04
Alkaline Phosphatase 143 U/L (38-126) H 01/16/25 18:04
Lipase 96 U/L (23-300) 01/16/25 18:04
Data Reviewed
-
Diagnostic Radiology: Image Personally Visualized and interpreted
CT Scan: Report Reviewed by me
Medical Tests (Nuc Med, Echo, EKG etc): Image Personally Visualized and interpreted
Lab Data: Labs Reviewed by me
Old Records: Reviewed
Impression/Plan
-
IMPRESSION:
69-year-old with history of asthma, COPD, diastolic CHF, chronic lower extremity edema, chronic pain secondary to multiple vertebral rib fracture who presents to the emergency department for an episode episode of confusion without noted focal
logical deficits. Patient was in usual state of health the previous evening and went to bed normal. He woke suddenly confused. His confusion has improved but is now back to baseline according to family members. He is alert, he is oriented to
person and place but not time. Neurological exam is nonfocal. Workup in the ED so far has been negative for an acute infectious process, CT of the head has been negative, and labs for only showing metabolic alkalosis.
PLAN:
Altered mental status -very acute onset suspect either polypharmacy last night versus an acute stroke. No history of seizures.
- Admit to telemetry observation
- Check MRI in a.m.
- Continue current medications with hold parameters
- Neurochecks every 6 hours
Metabolic alkalosis -recent episodes of vomiting of uncertain etiology, on diuretics suspect some degree of contraction alkalosis as well
- Holding diuretics for now
- Antiemetics
COPD/Chronic bronchitis -no acute exacerbation
- Continue inhaled steroids and his DuoNebs as needed
Diastolic CHF -chronic bilateral lower extremity Edema, BNP negative, suspect lymphedema versus CHF. They have uptitrated diuretics to torsemide 40 mg a.m. and 20 mg p.m. without any improvement in his edema. He has had about a 6 kg weight loss
since October.
-Suspect contraction alkalosis without overt CHF and likely edema secondary to lymphedema, holding diuretics
-Bilateral lower extremity ultrasounds to rule out blood clot
-Start compression socks
-Orthostatic
DVT PPX - lovenox sq
Code status -Full Code
[2025-01-17] VITALS (13 sets, daily range): BP systolic 110–139; BP diastolic 65–89; PULSE 63–98; BMI 32.9
[2025-01-17 07:58] LABS: Hematocrit 37.7 % (39.0-52.0); Hemoglobin 12.1 g/dL (13.0-18.0); Mean Corp Hgb Conc. 32.1 g/dL (33.0-37.0); Mean Corpuscular Volume 93.3 fL (80.0-94.0); Platelet Count 324 10^3/uL (130-400); Red Cell Dist. Width 14.1 % (11.5-14.5); Venous Blood Gas B.E. 8.8 mmol/L (-4 to +4); Venous Blood Gas O2 Sat % 76.8 %
[2025-01-17] MEDS: DUONEB 3 ML INH ×4 (08:09→17:17)
[2025-01-17] MEDS: PULMICORT 0.5 MG INH ×2 (08:09→17:18)
[2025-01-17 08:25] LABS: Blood Urea Nitrogen 16 mg/dl (9-20); Calcium 9.0 mg/dl (8.4-10.2); Carbon Dioxide 32 mmol/L (22-30); Chloride 101 mmol/L (98-107); Estimated Creatinine Clearance 122 ml/min; Glucose 84 mg/dl (70-99); Potassium 3.8 mmol/L (3.5-5.1); Sodium 136 mmol/L (135-145); eGFR > 60.00
[2025-01-17 08:32] LABS: C-Reactive Protein 11.10 mg/L (0.0-10.00)
[2025-01-17 08:36] LABS: Magnesium 2.1 mg/dl (1.6-2.3)
--- NOTE | 2025-01-17 09:38 | W.PN.HOSP.TC ---
Addendum entered and electronically signed by Mickey Daniels DO 01/17/25 11:48:
Spoke with at the bedside.
She states that Lavelle has had loss of appetite for the past 2 weeks, vomiting for the past 4 days, became confused yesterday.
She denies any home medication changes recently.
She states he looks better today but still not back to baseline.
Still waiting for updated home medication list.
I see no reason to get brain MRI currently.
Check B12, folic acid level.
Check obstruction series due to concern over constipation from opiates.
Will touch base with patient's oncologist, Dr. Noel.
Original Note:
Today's Communication/Plan
-
Please update home medication list
Assessment / Plan
Assessment / Plan
Gen-AAOx3, NAD
HEENT-NC, AT, anicteric, clear oral mm
Neck-supple
CV-reg, no M, +S1/S2
Lungs-clear B/L
Abd-soft, NT, ND
Ext-bilateral lower extremity edema
Musculoskeletal-no cyanosis, clubbing
Skin-warm and dry, faint right lower extremity erythema and warmth
Neuro-grossly non-focal
Psych-calm, cooperative
Acute toxic/metabolic encephalopathy -unclear etiology. Differential diagnosis of medication induced confusion versus other. He is on chronic opiates.
No evidence of infection.
CT head without contrast negative.
No obvious focality on neuroexam. Admitting physician ordered brain MRI.
Please update home medication list.
Minimize opiates.
Chronic pain syndrome/chronic opiate dependence
Bilateral lower extremity venous stasis dermatitis -worse on the right leg. No evidence of cellulitis. Will need compression therapy, Red wraps ordered. Discussed with nursing.
Patient has limited mobility at home, uses a walker.
Paresthesias -in both legs, both arms. May have underlying peripheral neuropathy, will need evaluation after discharge.
Chronic heart failure preserved EF
Severe persistent asthma -stable currently.
Essential hypertension -stable.
Hyperlipidemia
History of prostate cancer -diagnosed 2014, treated with prostatectomy, radiation.
GERD/gastric ulcers
History of nephrolithiasis
tobacco dependence
obesity due to excess calories
History of gastric bypass/short gut syndrome -with history of poor medication absorption.
Full code
PT/OT
I left a voicemail for patient's to call me back.
Anticipated Discharge: 24 - 48 hours
Subjective/Interval History
-
Date of Service: January 17, 2025
Patient seen and examined. Complaining of lower back pain. Complaining of paresthesias of both legs and both arms
Objective Data
-
Labs:
Laboratory Results
01/16/25 01/17/25
23:06 06:25
WBC 7.2
Hgb 12.1 L
Hct 37.7 L
Plt Count 324
HCO3 32.7 H
Sodium 136
Potassium 3.8
Chloride 101
Carbon Dioxide 32 H
BUN 16
Creatinine 0.7
Glucose 84
Calcium 9.0
Vital Signs:
Vital Signs
Temp Pulse Resp BP Pulse Ox
97.8 F 73 16 130/69 99
01/17/25 09:11 01/17/25 09:11 01/17/25 09:11 01/17/25 09:11 01/17/25 09:11
Review of Systems
-
History Source: Patient
All other systems: Reviewed and negative
[2025-01-17] MEDS: DESENEX/MITRAZOL/ZEASORB 1 APPLIC TOPICAL ×2 (11:19→20:27)
[2025-01-17] MEDS: NICODERM TRANSDERMAL 7 MG TRANSDERM (11:24)
--- NOTE | 2025-01-17 12:30 | CON.NEURO ---
Addendum entered and electronically signed by Payam Boykin MD 01/17/25 15:51:
Studies reviewed.
I have personally examined the patient. I reviewed and agree with the CLEANING MATRON's Note.
My addenda:
Awake, alert, interactive. No acute distress.
Speech intact.
Follows single step request without difficulty. Oriented to date and year. No tremor.
Extra-ocular movements grossly intact.
Facial movements full and symmetric. Hearing intact to normal conversational volume.
Normal UE movements bilaterally.
Neck: full ROM.
Chest: no dyspnea
Heart: no JVD
Ext: (-) Clubbing, (-) Cyanosis, (-) Edema
IMPRESSIONS/RECOMMENDATIONS:
Abrupt onset of change in mental status
Most likely due to toxic metabolic encephalopathy based on the patient's numerous medical issues and routine use of potentially sedative medications
Check MRI of brain to ensure no structural abnormalities producing symptoms
Would initiate antiplatelet agents if evidence of structural changes by MRI of brain
Check lipid profile to ensure no other etiologies for potential stroke including hypercholesterolemia
D/W patient / family
All questions answered.
Will continue to follow patient.
Original Note:
Neuro Assessment/Plan
Assessment
This is a 69-year-old with past medical history significant for prostate CA, COPD not on home O2, morbid obesity, history of opioid dependence, short gut syndrome, GERD, diastolic heart failure on diuretics who presented to [facility] on 01/16/2025 from
home for altered mental status.
Head CT: No acute intracranial abnormality.
Plan
Impression: abrupt onset of confusion most likely due to acute toxic metabolic encephalopathy vs stroke
-obtain brain MRI
-check blood work for metabolic disturbances
-DVT prophylaxis
All questions encouraged and answered, plan of care discussed with Dr. Boykin patient and
Consultation
Order
Date of Consultation: 01/17/25
Requesting Provider: hospitalist/Dr. Daniels
Reason for Consult: change in mental status
Subjective/Objective
Subjective Data
Date of Service: January 17, 2025
This is a 69-year-old with past medical history significant for prostate CA, COPD not on home O2, morbid obesity, history of opioid dependence, short gut syndrome, GERD, diastolic heart failure on diuretics who presented to [facility] on 01/16/2025 from
home for altered mental status. According to his who was at bedside, the patient was in mostly usual state of health the night prior to admission when he went to bed. He woke up the morning of admission and was unable to dress himself. He was
incoherent. He was able to go to his PET scan but unable to make it to his PCP's office. reports that starting 2 weeks ago he had a decrease in appetite and about 4 days ago he has been having frequent bouts of vomiting, voluminous, nonbloody
and nonbilious. He himself denies any nausea or diarrhea. He denies any SOB or chest discomfort. There have been no fevers or chills. Ambulates with a cane and has chronic back pain, denies recent falls. Denies weakness, numbness or tingling. Denies
issues with speech or swallow. Denies issues with bladder/bowel. Currently patient seems awake alert and is oriented. He states that his mental status is back to normal and has been since he got to the hospital. Per his mental status has
improved but is not back to baseline yet. Head CT with no acute intracranial abnormality. Labs unrevealing. Vital signs have been stable.
Objective Data
Vital Signs
Temp Pulse Resp BP Pulse Ox
97.6 F 74 16 138/70 99
01/17/25 11:00 01/17/25 11:22 01/17/25 11:22 01/17/25 11:00 01/17/25 11:00
Lab Results
01/17/25 06:25
01/17/25 06:25
Sodium 136 mmol/L (135-145) 01/17/25 06:25
Potassium 3.8 mmol/L (3.5-5.1) 01/17/25 06:25
BUN 16 mg/dl (9-20) 01/17/25 06:25
Glucose 84 mg/dl (70-99) 01/17/25 06:25
Calcium 9.0 mg/dl (8.4-10.2) 01/17/25 06:25
Vso-F-Dxnruyylrxz Pept 235 pg/ml 01/16/25 18:04
Patient Allergies
dupilumab (From 360T) Allergy (Verified 01/16/25 17:53)
Unknown
NSAIDS (Non-Steroidal Anti-Inflamma Adverse Reaction (Verified 01/16/25 17:53)
Can not take due to Gastric Bypass
Review of Systems
-
History Source: Family
Constitutional: No Symptoms
EENT: No Symptoms Reported
Respiratory: No Symptoms
Cardiac: No Symptoms
Abdomen/GI: Nausea and Vomiting
Genitourinary: No Symptoms
Musculoskeletal: No Symptoms
Neuro: Other (confusion)
Endocrine: No Symptoms
Hematologic / Lymphatic: No Symptoms
Allergy / Immunology: No Symptoms
Physical Exam
-
General: No Apparent Distress and Comfortable
HEENT: Normocephalic, Atraumatic and Anicteric
Neck: Full Range of Motion
Respiratory: No Dyspnea
Cardiac: No JVD
GI: Non-distended
Skin: Other (LEs in KAREN wrap)
Extremities: Edema +2
Psych: Other (aloof)
Extended Neurological Exam
Mood & Affect: Mood Unremarkable
Attention Span & Concentration: Awake, Alert, Interactive, Mild Difficulty with 2 Step Request and Other (oriented to person, place, month and year)
Memory: Vague and Incomplete Historian
Tremor: Hand Tremor Absent and Head Tremor Absent
Speech: Quality Unremarkable, Quantity Unremarkable and Rate of Production Unremarkable
Cranial Nerve II: Left Eye: Visual Corado Grossly Intact
Cranial Nerve II: Right Eye: Visual Corado Grossly Intact
Cranial Nerves III, IV, : Extraocular Movement: Extraocular Movement Full in all Directions
Cranial Nerve VII: Facial Symmetry: Normal Facial Symmetry
Cranial Nerve VIII: Hearing: Unremarkable Hearing to Normal Conversational Volume
Cranial Nerves IX, X: Palate Movement: Palate Elevation Symmetric
Muscle Strength, Overall: Spontaneously Moves
Pronator Drift: No Drift in Upper Extremities and No Drift in Lower Extremities
Touch Sensation: Double Simultaneous Stimulation Unremarkable
Coordination: Cfwfyi-uswx-lrdzrj Testing Unremarkable and Reaches for Objects without Difficulty
Data Reviewed
-
CT Head: Report Reviewed and Image Reviewed
MRI Head: Ordered
Labs: Report Reviewed
Reviewed with: Physician, Patient and Family
Old Records: Summarized
Medications
-
Active Medications
Generic Name Dose Route Start Last Admin
Trade Name Freq PRN Reason Stop Dose Admin
Acetaminophen 650 mg 01/17/25 02:22
Acetaminophen 325 Mg Tablet PO 02/14/25 02:21
Q4HPRN PRN
mild pain/WELSH/temp> 100.4F
Albuterol 2 puff 01/17/25 02:22
Albuterol Hfa [90 Mcg/Dose] Inhaler INH
R Q4HPRN PRN
WHEEZING
Protocol
Albuterol/Ipratropium 3 ml 01/17/25 08:00 01/17/25 11:18
Ipratropium 0.5/Albuterol 3 Mg (3 Ml Ampul) INH 3 ml
R QID SHIRIN Administration
Protocol
Bisacodyl 10 mg 01/17/25 02:22
Bisacodyl 10 Mg Rectal Suppository RECTAL 02/14/25 02:21
[id number] PRN
constipation
Budesonide 0.5 mg 01/17/25 08:00 01/17/25 08:09
Budesonide (Pulmicort Respules) 0.5 Mg/2 Ml INH 0.5 mg
R BID SHIRIN Administration
Protocol
Enoxaparin Sodium 40 mg 01/17/25 18:00
Enoxaparin Sodium 40 Mg/0.4 Ml Syringe SC 02/14/25 17:59
QPM SHIRIN
Hydromorphone HCl 4 mg 01/17/25 09:52
Hydromorphone 4 Mg Tablet PO 01/31/25 09:51
Q6HPRN PRN
severe pain
Lactated Ringer's 1,000 mls @ 80 mls/hr 01/17/25 12:00
Lr IV 01/18/25 12:59
.[id number] SHIRIN
Miconazole Nitrate 0 applic 01/17/25 10:00 01/17/25 11:19
Miconazole Powder Bottle TOPICAL 02/14/25 09:59 1 applic
BID SHIRIN Administration
Nicotine 7 mg 01/17/25 10:00 01/17/25 11:24
Nicotine 7 Mg Patch TRANSDERM 02/14/25 09:59 7 mg
DAILY SHIRIN Administration
Ondansetron HCl 4 mg 01/17/25 02:22
Ondansetron 4 Mg/2 Ml Vial IV 02/14/25 02:21
Q6HPRN PRN
nausea and vomiting
Patch Removal 0 patch 01/17/25 22:00
Remove Nicotine Patch REMOVE 02/14/25 21:59
HS SHIRIN
Polyethylene Glycol 17 grams 01/17/25 12:00
Polyethylene Glycol Powder 17 Grams Packet PO 02/14/25 11:59
DAILY SHIRIN
Senna/Docusate Sodium 1 tablet 01/17/25 02:22
Docusate W/Senna (Renay-Colace) Tablet PO 02/14/25 02:21
BIDPRN PRN
constipation
Sodium Chloride 0 flush 01/17/25 03:00
Sodium Chloride 0.9% (Flush) Syringe IV 02/14/25 02:59
PER PROTOCOL SHIRIN
Home Medications
�Medication �Instructions �Recorded
ipratropium 0.5 mg-albuterol 3 mg 3 ml inhalation Q4H PRN WHEEZING 08/01/24
(2.5 mg base)/3 mL nebulization
soln
budesonide 0.5 mg/2 mL suspension 0.5 mg (2 mL) inhalation BID #60 mL 11/24/24
for nebulization
baclofen 20 mg tablet 20 mg PO Q5H 01/17/25
calcium carbonate 600 mg PO DAILY 01/17/25
cholecalciferol (vitamin D3) 50 50 mcg PO DAILY 01/17/25
mcg (2,000 unit) tablet (Vitamin
D3)
furosemide 80 mg/10 mL 80 mg SC ONCE 01/17/25
subcutaneous wearable injector kit
(Furoscix)
hydromorphone 4 mg tablet 4 mg PO Q5H Pain 01/17/25
Past History
Past History
ED Past Medical History: Asthma, Cancer (Prostate CA, metastatic cancer found in a lymph node), Hypercholesterolemia and Other (UTI, Ulcers, Bronchitis, Renal calculus, Iron def. anemia, gastric bypass with short gut syndrome, heart failure with
preserved ejection fraction, DVT)
ED Past Surgical History: Appendectomy, Bowel resection, Orthopedic (Right ankle ORIF), Urological (Prostatectomy) and Other (Gastric bypass, Hernia, cataracts)
Family/Social History
Tobacco: Former smoker
Alcohol: Occasional
Drug: None
Personal:
Living: with family
Employment: Other
Family History: Other
[2025-01-17] MEDS: MIRALAX 17 GRAMS PO (13:25)
[2025-01-17] MEDS: LR 1000 IV (13:25)
[2025-01-17 13:29] LABS: Ferritin 290.0 ng/ml (17.9-464.0)
[2025-01-17 14:01] LABS: Folate 9.9 ng/ml (2.76-20); Vitamin B12 605 pg/ml (239-931)
[2025-01-17] MEDS: LOVENOX 40 MG SC (17:23)
[2025-01-17 18:06] LABS: HDL Cholesterol 48 mg/dl; LDL Cholesterol, Calculated 110 mg/dl; Very Low Density Lipoprotein 19 mg/dl (0-30)
[2025-01-17] MEDS: DILAUDID 4 MG PO (20:57)
[2025-01-17] MEDS: REMOVE NICOTINE PATCH 1 PATCH REMOVE (20:59)
[2025-01-18] MEDS: LR 1000 IV (02:08)
[2025-01-18] MEDS: DILAUDID 4 MG PO ×2 (03:17→12:00)
[2025-01-18 03:33] VITALS: BP 127/70
--- NOTE | 2025-01-18 04:58 | DOWNTIME ---
There was a [employer] Client Nurse Practitioner Adult Downtime on 01/18/2025 from 0100 to 01/18/2025 at 0235. Downtime documentation of patient's care, including medication administrations, has been reconciled in the electronic record per guidelines. Refer to the
patient's paper chart under the miscellaneous tab to see printed paper medication records and downtime forms.
[2025-01-18 06:00] VITALS: BMI 32.7
[2025-01-18 07:00] VITALS: BP 138/71
[2025-01-18] MEDS: PULMICORT 0.5 MG INH (07:16)
[2025-01-18] MEDS: DUONEB 3 ML INH ×2 (07:16→11:21)
[2025-01-18] MEDS: MIRALAX 17 GRAMS PO (07:30)
[2025-01-18] MEDS: NICODERM TRANSDERMAL 7 MG TRANSDERM (07:30)
[2025-01-18] MEDS: DESENEX/MITRAZOL/ZEASORB 1 APPLIC TOPICAL (07:31)
[2025-01-18 11:00] VITALS: BP 133/84
--- NOTE | 2025-01-18 11:21 | CM ---
Addendum entered by Minda Gonzalez 01/18/25 13:43:
Patient/ state they want to go back to outpatient PT
tt hospitalist for script to be given to patient
Addendum entered by Minda Gonzalez 01/18/25 13:30:
discharge today
home no needs
to transport
Original Note:
Patient seen at bedside with Kaylah
IA completed
MRI Today
THORPE form explained & signed. In chart
Patient lives with with in an in law suite of son, [address], one floor
PLOF: independent with walker, Independent with ADL's
DME: Walker, cane, nebulizer
Denies VN/Rehab
PCP: Lotus Valente
Pharmacy: [address], [place]
Plan: home, no needs anticipated
--- NOTE | 2025-01-18 12:52 | W.PN.HOSP.TC ---
Addendum entered and electronically signed by Mickey Daniels DO 01/18/25 13:11:
On further questioning, admits that the baclofen dose, which was originally prescribed 20 mg 3 times daily, was increased 2 weeks ago by the patient to 5 times per day in the hopes of alleviating his back pain.
We have been holding baclofen in the hospital and thus his mental status is now improved.
Spoke with and recommend reducing baclofen to 20 mg 3 times daily.
She plans to speak with the prescriber and try to wean it off completely.
Original Note:
Today's Communication/Plan
-
Discharge
Assessment / Plan
Assessment / Plan
Gen-AAOx3, NAD
HEENT-NC, AT, anicteric, clear oral mm
Neck-supple
CV-reg, no M, +S1/S2
Lungs-clear B/L
Abd-soft, NT, ND
Ext-bilateral lower extremity edema
Musculoskeletal-no cyanosis, clubbing
Skin-warm and dry, faint right lower extremity erythema and warmth
Neuro-grossly non-focal
Psych-calm, cooperative
Acute toxic/metabolic encephalopathy -unclear etiology. Differential diagnosis of medication induced confusion versus other. He is on chronic opiates. Mental status back to baseline, confirmed with at the bedside.
No evidence of infection.
CT head without contrast negative.
Brain MRI completed and discussed with neurologist. No evidence of metastatic disease. Questionable 2.5 mm focus of left temporal lobe subcortical white matter read by radiologist as possible subacute lacunar infarct. However, Dr. Boykin feels
clinically that this is not an infarct.
Tiny chronic lacunar infarct in the left cerebellum and right caudate head nucleus. Add aspirin 81 mg daily as per neurology.
Patient had an episode of chills this morning according to . No fevers. Looks nontoxic clinically. Doubt infection but would monitor temperatures at home moving forward. Discussed with .
Chronic pain syndrome/chronic opiate dependence -on oral Dilaudid every 5 hours as needed at home.
PET/CT scan done 01/16 suggestive of uptake at L2 and L3 vertebral bodies and superior endplate compression fractures of L2 and L3. Consideration of pathologic fractures although no appreciable osteoblastic metastatic focus on CT. Patient to
follow-up with Dr. Noel, his oncologist. Discussed with .
Bilateral lower extremity venous stasis dermatitis -worse on the right leg. No evidence of cellulitis. Will need compression therapy, Red wraps ordered. Discussed with nursing.
Patient has limited mobility at home, uses a walker.
Offered PT/OT consult but patient and declined. Want to pursue as an outpatient.
Paresthesias -in both legs, both arms. May have underlying peripheral neuropathy, will need evaluation after discharge.
Chronic heart failure preserved EF -stable.
Severe persistent asthma -stable currently.
Essential hypertension -stable.
Hyperlipidemia
History of prostate cancer -diagnosed 2014, treated with prostatectomy, radiation.
GERD/gastric ulcers
History of nephrolithiasis
tobacco dependence
obesity due to excess calories
History of gastric bypass/short gut syndrome -with history of poor medication absorption.
Full code
Dispo -patient and requesting discharge today. Recommend close outpatient follow-up.
32 minutes spent in discharge process.
Anticipated Discharge: Today
Subjective/Interval History
-
Date of Service: January 18, 2025
Patient seen and examined. Feeling better, no complaints. He did have an episode of feeling chills this morning now improved. Denies fevers.
Objective Data
-
Vital Signs:
Vital Signs
Temp Pulse Resp BP Pulse Ox
97.9 F 79 16 133/84 93
01/18/25 11:00 01/18/25 11:24 01/18/25 11:24 01/18/25 11:00 01/18/25 11:24
I&O
01/17/25 01/18/25 01/19/25
06:59 06:59 06:59
Intake Total 420 / 420
Output Total 450 / 450
Balance -30 / -30
Review of Systems
-
History Source: Patient
All other systems: Reviewed and negative
--- NOTE | 2025-01-18 13:11 | W.DS.TRANS ---
DC Summary - [facility]
-
Discharge Instructions:
Sleep Apnea Risk Intermediate
Discharge Diagnosis/Procedures Acute encephalopathy due to medications
Diet Low Cholesterol,Low Fat
Activity As tolerated
Driving Restrictions No driving
Bathing Restrictions None
Instructions:
Stand-Alone Forms:
Changes to Home Medications: Yes
Discharge Medications:
DC Medications w/original date entered in [employer]
ipratropium 0.5 mg-albuterol 3 mg (2.5 mg base)/3 mL nebulization soln 3 ml inhalation Q4H PRN WHEEZING 08/01/24
budesonide 0.5 mg/2 mL suspension for nebulization 0.5 mg (2 mL) inhalation BID #60 mL 11/24/24
calcium carbonate 600 mg PO DAILY 01/17/25
cholecalciferol (vitamin D3) 50 mcg (2,000 unit) tablet (Vitamin D3) 50 mcg PO DAILY 01/17/25
hydromorphone 4 mg tablet 4 mg PO Q5H Pain 01/17/25
albuterol sulfate 90 mcg/actuation aerosol inhaler 2 puff inhalation R Q4HPRN PRN WHEEZING #0 grams 01/18/25
baclofen 20 mg tablet 20 mg PO TID #0 tabs 01/18/25
Home Medication Changes
Reduce baclofen to 20 mg 3 times daily
Pending Results: No
[2025-01-18 14:23] VITALS: BP 143/83
== END 2025-01-18 15:07 | disposition home or self-care (01) ==
LOC: 3 WEST ACU 23:59
PROVIDERS: Student in an Organized Health Care Education/Training Program; ADMITTING PHYSICIAN Internal Medicine; ATTENDING PHYSICIAN Hospitalist; CONSULT PHYSICIAN Psychiatry & Neurology Neurology; EMERGENCY PHYSICIAN Emergency Medicine; FAMILY PHYSICIAN Physician Assistant Medical
DX: G92.8 Other toxic encephalopathy (principal); Z79.899 Other long term (current) drug therapy; T42.8X5A Adverse effect of antiparkinsonism drugs and other central muscle-tone depressants, initial encounter; R41.82 Altered mental status, unspecified; I50.32 Chronic diastolic (congestive) heart failure; J44.89 Other specified chronic obstructive pulmonary disease; I87.2 Venous insufficiency (chronic) (peripheral); G89.4 Chronic pain syndrome; E87.3 Alkalosis; J45.50 Severe persistent asthma, uncomplicated; F17.200 Nicotine dependence, unspecified, uncomplicated; E66.09 Other obesity due to excess calories; Z68.32 Body mass index [BMI] 32.0-32.9, adult; Z79.51 Long term (current) use of inhaled steroids; E78.00 Pure hypercholesterolemia, unspecified; Z11.52 Encounter for screening for COVID-19; F11.20 Opioid dependence, uncomplicated; I11.0 Hypertensive heart disease with heart failure; K25.9 Gastric ulcer, unspecified as acute or chronic, without hemorrhage or perforation; Z79.82 Long term (current) use of aspirin
CPT/HCPCS: 70450; 70553; 71046; 74022; 80048; 80053; 80061; 81003; 81015; 82607; 82728; 82746; 82805; 83690; 83735; 83880; 84443; 85025; 85027; 85652; 86140; 87040; 87811; 93970; 94640; 99285; 99406; A9575; G0378

== ENCOUNTER → 2025-02-01 14:20 | Outpatient (REF) | payer OTHER, SELFPAY ==
[2025-02-01 15:00] LABS: Hematocrit 36.4 % (39.0-52.0); Hemoglobin 12.0 g/dL (13.0-18.0); Mean Corp Hgb Conc. 33.0 g/dL (33.0-37.0); Mean Corpuscular Volume 92.2 fL (80.0-94.0); Nucleated Red Blood Cells % 0 % (-); Platelet Count 252 10^3/uL (130-400); Red Cell Dist. Width 14.2 % (11.5-14.5)
[2025-02-01 15:27] LABS: ALT (SGPT) 11 U/L (0-50); AST (SGOT) 12 U/L (17-59); Albumin 3.2 g/dl (3.5-5.0); Alkaline Phosphatase 147 U/L (38-126); Blood Urea Nitrogen 16 mg/dl (9-20); Calcium 8.9 mg/dl (8.4-10.2); Carbon Dioxide 25 mmol/L (22-30); Chloride 100 mmol/L (98-107); Glucose 115 mg/dl (70-99); Lipase 28 U/L (23-300); Potassium 4.0 mmol/L (3.5-5.1); Sodium 131 mmol/L (135-145); Total Protein 5.7 g/dl (6.3-8.2); eGFR > 60.00
== END ==
LOC: REG 14:20
PROVIDERS: ATTENDING PHYSICIAN Physician Assistant Medical
DX: R68.89 Other general symptoms and signs (principal); R60.0 Localized edema; R11.2 Nausea with vomiting, unspecified
CPT/HCPCS: 36415; 80053; 83605; 83690; 83880; 85025

== ENCOUNTER 2025-02-01 23:59 | Inpatient (IN) | payer OTHER, SELFPAY ==
[2025-02-01 16:49] VITALS: BP 128/60
[2025-02-01 17:19] LABS: Hematocrit 34.6 % (39.0-52.0); Hemoglobin 11.6 g/dL (13.0-18.0); Mean Corp Hgb Conc. 33.5 g/dL (33.0-37.0); Mean Corpuscular Volume 89.6 fL (80.0-94.0); Nucleated Red Blood Cells % 0 % (-); Platelet Count 232 10^3/uL (130-400); Red Cell Dist. Width 14.1 % (11.5-14.5)
[2025-02-01 17:22] LABS: Urine Character Slightly Cloudy (Clear)
[2025-02-01 17:32] LABS: ALT (SGPT) 10 U/L (0-50); AST (SGOT) 14 U/L (17-59); Albumin 3.0 g/dl (3.5-5.0); Alkaline Phosphatase 134 U/L (38-126); Blood Urea Nitrogen 17 mg/dl (9-20); Calcium 8.4 mg/dl (8.4-10.2); Carbon Dioxide 25 mmol/L (22-30); Chloride 101 mmol/L (98-107); Glucose 125 mg/dl (70-99); Potassium 4.0 mmol/L (3.5-5.1); Sodium 129 mmol/L (135-145); Total Protein 5.6 g/dl (6.3-8.2); eGFR > 60.00
[2025-02-01 17:44] LABS: Urine Red Blood Cell 0-2 /HPF (0-2); Urine Squamous Cell 0-2 /LPF (Few); Urine White Cell 50-60 /HPF (0-5)
[2025-02-01 20:31] VITALS: BP 115/69
[2025-02-01 20:40] VITALS: BMI 31.3
[2025-02-01 21:00] VITALS: BP 113/71
--- NOTE | 2025-02-01 21:23 | ED.GENMED ---
History of Present Illness
General
Chief Complaint: Abnormal Lab Value
Source: patient and spouse (Spouse states temperature was 101 at home)
Time Seen by Provider: 02/01/25 21:07
History of Present Illness
History of Present Illness:
Note:
CHIEF COMPLAINT(S)
Shortness of breath, fever, back pain.
HISTORY OF PRESENT ILLNESS
The patient is a 69-year-old male with a history of back surgeries presenting with shortness of breath, fever, and back pain. The patient began experiencing shaking and a sensation of cold around January 02. A fever was documented last night at a
temperature of 101.0�F, which is high for him, considering his baseline is 97.5�F. The patient reported new back pain associated with two new vertebral compression fractures. He also noted dribbling urination secondary to prior prostate surgery and
mentioned leakage with strain or ambulation. The patient has had previous kidney stones, and his current symptoms suggest a possible urinary infection, with bacteria noted in the urine. He has a history of heart failure with a recent increase in
white blood cell count and concerns about edema in the extremities.
PAST MEDICAL AND SURIGICAL HISTORY
- Prostate surgery (leads to urinary incontinence)
- Multiple back surgeries last year.
CHRONIC MEDICAL CONDITIONS SIGNIFICANTLY AFFECTING CARE
The patient has a history of heart failure, which complicates the management of his current infection, as it poses a risk of volume overload.
SOCIAL DETERMINANTS AFFECTING HEALTH
The patient may be experiencing barriers to healthcare, given the discussion of missed work and financial issues related to care, as evidenced by his last hospitalization not addressing ongoing symptoms.
MEDICATIONS
The patient previously discontinued furosemide (Lasix) and torsemide, but discussions indicate that a diuretic may need to be reintroduced due to potential fluid overload and heart failure management.
REVIEW OF SYSTEMS
- Constitutional: Fever, chills.
- Respiratory: Shortness of breath.
- Gastrointestinal: Diarrhea.
- Genitourinary: Dribbling, leaking urine, history of kidney stones, and suspected urinary tract infection.
- Musculoskeletal: Back pain, history of vertebral compression fractures.
PHYSICAL EXAM
General: Awake, alert, and oriented, in mild respiratory distress.
Skin: Small laceration to the medial aspect of the right lower extremity with b/l LE edema.
Head: Normocephalic, atraumatic.
Neck: Supple, trachea midline.
Eye Ears, nose, mouth and throat: Oral mucosa moist.
Cardiovascular: Regular rhythm.
Respiratory: Diminished breath sounds at the bilateral bases.
Gastrointestinal: No abdominal tenderness, normal abdomen.
Back: No further tenderness beyond compression fractures.
Musculoskeletal: Limited range of motion secondary to back pain.
Neurological: Alert and oriented to person, place, time, and situation.
Psychiatric: Cooperative, appropriate mood & affect.
PROBLEM LIST
Acute Problems:
- Fever
- Shortness of breath
- Urinary tract infection
Chronic Problems:
- Heart failure
- Vertebral compression fractures
- Urinary incontinence post-prostate surgery
PLAN
- Admit the patient for further evaluation and management.
- Start intravenous antibiotics for suspected urinary tract infection.
- Administer antipyretics such as acetaminophen for fever control.
- Obtain imaging studies, including abdominal imaging to assess for possible obstruction due to kidney stones or other pathologies.
- Ensure fluid balance considerations due to heart failure with careful monitoring of input and output.
- Consult pain management for back pain secondary to compression fractures.
- Address the laceration on the lower extremity with skin adhesive to promote healing.
DIFFERENTIAL DIAGNOSIS
The Differential Diagnosis includes, in no particular order and is not limited to:
- Urinary tract infection
- Pyelonephritis
- Heart failure exacerbation
- Pneumonia
- Viral infection
- Back strain or sprain
- Septicemia
- Kidney stones
- Prostatitis
- Cellulitis
EKG
My independent EKG interpretation is:
- Time of EKG: Not specified
- Rhythm: Normal
- Heart Rate: 92 beats per minute
- IN Interval: Normal
- QRS Duration: Normal
- QT Interval: Normal
- [place]: Normal
- Abnormalities Observed: No acute ischemic changes
Disposition:
SUMMARY OF ENCOUNTER
The patient, a 69-year-old male with a history of acute toxic encephalopathy due to baclofen, chronic pain syndrome, and chronic opioid dependence, presented to the emergency department with a fever and a history of urinary tract infections.
Laboratory results showed leukocytosis (WBC of 12.8) with a left shift, low sodium (129), and abnormal urinalysis indicating infection. Imaging via CT of the abdomen and pelvis revealed no hydronephrosis but identified stranding along the left
kidney suggestive of pyelonephritis. The patients medical history includes a prostatectomy. Given his symptoms of fever and urinary tract infection along with a history of E. coli infections from previous cultures, intravenous cefepime was
administered, and the decision was made to admit the patient for further management.
DISPOSITION
Admit.
ASSESSMENT
The patient is considered to have a urinary tract infection potentially evolving into pyelonephritis given the CT findings, alongside a urinary analysis indicating significant infection markers. Chronic conditions such as prior toxic encephalopathy,
chronic pain syndrome, and opioid dependence were also noted.
EMERGENCY TREATMENTS ADMINISTERED
Intravenous cefepime was initiated in response to known E. coli urinary infection history.
MANAGEMENT OF THE PATIENTS CARE WAS DISCUSSED WITH
Case discussed with hospitalists for admission and continued management.
PLAN
Manage fever and urinary tract infection with IV antibiotics; continue monitoring for the development of any sepsis signs given the background of immune-compromise and recent hospital admission. Na+ levels, WBC counts, and kidney function to be
closely monitored in the inpatient setting.
INDEPENDENT REVIEW OF LABS AND INTERPRETATION OF TESTS
- My independent review of the CBC is indicating leukocytosis of 12.8 with a left shift.
- Electrolytes reveal low sodium at 129.
- My independent review of the urinalysis is significant for abnormal findings with 3+ leukocytes, 50-60 WBCs per HPF, and many bacteria, in addition to 3+ albumin presence.
- My independent interpretation of CT abdomen/pelvis shows stranding along the left kidney suggesting pyelonephritis.
MEDICATION RECONCILIATION
Intravenous cefepime initiated.
MEDICAL DECISION MAKING
- Number and Complexity of Problems Addressed: Chronic conditions affecting care include a history of acute toxic encephalopathy, chronic pain syndrome, opioid dependence, and prostatectomy.
- Data:
- Category 1: Tests showed leukocytosis and electrolyte imbalance; CT imaging indicated possible pyelonephritis.
- Category 3: Discussed with the hospitalist for potential complications due to chronic conditions and current infection.
- Risk: Consideration for admission due to fever, infection potential progression, and the patients complex medical history. Hospital admission was deemed necessary for proper monitoring and treatment adjustments.
DIAGNOSIS
- Urinary tract infection, unspecified organism (ICD-10: N39.0)
- Potential pyelonephritis (ICD-10: N10)
- History of chronic opioid dependence (ICD-10: F11.21)
Past History
Past History
ED Past Medical History: Asthma, Cancer (Prostate CA, metastatic cancer found in a lymph node), Hypercholesterolemia and Other (UTI, Ulcers, Bronchitis, Renal calculus, Iron def. anemia, gastric bypass with short gut syndrome, heart failure with
preserved ejection fraction, DVT)
ED Past Surgical History: Appendectomy, Bowel resection, Orthopedic (Right ankle ORIF), Urological (Prostatectomy) and Other (Gastric bypass, Hernia, cataracts)
Social History
Tobacco: Former smoker
Alcohol: Occasional
Drug: None
Personal:
Living: with family
Employment: Other
Family History
Family History: Other
Phy Exam
Physical Exam
Physical Exam:
.
Course
Orders/Labs/Results
Orders:
Orders
02/01/25 16:53
Electrocardiogram (*1) Urgent
Reason for Study: Other
Other Reason for Exam: Possible Sepsis
02/01/25 16:54
EKG- Treatment ONCE
02/01/25 17:12
Complete Blood Count/With Diff Urgent
Comprehensive Metabolic Panel Urgent
Lactic Acid Urgent
NT-proBNP Urgent
Urinalysis Reflex To Culture Urgent
Date Specimen was Collected: 02/01/25
Time Specimen was Collected: 16:54
Urine Microscopic Reflex Cult Urgent
Blood Culture Urgent
[facility] Source: Blood/Venous
Specimen Description:
Date Specimen was Collected: 02/01/25
Time Specimen was Collected: 16:54
Urine Culture Urgent
[facility] Source: U
Specimen Description:
Date Specimen was Collected: 02/01/25
Time Specimen was Collected: 16:54
02/01/25 21:24
CT Abd/pel Without Iv Or Oral Urgent
Comment:
Reason For Exam: UTI, h/o stones, back pain
CR Chest - 2 Views Urgent
Comment:
Reason For Exam: sob, LE edema
02/01/25 21:25
Cefepime HCl [Maxipime] 2,000 mg IV NOW STA
02/01/25 21:34
Acetaminophen [Tylenol] 1,000 mg PO NOW STA
02/01/25 21:57
Blood Culture Q30M
[facility] Source: Blood/Venous
Specimen Description:
Blood Culture Q30M
[facility] Source: Blood/Venous
Specimen Description:
02/01/25 23:52
Admit/Transfer Patient As Directed
Co-Sign Provider:
Level of Care: Inpatient admission
Assign to:: Telemetry
Physician / Group: Tommy
Diagnosis: pyelonephritis
Reason for Telemetry: Subacute Heart Failure
Date to Stop Telemetry: 02/03/25
Time to Stop Telemetry: 11:00
Reason for Hospitalization: pyelonephritis
Expected length of stay greater than two midnights?: Yes
ELOS- Estimated Length of Stay in days: 2
I certify the patient meets the requirements for IP care: Yes
PRN Pain Medication Management As Directed
May give lesser potent ordered pain med per pt: Yes
preference::
Protocol:: Medication orders for pain may be administered in a
manner that supports deferring to patient preference
when the pt is:
- Requesting an ordered lesser potent pain medication.
Least to most potent pain medications are defined
as: acetaminophen < NSAID < tramadol < opioids
(morphine, oxycodone, hydromorphone).
- Requesting a lesser dose of the same medication IF
ORDERED.
- Requesting a less intrusive route of administration
if both routes are prescribed by the provider (PO <
IV).
02/01/25 23:54
Code Status As Directed
Resuscitation Status: Full Code
02/01/25 23:57
Urine Osmolality Random [Osmolality, Random Urine] Stat
Date Specimen was Collected: 02/02/25
Time Specimen was Collected: 02:32
Urine Sodium Stat
Date Specimen was Collected: 02/02/25
Time Specimen was Collected: 02:32
02/02/25 01:11
Acetaminophen [Tylenol] 650 mg PO Q6HPRN PRN
Ipratropium/Albuterol Sulfate [Duoneb] 3 ml INH R Q4HPRN PRN WHEEZING
Ondansetron Injectable [Zofran] 4 mg IV Q6HPRN PRN
02/02/25 01:11
Echo 2D MMode Color/Doppler Routine
Reason for Study: heart failure
HF DIETARY CONSULT Routine
HF EDUCATOR CONSULT Routine
Comment:
Activity As Directed
Activity Level: With Assistance
Intake/ Output As Directed
Frequency: Per unit guidelines
Patient Education As Directed
Type: CHF folder
Comment: give on admission. Document in Interdisciplinary Education record
Sleep Apnea Assessment by RN As Directed
Comment:
Physician Instructions:
Vital Signs As Directed
Frequency: Other
Additional Instructions:: Q12 or per unit guidelines if more frequent.
Weight As Directed
Frequency: Daily
Type of Scale: Standing Scale
Comment: Daily morning weight. If unable to stand, use balanced bed scale.
Weight As Directed
Frequency: Once
Type of Scale: Standing Scale
Comment: Upon Admission. If unable to stand, use balanced bed scale.
O2 Therapy [RESP] Routine
Nasal Cannula Liter Flow: 2 LPM
Titrate/Wean O2 to maintain O2 sat greater than (%): 93
Pulse Ox/cont/shift [RESP] Routine
Quantity: 1
Special Instructions: Daily pulse oximetry at rest. If greater than 92% at rest also obtain pulse oximetry
while ambulating as tolerated.
DX Deep Vein Thrombosis Video Routine
02/02/25 04:00
Cefepime HCl [Maxipime] 1,000 mg IV Q6H
02/02/25 Breakfast
Cholesterol Lowering
At Your Request: Full Participation
Fluid Restriction: 1440 mL/day (48 oz)
Cholesterol Lowering: Sodium, 2 Gram
Basic Metabolic Panel IN AM
Complete Blood Count/No Diff IN AM
Magnesium IN AM
TSH Reflex To Free T4 IN AM
02/02/25 08:00
Furosemide [Lasix] 20 mg IV BID AT 0800,1600
02/02/25 18:00
Enoxaparin Sodium [Lovenox] 40 mg SC QPM
02/03/25 06:00
Basic Metabolic Panel IN AM
02/03/25 11:00
DC Protocol for Telemetry ONCE
02/04/25 06:00
Basic Metabolic Panel IN AM
Abnormal Lab Results
02/01/25
17:12
WBC 12.8 H 10^3/uL
(4.8-10.8)
RBC 3.86 L 10^6/uL
(4.70-6.10)
Hgb 11.6 L g/dL
(13.0-18.0)
Hct 34.6 L %
(39.0-52.0)
Abs Immat Gran (auto) 0.1 H 10^3/uL
(0-0.05)
Absolute Neuts (auto) 11.9 H 10^3/uL
(1.4-6.5)
Absolute Lymphs (auto) 0.2 L 10^3/uL
(1.2-3.4)
Neutrophils % 93.2 H %
(42.2-75.2)
Lymphocytes % 1.6 L %
(20.5-51.1)
Sodium 129 L mmol/L
(135-145)
Glucose 125 H mg/dl
(70-99)
AST 14 L U/L
(17-59)
Alkaline Phosphatase 134 H U/L
(38-126)
Total Protein 5.6 L g/dl
(6.3-8.2)
Albumin 3.0 L g/dl
(3.5-5.0)
Ur Occult Blood Reflex 4+ A
(Negative)
Leukocyte Esterase Rfl 3+ A
(Negative)
Urine WBC (Reflex) 50-60 A /HPF
(0-5)
Urine Bacteria (Reflex) Many A
(Negative)
Urine Albumin (Reflex) 3+ A
(Neg - Trace)
02/01/25 17:12
02/01/25 17:12
Vital Signs
Temp: 100.7 F
Initial and Last Documented VS:
Initial Vital Signs
Temp Pulse Resp BP Pulse Ox
99.4 F 94 16 128/60 98
02/01/25 16:49 02/01/25 16:49 02/01/25 16:49 02/01/25 16:49 02/01/25 16:49
Last Documented Vital Signs
Temp Pulse Resp BP Pulse Ox
98.3 F 85 24 136/78 98
02/02/25 02:35 02/02/25 02:35 02/02/25 02:35 02/02/25 02:35 02/02/25 02:35
Procedures
Laceration Closure
Right Leg:
Status of Wound: clean
Size of Wound in cm: 2.5
Description of Wound Edges: flap-well vascularized
Preparation: cleaned with saline
Revision/Debridement: routine- no revision
Type of Closure: Dermabond-skin glue (With mesh)
Additional information:
Difficult wound closure due to seeping of serous fluid through the wound. Dermabond mesh and Dermabond was used
*Pulse Oximetry
SaO2: 94
Oxygen Mode of Delivery: Room air
Patient hypoxic: yes
*Critical Care Note
Total Time (30-74mins, 75-104mins- exclusive of procedures): Not Applicable
Data Reviewed
Review of Other/Old Records Reveals: Labs and Discharge Summary (12/2024)
Source: patient and spouse
ED Attending Note
-
Portions of this chart may have been created with voice recognition software.� Occasional wrong word or��sound alike� substitutions may have occurred due to the inherent limitations of voice recognition software.
Discharge Plan
Departure
Patient Disposition: Admit
Date of Disposition: 02/01/25
Time of Disposition: 23:13
Admit to: Med/Surg
Presentation/result/management discussed w/ accepting MD/DO: Hospitalist
Discharge Problem:
Acute pyelonephritis, Bilateral lower extremity edema, Laceration of leg
Interventions
Interventions:
*Risk Screen - Suicide Last Done: 02/01/25 16:49
*General Assessment Last Done: 02/01/25 20:37
*Neglect/Abuse Screening Last Done: 02/01/25 16:49
*ED- Fall Risk Assessment Last Done: 02/01/25 16:49
*ED COVID-19 Vaccine History Last Done: 02/01/25 20:13
*Nursing Disposition Last Done: 02/02/25 01:03
Discharge Date and Time
Discharge Date/Time: 02/02/25 01:04
[2025-02-01] MEDS: MAXIPIME 2000 MG IV (21:55)
[2025-02-01] MEDS: TYLENOL 1000 MG PO (21:55)
[2025-02-01 22:00] VITALS: BP 126/72
--- NOTE | 2025-02-01 23:26 | HPS.HSE ---
Family Physician
-
Family Physician: Lotus Valente PA-C
Chief Complaint
-
Abnormal lab value
History of Present Illness
This is a 69-year-old with past medical history significant for COPD not on home O2, morbid obesity, chronic pain, short gut syndrome, GERD, diastolic heart failure on diuretics who presents to the emergency department from home for fever and
possible urinary tract infection.
Patient was recently admitted for altered mental status. This was thought to be secondary to toxic encephalopathy from medications including baclofen. Patient reports that he has discontinued the baclofen. He has been doing well at home until 2
days ago when he started having new urinary symptoms. He said his urine turned very dark. He has chronic incontinence status post prostate surgery. He also has a history of kidney stones. Due to the dark urine he was concerned about a urine
tract infection. He did state he had a temperature with a fever up to 102.3 at home. He followed up with his physician the following day. Day he had chills and rigors. CBC was drawn with leukocytosis these were referred to the emergency
department.
Patient stated that his spouse thought that he had instrumentation of his bladder while he was in the hospital but only for a very short time. He has no recent memory of a urinary tract infection.
Patient has chronic lower extremity edema but has not been on diuretics for a while. He has chronic diastolic CHF. He says that he is unable to absorb oral diuretics due to history of gastric bypass and bowel resection. He states that he is lower
extremity edema that improved with Red wrap and he has not had any recent weight gain. He denies orthopnea or PND. He denies any shortness of breath.
In the emergency department the patient was febrile with a temp of 100.7,, blood pressure was 126/70 with a pulse of 82 he was satting 100% on room air.
Chest x-ray shows no acute cardiopulmonary abnormality. ED ECG shows a normal sinus rhythm at rate of 92. No acute ischemic changes.
WBC shows a white count of 12.6 with hemoglobin and platelets been normal. His electrolytes notable for a sodium of 129 but otherwise unremarkable. UA was markedly positive.
CT of the abdomen pelvis without hydronephrosis, no obstructive stones, there are nonobstructing stones in the left kidney measuring up to 4 mm in the lower pole and there is mild asymmetric stranding along the left kidney which is nonspecific but
can be seen with pyelonephritis.
Medical History
Past Medical History
Past Medical History: Reports Other
Additional Past Medical History:
Asthma
Chronic bronchitis
chronic CHF preserved EF, malabsorption issues history of Deepa-en-Y 2005 with possible short gut syndrome
DVT right leg nonocclusive thrombus right popliteal/posterior tibial vein 08/03/2023
Chronic back pain on chronic oral opiates
OHOGAMIUT
Iron deficiency anemia
GERD/gastric ulcers
Prostate cancer Dx 2014 status post prostatectomy, radiation 2015, radiation 2022 with Lupron shot x 1 in August
Renal calculi August 2023
Shingles August 2023
Past Surgical History: Reports Other
Additional Past Surgical History:
Gastric bypass Deepa-en-Y 2005
Lumbar laminectomy June 2023
Right ankle and leg ORIF 1995
Appendectomy 1987
Hernia repair 2014, 2015
Exploratory lap 2023
Social History
Tobacco: Former Smoker (Reports smoked a few years when he was in the service)
Alcohol: None
Drug: None
Personal:
Living: With Family ( Aiyana)
Family History
Family History: Not pertinent and Other (Mother history of pituitary cancer, sister CAD in her 50s, father CAD, CVA, leukemia age 60s)
Allergies / Home Medications
Allergies reflects when Allergies were last updated in [facility].
Home Medications with original date entered in [facility]
Allergy/Medication List:
Allergies
Allergy/AdvReac Type Severity Reaction Status Date / Time
dupilumab [From [employer]] Allergy Unknown Verified 03/04/24 11:04
NSAIDS (Non-Steroidal AdvReac Can not Verified 03/04/24 11:04
Anti-Inflamma take due
to Gastric
Bypass
Home Medications
albuterol sulfate 90 mcg/actuation aerosol inhaler 2 puff inhalation R Q6HPRN PRN sob 06/23/23
ipratropium 0.5 mg-albuterol 3 mg (2.5 mg base)/3 mL nebulization soln 3 ml inhalation R Q6HPRN PRN sob 06/23/23
hydrocodone 10 mg-acetaminophen 325 mg tablet 1 tab PO QID Pain 08/22/23
cyanocobalamin (vitamin B-12) 100 mcg tablet 100 mcg PO DAILY #30 tabs 08/26/23
pantoprazole 40 mg tablet,delayed release 40 mg PO DAILY #30 tabs 08/26/23
potassium chloride 20 mEq/15 mL oral liquid 20 meq PO DAILY 03/04/24
sennosides 8.6 mg tablet (senna) 17.2 mg PO DAILYPRN PRN constipation 03/04/24
torsemide 20 mg tablet 40 mg PO BID 03/04/24
Review of Systems
-
History Source: Patient and Family
Constitutional: Reports No Symptoms
EENT: Reports No Symptoms
Respiratory: Reports No Symptoms
Cardiac: Reports No Symptoms
: Reports Flank Pain and Incontinence
Musculoskeletal: Reports Edema
Skin: Reports No Symptoms
Neurological: Reports Weakness
Endocrine: Reports No Symptoms
Hematologic/Lymphatic: Reports No Symptoms
Psych: Reports No Symptoms
Physical Exam
Vital Signs
Vital Signs
Temp Pulse Resp BP Pulse Ox
100.7 F H 82 24 126/72 97
02/01/25 21:24 02/01/25 22:00 02/01/25 22:00 02/01/25 22:00 02/01/25 22:00
Physical Exam
General: Well Developed and Respiratory Distress
HEENT: NormoCephalic, Anicteric and Moist mucous membranes
Respiratory: No Rales or Crackles
Cardiac: S1/S2 and Regular Rhythm
Breast: Deferred by me
GI: Soft, Non Distended and Normal Bowel Sounds
Rectal: Deferred by Provider
Genito-urinary: Deferred by me
Musculoskeletal: No Clubbing, No Cyanosis, Edema, Left Lower Extremity (2+ ankle) and Edema, Right Lower Extremity (2+)
Skin: Warm
Neuro: Awake, Alert, Oriented (oriented to person and place but not time) and Nonfocal/grossly intact; No Slurred Speech or Facial Droop
Hematologic/Lymphatic: No Lymphadenopathy
Psych: Calm
Laboratory Results
-
02/01/25 17:12
02/01/25 17:12
Laboratory Results
Lactic Acid Cancelled 02/01/25 21:57
Total Bilirubin 0.6 mg/dl (0.2-1.3) 02/01/25 17:12
AST 14 U/L (17-59) L 02/01/25 17:12
ALT 10 U/L (0-50) 02/01/25 17:12
Alkaline Phosphatase 134 U/L (38-126) H 02/01/25 17:12
Data Reviewed
-
Diagnostic Radiology: Image Personally Visualized and interpreted
CT Scan: Report Reviewed by me
Medical Tests (Nuc Med, Echo, EKG etc): Image Personally Visualized and interpreted
Lab Data: Labs Reviewed by me
Old Records: Reviewed
Impression/Plan
-
IMPRESSION:
69-year-old with history of asthma, COPD, diastolic CHF, chronic lower extremity edema, chronic pain, chronic incontinence secondary to status post prostate surgery presents to ED with fevers at home, chills rigors and elevated WBCs. He reports
dark urine with ongoing incontinence. He also reports some flank pain. Has been no nausea or vomiting. Patient says he does feel weak and sicker than usual. The UA is markedly positive. CT scan without any urological obstruction but did shows
nephrolithiasis and left pyelonephritis.
PLAN:
Pyelonephritis -patient with severe pyelonephritis without sepsis
- Admit to telemetry for now
- Blood cultures, urine cultures
- Continue IV ceftriaxone
Lower extremity edema -diastolic CHF, BNP is 4 elevated to 900 compared to prior. Patient has no weight gain and has no pulmonary edema. He does have chronic lower extremity edema which he states is actually improved with a compression wrappings.
He says he is continue to lose weight. He denies orthopnea or PND. He is placed on 2 L of oxygen in the ED but x-ray shows no pulmonary edema. Not on diuretics, cannot tolerate oral diuretics due to poor absorption and has been treated with subq
infusion or IV injection in clinic in the past but non recently.
- telemetry
- echo
- start gentle IV diuresis with Lasix 20 mg twice daily for now and monitor his weight swelling and labs
- Continue compression stockings
- Monitor orthostatic vital sign
COPD/Chronic bronchitis -no acute exacerbation
- Continue inhaled steroids and his DuoNebs as needed
Hyponatremia - Na 129, down from 135. There is peripheral edema which is chronic, elevated BNP. Likely hypervolemic.
- fluid restriction for now 1500ml
- urine osm, urine Na and tsh
- orthostatics
- lasix 20mg iv bid for now and monitor
DVT PPX - lovenox sq
Code status -Full Code
[2025-02-01 23:43] VITALS: BP 84/72
[2025-02-02] VITALS (8 sets, daily range): BP systolic 117–140; BP diastolic 65–89; PULSE 99–113; BMI 30.2
[2025-02-02] MEDS: LASIX 20 MG IV ×2 (00:28→08:54)
[2025-02-02] MEDS: STERILE WATER FOR INJECTION 10 ML IV ×4 (04:34→22:07)
[2025-02-02] MEDS: MAXIPIME 1000 MG IV ×4 (04:34→22:07)
[2025-02-02 06:47] LABS: Hematocrit 33.2 % (39.0-52.0); Hemoglobin 11.0 g/dL (13.0-18.0); Mean Corp Hgb Conc. 33.1 g/dL (33.0-37.0); Mean Corpuscular Volume 90.5 fL (80.0-94.0); Platelet Count 228 10^3/uL (130-400); Red Cell Dist. Width 13.9 % (11.5-14.5)
[2025-02-02 07:03] LABS: Blood Urea Nitrogen 17 mg/dl (9-20); Calcium 8.1 mg/dl (8.4-10.2); Carbon Dioxide 25 mmol/L (22-30); Chloride 101 mmol/L (98-107); Estimated Creatinine Clearance 111 ml/min; Glucose 114 mg/dl (70-99); Magnesium 1.9 mg/dl (1.6-2.3); Potassium 3.6 mmol/L (3.5-5.1); Sodium 130 mmol/L (135-145); eGFR > 60.00
[2025-02-02] MEDS: DUONEB 3 ML INH ×2 (07:48→17:58)
[2025-02-02] MEDS: PULMICORT 0.5 MG INH ×2 (07:48→17:58)
[2025-02-02] MEDS: TYLENOL 650 MG PO (10:08)
--- NOTE | 2025-02-02 12:16 | CM ---
Patient seen at bedside with Kaylah
IA completed
Dx: pyelonephritis
Patient lives with in a 1 story home, [address]
PLOF: Independent with walker
DME: walker, wheelchair, cane, shower chair, nebulizer, toilet rails
Denies VN/Rehab
PCP: Lotus Valente
Pharmacy: [address], [place]
PLAN: anticipate home, when stable, CM to follow for needs
[2025-02-02] MEDS: ROXICODONE 10 MG PO (13:26)
--- NOTE | 2025-02-02 13:53 | W.PN.HOSP.TC ---
Today's Communication/Plan
-
Continued cefepime
Hold further diuretics
Consult ID
Assessment / Plan
Assessment / Plan
IMPRESSION:
69-year-old with history of asthma, COPD, diastolic CHF, chronic lower extremity edema, chronic pain, chronic incontinence secondary to status post prostate surgery presents to ED with fevers at home, chills rigors and elevated WBCs. He reports
dark urine with ongoing incontinence. He also reports some flank pain. Has been no nausea or vomiting. Patient says he does feel weak and sicker than usual. The UA is markedly positive. CT scan without any urological obstruction but did shows
nephrolithiasis and left pyelonephritis.
PLAN:
Acute Pyelonephritis
Sepsis was not on admission-patient had fever at home, tachycardic on presentation and also had elevated white count.
Bacteremic with Proteus species
Continue with cefepime.
Will obtain ID consult as patient most likely will need IV antibiotics because of OPTION.
Follow identification and sensitivities of blood culture.
Check bladder scans
Lower extremity edema -chronic per patient. Not on diuretics at home. He was also given a diagnosis chronic lymphedema. He had prior prostate resection and prostate area radiation including and lymph node removal apparently. BNP is borderline of
ruling in CHF-900 but has no pulmonary edema/CHF on the current chest x-ray. His weight has been stable.. He does have chronic lower extremity edema which he states is actually improved with a compression wrappings. He says he is continue to lose
weight. He denies orthopnea or PND. Not on diuretics, cannot tolerate oral diuretics due to poor absorption and has been treated with subq infusion or IV injection in clinic in the past but non recently.
-Doubt acute CHF decompensation. Hold further diuretics.
- telemetry
- echo
- Continue compression stockings
- Monitor orthostatic vital sign
COPD/Chronic bronchitis -no acute exacerbation
- Continue inhaled steroids and his DuoNebs as needed
Hyponatremia - Na 129, down from 135. There is peripheral edema which is chronic, elevated BNP. Likely hypervolemic.
- fluid restriction for now 1500ml
- urine osm, urine Na shows an appropriate excess ADH
- orthostatics
-Continue with fluid restriction and follow sodium.
DVT PPX - lovenox sq
Code status -Full Code
Total time spent on today's encounter was 52 minutes which included time spent in counseling the patient/family regarding diagnosis and treatment plan as listed above, goals of care, and symptom management. Case was discussed with nursing staff,
specialists, and care coordinators/case management. All labs and imaging personally reviewed by me. Remainder the time spent in detailed review of previous records, lab data, imaging, and other medical provider documentation.
Anticipated Discharge: 24 - 48 hours
Subjective/Interval History
-
Date of Service: February 02, 2025
Feels overall better but still has some chills. No nausea but no appetite. No abdominal pain no flank pain. Chronic back pain as before.
Chronic urinary incontinence after prostate surgery. Denies any dysuria.
Denies shortness of breath or chest pain.
Chronic lower extremity edema and apparently he was told he has chronic lymphedema recently.
He was also on torsemide prescribed by his water pump installer but patient does not normally absorb and occasionally needs intravenous diuretics.
Objective Data
-
Labs:
Laboratory Results
02/02/25
06:13
WBC 11.4 H
Hgb 11.0 L
Hct 33.2 L
Plt Count 228
Sodium 130 L
Potassium 3.6
Chloride 101
Carbon Dioxide 25
BUN 17
Creatinine 0.7
Glucose 114 H
Calcium 8.1 L
Vital Signs:
Vital Signs
Temp Pulse Resp BP Pulse Ox
98.0 F 108 19 117/89 97
02/02/25 11:00 02/02/25 11:00 02/02/25 11:00 02/02/25 11:02/02/25 11:00
I&O
02/01/25 02/02/25 02/03/25
06:59 06:59 06:59
Intake Total 120 / 120
Output Total 200 / 200
Balance -80 / -80
Physical Exam
-
General: Comfortable
Respiratory: Crackles (bibasal crackles) and Non Labored Respirations; Negative Wheezes or Accessory Resp Muscle Use
Cardiac: Regular Rhythm and S1/S2
GI: Soft and Nontender
Genito-urinary: No Costovertebral Tender
Musculoskeletal: Edema, Right Lower Extrem and Edema, Left Lower Extrem
Neuro: AO x 3
Psych: Calm; Negative Confused
Data Reviewed
-
Labs: Labs Reviewed by me
--- NOTE | 2025-02-02 14:13 | CON.ID ---
Consultation
-
Date/Time Consultation Requested: 02/02/2025 1402
Date/Time Consultation Performed: 02/02/2025 1415
Requesting Provider: Dr. Desai
Performing Provider: Dr. Ricketts
Reason for Consultation: Complicated urinary tract infection
Chief Complaint / Past History
History of Present Illness
Lavelle Matson is a 69-year-old man being evaluated the request of Dr. Desai in regards to a complicated urinary tract infection. History is obtained from chart review, along with patient interview.
The patient has a significant past medical history of COPD, obesity and potential short gut syndrome who presented to the emergency room on 02/01 secondary to fever and possible urinary tract infection. Approximate 2 days prior to admission he began
to have urinary symptoms, noting 'dark urine'. He has a history of chronic incontinence following his prior prostate surgery. Because of the dark urine he was concerned about a potential infection, and he reported a fever of 102.3 at home. He
also admitted to chills and rigors.
Here in the ER he was noted to have a leukocytosis of 12.8. Blood cultures have revealed growth of Proteus, and urine cultures are pending although urinalysis revealed significant pyuria.
Past History
Additional Past Medical History:
Asthma
Chronic bronchitis
CHF
Hx malabsorption
RLE DVT
Chronic back pain
Hard of hearing
Anemia
GERD
Hx prostate CA
Additional Past Surgical History:
Gastric bypass/Deepa-en-Y (2005)
Prostatectomy
Lumbar laminectomy
Right ankle surgery
Appendectomy
Hernia repair
Allergy History:
dupilumab (From [employer]) Allergy (Verified 02/01/25 16:53)
Unknown
NSAIDS (Non-Steroidal Anti-Inflamma Adverse Reaction (Verified 02/01/25 16:53)
Can not take due to Gastric Bypass
Medications Reviewed: Yes
Current Antibiotics:
Cefepime 1 gm IV q.6 hours
Social History
Alcohol: None
Drug: None
Personal:
Living: With Family
Review of Systems
Vital Signs
Temp Pulse Resp BP Pulse Ox
98.0 F 108 19 117/89 97
02/02/25 11:00 02/02/25 11:00 02/02/25 11:00 02/02/25 11:00 02/02/25 11:00
Physical Exam
Physical Exam
Constitutional: No Acute Distress, Comfortable, Non-toxic and Obese
Eyes: No Conjunctival Hemorrhage and Sclera Anicteric
Oral: No Thrush and No Ulcers
Cardiovascular: S1/S2; Negative S3/S4
Pulmonary: Non Labored
Gastrointestinal: Soft, Non Tender and Non Distended
Genito-Urinary: Negative Suprapubic Tenderness or CVA Tenderness
Extremities: Edema; Negative Cyanosis or Erythema
Skin: Warm and Dry
Neurological: Awake and Alert
Psychological: Calm
Lab / Diagnostic Study Results
02/02/25 06:13
02/02/25 06:13
Abs Immat Gran (auto) 0.1 10^3/uL (0-0.05) H 02/01/25 17:12
Absolute Neuts (auto) 11.9 10^3/uL (1.4-6.5) H 02/01/25 17:12
Absolute Lymphs (auto) 0.2 10^3/uL (1.2-3.4) L 02/01/25 17:12
Absolute Monos (auto) 0.6 10^3/uL (0.1-0.6) 02/01/25 17:12
Absolute Basos (auto) 0.0 10^3/uL (0-0.2) 02/01/25 17:12
Immature Gran % 0.4 % (0-0.5) 02/01/25 17:12
Neutrophils % 93.2 % (42.2-75.2) H 02/01/25 17:12
Lymphocytes % 1.6 % (20.5-51.1) L 02/01/25 17:12
Monocytes % 4.5 % (1.7-9.3) 02/01/25 17:12
Eosinophils % 0.0 % (0-6) 02/01/25 17:12
Basophils % 0.3 % (0-2) 02/01/25 17:12
Lactic Acid Cancelled 02/02/25 01:45
Ur Squamous Epith Cells 0-2 /LPF (Few) 02/01/25 17:12
Microbiology Results
Micro:
02/01/25 17:12 Urine Culture - Preliminary
Urine
02/01/25 17:12 Blood Culture - Preliminary
Blood/Venous Proteus species
Gram Stain - Preliminary
02/01/25 21:57 Blood Culture - Pending
Blood/Venous
02/01/25 21:57 Blood Culture - Pending
Blood/Venous
Imaging:
02/01/2025 CT abdomen/pelvis: No hydronephrosis. There are nonobstructing stones in the left kidney measuring up to 4 mm in the lower pole. There is mild asymmetric stranding along the left kidney which is nonspecific although can be seen with
infection. Recommend correlation with urinalysis.
Assessment / Plan
Bacteremia with Proteus spp.
Suspected complicated UTI
Asthma
Chronic bronchitis
CHF
Hx malabsorption
RLE DVT
Chronic back pain
Hard of hearing
Anemia
GERD
Hx prostate CA
Recommendations:
Continue with empiric cefepime for now.
Follow repeat blood cultures to assess clearance
Monitor WBC / temp curve.
Await Final susceptibility data to guide further antimicrobial selection and potential de-escalation.
Further recommendations as additional data is returned.
[2025-02-02] MEDS: LOVENOX 40 MG SC (17:36)
[2025-02-03 03:04] VITALS: BP 136/78
[2025-02-03] MEDS: STERILE WATER FOR INJECTION 10 ML IV ×4 (04:13→21:07)
[2025-02-03] MEDS: MAXIPIME 1000 MG IV ×4 (04:13→21:07)
[2025-02-03 06:00] VITALS: BMI 30.3
[2025-02-03 06:10] LABS: Hematocrit 31.4 % (39.0-52.0); Hemoglobin 10.6 g/dL (13.0-18.0); Mean Corp Hgb Conc. 33.8 g/dL (33.0-37.0); Mean Corpuscular Volume 90.2 fL (80.0-94.0); Platelet Count 240 10^3/uL (130-400); Red Cell Dist. Width 13.9 % (11.5-14.5)
[2025-02-03 06:51] LABS: Blood Urea Nitrogen 13 mg/dl (9-20); Calcium 7.7 mg/dl (8.4-10.2); Carbon Dioxide 24 mmol/L (22-30); Chloride 103 mmol/L (98-107); Estimated Creatinine Clearance > 125 ml/min; Glucose 91 mg/dl (70-99); Potassium 3.5 mmol/L (3.5-5.1); Sodium 131 mmol/L (135-145); eGFR > 60.00
[2025-02-03] MEDS: DUONEB 3 ML INH ×2 (07:28→19:27)
[2025-02-03] MEDS: PULMICORT 0.5 MG INH ×2 (07:28→19:27)
[2025-02-03 07:50] VITALS: BP 144/81
[2025-02-03] MEDS: PERCOCET 5/325 2 TABLET PO ×2 (08:52→17:43)
[2025-02-03] MEDS: VITAMIN D3 (cholecalciferol) 50 MCG PO (08:53)
--- NOTE | 2025-02-03 11:14 | CM ---
Patient seen at bedside with
ID consulted
PLAN: home, when stable, no needs anticipated
--- NOTE | 2025-02-03 11:19 | W.PN.ID1 ---
Date of Service
Date of Service: February 03, 2025
Today's Communication
Continue antibiotics. Await bacterial sensitivities.
Assessment / Plan
Bacteremia with Proteus spp.
Suspected complicated UTI
Asthma
Chronic bronchitis
CHF
Hx malabsorption
RLE DVT
Chronic back pain
Hard of hearing
Anemia
GERD
Hx prostate CA
Recommendations:
Leukocytosis is normalized.
Continue with empiric cefepime for now.
Follow repeat blood cultures to assess clearance
Monitor WBC / temp curve.
Await final susceptibility data to guide further antimicrobial selection and potential de-escalation.
Of note, patient is very concerned about his reported malabsorption issues, and would like to continue IV antibiotics if at all possible.
����������������������������������������������������������
Chief Complaint
-: UTI and Bacteremia
Subjective / Review of Systems
Review of Systems: No Fever, No Chills, No Chest Pain and No Abdominal Pain
Vital Signs / Physical Exam
Vital Signs
Vital Signs
Temp Pulse Resp BP Pulse Ox
98.8 F 75 20 144/81 93
02/03/25 07:50 02/03/25 07:50 02/03/25 07:50 02/03/25 07:50 02/03/25 08:10
Physical Exam
Constitutional: No Acute Distress, Comfortable and Non-toxic
Eyes: Sclera Anicteric
Cardiovascular: S1/S2; Negative S3/S4
Pulmonary: Non Labored
Gastrointestinal: Soft, Non Tender and Non Distended
Genito-Urinary: Negative CVA Tenderness
Neurological: Awake and Alert
Psychological: Calm
Objective Data
Lab Data
Lab Results
02/03/25 05:57
02/03/25 05:57
Estimated Creat Clear > 125 ml/min 02/03/25 05:57
Lactic Acid Cancelled 02/02/25 01:45
Total Bilirubin 0.6 mg/dl (0.2-1.3) 02/01/25 17:12
AST 14 U/L (17-59) L 02/01/25 17:12
ALT 10 U/L (0-50) 02/01/25 17:12
Alkaline Phosphatase 134 U/L (38-126) H 02/01/25 17:12
Most recent labs reviewed.
Micro Results:
02/01/25 17:12 Blood Culture - Preliminary
Blood/Venous Proteus species
Gram Stain - Preliminary
02/01/25 17:12 Urine Culture - Preliminary
Urine Proteus species
02/01/25 21:57 Blood Culture - Preliminary
Blood/Venous No Growth in 24 hours- Final report to follow
02/01/25 21:57 Blood Culture - Preliminary
Blood/Venous No Growth in 24 hours- Final report to follow
Imaging:
02/01/2025 CT abdomen/pelvis: No hydronephrosis. There are nonobstructing stones in the left kidney measuring up to 4 mm in the lower pole. There is mild asymmetric stranding along the left kidney which is nonspecific although can be seen with
infection. Recommend correlation with urinalysis.
[2025-02-03 11:24] VITALS: BP 98/53
--- NOTE | 2025-02-03 11:44 | W.PN.HOSP.TC ---
Today's Communication/Plan
-
Continue cefepime and follow culture data
Assessment / Plan
Assessment / Plan
IMPRESSION:
69-year-old with history of asthma, COPD, diastolic CHF, chronic lower extremity edema, chronic pain, chronic incontinence secondary to status post prostate surgery presents to ED with fevers at home, chills rigors and elevated WBCs. He reports
dark urine with ongoing incontinence. He also reports some flank pain. Has been no nausea or vomiting. Patient says he does feel weak and sicker than usual. The UA is markedly positive. CT scan without any urological obstruction but did shows
nephrolithiasis and left pyelonephritis.
PLAN:
Sepsis was not on admission-patient had fever at home, tachycardic on presentation and also had elevated white count.
Acute Pyelonephritis
Complicated UTI with Proteus in the urine
Bacteremic with Proteus species
Continue with cefepime.
Appreciate ID input
Follow identification and sensitivities of blood culture.
Check bladder scans
Lower extremity edema -chronic per patient. Not on diuretics at home. He was also given a diagnosis chronic lymphedema. He had prior prostate resection and prostate area radiation including and lymph node removal apparently. BNP is borderline of
ruling in CHF-900 but has no pulmonary edema/CHF on the current chest x-ray. His weight has been stable.. He does have chronic lower extremity edema which he states is actually improved with a compression wrappings. He says he is continue to lose
weight. He denies orthopnea or PND. Not on diuretics, cannot tolerate oral diuretics due to poor absorption and has been treated with subq infusion or IV injection in clinic in the past but non recently.
-Doubt acute CHF decompensation. Hold further diuretics.
- Echo with normal EF and no valvular heart disease
- Today's exam shows the lower extremity edema is trace only. Improved just with the dressing compression stocking makes me think this is lower extremity dependent edema. No changes of lymphedema.
- Continue compression stockings
COPD/Chronic bronchitis -no acute exacerbation
- Continue inhaled steroids and his DuoNebs as needed
Hyponatremia - Na 129, down from 135. There is peripheral edema which is chronic, elevated BNP. Likely hypervolemic.
- fluid restriction for now 1500ml
- urine osm, urine Na shows an appropriate excess ADH
- -Continue with fluid restriction and follow sodium-improved today.
-Treat acute infection and if hyponatremia persists consider salt tablets.
DVT PPX - lovenox sq
Code status -Full Code
Anticipated Discharge: Within 24 hours
Subjective/Interval History
-
Date of Service: February 03, 2025
no fever or chills. No nausea. No abdominal pain.
No shortness of breath or chest pain.
No lightheadedness.
Objective Data
-
Labs:
Laboratory Results
02/03/25
05:57
WBC 6.7
Hgb 10.6 L
Hct 31.4 L
Plt Count 240
Sodium 131 L
Potassium 3.5
Chloride 103
Carbon Dioxide 24
BUN 13
Creatinine 0.6 L
Glucose 91
Calcium 7.7 L
Vital Signs:
Vital Signs
Temp Pulse Resp BP Pulse Ox
97.9 F 77 16 98/53 93
02/03/25 11:24 02/03/25 11:24 02/03/25 11:24 02/03/25 11:24 02/03/25 11:24
I&O
02/02/25 02/03/25 02/04/25
06:59 06:59 06:59
Intake Total 120 / 120 1080 / 1080
Output Total 200 / 200
Balance -80 / -80 1080 / 1080
Physical Exam
-
HEENT: Moist Mucous Membranes
Respiratory: Crackles (Few occasional crackles at the bases) and Non Labored Respirations; Negative Wheezes or Accessory Resp Muscle Use
Cardiac: Regular Rhythm and S1/S2; Negative Murmur
Musculoskeletal: Edema, Right Lower Extrem and Edema, Left Lower Extrem (Trace bilateral lower extremity edema)
Neuro: AO x 3
Psych: Calm
Data Reviewed
-
Medical Tests (Nuc Med, Echo etc): Other (Echo)
Labs: Labs Reviewed by me
[2025-02-03 16:22] VITALS: BP 123/74
[2025-02-03] MEDS: LOVENOX 40 MG SC (17:13)
[2025-02-03 23:20] VITALS: BP 107/68
[2025-02-04] MEDS: PERCOCET 5/325 2 TABLET PO ×3 (02:33→21:37)
[2025-02-04] MEDS: STERILE WATER FOR INJECTION 10 ML IV ×2 (03:55→09:31)
[2025-02-04] MEDS: MAXIPIME 1000 MG IV ×2 (03:55→09:31)
[2025-02-04 06:00] VITALS: BMI 30.1
[2025-02-04 07:00] VITALS: BP 133/80
[2025-02-04 07:09] LABS: Hematocrit 32.6 % (39.0-52.0); Hemoglobin 10.7 g/dL (13.0-18.0); Mean Corp Hgb Conc. 32.8 g/dL (33.0-37.0); Mean Corpuscular Volume 89.8 fL (80.0-94.0); Platelet Count 267 10^3/uL (130-400); Red Cell Dist. Width 13.8 % (11.5-14.5)
[2025-02-04] MEDS: PULMICORT 0.5 MG INH ×2 (07:29→19:32)
[2025-02-04] MEDS: DUONEB 3 ML INH ×2 (07:30→19:32)
[2025-02-04] MEDS: OSCAL CAL 500 500 MG PO (07:56)
[2025-02-04] MEDS: VITAMIN D3 (cholecalciferol) 50 MCG PO (07:57)
[2025-02-04 08:08] LABS: Blood Urea Nitrogen 9 mg/dl (9-20); Calcium 8.3 mg/dl (8.4-10.2); Carbon Dioxide 25 mmol/L (22-30); Chloride 104 mmol/L (98-107); Estimated Creatinine Clearance > 125 ml/min; Glucose 89 mg/dl (70-99); Potassium 3.3 mmol/L (3.5-5.1); Sodium 134 mmol/L (135-145); eGFR > 60.00
[2025-02-04 10:54] VITALS: BP 122/70; BP 133/84; BP 135/81; PULSE 70; PULSE 86; PULSE 91
--- NOTE | 2025-02-04 13:40 | W.PN.HOSP.TC ---
Today's Communication/Plan
-
DC when ok from ID standpoint
Assessment / Plan
Assessment / Plan
IMPRESSION:
69-year-old with history of asthma, COPD, diastolic CHF, chronic lower extremity edema, chronic pain, chronic incontinence secondary to status post prostate surgery presents to ED with fevers at home, chills rigors and elevated WBCs. He reports
dark urine with ongoing incontinence. He also reports some flank pain. Has been no nausea or vomiting. Patient says he does feel weak and sicker than usual. The UA is markedly positive. CT scan without any urological obstruction but did shows
nephrolithiasis and left pyelonephritis.
PLAN:
Sepsis present on admission-patient had fever at home, tachycardic on presentation and also had elevated white count.
Acute Pyelonephritis
Complicated UTI with Proteus in the urine
Bacteremic with Proteus species
Continue with cefepime.
Proteus sensitivities are out-will check with the infectious disease doctor regarding antibiotics
Lower extremity edema -chronic per patient. Not on diuretics at home. He was also given a diagnosis chronic lymphedema. He had prior prostate resection and prostate area radiation including and lymph node removal apparently. BNP is borderline of
ruling in CHF-900 but has no pulmonary edema/CHF on the current chest x-ray. His weight has been stable.. He does have chronic lower extremity edema which he states is actually improved with a compression wrappings. He says he is continue to lose
weight. He denies orthopnea or PND. Not on diuretics, cannot tolerate oral diuretics due to poor absorption and has been treated with subq infusion or IV injection in clinic in the past but non recently.
-Doubt acute CHF decompensation. Hold further diuretics.
- Echo with normal EF and no valvular heart disease
- Today's exam shows the lower extremity edema is trace only. Improved just with the dressing compression stocking makes me think this is lower extremity dependent edema. No changes of lymphedema.
- Continue compression stockings
COPD/Chronic bronchitis -no acute exacerbation
- Continue inhaled steroids and his DuoNebs as needed
Hyponatremia - Na 129, down from 135. There is peripheral edema which is chronic, elevated BNP. Likely hypervolemic.
- fluid restriction for now 1500ml
- urine osm, urine Na shows an appropriate excess ADH
- Continue with fluid restriction and follow sodium-improved .
- suspect acute nausea and vomiting on adx might be the trigger
DVT PPX - lovenox sq
Code status -Full Code
DC home when ok from ID
Anticipated Discharge: Today
Subjective/Interval History
-
Date of Service: February 04, 2025
Patient feels that he has some nasal discharge which he gets when he has sinusitis. It is yellow-green and thick. Denies much of cough or SOB.
No fever or chills.
No nausea or vomiting.
Denies any flank pain
Denies any dysuria or frequency of urine.
Feels improved.
Objective Data
-
Labs:
Laboratory Results
02/04/25
06:58
WBC 5.5
Hgb 10.7 L
Hct 32.6 L
Plt Count 267
Sodium 134 L
Potassium 3.3 L
Chloride 104
Carbon Dioxide 25
BUN 9
Creatinine 0.6 L
Glucose 89
Calcium 8.3 L
Vital Signs:
Vital Signs
Temp Pulse Resp BP Pulse Ox
98.2 F 73 16 133/80 97
02/04/25 07:00 02/04/25 11:23 02/04/25 11:23 02/04/25 07:00 02/04/25 11:23
I&O
02/03/25 02/04/25 02/05/25
06:59 06:59 06:59
Intake Total 1080 / 1080 330 / 330
Balance 1080 / 1080 330 / 330
Physical Exam
-
General: No Apparent Distress
Respiratory: Crackles (few bibasal crackles) and Non Labored Respirations; Negative Wheezes or Accessory Resp Muscle Use
GI: Soft
Genito-urinary: No Costovertebral Tender
Neuro: AO x 3
Psych: Calm
Data Reviewed
-
Labs: Labs Reviewed by me
[2025-02-04] MEDS: ROCEPHIN 2000 MG IV (13:42)
[2025-02-04] MEDS: STERILE WATER FOR INJECTION 20 ML IV (13:42)
--- NOTE | 2025-02-04 14:14 | W.PN.ID1 ---
Date of Service
Date of Service: February 04, 2025
Today's Communication
Replace cefepime to ceftriaxone.
Assessment / Plan
Bacteremia with Proteus spp.
Suspected complicated UTI
Asthma
Chronic bronchitis
CHF
Hx malabsorption
RLE DVT
Chronic back pain
Hard of hearing
Anemia
GERD
Hx prostate CA
Recommendations:
Leukocytosis is normalized.
repeat blood cultures neg to date
Of note, patient is very concerned about his reported malabsorption issues, and would like to continue IV antibiotics if at all possible.
De-escalate cefepime to ceftriaxone 2g IV q24h through 02/15/25
On Thursday will have case planner [facility].
Place midline on Thursday.
����������������������������������������������������������
Chief Complaint
-: UTI and Bacteremia
Subjective / Review of Systems
at bedside. Pt feeling better.
Vital Signs / Physical Exam
Vital Signs
Vital Signs
Temp Pulse Resp BP Pulse Ox
98.2 F 73 16 133/80 97
02/04/25 07:00 02/04/25 11:23 02/04/25 11:23 02/04/25 07:00 02/04/25 11:23
Physical Exam
Constitutional: No Acute Distress and Comfortable
Eyes: Sclera Anicteric
Cardiovascular: S1/S2; Negative S3/S4
Pulmonary: Non Labored
Gastrointestinal: Soft, Non Tender and Non Distended
Genito-Urinary: Negative CVA Tenderness
Neurological: AO x 3
Objective Data
Lab Data
Lab Results
02/04/25 06:58
02/04/25 06:58
Estimated Creat Clear > 125 ml/min 02/04/25 06:58
Lactic Acid Cancelled 02/02/25 01:45
Total Bilirubin 0.6 mg/dl (0.2-1.3) 02/01/25 17:12
AST 14 U/L (17-59) L 02/01/25 17:12
ALT 10 U/L (0-50) 02/01/25 17:12
Alkaline Phosphatase 134 U/L (38-126) H 02/01/25 17:12
Most recent labs reviewed.
Micro Results:
02/01/25 17:12 Blood Culture - Preliminary
Blood/Venous Proteus mirabilis
Gram Stain - Preliminary
02/01/25 17:12 Urine Culture - Final
Urine Proteus mirabilis
02/01/25 21:57 Blood Culture - Preliminary
Blood/Venous No Growth in 48 hours- Final report to follow
02/01/25 21:57 Blood Culture - Preliminary
Blood/Venous No Growth in 48 hours- Final report to follow
Imaging:
02/01/2025 CT abdomen/pelvis: No hydronephrosis. There are nonobstructing stones in the left kidney measuring up to 4 mm in the lower pole. There is mild asymmetric stranding along the left kidney which is nonspecific although can be seen with
infection. Recommend correlation with urinalysis.
Care Review
Plan reviewed with: Physician (Dr. Desai)
[2025-02-04 15:00] VITALS: BP 128/72
[2025-02-04] MEDS: LOVENOX 40 MG SC (17:20)
[2025-02-04 23:00] VITALS: BP 111/61
[2025-02-05] MEDS: PERCOCET 5/325 2 TABLET PO ×3 (05:58→19:59)
[2025-02-05 06:00] VITALS: BMI 29.4
[2025-02-05 07:00] VITALS: BP 131/76
[2025-02-05] MEDS: PULMICORT 0.5 MG INH ×2 (07:09→19:25)
[2025-02-05] MEDS: DUONEB 3 ML INH ×2 (07:10→19:25)
[2025-02-05 08:50] LABS: Blood Urea Nitrogen 8 mg/dl (9-20); Calcium 8.7 mg/dl (8.4-10.2); Carbon Dioxide 26 mmol/L (22-30); Chloride 105 mmol/L (98-107); Estimated Creatinine Clearance > 125 ml/min; Glucose 96 mg/dl (70-99); Potassium 3.7 mmol/L (3.5-5.1); Sodium 136 mmol/L (135-145); eGFR > 60.00
[2025-02-05] MEDS: OSCAL CAL 500 500 MG PO (09:33)
[2025-02-05] MEDS: VITAMIN D3 (cholecalciferol) 50 MCG PO (09:33)
--- NOTE | 2025-02-05 10:08 | W.PN.ID1 ---
Date of Service
Date of Service: February 05, 2025
Today's Communication
Continue ceftriaxone 2g IV q24h through 02/15/25
Infusion sheet submitted to case resource manager set up [facility]x [facility] tomorrow.
Place midline.
Assessment / Plan
Bacteremia with Proteus spp.
Suspected complicated UTI
Asthma
Chronic bronchitis
CHF
Hx malabsorption
RLE DVT
Chronic back pain
Hard of hearing
Anemia
GERD
Hx prostate CA
Recommendations:
Leukocytosis is normalized.
repeat blood cultures neg to date
Of note, patient is very concerned about his reported malabsorption issues, and would like to continue IV antibiotics if at all possible.
Continue ceftriaxone 2g IV q24h through 02/15/25
Infusion sheet submitted to case resource manager set up IV abx [facility] tomorrow.
Place midline.
����������������������������������������������������������
Chief Complaint
-: UTI and Bacteremia
Subjective / Review of Systems
Feels well today.
Vital Signs / Physical Exam
Vital Signs
Vital Signs
Temp Pulse Resp BP Pulse Ox
98.0 F 68 16 131/76 94
02/05/25 07:00 02/05/25 07:10 02/05/25 07:10 02/05/25 07:00 02/05/25 07:00
Physical Exam
Constitutional: No Acute Distress and Comfortable
Eyes: Sclera Anicteric
Cardiovascular: S1/S2; Negative S3/S4
Pulmonary: Non Labored
Gastrointestinal: Soft, Non Tender and Non Distended
Genito-Urinary: Negative CVA Tenderness
Neurological: AO x 3
Objective Data
Lab Data
Lab Results
02/04/25 06:58
02/05/25 07:41
Estimated Creat Clear > 125 ml/min 02/05/25 07:41
Lactic Acid Cancelled 02/02/25 01:45
Total Bilirubin 0.6 mg/dl (0.2-1.3) 02/01/25 17:12
AST 14 U/L (17-59) L 02/01/25 17:12
ALT 10 U/L (0-50) 02/01/25 17:12
Alkaline Phosphatase 134 U/L (38-126) H 02/01/25 17:12
Most recent labs reviewed.
Micro Results:
02/01/25 21:57 Blood Culture - Preliminary
Blood/Venous No Growth in 72 hours- Final report to follow
02/01/25 21:57 Blood Culture - Preliminary
Blood/Venous No Growth in 72 hours- Final report to follow
02/01/25 17:12 Blood Culture - Preliminary
Blood/Venous Proteus mirabilis
Gram Stain - Preliminary
02/01/25 17:12 Urine Culture - Final
Urine Proteus mirabilis
RUN DATE: 02/05/25 [facility] *LIVE* PAGE 1
RUN TIME: 1009 Specimen Inquiry
PATIENT: TREVA PALACIOS LOC: [address] [place] [address] U #: [id number]
AGE/SX: 69/M Race: WHITE ROOM: [facility] RE02/01/[address]: Lloyd LOPEZ,Russ Patel : 1955 BED: 01 DIS:
STATUS: ADM IN TLOC:
SPEC #: [id number] PRIYANKA: 02/01/25 STATUS: RES REQ #: [id number]
RECD: 02/01/25-[address]: Victor Hugo Minaya MD
SOURCE: BLOOD/VE ENTR: 02/01/25-[address]: [facility]
SPDESC:
ORDERED: Blood Culture, Gram Stain-bld
QUERIES: Date Specimen was Collected 02/01/25
Time Specimen was Collected 165
Procedure Result Verified
Blood Culture Preliminary 02/04/25-909
Positive for Proteus species.
Performed by BIOFIRE PCR methodology.
Proteus mirabilis
Organism 1 Proteus mirabilis
1. Proteus mirabilis
M.I.C. RX
--------- ---
Amoxicillin/Potas. Clavulanate <=8/4 S
Ampicillin >16 R
Ampicillin/Sulbactam 16/8 I
Aztreonam <=4 S
Cefazolin >16 R
Cefepime <=2 S
Ceftazidime <=1 S
Ceftriaxone <=1 S
Ertapenem <=0.5 S
Ciprofloxacin <=0.25 S
Gentamicin >8 R
Meropenem <=1 S
Piperacillin/Tazobactam <=8 S
Tetracycline >8 R
Tobramycin 8 I
Trimethoprim/Sulfamethoxazole >2/38 R
Imaging:
02/01/2025 CT abdomen/pelvis: No hydronephrosis. There are nonobstructing stones in the left kidney measuring up to 4 mm in the lower pole. There is mild asymmetric stranding along the left kidney which is nonspecific although can be seen with
infection. Recommend correlation with urinalysis.
--- NOTE | 2025-02-05 10:23 | W.PN.HOSP.TC ---
Today's Communication/Plan
-
DC planning
Assessment / Plan
Assessment / Plan
IMPRESSION:
69-year-old with history of asthma, COPD, diastolic CHF, chronic lower extremity edema, chronic pain, chronic incontinence secondary to status post prostate surgery presents to ED with fevers at home, chills rigors and elevated WBCs. He reports
dark urine with ongoing incontinence. He also reports some flank pain. Has been no nausea or vomiting. Patient says he does feel weak and sicker than usual. The UA is markedly positive. CT scan without any urological obstruction but did shows
nephrolithiasis and left pyelonephritis.
PLAN:
Sepsis present on admission-patient had fever at home, tachycardic on presentation and also had elevated white count.
Acute Pyelonephritis
Complicated UTI with Proteus in the urine
Bacteremic with Proteus species
Antibiotic switched to IV ceftriaxone. With concern about oral absorption due to his prior gastric surgery decision made for IV ceftriaxone daily as an outpatient.
Will get a midline tomorrow
Case management to look into outpatient infusion services for administering antibiotics.
Lower extremity edema -chronic per patient. Not on diuretics at home. He was also given a diagnosis chronic lymphedema. He had prior prostate resection and prostate area radiation including and lymph node removal apparently. BNP is borderline of
ruling in CHF-900 but has no pulmonary edema/CHF on the current chest x-ray. His weight has been stable.. He does have chronic lower extremity edema which he states is actually improved with a compression wrappings. He says he is continue to lose
weight. He denies orthopnea or PND. Not on diuretics, cannot tolerate oral diuretics due to poor absorption and has been treated with subq infusion or IV injection in clinic in the past but non recently.
-Doubt acute CHF decompensation. Hold further diuretics.
- Echo with normal EF and no valvular heart disease
- Today's exam shows the lower extremity edema is trace only. Improved just with the dressing compression stocking makes me think this is lower extremity dependent edema. No changes of lymphedema.
- Continue compression stockings
COPD/Chronic bronchitis -no acute exacerbation
- Continue inhaled steroids and his DuoNebs as needed
Hyponatremia - Na 129, down from 135. There is peripheral edema which is chronic, elevated BNP. Likely hypervolemic.
- fluid restriction for now 1500ml
- urine osm, urine Na shows an appropriate excess ADH
- Continue with fluid restriction and follow sodium-improved .
- suspect acute nausea and vomiting on adx might be the trigger
- With normalization of Na will relax FR
DVT PPX - lovenox sq
Code status -Full Code
DC home in a.m. once outpatient antibiotics have been set up
Anticipated Discharge: Within 24 hours
Subjective/Interval History
-
Date of Service: February 05, 2025
No overnight events.
Denies any nausea or vomiting. Tolerating diet.
Denies any dysuria or frequency of urine.
Tolerating antibiotics.
Objective Data
-
Labs:
Laboratory Results
02/05/25
07:41
Sodium 136
Potassium 3.7
Chloride 105
Carbon Dioxide 26
BUN 8 L
Creatinine 0.6 L
Glucose 96
Calcium 8.7
Vital Signs:
Vital Signs
Temp Pulse Resp BP Pulse Ox
98.0 F 68 16 131/76 94
02/05/25 07:00 02/05/25 07:10 02/05/25 07:10 02/05/25 07:00 02/05/25 07:00
I&O
02/04/25 02/05/25 02/06/25
06:59 06:59 06:59
Intake Total 330 / 330 780 / 780
Balance 330 / 330 780 / 780
Physical Exam
-
General: No Apparent Distress
Respiratory: Non Labored Respirations; Negative Accessory Resp Muscle Use
Cardiac: Regular Rhythm and S1/S2; Negative Tachycardic
Neuro: AO x 3
Psych: Calm; Negative Confused
Data Reviewed
-
Labs: Labs Reviewed by me
[2025-02-05] MEDS: STERILE WATER FOR INJECTION 20 ML IV (13:53)
[2025-02-05] MEDS: ROCEPHIN 2000 MG IV (13:53)
[2025-02-05 15:00] VITALS: BP 122/63
[2025-02-05] MEDS: LOVENOX 40 MG SC (17:35)
[2025-02-06 03:53] VITALS: BMI 29.5
[2025-02-06] MEDS: PERCOCET 5/325 2 TABLET PO (03:54)
[2025-02-06 07:30] VITALS: BP 107/72
[2025-02-06] MEDS: VITAMIN D3 (cholecalciferol) 50 MCG PO (09:25)
[2025-02-06] MEDS: OSCAL CAL 500 500 MG PO (09:25)
--- NOTE | 2025-02-06 09:51 | CM ---
Addendum entered by Minda Gonzalez 02/06/25 12:41:
spoke with Mariola at [facility]. 8:30am set for tomorrow
they have all information
tt hospitalist
IMM explained & signed. In chart
PLAN: Home with outpatient IV infusion set up
Addendum entered by Minda Gonzalez 02/06/25 11:14:
Midline info faxed to Mariola at [facility]
Original Note:
Patient seen at bedside
Midline to be placed today
will fax to outpatient infusion once complete.
Spoke with Mariola at [facility] requested script, reaction sheet, labs, ID progress note be faxed to her at [phone] and she will get back to .
faxed information
PLAN: Home, with outpatient IV antibiotic once confirmed
--- NOTE | 2025-02-06 11:00 | W.PN.ID1 ---
Date of Service
Date of Service: February 06, 2025
Today's Communication
Continue antibiotics
Assessment / Plan
Bacteremia with Proteus spp.
Suspected complicated UTI
Asthma
Chronic bronchitis
CHF
Hx malabsorption
RLE DVT
Chronic back pain
Hard of hearing
Anemia
GERD
Hx prostate CA
Recommendations:
Leukocytosis is normalized.
Repeat blood cultures neg to date
Patient remains concerned about his reported malabsorption issues, and would like to continue IV antibiotics if at all possible.
Continue ceftriaxone 2g IV q24h through 02/15/25
Infusion sheet submitted to rehabilitation case coordinator. Pt to be set up with [facility] abx [facility]
Midline placed
����������������������������������������������������������
Chief Complaint
-: UTI and Bacteremia
Subjective / Review of Systems
Review of Systems: No Fever and No Chills
Vital Signs / Physical Exam
Vital Signs
Vital Signs
Temp Pulse Resp BP Pulse Ox
97.7 F 80 15 107/72 96
02/06/25 07:30 02/06/25 07:30 02/06/25 07:30 02/06/25 07:30 02/06/25 07:30
Physical Exam
Constitutional: No Acute Distress and Non-toxic
Eyes: Sclera Anicteric
Cardiovascular: S1/S2; Negative S3/S4
Pulmonary: Non Labored
Gastrointestinal: Soft and Non Tender
Wound: Other (Right medial calf area skin tear. No slough. Granular base. No significant periwound erythema.)
Neurological: Awake and Alert
Psychological: Calm
Objective Data
Lab Data
Lab Results
02/04/25 06:58
02/05/25 07:41
Estimated Creat Clear > 125 ml/min 02/05/25 07:41
Lactic Acid Cancelled 02/02/25 01:45
Total Bilirubin 0.6 mg/dl (0.2-1.3) 02/01/25 17:12
AST 14 U/L (17-59) L 02/01/25 17:12
ALT 10 U/L (0-50) 02/01/25 17:12
Alkaline Phosphatase 134 U/L (38-126) H 02/01/25 17:12
Most recent labs reviewed.
Micro Results:
02/01/25 21:57 Blood Culture - Preliminary
Blood/Venous No Growth in 4 days- Final report to follow
02/01/25 21:57 Blood Culture - Preliminary
Blood/Venous No Growth in 4 days- Final report to follow
02/01/25 17:12 Blood Culture - Preliminary
Blood/Venous Proteus mirabilis
Gram Stain - Preliminary
02/01/25 17:12 Urine Culture - Final
Urine Proteus mirabilis
RUN DATE: 02/05/25 [facility] *LIVE* PAGE 1
RUN TIME: 1009 Specimen Inquiry
PATIENT: TREVA PALACIOS LOC: [address] [place] [address] U #: [id number]
AGE/SX: 69/M Race: WHITE ROOM: [facility] RE02/01/[address]: Lloyd LOPEZ,Russ Patel : 1955 BED: 01 DIS:
STATUS: ADM IN TLOC:
SPEC #: [id number] PRIYANKA: 02/01/25-1711 STATUS: RES REQ #: [id number]
RECD: 02/01/25-[address]: Marimar LOPEZ,Victor Hugo
SOURCE: BLOOD/VE ENTR: 02/01/25-[address]: Dept [facility]
SPDESC:
ORDERED: Blood Culture, Gram Stain-bld
QUERIES: Date Specimen was Collected 02/01/25
Time Specimen was Collected 1653
Procedure Result Verified
Blood Culture Preliminary 02/04/25-909
Positive for Proteus species.
Performed by [employer] PCR methodology.
Proteus mirabilis
Organism 1 Proteus mirabilis
1. Proteus mirabilis
M.I.C. RX
--------- ---
Amoxicillin/Potas. Clavulanate <=8/4 S
Ampicillin >16 R
Ampicillin/Sulbactam 16/8 I
Aztreonam <=4 S
Cefazolin >16 R
Cefepime <=2 S
Ceftazidime <=1 S
Ceftriaxone <=1 S
Ertapenem <=0.5 S
Ciprofloxacin <=0.25 S
Gentamicin >8 R
Meropenem <=1 S
Piperacillin/Tazobactam <=8 S
Tetracycline >8 R
Tobramycin 8 I
Trimethoprim/Sulfamethoxazole >2/38 R
Imaging:
02/01/2025 CT abdomen/pelvis: No hydronephrosis. There are nonobstructing stones in the left kidney measuring up to 4 mm in the lower pole. There is mild asymmetric stranding along the left kidney which is nonspecific although can be seen with
infection. Recommend correlation with urinalysis.
--- NOTE | 2025-02-06 12:09 | W.PN.HOSP.TC ---
Today's Communication/Plan
-
Monitor vitals
see plan
Discharge today with antibiotic
Time of discharge 38 minutes
Assessment / Plan
Assessment / Plan
IMPRESSION:
69-year-old with history of asthma, COPD, diastolic CHF, chronic lower extremity edema, chronic pain, chronic incontinence secondary to status post prostate surgery presents to ED with fevers at home, chills rigors and elevated WBCs. He reports
dark urine with ongoing incontinence. He also reports some flank pain. Has been no nausea or vomiting. Patient says he does feel weak and sicker than usual. The UA is markedly positive. CT scan without any urological obstruction but did shows
nephrolithiasis and left pyelonephritis.
PLAN:
Sepsis present on admission-patient had fever at home, tachycardic on presentation and also had elevated white count.
Acute Pyelonephritis
Complicated UTI with Proteus in the urine
Bacteremic with Proteus species
Antibiotic switched to IV ceftriaxone. With concern about oral absorption due to his prior gastric surgery decision made for IV ceftriaxone daily as an outpatient. Continue ceftriaxone 2g IV q24h through 02/15/25 per ID recs
Will get a midline tomorrow
Case management to look into outpatient infusion services for administering antibiotics.
Lower extremity edema -chronic per patient. Not on diuretics at home. He was also given a diagnosis chronic lymphedema. He had prior prostate resection and prostate area radiation including and lymph node removal apparently. BNP is borderline of
ruling in CHF-900 but has no pulmonary edema/CHF on the current chest x-ray. His weight has been stable.. He does have chronic lower extremity edema which he states is actually improved with a compression wrappings. He says he is continue to lose
weight. He denies orthopnea or PND. Not on diuretics, cannot tolerate oral diuretics due to poor absorption and has been treated with subq infusion or IV injection in clinic in the past but non recently.
-Doubt acute CHF decompensation. Hold further diuretics.
- Echo with normal EF and no valvular heart disease
- Today's exam shows the lower extremity edema is trace only. Improved just with the dressing compression stocking makes me think this is lower extremity dependent edema. No changes of lymphedema.
- Continue compression stockings
COPD/Chronic bronchitis -no acute exacerbation
- Continue inhaled steroids and his DuoNebs as needed
Hyponatremia - Na 129, down from 135. There is peripheral edema which is chronic, elevated BNP. Likely hypervolemic.
- fluid restriction for now 1500ml
- urine osm, urine Na shows an appropriate excess ADH
- Continue with fluid restriction and follow sodium-improved .
- suspect acute nausea and vomiting on adx might be the trigger
- With normalization of Na will relax FR, resolved
DVT PPX - lovenox sq
Code status -Full Code
General: No Apparent Distress
Respiratory: Non Labored Respirations; Negative Accessory Resp Muscle Use
Cardiac: Regular Rhythm and S1/S2; Negative Tachycardic
Neuro: AO x 3
Psych: Calm; Negative Confused
Anticipated Discharge: Today
Subjective/Interval History
-
Date of Service: February 06, 2025
Denies pain
Objective Data
-
Vital Signs:
Vital Signs
Temp Pulse Resp BP Pulse Ox
97.7 F 80 15 107/72 96
02/06/25 07:30 02/06/25 07:30 02/06/25 07:30 02/06/25 07:30 02/06/25 07:30
I&O
02/05/25 02/06/25 02/07/25
06:59 06:59 06:59
Intake Total 780 / 780 980 / 980
Balance 780 / 780 980 / 980
--- NOTE | 2025-02-06 12:30 | W.DCSUMMARY ---
Discharge Summary
Discharge Data
Date of Admission: 02/01/25
Date of Discharge: 02/06/25
-
Pending Results: No
Hospital Course
69-year-old male with past medical history of asthma, COPD, diastolic CHF, chronic lower extremity edema, chronic pain, prostate cancer, DVT came to the hospital with sepsis secondary to complicated urinary tract infection with Proteus bacteremia.
Patient was seen by infectious disease throughout hospitalization and was started on IV antibiotics. On discharge patient instructed to continue ceftriaxone through 02/15/2025 per infectious disease recommendation. Patient also had some lower
extremity edema which appeared chronic however patient was treated with diuretics intermittently. Echocardiogram was with normal ejection fraction. Once patient symptoms continue to improve, he was then discharged home on antibiotic with
instructions to follow-up with all his physicians outpatient.
Discharge Plan
-
Patient Disposition: Home with Home Care
Discharge Diagnosis/Procedures: Sepsis secondary to complicated urinary tract infection with Proteus bacteremia
Lower extremity edema
Hyponatremia
Diet: As tolerated
Activity: As tolerated
Driving Restrictions: As prior to admission
Bathing Restrictions: None
Referrals:
Malik Ricketts DO [Active, Infectious Diseases]
Lotus Valente PA-C [Family Provider, Internal Medicine] - in less than 1 week
Prescriptions:
New
ceftriaxone 2 gram Recon Soln
2,000 mg IV Q24H Qty: 0 0RF
acetaminophen 325 mg Tablet
650 mg PO Q6HPRN PRN (Reason: mild pain/ fever>100.5F) Qty: 0 0RF
Continued
ipratropium-albuterol 0.5 mg-3 mg(2.5 mg base)/3 mL Solution For Nebulization
3 ml INHALATION Q4H PRN (Reason: WHEEZING )
budesonide 0.5 mg/2 mL Suspension For Nebulization
0.5 mg inhalation BID Qty: 60 0RF
Rx Instructions:
Budesonide BID scheduled for 1 week then as needed
calcium carbonate 600 mg calcium (1,500 mg) Tablet
600 mg PO DAILY
hydromorphone 4 mg tablet
4 mg PO Q5H
cholecalciferol (vitamin D3) [Vitamin D3] 50 mcg (2,000 unit) Tablet
50 mcg PO DAILY
albuterol sulfate 90 mcg/actuation Hfa Aerosol Inhaler
2 puff inhalation R Q4HPRN PRN (Reason: WHEEZING) Qty: 0 0RF
Discontinued
baclofen 20 mg tablet
20 mg PO TID Qty: 0 0RF
Patient Comments:
patient does not take this medication anymore
Discharge Orders:
Discharge Patient (As Directed); Ordered 02/06/25
Ordered By: Art John
Discharge Date and Time
Discharge Date/Time: 02/06/25 13:31
Print Language: HEBREW
[2025-02-06] MEDS: ROCEPHIN 2000 MG IV (12:51)
[2025-02-06] MEDS: STERILE WATER FOR INJECTION 20 ML IV (12:51)
[2025-02-06 13:08] VITALS: BP 145/74
== END 2025-02-06 13:31 | disposition home or self-care (01) | DRG 872 ==
LOC: 3 WEST ACU 23:59
PROVIDERS: Emergency Medicine; Internal Medicine; ADMITTING PHYSICIAN Internal Medicine; ATTENDING PHYSICIAN Internal Medicine; CONSULT PHYSICIAN Internal Medicine Infectious Disease; EMERGENCY PHYSICIAN Emergency Medicine; FAMILY PHYSICIAN Physician Assistant Medical
DX: A41.9 Sepsis, unspecified organism (principal); N10 Acute pyelonephritis; N39.0 Urinary tract infection, site not specified; I50.32 Chronic diastolic (congestive) heart failure; E87.1 Hypo-osmolality and hyponatremia; N20.0 Calculus of kidney; K21.9 Gastro-esophageal reflux disease without esophagitis; R60.0 Localized edema; B96.4 Proteus (mirabilis) (morganii) as the cause of diseases classified elsewhere; S81.819A Laceration without foreign body, unspecified lower leg, initial encounter; D50.9 Iron deficiency anemia, unspecified; E66.9 Obesity, unspecified; X58.XXXA Exposure to other specified factors, initial encounter; J44.89 Other specified chronic obstructive pulmonary disease; G89.4 Chronic pain syndrome; Z68.29 Body mass index [BMI] 29.0-29.9, adult; Z79.899 Other long term (current) drug therapy; Z85.46 Personal history of malignant neoplasm of prostate; Z87.442 Personal history of urinary calculi; Z87.891 Personal history of nicotine dependence; Z92.3 Personal history of irradiation
CPT/HCPCS: 12001; 71046; 74176; 80048; 80053; 81003; 81015; 83605; 83735; 83880; 83935; 84300; 84443; 85025; 85027; 87040; 87077; 87086; 87154; 87186; 87205; 93005; 93306; 94640; 96374; 99285

== ENCOUNTER 2025-02-15 08:57 | Outpatient (RCR) | payer OTHER, SELFPAY ==
[2025-02-07 08:40] VITALS: BP 133/73
[2025-02-07] MEDS: ROCEPHIN 70 MG IV (08:58)
[2025-02-08 09:15] VITALS: BP 134/58
[2025-02-08] MEDS: ROCEPHIN 70 MG IV (09:31)
[2025-02-09 08:30] VITALS: BP 123/63
[2025-02-09] MEDS: ROCEPHIN 70 MG IV (08:39)
[2025-02-10 08:48] VITALS: BP 125/69
[2025-02-10] MEDS: ROCEPHIN 70 MG IV (08:50)
[2025-02-11 07:14] VITALS: BP 142/91
[2025-02-11] MEDS: ROCEPHIN 70 MG IV (07:20)
[2025-02-12 06:53] VITALS: BP 126/82
[2025-02-12] MEDS: ROCEPHIN 70 MG IV (06:55)
[2025-02-13 08:35] VITALS: BP 115/73
[2025-02-13 08:54] LABS: Hematocrit 34.4 % (39.0-52.0); Hemoglobin 10.8 g/dL (13.0-18.0); Mean Corp Hgb Conc. 31.4 g/dL (33.0-37.0); Mean Corpuscular Volume 96.1 fL (80.0-94.0); Platelet Count 420 10^3/uL (130-400); Red Cell Dist. Width 14.6 % (11.5-14.5)
[2025-02-13] MEDS: ROCEPHIN 70 MG IV (08:59)
[2025-02-13 09:55] LABS: ALT (SGPT) < 10 U/L (0-50); AST (SGOT) 13 U/L (17-59); Albumin 3.1 g/dl (3.5-5.0); Alkaline Phosphatase 146 U/L (38-126); Blood Urea Nitrogen 9 mg/dl (9-20); Calcium 8.8 mg/dl (8.4-10.2); Carbon Dioxide 28 mmol/L (22-30); Chloride 105 mmol/L (98-107); Glucose 93 mg/dl (70-99); Potassium 5.0 mmol/L (3.5-5.1); Sodium 136 mmol/L (135-145); Total Protein 5.8 g/dl (6.3-8.2); eGFR > 60.00
[2025-02-14] MEDS: ROCEPHIN 70 MG IV (08:41)
[2025-02-14 09:03] VITALS: BP 111/95
[2025-02-15 09:12] VITALS: BP 116/71
[2025-02-15] MEDS: ROCEPHIN 70 MG IV (09:18)
== END 2025-02-28 23:59 | disposition home or self-care (01) ==
LOC: OID 08:57
PROVIDERS: ATTENDING PHYSICIAN Internal Medicine Infectious Disease; FAMILY PHYSICIAN Physician Assistant Medical
DX: N39.0 Urinary tract infection, site not specified (principal)
CPT/HCPCS: 36415; 80053; 85025; 96365

== ENCOUNTER → 2025-02-16 11:21 | Outpatient (REF) | payer OTHER, SELFPAY ==
[2025-02-16 17:20] LABS: Urine Character Clear (Clear)
== END ==
LOC: HWLAB 11:21
PROVIDERS: ATTENDING PHYSICIAN Physician Assistant Medical
DX: A41.59 Other Gram-negative sepsis (principal); N12 Tubulo-interstitial nephritis, not specified as acute or chronic; R11.0 Nausea
CPT/HCPCS: 81003; 87086

== ENCOUNTER 2025-03-16 06:34 | Day surgery (SDC) | payer OTHER, SELFPAY | END 2025-03-16 14:38 | disposition home or self-care (01) | LOC: GI 06:34 | PROVIDERS: ATTENDING PHYSICIAN Internal Medicine; FAMILY PHYSICIAN Physician Assistant Medical | DX: Z12.11 Encounter for screening for malignant neoplasm of colon (principal); K64.8 Other hemorrhoids; K55.20 Angiodysplasia of colon without hemorrhage; K57.30 Diverticulosis of large intestine without perforation or abscess without bleeding; D50.9 Iron deficiency anemia, unspecified; R63.4 Abnormal weight loss; K44.9 Diaphragmatic hernia without obstruction or gangrene; R11.0 Nausea; K22.89 Other specified disease of esophagus; D12.2 Benign neoplasm of ascending colon; K20.90 Esophagitis, unspecified without bleeding; K63.5 Polyp of colon; Z98.84 Bariatric surgery status; Z98.0 Intestinal bypass and anastomosis status; Z86.0101 Personal history of adenomatous and serrated colon polyps | CPT/HCPCS: 43255; 45385; 45380; 43239; 88305; 88342 ==

== ENCOUNTER → 2025-03-29 08:58 | Outpatient (REF) | payer OTHER, SELFPAY | LOC: RAD 08:58 | PROVIDERS: ATTENDING PHYSICIAN Internal Medicine; FAMILY PHYSICIAN Physician Assistant Medical | DX: Z98.84 Bariatric surgery status (principal); R11.0 Nausea; R63.0 Anorexia | CPT/HCPCS: 74246; 74248 ==

== ENCOUNTER → 2025-05-01 13:52 | Outpatient (REF) | payer OTHER, SELFPAY | LOC: RAD 13:52 | PROVIDERS: ATTENDING PHYSICIAN Physician Assistant Medical | DX: J41.1 Mucopurulent chronic bronchitis (principal); R06.02 Shortness of breath; J44.9 Chronic obstructive pulmonary disease, unspecified | CPT/HCPCS: 87070; 87077; 87185; 87205 ==

== ENCOUNTER → 2025-05-03 16:37 | Outpatient (REF) | payer OTHER, SELFPAY ==
[2025-05-03 17:47] LABS: Hematocrit 39.0 % (39.0-52.0); Hemoglobin 12.3 g/dL (13.0-18.0); Mean Corp Hgb Conc. 31.5 g/dL (33.0-37.0); Mean Corpuscular Volume 95.4 fL (80.0-94.0); Nucleated Red Blood Cells % 0 % (-); Platelet Count 390 10^3/uL (130-400); Red Cell Dist. Width 13.9 % (11.5-14.5)
[2025-05-03 18:05] LABS: Calcium 9.0 mg/dl (8.4-10.2)
[2025-05-03 18:07] LABS: ALT (SGPT) < 10 U/L (0-50); AST (SGOT) 14 U/L (17-59); Albumin 3.6 g/dl (3.5-5.0); Alkaline Phosphatase 109 U/L (38-126); Blood Urea Nitrogen 9 mg/dl (9-20); Calcium 8.8 mg/dl (8.4-10.2); Carbon Dioxide 27 mmol/L (22-30); Chloride 106 mmol/L (98-107); Glucose 93 mg/dl (70-99); HDL Cholesterol 74 mg/dl; Iron 50 ug/dl (49-181); LDL Cholesterol, Calculated 124 mg/dl; Potassium 4.4 mmol/L (3.5-5.1); Sodium 136 mmol/L (135-145); Total Protein 6.5 g/dl (6.3-8.2); Very Low Density Lipoprotein 14 mg/dl (0-30); eGFR > 60.00
[2025-05-03 18:15] LABS: Urine Character Clear (Clear)
[2025-05-03 18:24] LABS: Urine White Cell 0-2 /HPF (0-5)
[2025-05-03 18:25] LABS: Vitamin D, 25-OH*** 21.0 ng/mL (30-80)
[2025-05-03 18:42] LABS: Ferritin 159.0 ng/ml (17.9-464.0)
[2025-05-03 19:14] LABS: Folate 7.3 ng/ml (2.76-20); Vitamin B12 344 pg/ml (239-931)
== END ==
LOC: REG 16:37
PROVIDERS: ATTENDING PHYSICIAN Internal Medicine; FAMILY PHYSICIAN Physician Assistant Medical; OTHER PHYSICIAN Nurse Practitioner Family; OTHER PHYSICIAN Student in an Organized Health Care Education/Training Program
DX: M81.0 Age-related osteoporosis without current pathological fracture (principal); Z51.81 Encounter for therapeutic drug level monitoring; R30.0 Dysuria; J15.69 Pneumonia due to other Gram-negative bacteria; Z98.84 Bariatric surgery status; E66.01 Morbid (severe) obesity due to excess calories; E66.9 Obesity, unspecified; E78.5 Hyperlipidemia, unspecified; D50.8 Other iron deficiency anemias; E55.9 Vitamin D deficiency, unspecified; K21.9 Gastro-esophageal reflux disease without esophagitis; Z79.899 Other long term (current) drug therapy
CPT/HCPCS: 36415; 80053; 80061; 81003; 81015; 82248; 82306; 82330; 82607; 82728; 82746; 83540; 83970; 84425; 85025; 87040

== ENCOUNTER → 2025-05-05 13:24 | Outpatient (REF) | payer OTHER, SELFPAY ==
[2025-05-05 13:38] VITALS: BP 151/86; BP_SYST 85
[2025-05-05 17:02] VITALS: BP 155/72; BP_SYST 75
== END ==
LOC: RADI 13:24
PROVIDERS: ATTENDING PHYSICIAN Student in an Organized Health Care Education/Training Program
DX: J15.69 Pneumonia due to other Gram-negative bacteria (principal)
CPT/HCPCS: 36573

== ENCOUNTER 2025-05-11 12:22 | Emergency (ER) | payer OTHER, SELFPAY ==
[2025-05-11 12:27] VITALS: BP 171/91
[2025-05-11 13:09] LABS: Hematocrit 38.7 % (39.0-52.0); Hemoglobin 12.6 g/dL (13.0-18.0); Mean Corp Hgb Conc. 32.6 g/dL (33.0-37.0); Mean Corpuscular Volume 90.0 fL (80.0-94.0); Nucleated Red Blood Cells % 0 % (-); Platelet Count 316 10^3/uL (130-400); Red Cell Dist. Width 14.5 % (11.5-14.5)
[2025-05-11 13:09] LABS: Urine Character Clear (Clear)
[2025-05-11 13:17] LABS: Urine Red Blood Cell 0-2 /HPF (0-2); Urine Squamous Cell 16-20 /LPF (Few)
[2025-05-11 13:22] LABS: ALT (SGPT) 19 U/L (0-50); AST (SGOT) 18 U/L (17-59); Albumin 3.6 g/dl (3.5-5.0); Alkaline Phosphatase 89 U/L (38-126); Blood Urea Nitrogen 10 mg/dl (9-20); Calcium 8.0 mg/dl (8.4-10.2); Carbon Dioxide 24 mmol/L (22-30); Chloride 108 mmol/L (98-107); Glucose 85 mg/dl (70-99); Potassium 4.2 mmol/L (3.5-5.1); Sodium 137 mmol/L (135-145); Total Protein 6.4 g/dl (6.3-8.2); eGFR > 60.00
[2025-05-11 14:42] VITALS: BMI 32.4
--- NOTE | 2025-05-11 15:01 | ED.GENMED ---
History of Present Illness
General
Chief Complaint: Breathing Problem
Time Seen by Provider: 05/11/25 14:06
History of Present Illness
History of Present Illness:
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 Sent in
today for persistent cough and fevers as an outpatient. Has not taken any Tylenol or Motrin. Overall feels well except for his cough and fever.
Past History
Past History
ED Past Medical History: Asthma, Cancer (Prostate CA, metastatic cancer found in a lymph node), Hypercholesterolemia and Other (UTI, Ulcers, Bronchitis, Renal calculus, Iron def. anemia, gastric bypass with short gut syndrome, heart failure with
preserved ejection fraction, DVT)
ED Past Surgical History: Appendectomy, Bowel resection, Orthopedic (Right ankle ORIF), Urological (Prostatectomy) and Other (Gastric bypass, Hernia, cataracts)
Social History
Tobacco: Former smoker
Alcohol: Occasional
Drug: None
Personal:
Living: with family
Employment: Other
Family History
Family History: Other
Phy Exam
General Physical Exam
General Presentation: well appearing and no apparent distress
General Skin: warm and dry
General Habitus: normal
General Mental: alert
General Hydration: appears well hydrated
ENT Exam
ENT Exam: EOMI, pharynx normal, neck supple and normocephalic
Eye Exam
Eye Exam: PERRL, cornea clear and conjunctiva normal
Cardiovascular Exam
Cardiovascular Exam: regular rate/rhythm, no edema, no murmur and normal peripheral pulses
Pulmonary Exam
Pulmonary Exam: lungs clear, no respiratory distress, no rales, no crackles, no rhonchi, no stridor, no cough and generalized wheezing
Cough: non productive cough
Gastrointestinal Exam
Gastrointestinal Exam: normal bowel sounds, non tender, soft, no organomegaly, no pulsatile mass and non distended
Neurological Exam
Neurological Exam: alert, oriented x3, no motor deficits and speech normal
Musculoskeletal Exam
Musculoskeletal Exam: full ROM and no edema
Skin Exam
Skin Exam: normal color, warm/dry, no rash and no petechia
Psychiatric Exam
Psychiatric Exam: normal mood/affect
Scores
Heart Failure Risk
Heart Failure Risk Score: Not Applicable
Course
Orders/Labs/Results
Orders:
Orders
05/11/25 12:34
Electrocardiogram (*1) Urgent
Reason for Study: Other
Other Reason for Exam: Possible Sepsis
05/11/25 12:35
EKG- Treatment ONCE
CR Chest - 2 Views Urgent
Comment:
Reason For Exam: suspected infection
05/11/25 12:53
Complete Blood Count/With Diff Urgent
Comprehensive Metabolic Panel Urgent
Lactic Acid Urgent
Blood Culture Urgent
[facility] Source: Blood/Venous
Specimen Description:
Date Specimen was Collected: 05/11/25
Time Specimen was Collected: 12:35
05/11/25 12:57
Urinalysis Reflex To Culture Urgent
Date Specimen was Collected: 05/11/25
Time Specimen was Collected: 12:35
Urine Microscopic Reflex Cult Urgent
Urine Culture Urgent
[facility] Source: U
Specimen Description:
Date Specimen was Collected: 05/11/25
Time Specimen was Collected: 12:35
Abnormal Lab Results
05/11/25 05/11/25
12:53 12:57
WBC 13.5 H 10^3/uL
(4.8-10.8)
RBC 4.30 L 10^6/uL
(4.70-6.10)
Hgb 12.6 L g/dL
(13.0-18.0)
Hct 38.7 L %
(39.0-52.0)
MCHC 32.6 L g/dL
(33.0-37.0)
Abs Immat Gran (auto) 0.2 H 10^3/uL
(0-0.05)
Absolute Neuts (auto) 10.3 H 10^3/uL
(1.4-6.5)
Absolute Monos (auto) 1.2 H 10^3/uL
(0.1-0.6)
Immature Gran % 1.8 H %
(0-0.5)
Neutrophils % 76.8 H %
(42.2-75.2)
Lymphocytes % 10.3 L %
(20.5-51.1)
Chloride 108 H mmol/L
(98-107)
Creatinine 0.6 L mg/dL
(0.7-1.3)
Calcium 8.0 L mg/dl
(8.4-10.2)
Urine Ketones 1+ A
(Negative)
Leukocyte Esterase Rfl 1+ A
(Negative)
Urine Bacteria (Reflex) Few A
(Negative)
Urine Albumin (Reflex) 3+ A
(Neg - Trace)
05/11/25 12:53
05/11/25 12:53
Vital Signs
Initial and Last Documented VS:
Initial Vital Signs
Temp Pulse Resp BP Pulse Ox
36.6 C 84 16 171/91 96
05/11/25 12:27 05/11/25 12:27 05/11/25 12:27 05/11/25 12:27 05/11/25 12:27
Last Documented Vital Signs
Temp Pulse Resp BP Pulse Ox
36.6 C 84 16 171/91 96
05/11/25 12:27 05/11/25 12:27 05/11/25 12:27 05/11/25 12:27 05/11/25 12:27
MDM/Problems Addressed
Differential Diagnosis Includes:
Clinically patient appears well. Chest x-ray my review shows right lower lobe infiltrate. Formal radiology read is still pending. CBC with mild leukocytosis of 13.5. Patient is on room air and afebrile. Called and discussed case with his PCP
Lotus Valente PA-C who states that he was sent in by infectious disease and pulmonology as they felt he may be failing outpatient management. I then discussed the case with ID, neurology and his PCP via [facility] text. Given that he appears well
here in the ER and is on room air with no fever they will extend his outpatient course of antibiotics to 14 days of ceftriaxone. No need to add a second agent. Chest CT not obtained as it will not impact management at this point. Lotus Valente
will write the prescription to extend antibiotics. He will follow-up with Lotus in the office and ID and pulmonology as directed by her. I offered patient an albuterol neb treatment in the ER as he is having bibasilar wheezes but he prefers to be
discharged and use his home nebulizer. Return precautions discussed. I did discuss with patient if he fails this course of ceftriaxone he may require admission for different IV antibiotics.
*Pulse Oximetry
SaO2: 96
Oxygen Mode of Delivery: Room air
Patient hypoxic: no
*Critical Care Note
Total Time (30-74mins, 75-104mins- exclusive of procedures): Not Applicable
ED Attending Note
-
Portions of this chart may have been created with voice recognition software.� Occasional wrong word or��sound alike� substitutions may have occurred due to the inherent limitations of voice recognition software.
Discharge Plan
Departure
Prescriptions:
No Action
ipratropium-albuterol 0.5 mg-3 mg(2.5 mg base)/3 mL Solution For Nebulization
3 ml INHALATION Q4H PRN (Reason: WHEEZING )
calcium carbonate 600 mg calcium (1,500 mg) Tablet
600 mg PO DAILY
cholecalciferol (vitamin D3) [Vitamin D3] 50 mcg (2,000 unit) Tablet
50 mcg PO DAILY
albuterol sulfate 90 mcg/actuation Hfa Aerosol Inhaler
2 puff inhalation R Q4HPRN PRN (Reason: WHEEZING) Qty: 0 0RF
ceftriaxone 2 gram Recon Soln
2,000 mg IV Q24H Qty: 0 0RF
acetaminophen 325 mg Tablet
650 mg PO Q6HPRN PRN (Reason: mild pain/ fever>100.5F) Qty: 0 0RF
hydrocodone-acetaminophen 10-325 mg Tablet
1 tab PO Q6H PRN (Reason: pain)
Probiotic 20 billion cell Capsule
20,000 mmu cells PO DAILY
budesonide 0.5 mg/2 mL suspension for nebulization
0.5 mg inhalation BID
Rx Instructions:
Budesonide BID scheduled for 1 week then as needed
Movantik 25 mg Tablet
25 mg PO HS
Prolia 60 mg/mL Syringe
60 mg SC .[id number]
Referrals:
Lotus Valente PA-C [Family Provider, Internal Medicine]
Interventions
Interventions:
*Risk Screen - Suicide Last Done: 05/11/25 12:27
*General Assessment Last Done: 05/11/25 14:43
*Neglect/Abuse Screening Last Done: 05/11/25 12:27
*ED COVID-19 Vaccine History Last Done: 05/11/25 14:43
*ED Influenza Vaccine History Last Done: 05/11/25 14:43
[facility] Fall Risk Assessment Tool Last Done: 05/11/25 14:42
ED- Cardiac Assessment Last Done: 05/11/25 14:45
ED- Pulmonary Assessment Last Done: 05/11/25 14:45
Discharge Date and Time
Print Language: KHMER
== END 2025-05-11 15:37 | disposition home or self-care (01) ==
LOC: EMR 12:22
PROVIDERS: Emergency Medicine; EMERGENCY PHYSICIAN Emergency Medicine; FAMILY PHYSICIAN Physician Assistant Medical
DX: J18.9 Pneumonia, unspecified organism (principal); Z98.84 Bariatric surgery status; E78.00 Pure hypercholesterolemia, unspecified; J45.909 Unspecified asthma, uncomplicated; I50.32 Chronic diastolic (congestive) heart failure; Z85.46 Personal history of malignant neoplasm of prostate; Z90.79 Acquired absence of other genital organ(s); Z85.79 Personal history of other malignant neoplasms of lymphoid, hematopoietic and related tissues; Z87.891 Personal history of nicotine dependence; Z86.718 Personal history of other venous thrombosis and embolism
CPT/HCPCS: 99284; 71046; 80053; 81003; 81015; 83605; 85025; 87040; 87086; 93005

== ENCOUNTER → 2025-05-24 07:48 | Outpatient (REF) | payer OTHER, SELFPAY | LOC: REG 07:48 | PROVIDERS: ATTENDING PHYSICIAN Internal Medicine Critical Care Medicine; FAMILY PHYSICIAN Physician Assistant Medical | DX: J41.1 Mucopurulent chronic bronchitis (principal) | CPT/HCPCS: 87205 ==

== ENCOUNTER 2025-05-29 10:10 | Outpatient (RCR) | payer OTHER, SELFPAY ==
[2025-05-05] MEDS: SOLU-MEDROL PF 52 MG IV (17:15)
[2025-05-05] MEDS: ROCEPHIN 70 MG IV (17:28)
[2025-05-05 17:37] VITALS: BP 150/86
[2025-05-06 07:12] VITALS: BP 142/95
[2025-05-06] MEDS: SOLU-MEDROL PF 52 MG IV (07:17)
[2025-05-06] MEDS: ROCEPHIN 70 MG IV (07:32)
[2025-05-07 07:10] VITALS: BP 144/83
[2025-05-07] MEDS: SOLU-MEDROL PF 52 MG IV (07:16)
[2025-05-07] MEDS: ROCEPHIN 70 MG IV (07:31)
[2025-05-08 08:40] VITALS: BP 149/82
[2025-05-08] MEDS: SOLU-MEDROL PF 52 MG IV (08:49)
[2025-05-08] MEDS: ROCEPHIN 70 MG IV (09:10)
[2025-05-09 09:30] VITALS: BP 145/74
[2025-05-09] MEDS: SOLU-MEDROL PF 52 MG IV (09:35)
[2025-05-09] MEDS: ROCEPHIN 70 MG IV (09:53)
[2025-05-10 08:54] VITALS: BP 151/77
[2025-05-10] MEDS: ROCEPHIN 70 MG IV (09:03)
[2025-05-11 08:20] VITALS: BP 160/76
[2025-05-11] MEDS: ROCEPHIN 70 MG IV (08:40)
[2025-05-12 09:29] VITALS: BP 124/68
[2025-05-12] MEDS: CATHFLO/ACTIVASE 2 MG INTRACATH (10:05)
[2025-05-12] MEDS: SOLU-MEDROL PF 52 MG IV (10:29)
[2025-05-12] MEDS: ROCEPHIN 70 MG IV (10:43)
[2025-05-13 07:00] VITALS: BP 143/97
[2025-05-13] MEDS: SOLU-MEDROL PF 52 MG IV (07:28)
[2025-05-13] MEDS: ROCEPHIN 70 MG IV (07:45)
[2025-05-14 07:11] VITALS: BP 143/85
[2025-05-14] MEDS: SOLU-MEDROL PF 52 MG IV (07:15)
[2025-05-14] MEDS: ROCEPHIN 70 MG IV (07:48)
[2025-05-15 08:15] VITALS: BP 156/78
[2025-05-15] MEDS: SOLU-MEDROL PF 52 MG IV (08:31)
[2025-05-15] MEDS: ROCEPHIN 70 MG IV (08:44)
[2025-05-16 08:15] VITALS: BP 138/76
[2025-05-16] MEDS: SOLU-MEDROL PF 52 MG IV (08:44)
[2025-05-16] MEDS: ROCEPHIN 70 MG IV (09:00)
[2025-05-17 08:15] VITALS: BP 153/86
[2025-05-17] MEDS: SOLU-MEDROL PF 52 MG IV (08:18)
[2025-05-17] MEDS: ROCEPHIN 70 MG IV (08:31)
[2025-05-18 09:55] VITALS: BP 139/74
[2025-05-18] MEDS: SOLU-MEDROL PF 52 MG IV (10:08)
[2025-05-18] MEDS: ROCEPHIN 70 MG IV (10:19)
[2025-05-20 07:33] VITALS: BP 146/87
[2025-05-20] MEDS: SOLU-MEDROL PF 51.5 MG IV (07:39)
[2025-05-21 07:21] VITALS: BP 127/78
[2025-05-21] MEDS: SOLU-MEDROL PF 51.5 MG IV (07:27)
[2025-05-22 10:40] VITALS: BP 143/80
[2025-05-22] MEDS: CATHFLO/ACTIVASE 2 MG INTRACATH (10:52)
--- NOTE | 2025-05-22 11:09 | PTCARENOTE ---
1052: right dl picc line flushing with mild difficulty, but also noted to have no blood return, cath-melinda ordered and given, will follow
[2025-05-22] MEDS: SOLU-MEDROL PF 51.5 MG IV (11:24)
--- NOTE | 2025-05-22 12:52 | PTCARENOTE ---
1130+blood return noted from right dl picc line, flushing well, will follow
[2025-05-23] MEDS: SOLU-MEDROL PF 51.5 MG IV (08:08)
[2025-05-23 08:12] VITALS: BP 159/89
[2025-05-24] MEDS: SOLU-MEDROL PF 51.5 MG IV (08:23)
[2025-05-24 08:26] VITALS: BP 134/68
[2025-05-25 06:57] VITALS: BP 158/83
[2025-05-25] MEDS: SOLU-MEDROL PF 51 MG IV (07:09)
[2025-05-26 07:50] VITALS: BP 157/70
[2025-05-26] MEDS: SOLU-MEDROL PF 51 MG IV (08:04)
[2025-05-27 07:10] VITALS: BP 132/74
[2025-05-27] MEDS: SOLU-MEDROL PF 51 MG IV (07:26)
[2025-05-28 07:11] VITALS: BP 154/74
[2025-05-28] MEDS: SOLU-MEDROL PF 51 MG IV (07:18)
[2025-05-29] MEDS: SOLU-MEDROL PF 51 MG IV (10:35)
[2025-05-29 10:37] VITALS: BP 111/85
== END 2025-05-31 23:59 | disposition home or self-care (01) ==
LOC: OID 10:10
PROVIDERS: ATTENDING PHYSICIAN Student in an Organized Health Care Education/Training Program
DX: J15.69 Pneumonia due to other Gram-negative bacteria (principal); T82.868A Thrombosis due to vascular prosthetic devices, implants and grafts, initial encounter; R63.4 Abnormal weight loss; Y83.1 Surgical operation with implant of artificial internal device as the cause of abnormal reaction of the patient, or of later complication, without mention of misadventure at the time of the procedure; Z98.84 Bariatric surgery status
CPT/HCPCS: 36415 ×2; 96365; 96367; 96374; 96375; 96411; J2997

== ENCOUNTER 2025-05-30 07:25 | Emergency (ER) | payer OTHER, SELFPAY ==
[2025-05-30 07:25] VITALS: BMI 30.9
[2025-05-30 07:34] VITALS: BP 146/98
[2025-05-30 09:02] VITALS: BP 125/64
--- NOTE | 2025-05-30 09:15 | ED.GENMED ---
History of Present Illness
General
Chief Complaint: Pneumonia Symptoms
Source: patient
Exam Limitations: none
Time Seen by Provider: 05/30/25 09:02
History of Present Illness
History of Present Illness:
70-year-old male presents for evaluation for increased symptoms of cough chest tightness fatigue and intermittent fever. 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 He has a
PICC line and received long-term Rocephin. He finished the antibiotics about a week and a half ago. He just finished steroids yesterday. He was due to have his PICC line removed however given his new or and ongoing symptoms he feels as though he
may need another antibiotic. It has been discussed with him in the past that he may be building up of resistance to the Rocephin. He notes a temperature at home as high as 10 1 at night with associated sweats. He now notes new onset nasal
congestion and postnasal drip with runny nose. No vomiting. He has a history of a sliding hiatal hernia with reflux and aspiration. He has been following with pulmonology as well as infectious disease. No other complaints
Past History
Past History
ED Past Medical History: Asthma, Cancer (Prostate CA, metastatic cancer found in a lymph node), Hypercholesterolemia and Other (UTI, Ulcers, Bronchitis, Renal calculus, Iron def. anemia, gastric bypass with short gut syndrome, heart failure with
preserved ejection fraction, DVT)
ED Past Surgical History: Appendectomy, Bowel resection, Orthopedic (Right ankle ORIF), Urological (Prostatectomy) and Other (Gastric bypass, Hernia, cataracts)
Social History
Tobacco: Former smoker
Alcohol: Occasional
Drug: None
Personal:
Living: with family
Employment: Other
Family History
Family History: Other
Phy Exam
Physical Exam
Physical Exam:
General: Well-appearing male no acute respiratory distress
HEENT: Normal cephalic atraumatic
Heart: RRR, no murmus
Lungs; coarse bilaterally
Extremities: No cyanosis but pitting edema is noted
Skin: warm, no rash
Course
Orders/Labs/Results
Orders:
Orders
05/30/25 09:14
CR Chest - 2 Views Urgent
Comment:
Reason For Exam: cough
05/30/25 09:22
COVID-19 Antigen Urgent
Source: Nasal Swab
Influenza A+B Rapid Molecular Urgent
[facility] Source: Nasal Swab
Specimen Description:
05/30/25 09:50
Complete Blood Count/With Diff Urgent
05/30/25 09:51
Comprehensive Metabolic Panel Urgent
05/30/25 10:52
CT Chest W/o Iv Contrast Urgent
Comment:
Reason For Exam: cough, fever
05/30/25 11:19
Blood Culture Q30M
[facility] Source: Blood/Venous
Specimen Description:
Blood Culture Q30M
[facility] Source: Blood/Venous
Specimen Description:
Abnormal Lab Results
05/30/25 05/30/25
09:50 09:51
WBC 12.8 H 10^3/uL
(4.8-10.8)
RBC 3.97 L 10^6/uL
(4.70-6.10)
Hgb 11.8 L g/dL
(13.0-18.0)
Hct 36.2 L %
(39.0-52.0)
MCHC 32.6 L g/dL
(33.0-37.0)
RDW 15.0 H %
(11.5-14.5)
Abs Immat Gran (auto) 0.2 H 10^3/uL
(0-0.05)
Absolute Neuts (auto) 10.2 H 10^3/uL
(1.4-6.5)
Absolute Monos (auto) 0.9 H 10^3/uL
(0.1-0.6)
Immature Gran % 1.2 H %
(0-0.5)
Neutrophils % 79.8 H %
(42.2-75.2)
Lymphocytes % 10.6 L %
(20.5-51.1)
Sodium 134 L mmol/L
(135-145)
Creatinine 0.5 L mg/dL
(0.7-1.3)
Calcium 8.1 L mg/dl
(8.4-10.2)
AST 16 L U/L
(17-59)
Total Protein 5.9 L g/dl
(6.3-8.2)
Albumin 3.4 L g/dl
(3.5-5.0)
05/30/25 09:50
05/30/25 09:51
Vital Signs
Initial and Last Documented VS:
Initial Vital Signs
Temp Pulse Resp BP Pulse Ox
98.5 F 84 20 146/98 97
05/30/25 07:34 05/30/25 07:34 05/30/25 07:34 05/30/25 07:34 05/30/25 07:34
Last Documented Vital Signs
Temp Pulse Resp BP Pulse Ox
97.9 F 68 17 125/64 97
05/30/25 08:00 05/30/25 12:15 05/30/25 12:15 05/30/25 09:02 05/30/25 12:15
MDM/Problems Addressed
Differential Diagnosis Includes:
Patient with increased cough chest congestion shortness of breath and fever. See above for recent history. Will repeat x-ray of chest today and test for COVID and flu and check labs. Once I have this information I will contact his disease for
recommendations
*Pulse Oximetry
SaO2: 98
Oxygen Mode of Delivery: Room air
Patient hypoxic: no
*Critical Care Note
Total Time (30-74mins, 75-104mins- exclusive of procedures): Not Applicable
Update Note
Update Note:
Patient remains afebrile with stable vital signs chest x-ray was clear COVID and flu are negative. Had multiple lengthy discussions between infectious disease and pulmonology and both of them at the same time. CT was recommended at this chest to
evaluate for any occult infection. This was performed and is negative. Blood cultures were drawn. 1 set was drawn through the PICC line. Given the absence of any infection at this point it is recommended by both infectious disease and
pulmonology that patient does not receive any more antibiotics. They are recommending that his PICC line get discontinued. Vascular access team was notified for this to happen. Patient will be discharged with follow-up with pulmonology
ED Attending Note
-
Portions of this chart may have been created with voice recognition software.� Occasional wrong word or��sound alike� substitutions may have occurred due to the inherent limitations of voice recognition software.
Discharge Plan
Departure
Patient Disposition: Home (Routine Discharge)
Date of Disposition: 05/30/25
Time of Disposition: 13:48
Patient with high blood pressure during this ER visit?: No
Discharge Problem:
Cough
Prescriptions:
No Action
ipratropium-albuterol 0.5 mg-3 mg(2.5 mg base)/3 mL Solution For Nebulization
3 ml INHALATION Q4H PRN (Reason: WHEEZING )
calcium carbonate 600 mg calcium (1,500 mg) Tablet
600 mg PO DAILY
cholecalciferol (vitamin D3) [Vitamin D3] 50 mcg (2,000 unit) Tablet
50 mcg PO DAILY
albuterol sulfate 90 mcg/actuation Hfa Aerosol Inhaler
2 puff inhalation R Q4HPRN PRN (Reason: WHEEZING) Qty: 0 0RF
acetaminophen 325 mg Tablet
650 mg PO Q6HPRN PRN (Reason: mild pain/ fever>100.5F) Qty: 0 0RF
hydrocodone-acetaminophen 10-325 mg Tablet
1 tab PO Q6H PRN (Reason: pain)
Probiotic 20 billion cell Capsule
20,000 mmu cells PO DAILY
budesonide 0.5 mg/2 mL suspension for nebulization
0.5 mg inhalation BID
Rx Instructions:
Budesonide BID scheduled for 1 week then as needed
Movantik 25 mg Tablet
25 mg PO HS
Prolia 60 mg/mL Syringe
60 mg SC .[id number]
sucralfate [Carafate] 100 mg/mL Suspension
1 ml PO BID
Referrals:
Lotus Valente PA-C [Family Provider, Internal Medicine]
Activity Restrictions/Additional Instructions:
Please return here for worsening symptoms otherwise follow-up with pulmonology
Interventions
Interventions:
*Neglect/Abuse Screening Last Done: 05/30/25 07:34
*ED Influenza Vaccine History Last Done: 05/30/25 09:38
[facility] Fall Risk Assessment Tool Last Done: 05/30/25 07:25
*Risk Screen - Suicide (C-SSRS) Last Done: 05/30/25 07:34
ED- Cardiac Assessment Last Done: 05/30/25 09:39
ED- Pulmonary Assessment Last Done: 05/30/25 09:34
Discharge Date and Time
Print Language: SLOVAK
[2025-05-30 09:58] LABS: Hematocrit 36.2 % (39.0-52.0); Hemoglobin 11.8 g/dL (13.0-18.0); Mean Corp Hgb Conc. 32.6 g/dL (33.0-37.0); Mean Corpuscular Volume 91.2 fL (80.0-94.0); Nucleated Red Blood Cells % 0 % (-); Platelet Count 198 10^3/uL (130-400); Red Cell Dist. Width 15.0 % (11.5-14.5)
[2025-05-30 10:07] LABS: COVID-19 Antigen Negative (Negative)
[2025-05-30 10:16] LABS: ALT (SGPT) 13 U/L (0-50); AST (SGOT) 16 U/L (17-59); Albumin 3.4 g/dl (3.5-5.0); Alkaline Phosphatase 63 U/L (38-126); Blood Urea Nitrogen 13 mg/dl (9-20); Calcium 8.1 mg/dl (8.4-10.2); Carbon Dioxide 26 mmol/L (22-30); Chloride 106 mmol/L (98-107); Estimated Creatinine Clearance > 125 ml/min; Glucose 74 mg/dl (70-99); Potassium 4.4 mmol/L (3.5-5.1); Sodium 134 mmol/L (135-145); Total Protein 5.9 g/dl (6.3-8.2); eGFR > 60.00
== END 2025-05-30 14:28 | disposition home or self-care (01) ==
LOC: EMR 07:25
PROVIDERS: Physician Assistant; EMERGENCY PHYSICIAN Emergency Medicine; FAMILY PHYSICIAN Physician Assistant Medical
DX: R05.9 Cough, unspecified (principal); J45.909 Unspecified asthma, uncomplicated; E78.00 Pure hypercholesterolemia, unspecified; I50.32 Chronic diastolic (congestive) heart failure; Z86.718 Personal history of other venous thrombosis and embolism; Z87.891 Personal history of nicotine dependence; Z98.84 Bariatric surgery status; Z11.52 Encounter for screening for COVID-19
CPT/HCPCS: 99284; 71046; 71250; 80053; 85025; 87040; 87502; 87811